=== PATIENT | female | born 1985 | race Caucasian/White ===

== ENCOUNTER 2021-06-22 18:51 | Emergency (ER) | payer OTHER, SELFPAY ==
[2021-06-22 19:03] VITALS: BP 125/79; PULSE 114; RESP 16; TEMP 37; O2SAT 100
[2021-06-22 19:26] VITALS: BP 125/79; PULSE 114; RESP 16; TEMP 37; O2SAT 100
--- NOTE | 2021-06-22 19:36 | ED.DENTAL ---
HPI - Dental/Oral General Chief complaint: Dental/Oral Stated complaint: tooth pain Time Seen by Provider: 06/22/21 19:36 Source: patient, RN notes reviewed and old records reviewed Mode of arrival: ambulatory Limitations: no limitations Related Data Home Medications Medication Instructions Recorded Confirmed conjugated estrogens 0.45 mg tablet 0.45 mg PO DAILY 04/28/21 04/28/21 diphenhydramine HCl 25 mg capsule 25 mg PO BID PRN cap 04/28/21 04/28/21 infliximab 100 mg intravenous IV 04/28/21 04/28/21 solution leflunomide 20 mg tablet 20 mg PO DAILY 04/28/21 04/28/21 meloxicam 15 mg tablet 15 mg PO DAILY 04/28/21 04/28/21 sulfasalazine 500 mg tablet 0.5 g PO BID tablet 04/28/21 04/28/21 Allergies Allergy/AdvReac Type Severity Reaction Status Date / Time lanolin Allergy Unknown Unknown Verified 06/22/21 19:24 latex Allergy Unknown Unknown Verified 06/22/21 19:24 methocarbamol Allergy Unknown Swelling Verified 06/22/21 19:24 tramadol Allergy Unknown Swelling Verified 06/22/21 19:24 amoxicillin Allergy Rash Verified 06/22/21 19:26 sumatriptan [From Imitrex] Allergy Dyspnea / Verified 06/22/21 19:26 SOB PMFSH Social History Social History Smoking status: Never smoker Alcohol intake: never Course Vital Signs Vital signs: Vital Signs Temperature 37.0 C 06/22/21 19:03 Pulse Rate 114 H 06/22/21 19:03 Respiratory Rate 16 06/22/21 19:03 Blood Pressure 125/79 06/22/21 19:03 Pulse Oximetry 100 06/22/21 19:03 Temperature 37.0 C 06/22/21 19:26 Pulse Rate 114 H 06/22/21 19:26 Respiratory Rate 16 06/22/21 19:26 Blood Pressure 125/79 06/22/21 19:26 Pulse Oximetry 100 06/22/21 19:26 Discharge Plan Discharge Prescriptions: No Action meloxicam 15 mg tablet 15 mg PO DAILY RF: 0 leflunomide 20 mg tablet 20 mg PO DAILY RF: 0 diphenhydramine HCl [Benadryl] 25 mg capsule 25 mg PO BID PRNRF: 0 Premarin 0.45 mg tablet 0.45 mg PO DAILY RF: 0 sulfasalazine 500 mg tablet 0.5 g PO BID RF: 0 Remicade 100 mg recon soln IV RF: 0 hydrocodone-acetaminophen 10-325 mg tablet 1 tablet PO Q6H PRN (Reason: pain (scale score 7-10)) Qty: 30 RF: 0 topiramate 25 mg tablet See Rx Instructions .ROUTE .COMPLEX Qty: 60 RF: 3
--- NOTE | 2021-06-22 19:41 | ED.GENADULT ---
HPI - General Adult General Chief complaint: Dental/Oral Stated complaint: tooth pain Time Seen by Provider: 06/22/21 19:36 Source: patient, RN notes reviewed and old records reviewed Mode of arrival: ambulatory Limitations: no limitations History of Present Illness HPI narrative: 35 year old female who presents to [facility] care with complaints of taking Amoxicillin for 5 to 6 days before [place] then about 2 days after Rickie she develop white spots on her tongue. Patient reports that her tongue is very sore especially medial aspect and she is having difficulty with eating and drinking due to discomfort. Patient denies any other ill symptoms denies fevers chills or sweats or any body aches has not had COVID or Flu vaccinations. Denies any dental pain. MD complaint: tongue pain and white patches Related Data Home Medications Medication Instructions Recorded Confirmed conjugated estrogens 0.45 mg tablet 0.45 mg PO DAILY 04/28/21 06/22/21 diphenhydramine HCl 25 mg capsule 25 mg PO BID PRN cap 04/28/21 06/22/21 infliximab 100 mg intravenous See Rx Instructions .ROUTE .COMPLEX 04/28/21 04/28/21 solution leflunomide 20 mg tablet 20 mg PO DAILY 04/28/21 06/22/21 meloxicam 15 mg tablet 15 mg PO DAILY 04/28/21 06/22/21 sulfasalazine 500 mg tablet 0.5 g PO BID tablet 04/28/21 06/22/21 Allergies Allergy/AdvReac Type Severity Reaction Status Date / Time lanolin Allergy Unknown Unknown Verified 06/22/21 19:24 latex Allergy Unknown Unknown Verified 06/22/21 19:24 methocarbamol Allergy Unknown Swelling Verified 06/22/21 19:24 tramadol Allergy Unknown Swelling Verified 06/22/21 19:24 amoxicillin Allergy Rash Verified 06/22/21 19:26 sumatriptan [From Imitrex] Allergy Dyspnea / Verified 06/22/21 19:26 SOB Review of Systems Review of Systems: CONSTITUTIONAL: Denies fever, chills, or sweats. EYES: Denies visual changes, redness, or discharge. ENT: Denies rhinorrhea, congestion, sore throat, or otalgia.positive for red tongue with white patches and pain. CARDIOVASCULAR: Denies chest pain, palpitations, or edema. RESPIRATORY: Denies cough or dyspnea. GASTROINTESTINAL: Denies abdominal pain, nausea, vomiting, or diarrhea. GENITOURINARY: Denies dysuria or hematuria. SKIN: Denies rash or itching. MUSCULOSKELETAL: Denies back pain,chronic joint pain, or myalgia. NEUROLOGIC: Denies headache, numbness, or weakness. PSYCHIATRIC: Denies anxiety or depression. All systems reviewed & are unremarkable except as noted in HPI and below PMFSH Past Medical History Medical History (Updated 06/25/21 @ 08:08 by Elise Vora NP) Rheumatoid arthritis Surgical History Surgical History (Updated 06/25/21 @ 08:09 by Elise Vora NP) History of hysterectomy S/p bilateral carpal tunnel release Social History Social History (Updated 06/25/21 @ 08:10 by Elise Vora NP) Smoking status: Never smoker Alcohol intake: never Substance use type: opiates Last use: pain control Living arrangements: with family Gender identity (if verbalized by the patient): Female Comments At time of signature, agree with nursing past medical, surgical, social and family history. There is no relevant family history pertinent to the presenting complaint Exam Narrative: GENERAL: Well-appearing, well-nourished, and in no acute distress. HEAD: Normocephalic, atraumatic. EYES: PERRLA and EOMI. ENT: Nares clear, no rhinorrhea or epistaxis. Mucous membranes moist.TM's normal with good light reflex, tongue red with white plaques noted no tonsil swelling or tonsils lesions or exudates NECK: Supple.no lymphadenopathy CHEST: Clear to auscultation. No respiratory distress.SAO2 100% on room air HEART: Regular rate and rhythm. No murmur heard. Normal peripheral pulses. ABDOMEN: Soft, nontender, nondistended, normal active bowel sounds. EXTREMITIES: Normal range of motion. No edema. SKIN: Warm, dry, no rash. NEURO: No focal deficits. Alert and vee
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
== END 2021-06-22 19:55 | disposition home or self-care (01) ==
PROVIDERS: Emergency Provider Registered Nurse; PCP Family Medicine
DX: B37.0 Candidal stomatitis (principal); M06.9 Rheumatoid arthritis, unspecified
CPT/HCPCS: 99213; G0463

== ENCOUNTER 2021-12-14 14:05 | Emergency (ER) | payer OTHER, SELFPAY ==
--- NOTE | ~2021-12-14 | XR_ITS ---
EXAM: XR hand RT min 3V DATE: 12/14/2021 14:47 HISTORY: FELL FORWARD X 3 DAYS AGO. HYPEREXTENDED. PAIN MEDIALLY. . COMPARISON: None available. FINDINGS: Normal mineralization. Small ossific fragments adjacent to the radial aspect of the proxim al first phalange. Dislocation of the first MCP with medial displacement of the first phalange. No ly tic or blastic lesion. Joint spaces and physes are maintained. No erosion or periosteal change. Soft tissues within normal limits. IMPRESSION: Medially displaced right first MCP dislocation. Osseous fragments adjacent to the first M CP may reflect small avulsion fractures versus chronic degenerative change. Reviewed, dictated and finalized at location [facility]. IMPRESSION: Medially displaced right first MCP dislocation. Osseous fragments a djacent to the first MCP may reflect small avulsion fractures versus chronic de generative change.
[2021-12-14 14:20] VITALS: BP 113/82; PULSE 92; RESP 14; TEMP 37.1; O2SAT 99
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
== END 2021-12-14 15:20 | disposition home or self-care (01) ==
PROVIDERS: Emergency Provider Nurse Practitioner
DX: S66.911A Strain of unspecified muscle, fascia and tendon at wrist and hand level, right hand, initial encounter (principal); W01.0XXA Fall on same level from slipping, tripping and stumbling without subsequent striking against object, initial encounter; S62.511A Displaced fracture of proximal phalanx of right thumb, initial encounter for closed fracture; M79.7 Fibromyalgia; M06.9 Rheumatoid arthritis, unspecified
CPT/HCPCS: 29130; 73130; 99214; G0463

== ENCOUNTER 2022-02-14 13:26 | Emergency (ER) | payer OTHER, SELFPAY ==
--- NOTE | 2022-02-14 13:40 | ED.DENTAL ---
HPI - Dental/Oral General Chief complaint: Dental/Oral Stated complaint: Toothache Time Seen by Provider: 02/14/22 13:40 Source: patient, RN notes reviewed and old records reviewed Mode of arrival: ambulatory Limitations: no limitations History of Present Illness HPI Narrative: 36-year-old female presents to the [facility] with right upper canine pain. States that it was worked on yesterday. Cannot take ibuprofen due to being on the meloxicam. Is allergic to every antibiotic except for azithromycin. Patient states that she needs to have of her teeth removed Related Data Home Medications Medication Instructions Recorded Confirmed infliximab 100 mg intravenous See Rx Instructions .Route .COMPLEX 04/28/21 02/14/22 solution (Remicade) leflunomide 20 mg tablet 20 mg PO DAILY 04/28/21 02/14/22 meloxicam 15 mg tablet 15 mg PO DAILY 04/28/21 02/14/22 conjugated estrogens 0.45 mg See Rx Instructions .Route .COMPLEX 12/14/21 02/14/22 tablet (Premarin) ibuprofen 800 mg tablet mg 02/14/22 02/14/22 Allergies Allergy/AdvReac Type Severity Reaction Status Date / Time lanolin Allergy Unknown Unknown Verified 02/14/22 13:53 latex Allergy Unknown Unknown Verified 02/14/22 13:53 methocarbamol Allergy Unknown Swelling Verified 02/14/22 13:53 tramadol Allergy Unknown Swelling Verified 02/14/22 13:53 amoxicillin Allergy Rash Verified 02/14/22 13:53 sumatriptan [From Imitrex] Allergy Dyspnea / Verified 02/14/22 13:53 SOB clindamycin AdvReac Diarrhea Verified 02/14/22 13:57 Review of Systems Review of Systems: All systems reviewed & are unremarkable except as noted in HPI and below Constitutional: Constitutional: Reports no additional constitutional complaints, Denies chills and Denies fever(s) Eyes: Eyes: Reports no additional eye complaints ENT: Reports as per HPI Cardiovascular: Cardiovascular: Reports no additional cardiovascular complaints Respiratory: Respiratory: Reports no additional respiratory complaints Gastrointestinal: Gastrointestinal: Reports no additional gastrointestinal complaints Musculoskeletal: Musculoskeletal: Reports no additional musculoskeletal complaints Integumentary/Breasts: Skin/Breast: Reports system reviewed and no additional complaints, except as docu Neurologic: Reports system reviewed and no additional complaints, except as documented Psychiatric: Psychiatric: Reports no additional psychiatric complaints Allergic/Immunologic: Allergic/Immunologic: Reports no additional allergic/immunologic complaints PMFSH Past Medical History Medical History Fibromyalgia Hand strain Rheumatoid arthritis Thumb dislocation Surgical History Surgical History History of hysterectomy S/p bilateral carpal tunnel release Family History Family History Father Family history non-contributory Social History Social History Smoking status: Never smoker Alcohol intake: never Last use: pain control Gender identity (if verbalized by the patient): Female Spiritual care concerns: No Comments At the time of my signature, I reviewed and agree with the nursing past medical, surgical, social, and family history. There is no relevant family history pertinent to the patient complaint. Exam Const: General: healthy appearing, no acute distress and alert Nutritional Appearance: well nourished Orientation/consciousness: patient oriented x3 Limitations: no limitations HENMT: Head: normal to inspection Ears: external ears normal, TM's normal bilaterally and EAC's normal General nose exam: Normal external nose present Face and sinus: normal facial exam Mouth: Yes lip normal and Yes moist mucous membranes Teeth and gingiva: abnormal tooth and associated gingiva (Left upper canine s
[2022-02-14 13:41] VITALS: BP 152/92; PULSE 92; RESP 18; TEMP 36.4; O2SAT 99
== END 2022-02-14 13:59 | disposition home or self-care (01) ==
PROVIDERS: Emergency Provider Nurse Practitioner
DX: K08.89 Other specified disorders of teeth and supporting structures (principal); M79.7 Fibromyalgia; M06.9 Rheumatoid arthritis, unspecified
CPT/HCPCS: 99213; G0463

== ENCOUNTER 2022-04-26 11:44 | Emergency (ER) | payer OTHER, SELFPAY ==
[2022-04-26 12:28] VITALS: BP 148/84; PULSE 91; RESP 14; TEMP 37.1; O2SAT 100
--- NOTE | 2022-04-26 13:31 | ED.GENADULT ---
HPI - General Adult General Stated complaint: Cough/Body Ache/Fever Source: patient Mode of arrival: ambulatory Limitations: no limitations History of Present Illness HPI narrative: Patient presents for evaluation of sick symptoms. Symptom onset 07/19/21. She reports a nonproductive cough, body aches, fever, mild sore throat and diarrhea. She denies nausea, vomiting, shortness of breath or chest pain. She has been exposed to COVID recently. She is taking tylenol and benadryl for her symptoms. Denies smoking. She indicates her both informed her that if she did not come in to work today she would lose her job. However, when she arrived there they advised that she go home. No additional complaints or concerns. Related Data Home Medications Medication Instructions Recorded Confirmed infliximab 100 mg intravenous See Rx Instructions .Route .COMPLEX 04/28/21 02/14/22 solution (Remicade) leflunomide 20 mg tablet 20 mg PO DAILY 04/28/21 02/14/22 meloxicam 15 mg tablet 15 mg PO DAILY 04/28/21 02/14/22 conjugated estrogens 0.45 mg See Rx Instructions .Route .COMPLEX 12/14/21 02/14/22 tablet (Premarin) ibuprofen 800 mg tablet mg 02/14/22 02/14/22 Allergies Allergy/AdvReac Type Severity Reaction Status Date / Time lanolin Allergy Unknown Unknown Verified 02/14/22 13:53 latex Allergy Unknown Unknown Verified 02/14/22 13:53 methocarbamol Allergy Unknown Swelling Verified 02/14/22 13:53 tramadol Allergy Unknown Swelling Verified 02/14/22 13:53 amoxicillin Allergy Rash Verified 02/14/22 13:53 sumatriptan [From Imitrex] Allergy Dyspnea / Verified 02/14/22 13:53 SOB clindamycin AdvReac Diarrhea Verified 02/14/22 13:57 Review of Systems Review of Systems: CONSTITUTIONAL: Reports fever. Denies chills, or sweats. EYES: Denies visual changes, redness, or discharge. ENT: Reports mild sore throat. Denies rhinorrhea, congestion, or otalgia. CARDIOVASCULAR: Denies chest pain, palpitations, or edema. RESPIRATORY: Reports cough. Denies SOB GASTROINTESTINAL: Reports diarrhea. Denies abdominal pain, nausea, or vomiting GENITOURINARY: Denies dysuria or hematuria. SKIN: Denies rash or itching. MUSCULOSKELETAL: Reports generalized body aches. NEUROLOGIC: Denies headache, numbness, dizziness, or weakness. PSYCHIATRIC: Denies anxiety or depression. [facility] Past Medical History Medical History Fibromyalgia Hand strain Rheumatoid arthritis Thumb dislocation Surgical History Surgical History History of hysterectomy S/p bilateral carpal tunnel release Family History Family History Father Family history non-contributory Social History Social History Smoking status: Never smoker Alcohol intake: never Substance use: never Last use: pain control Gender identity (if verbalized by the patient): Female Spiritual care concerns: No Exam Narrative: GENERAL: Well-appearing, well-nourished, and in no acute distress. HEAD: Normocephalic, atraumatic. EYES: PERRLA and EOMI. ENT: Nares clear, no rhinorrhea or epistaxis. Mucous membranes moist. Posterior pharyngeal erythema without exudate. Uvula is midline. Bilateral TMs pearly gifford nonbulging NECK: Supple. No adenopathy or masses. No carotid bruits or JVD CHEST: Cough present on exam. No respiratory distress. No wheezes rales or rhonchi HEART: Regular rate and rhythm. No murmur heard. Normal peripheral pulses. ABDOMEN: Soft, nontender, nondistended, normal active bowel sounds. EXTREMITIES: Normal range of motion. No edema. SKIN: Warm, dry, no rash. NEURO: No focal deficits. Alert and oriented x3. PSYCH: Normal mood and affect. Course Course Emergency Course: This is a 36-year-old female who presented for evaluation of
== END 2022-04-26 13:40 | disposition home or self-care (01) ==
PROVIDERS: Emergency Provider Nurse Practitioner
DX: J10.1 Influenza due to other identified influenza virus with other respiratory manifestations (principal); Z20.822 Contact with and (suspected) exposure to COVID-19
CPT/HCPCS: 87426; 87804; 99213; C9803; G0463

== ENCOUNTER 2022-05-16 17:23 | Emergency (ER) | payer OTHER, SELFPAY ==
[2022-05-16 17:38] VITALS: BP 123/84; PULSE 91; RESP 16; TEMP 37.5; O2SAT 99
--- NOTE | 2022-05-16 20:13 | ED.URI ---
HPI - URI/Sore Throat General Chief Complaint: Upper Respiratory Infection Stated Complaint: fever nausea diarrhea headache Time Seen by Provider: 05/16/22 20:10 Source: patient, RN notes reviewed and old records reviewed Mode of arrival: ambulatory Limitations: no limitations History of Present Illness HPI Narrative: 36 year female who presents to [facility] with nausea and vomiting since yesterday with body aches and fevers up 103F with headache. Patient reports that she was diagnosed with flu on the 04/26/2022 and received Tamiflu. Patient has history of Rheumatoid arthritis and takes monthly infusion. Patient has taken Ibuprofen for her symptoms. Patient reports that she has not had COVID or influenza vaccinations. MD elicited complaint: fever and other (nausea vomiting, body aches) Pertinent past history: immunosuppression Onset (ago): day(s) (since yesterday) Pain scale (0-10): 5 Treatments prior to arrival: ibuprofen Related Data Home Medications Medication Instructions Recorded Confirmed infliximab 100 mg intravenous 100 mg IV MONTHLY 04/28/21 05/16/22 solution (Remicade) meloxicam 15 mg tablet 15 mg PO DAILY 04/28/21 05/16/22 conjugated estrogens 0.45 mg See Rx Instructions .Route .COMPLEX 12/14/21 05/16/22 tablet (Premarin) sulfasalazine 500 mg tablet 0.5 g PO DAILY 05/16/22 05/16/22 topiramate 25 mg tablet 25 mg PO DAILY 05/16/22 05/16/22 Allergies Allergy/AdvReac Type Severity Reaction Status Date / Time amoxicillin Allergy Unknown Rash Verified 05/16/22 18:43 lanolin Allergy Unknown Unknown Verified 05/16/22 18:42 latex Allergy Unknown Unknown Verified 05/16/22 18:42 methocarbamol Allergy Unknown Swelling Verified 05/16/22 18:42 sumatriptan [From Imitrex] Allergy Unknown Dyspnea / Verified 05/16/22 18:43 SOB tramadol Allergy Unknown Swelling Verified 05/16/22 18:42 clindamycin AdvReac Unknown Diarrhea Verified 05/16/22 18:43 Review of Systems Review of Systems: CONSTITUTIONAL: Reports malaise, chills, sweats, or fever. EYES: Denies visual changes, redness, or discharge. ENT: No complaints of rhinorrhea, congestion, sinus pain, otalgia and sore throat. CARDIOVASCULAR: Denies chest pain, palpitations, or edema. RESPIRATORY: No reported cough.? Denies dyspnea. GASTROINTESTINAL: Denies abdominal pain reports nausea, vomiting, no diarrhea SKIN: Denies rash or itching. MUSCULOSKELETAL: Reports myalgia. NEUROLOGIC: Reports headache. All systems reviewed & are unremarkable except as noted in HPI and below PMFSH Past Medical History Medical History (Updated 05/23/22 @ 08:30 by Elise Vora NP) Anxiety Fibromyalgia Hand strain Hx of migraines Rheumatoid arthritis Thumb dislocation Surgical History Surgical History (Updated 05/23/22 @ 08:26 by Elise Vora NP) History of hysterectomy Previous section x2 S/p bilateral carpal tunnel release Family History Family History Father Family history non-contributory Social History Social History Smoking status: Never smoker Alcohol intake: never Substance use: never Last use: pain control Gender identity (if verbalized by the patient): Female Spiritual care concerns: No Comments At time of signature, agree with nursing past medical, surgical, social and family history. There is no relevant family history pertinent to the presenting complaint Exam Narrative: GENERAL: Well-appearing, well-nourished, and in no acute distress. HEAD: Normocephalic EYES: PERRLA, conjunctivae clear ENT: Nares clear, turbinates edematous and erythematous, clear discharge. Mucous membranes moist. TM pearly gifford with dull light reflex bilaterally; no tragal tenderness. Oropharynx erythematous without lesions. Tonsils not enlarged and without exudate, no drooling, no hoarseness, no trismus, uvula midline.
== END 2022-05-16 20:30 | disposition home or self-care (01) ==
PROVIDERS: Emergency Provider Registered Nurse
DX: U07.1 COVID-19 (principal); R11.2 Nausea with vomiting, unspecified
CPT/HCPCS: 87426; 99213; C9803; G0463

== ENCOUNTER 2022-05-28 18:40 | Emergency (ER) | payer OTHER, SELFPAY ==
--- NOTE | 2022-05-28 18:41 | ED.DENTAL ---
HPI - Dental/Oral General Chief complaint: Dental/Oral Stated complaint: Toothache Time Seen by Provider: 05/28/22 18:41 Source: patient and RN notes reviewed History of Present Illness HPI Narrative: patient is a 36-year-old female who presents to the Urgent Care in [facility] with complaints of dental pain. Patient states that she was at the dentist this morning and had a tooth pulled. States that she spoke to the fire management officer regarding the medication that was never called to her pharmacy, and the dentist was gone at that point. Therefore no medication was called for the patient. Patient is tearful but otherwise no acute distress noted. Patient aware of the plan of care. Some parts of this dictation were generated by voice recognition software and may contain typographical and/or grammatical inaccuracies. Related Data Home Medications Medication Instructions Recorded Confirmed sulfasalazine 500 mg tablet 0.5 g PO DAILY 05/16/22 05/28/22 topiramate 25 mg tablet 25 mg PO DAILY 05/16/22 05/28/22 Allergies Allergy/AdvReac Type Severity Reaction Status Date / Time amoxicillin Allergy Unknown Rash Verified 05/28/22 18:49 lanolin Allergy Unknown Unknown Verified 05/28/22 18:49 latex Allergy Unknown Unknown Verified 05/28/22 18:49 methocarbamol Allergy Unknown Swelling Verified 05/28/22 18:49 sumatriptan [From Imitrex] Allergy Unknown Dyspnea / Verified 05/28/22 18:49 SOB tramadol Allergy Unknown Swelling Verified 05/28/22 18:49 clindamycin AdvReac Unknown Diarrhea Verified 05/28/22 18:49 Review of Systems Review of Systems: CONSTITUTIONAL: Denies fever, chills, or sweats. EYES: Denies visual changes, redness, or discharge. ENT: Denies rhinorrhea, congestion, sore throat, or otalgia. Reports right upper dental pain CARDIOVASCULAR: Denies chest pain, palpitations, or edema. RESPIRATORY: Denies cough or dyspnea. GASTROINTESTINAL: Denies abdominal pain, nausea, vomiting, or diarrhea. GENITOURINARY: Denies dysuria or hematuria. SKIN: Denies rash or itching. MUSCULOSKELETAL: Denies back pain, joint pain, or myalgia. NEUROLOGIC: Denies headache, numbness, or weakness. All other systems reviewed are negative, except as documented in HPI. [facility] Past Medical History Medical History (Updated 05/28/22 @ 18:56 by ALEAH Hearn) Anxiety Fibromyalgia Hand strain Hx of migraines Rheumatoid arthritis Thumb dislocation Surgical History Surgical History (Updated 05/23/22 @ 08:26 by Elise Vora NP) History of hysterectomy Previous section x2 S/p bilateral carpal tunnel release Family History Family History Father Family history non-contributory Social History Social History Smoking status: Never smoker Alcohol intake: never Substance use: never Last use: pain control Gender identity (if verbalized by the patient): Female Spiritual care concerns: No Comments At the time of my signature, I reviewed and agree with the nursing past medical, surgical, social, and family history. There is no relevant family history pertinent to the patient complaint. Exam Narrative: GENERAL: This is a well-nourished, well-developed patient,tearful HEAD: normocephalic, atraumatic. EYES: PERRL. Sclera clear/white. Vision is grossly intact. EARS: External ears normal, auditory canals clear and without drainage, TMs normal without perforation. Hearing grossly intact. NOSE: External nose normal with no obvious nasal discharge, nares without redness, no rhinorrhea. THROAT: Mucous membranes moist, posterior pharynx clear. DENTAL: missing tooth 5. , upper right 2nd premolar with scant bleeding, erythema NECK: Neck supple SKIN: warm, intact with no suspicious lesions or rash, good texture and turgor. NEURO: awake, alert, and oriented to person, place and time. There were no obvious focal neur
[2022-05-28 18:46] VITALS: BP 128/80; PULSE 79; RESP 20; TEMP 36.8; O2SAT 100
[2022-05-28 18:52] VITALS: BP 128/80; PULSE 79; RESP 20; TEMP 36.8; O2SAT 100
== END 2022-05-28 19:02 | disposition home or self-care (01) ==
PROVIDERS: Emergency Provider Nurse Practitioner Family
DX: K08.89 Other specified disorders of teeth and supporting structures (principal); M79.7 Fibromyalgia; M06.9 Rheumatoid arthritis, unspecified
CPT/HCPCS: 99213; G0463

== ENCOUNTER 2022-10-04 16:29 | Emergency (ER) | payer OTHER, SELFPAY ==
--- NOTE | 2022-10-04 17:05 | ED.URI ---
HPI - URI/Sore Throat General Chief Complaint: Upper Respiratory Infection Stated Complaint: Sinus/Cough Time Seen by Provider: 10/04/22 17:38 Source: patient and RN notes reviewed Mode of arrival: ambulatory Limitations: no limitations History of Present Illness HPI Narrative: 29-year-old female with history of rheumatoid arthritis presents with concern for 2 week history of rhinorrhea, nasal congestion, cough. She reports chest congestion. Reports she coughed hard enough that she felt a pop in her chest and now it hurts in that area when she cough cough. MD elicited complaint: cough, rhinorrhea and nasal congestion Related Data Home Medications Medication Instructions Recorded Confirmed conjugated estrogens 0.45 mg 0.45 mg PO DAILY 10/04/22 10/04/22 tablet (Premarin) meloxicam 15 mg tablet 15 mg PO DIRECTED 10/04/22 10/04/22 sulfasalazine 500 mg tablet 500 mg PO DIRECTED 10/04/22 10/04/22 Allergies Allergy/AdvReac Type Severity Reaction Status Date / Time amoxicillin Allergy Unknown Rash Verified 10/04/22 16:48 lanolin Allergy Unknown Unknown Verified 10/04/22 16:48 latex Allergy Unknown Unknown Verified 10/04/22 16:48 methocarbamol Allergy Unknown Swelling Verified 10/04/22 16:48 sumatriptan [From Imitrex] Allergy Unknown Dyspnea / Verified 10/04/22 16:48 SOB tramadol Allergy Unknown Swelling Verified 10/04/22 16:48 clindamycin AdvReac Unknown Diarrhea Verified 10/04/22 16:48 Review of Systems Review of Systems: CONSTITUTIONAL: Reports malaise. Denies chills, sweats, or fever. EYES: Denies visual changes, redness, or discharge. ENT: Reports rhinorrhea, congestion, sinus pain. Denies otalgia and sore throat. CARDIOVASCULAR: Denies chest pain, palpitations, or edema. RESPIRATORY: Reports cough, dyspnea. GASTROINTESTINAL: Denies abdominal pain, nausea, vomiting, diarrhea SKIN: Denies rash or itching. MUSCULOSKELETAL: Reports left rib pain NEUROLOGIC: Denies headache. All systems reviewed & are unremarkable except as noted in HPI and below PMFSH Past Medical History Medical History (Updated 10/04/22 @ 17:57 by Azeb Kaplan NP) Anxiety Fibromyalgia Hand strain Hx of migraines Rheumatoid arthritis Thumb dislocation Surgical History Surgical History (Updated 05/23/22 @ 08:26 by Elise Vora NP) History of hysterectomy Previous section x2 S/p bilateral carpal tunnel release Family History Family History Father Family history non-contributory Social History Social History Smoking status: Never smoker Alcohol intake: never Substance use: never Last use: pain control Living arrangements: alone Gender identity (if verbalized by the patient): Female Spiritual care concerns: No Comments At time of signature, agree with nursing past medical, surgical, social and family history. There is no relevant family history pertinent to the presenting complaint Exam Narrative: GENERAL: Nontoxic-appearing and in no acute distress. HEAD: Normocephalic EYES: PERRLA, conjunctivae clear ENT: Nares clear, turbinates edematous and erythematous, yellow discharge. Mucous membranes moist. TM pearly gifford with dull light reflex bilaterally; no tragal tenderness. Oropharynx not erythematous without lesions. Tonsils not enlarged and without exudate, no drooling, no hoarseness, no trismus, uvula midline. NECK: Supple. No lymphadenopathy CHEST: Scattered inspiratory and expiratory wheeze with scattered rhonchi, breath sounds equal. No rales, or stridor. No respiratory distress, speaks in full sentences. HEART: Regular rate and rhythm. No murmur heard. SKIN: Warm, dry, no rash. NEURO: Alert and oriented x3. PSYCH: Normal mood and affect Course Course Emergency Course: Patient is aware of diagnosis, understands and agrees to treatment plan. Anticipatory guidance give
[2022-10-04 17:07] VITALS: BP 112/64; PULSE 72; RESP 18; TEMP 37.2; O2SAT 98
[2022-10-04] MEDS: IPRATROPIUM BR 0.02% INH SOLN 0.5 MG/2.5 ML VIAL INHALATION (17:56)
[2022-10-04] MEDS: ALBUTEROL SULFATE NEB 2.5 MG/3 ML INH INHALATION (17:56)
== END 2022-10-04 18:32 | disposition home or self-care (01) ==
PROVIDERS: Emergency Provider Nurse Practitioner
DX: J06.9 Acute upper respiratory infection, unspecified (principal); R06.2 Wheezing; Z20.822 Contact with and (suspected) exposure to COVID-19; M79.7 Fibromyalgia; M06.9 Rheumatoid arthritis, unspecified
CPT/HCPCS: 87426; 87804; 99213; C9803; G0463

== ENCOUNTER 2023-02-09 12:59 | Emergency (ER) | payer OTHER, SELFPAY ==
--- NOTE | ~2023-02-09 | XR_ITS ---
EXAMINATION: XR wrist RT min 3V INDICATION: Right wrist pain TECHNIQUE: Two views of the right wrist are obtained. COMPARISON: 12/14/2021 FINDINGS: No fracture, dislocation, or subluxation. The bones, soft tissues, and joint spaces are nor mal. IMPRESSION: 1. No acute osseous abnormality. Reviewed, dictated and finalized at location A.
--- NOTE | 2023-02-09 13:14 | ED.UPPEXIN ---
HPI - Extremity Injury (Upper) General Chief Complaint: Extremity Injury, Upper Stated Complaint: right wrist pain Source: patient and RN notes reviewed History of Present Illness HPI narrative: 37 yo F presents to urgent care with complaints of right wrist pain. 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 REports this pain will radiate up her forearm with any movement of her wrist or hand. Pt reports some tingling and burning in her fingers. Pt states she was seen at [facility] ER about a week ago where they gave Rxs for Ketoralac and Solumedrol. Pt states she has been taking both of those medications and wearing a brace with no relief. Pt has also been applying ice and elevating the extremity with no relief. Related Data Home Medications Medication Instructions Recorded Confirmed conjugated estrogens 0.45 mg 0.45 mg PO DAILY 10/04/22 02/09/23 tablet (Premarin) sulfasalazine 500 mg tablet 500 mg PO DIRECTED 10/04/22 02/09/23 meloxicam 15 mg tablet 15 mg PO DIRECTED 02/09/23 02/09/23 Allergies Allergy/AdvReac Type Severity Reaction Status Date / Time amoxicillin Allergy Unknown Rash Verified 02/09/23 13:11 lanolin Allergy Unknown Unknown Verified 02/09/23 13:11 latex Allergy Unknown Unknown Verified 02/09/23 13:11 methocarbamol Allergy Unknown Swelling Verified 02/09/23 13:11 sumatriptan [From Imitrex] Allergy Unknown Dyspnea / Verified 02/09/23 13:11 SOB tramadol Allergy Unknown Swelling Verified 02/09/23 13:11 clindamycin AdvReac Unknown Diarrhea Verified 02/09/23 13:11 Review of Systems Review of Systems: CONSTITUTIONAL: Denies fever, chills, or sweats. EYES: Denies visual changes, redness, or discharge. ENT: Denies otalgia and sore throat CARDIOVASCULAR: Denies chest pain, palpitations, or edema. RESPIRATORY: Denies cough or dyspnea. GASTROINTESTINAL: Denies abdominal pain, nausea, vomiting, or diarrhea. GENITOURINARY: Denies dysuria or hematuria. SKIN: Denies rash or itching. MUSCULOSKELETAL: Right wrist pain NEUROLOGIC: Denies headache, numbness, or weakness. Pertinent positives per HPI. [facility] Past Medical History Medical History (Updated 02/09/23 @ 13:35 by Rebecca Hernandez APRN) Anxiety Fibromyalgia Hand strain Hx of migraines Rheumatoid arthritis Thumb dislocation Surgical History Surgical History (Updated 05/23/22 @ 08:26 by Elise Vora NP) History of hysterectomy Previous section x2 S/p bilateral carpal tunnel release Family History Family History Father Family history non-contributory Social History Social History Smoking status: Never smoker Alcohol intake: never Substance use: never Last use: pain control Living arrangements: alone Gender identity (if verbalized by the patient): Female Spiritual care concerns: No Comments At the time of my signature, I reviewed and agree with the nursing past medical, surgical, social, and family history. There is no relevant family history pertinent to the patient complaint. Exam Narrative: GENERAL: This is a well-nourished, well-developed patient, in no apparent distress. HEAD: normocephalic, atraumatic. EYES: Sclera clear/white. Vision is grossly intact. EARS: External ears normal, auditory canals clear and without drainage. Hearing grossly intact. NOSE: External nose normal with no obvious nasal discharge, nares without redness, no rhinorrhea. THROAT: Mucous membranes moist, posterior pharynx clear. NECK: Neck supple, non-tender without lymphadenopathy, masses or thyromegaly. CARDIOVASCULAR: Regular rate RESPIRATORY: No respiratory distress SKIN: warm, intact with no suspicious lesions or rash, good texture and turgor. NEURO: awake, alert, and oriented to person, place and time.
[2023-02-09 13:17] VITALS: BP 137/74; PULSE 81; RESP 16; TEMP 36.8; O2SAT 99
== END 2023-02-09 13:46 | disposition home or self-care (01) ==
PROVIDERS: Emergency Provider Nurse Practitioner Family
DX: M25.531 Pain in right wrist (principal); M77.8 Other enthesopathies, not elsewhere classified; M79.7 Fibromyalgia; M06.9 Rheumatoid arthritis, unspecified
CPT/HCPCS: 73110; 99213; G0463

== ENCOUNTER 2023-05-02 19:20 | Emergency (ER) | payer OTHER, SELFPAY ==
[2023-05-02 19:27] VITALS: BP 115/75; PULSE 100; RESP 16; TEMP 37.1; O2SAT 100
--- NOTE | 2023-05-02 19:37 | ED.GENADULT ---
HPI - General Adult General Chief complaint: Nausea/Vomiting/Diarrhea Stated complaint: Sinus Source: patient Mode of arrival: ambulatory Limitations: no limitations History of Present Illness HPI narrative: patient presents requesting a note to allow her to return to work on Wednesday of this week. She states she had some respiratory symptoms last week which resolved fairly quickly. She then developed some abdominal cramping, nausea, vomiting and diarrhea. She took some Imodium which seemed to help her symptoms. Her partner and children all recently had similar symptoms. She has an underlying hx of autoimmune disease and is on Remicade infusions. She states her symptoms are markedly improved and she would like to return to work. Related Data Home Medications Medication Instructions Recorded Confirmed conjugated estrogens 0.45 mg 0.45 mg PO DAILY 10/04/22 05/02/23 tablet (Premarin) sulfasalazine 500 mg tablet 500 mg PO DIRECTED 10/04/22 05/02/23 Benadryl 05/02/23 Remicade 05/02/23 meloxicam 15 mg tablet mg 05/02/23 Allergies Allergy/AdvReac Type Severity Reaction Status Date / Time amoxicillin Allergy Unknown Rash Verified 05/02/23 19:24 lanolin Allergy Unknown Unknown Verified 05/02/23 19:24 latex Allergy Unknown Unknown Verified 05/02/23 19:24 methocarbamol Allergy Unknown Swelling Verified 05/02/23 19:24 sumatriptan [From Imitrex] Allergy Unknown Dyspnea / Verified 05/02/23 19:24 SOB clindamycin AdvReac Unknown Diarrhea Verified 05/02/23 19:24 Review of Systems Review of Systems: CONSTITUTIONAL: Reports recent fever, none currently. Denies chills, or sweats. EYES: Denies visual changes, redness, or discharge. ENT: Denies rhinorrhea, congestion, sore throat, or otalgia. CARDIOVASCULAR: Denies chest pain, palpitations, or edema. RESPIRATORY: Reports cough last week, now resolved. Denies SOB GASTROINTESTINAL: Reports recent abdominal cramping, nausea, vomiting and diarrhea. GENITOURINARY: Denies dysuria or hematuria. SKIN: Denies rash or itching. MUSCULOSKELETAL: Denies back pain, joint pain, or myalgia. NEUROLOGIC: Denies headache, numbness, dizziness, or weakness. PSYCHIATRIC: Denies anxiety or depression. [facility] Past Medical History Medical History Anxiety Fibromyalgia Hand strain Hx of migraines Rheumatoid arthritis Thumb dislocation Surgical History Surgical History History of hysterectomy Previous section x2 S/p bilateral carpal tunnel release Family History Family History Father Family history non-contributory Social History Social History Smoking status: Never smoker Alcohol intake: never Substance use: never Last use: pain control Living arrangements: alone Gender identity (if verbalized by the patient): Female Spiritual care concerns: No Exam Narrative: GENERAL: Well-appearing, well-nourished, and in no acute distress. HEAD: Normocephalic, atraumatic. EYES: PERRLA and EOMI. ENT: Nares clear, no rhinorrhea or epistaxis. Mucous membranes moist. Oropharynx without tonsillar hypertrophy exudate or other lesions. Bilateral TMs pearly gifford nonbulging NECK: Supple. No adenopathy or masses. No carotid bruits or JVD CHEST: Clear to auscultation. No respiratory distress. No wheezes rales or rhonchi HEART: Regular rate and rhythm. No murmur heard. Normal peripheral pulses. ABDOMEN: Soft, nontender, nondistended, normal active bowel sounds. EXTREMITIES: Normal range of motion. No edema. SKIN: Warm, dry, no rash. NEURO: No focal deficits. Alert and oriented x3. PSYCH: Normal mood and affect. Course Course Emergency Course: This is a 37-year-old female who presented requesting a note to a
== END 2023-05-02 19:38 | disposition home or self-care (01) ==
PROVIDERS: Emergency Provider Nurse Practitioner
DX: B34.9 Viral infection, unspecified (principal); M79.7 Fibromyalgia; M06.9 Rheumatoid arthritis, unspecified
CPT/HCPCS: 99211; G0463

== ENCOUNTER 2023-06-03 18:37 | Emergency (ER) | payer OTHER, SELFPAY ==
--- NOTE | 2023-06-03 18:44 | ED.URI ---
HPI - URI/Sore Throat General Chief Complaint: Upper Respiratory Infection Stated Complaint: Cough/Sinus Time Seen by Provider: 06/03/23 18:44 Source: patient Mode of arrival: ambulatory Limitations: no limitations History of Present Illness HPI Narrative: Jalyn is a 37-year-old female patient presenting to the clinic today with complaints of sinus congestion, cough, body aches, chills, and fever. She reports that she has had exposure to someone with COVID. Had sore throat initially but that has resolved. Symptoms started on Wednesday. MD elicited complaint: cough, sore throat, rhinorrhea and nasal congestion Related Data Home Medications Medication Instructions Recorded Confirmed conjugated estrogens 0.45 mg 0.45 mg PO DAILY 10/04/22 06/03/23 tablet (Premarin) sulfasalazine 500 mg tablet 500 mg PO DIRECTED 10/04/22 06/03/23 Remicade DIRECTED 05/02/23 meloxicam 15 mg tablet 15 mg PO DIRECTED 05/02/23 06/03/23 Allergies Allergy/AdvReac Type Severity Reaction Status Date / Time amoxicillin Allergy Unknown Rash Verified 06/03/23 18:48 lanolin Allergy Unknown Unknown Verified 06/03/23 18:48 latex Allergy Unknown Unknown Verified 06/03/23 18:48 methocarbamol Allergy Unknown Swelling Verified 06/03/23 18:48 sumatriptan [From Imitrex] Allergy Unknown Dyspnea / Verified 06/03/23 18:48 SOB clindamycin AdvReac Unknown Diarrhea Verified 06/03/23 18:48 Review of Systems Review of Systems: Pertinent positives per HPI. Patient denies any fever, chills, rash, headache, visual changes, dizziness, shortness of breath, chest pain, palpitations, nausea, vomiting, diarrhea, constipation, abdominal pain, or any urinary issues. [facility] Past Medical History Medical History Anxiety Fibromyalgia Hand strain Hx of migraines Rheumatoid arthritis Thumb dislocation Surgical History Surgical History History of hysterectomy Previous section x2 S/p bilateral carpal tunnel release Family History Family History Father Family history non-contributory Social History Social History Smoking status: Never smoker Alcohol intake: never Substance use: never Last use: pain control Living arrangements: alone Gender identity (if verbalized by the patient): Female Spiritual care concerns: No Comments At the time of my signature, I reviewed and agree with the nursing past medical, surgical, social, and family history. There is no relevant family history pertinent to the patient complaint. Exam Narrative: General: Well-developed, well nourished, in no apparent distress Head: Normocephalic, atraumatic Eyes: Pupils equally round and reactive to light bilaterally, EOM intact, sclera and conjunctive clear, no discharge, lids normal Ears: TMs intact and clear, ear canals clear, no drainage, grossly hearing normal. Nose: Nares patent, clear nasal discharge, no inflammation, no sinus tenderness. Mouth: Oral pharynx without lesions or masses, good dentition, MMM. Neck: Supple, trachea midline, no enlargement of anterior or posterior cervical nodes, no thyroid masses or goiter palpable. Cardio: Regular rate and rhythm, s1 and s2 normal, no murmur appreciated. Resp: Clear to auscultation bilaterally, no rhonchi, rales, wheezing or rubs Course Course Emergency Course: Portions of this record may have been created with voice recognition software. Level of Care: Express Care Visit Vital Signs Vital signs: Vital signs reviewed MDM - URI/Sore Throat MDM Narrative Medical decision making narrative: At the time of visit patient is resting comfortably on the exam table. Patient appears to be nontoxic. COVID and influenza testing was negative in the clinic today. I
[2023-06-03 18:48] VITALS: BP 123/73; PULSE 84; RESP 16; TEMP 37.4; O2SAT 100
== END 2023-06-03 19:10 | disposition home or self-care (01) ==
PROVIDERS: Emergency Provider Nurse Practitioner Family
DX: B34.9 Viral infection, unspecified (principal); J06.9 Acute upper respiratory infection, unspecified; Z79.899 Other long term (current) drug therapy; Z20.822 Contact with and (suspected) exposure to COVID-19
CPT/HCPCS: 87426; 87804; 99213; C9803; G0463

== ENCOUNTER 2023-06-06 09:56 | Emergency (ER) | payer OTHER, SELFPAY ==
--- NOTE | 2023-06-06 10:05 | ED.URI ---
HPI - URI/Sore Throat General Chief Complaint: Upper Respiratory Infection Stated Complaint: cough,work note Time Seen by Provider: 06/06/23 10:52 Source: patient and RN notes reviewed Mode of arrival: ambulatory Limitations: no limitations History of Present Illness HPI Narrative: 37-year-old female presents with concern for returning to work after have cough. Reports she is feeling better, she still has a mild lingering cough but no fever, chills, aches sweats shortness breath. Reports her is requiring a work note because she still has a cough. Reports she has been using her inhaler as needed. MD elicited complaint: cough Related Data Home Medications Medication Instructions Recorded Confirmed conjugated estrogens 0.45 mg 0.45 mg PO DAILY 10/04/22 06/06/23 tablet (Premarin) sulfasalazine 500 mg tablet 500 mg PO DIRECTED 10/04/22 06/06/23 meloxicam 15 mg tablet 15 mg PO DIRECTED 05/02/23 06/06/23 albuterol sulfate 90 mcg/actuation See Rx Instructions .Route .COMPLEX 06/06/23 06/06/23 aerosol inhaler Allergies Allergy/AdvReac Type Severity Reaction Status Date / Time amoxicillin Allergy Unknown Rash Verified 06/06/23 10:08 lanolin Allergy Unknown Unknown Verified 06/06/23 10:08 latex Allergy Unknown Unknown Verified 06/06/23 10:08 methocarbamol Allergy Unknown Swelling Verified 06/06/23 10:08 sumatriptan [From Imitrex] Allergy Unknown Dyspnea / Verified 06/06/23 10:08 SOB clindamycin AdvReac Unknown Diarrhea Verified 06/06/23 10:08 Review of Systems Review of Systems: CONSTITUTIONAL: Denies malaise, chills, sweats, or fever. EYES: Denies visual changes, redness, or discharge. ENT: Denies rhinorrhea, congestion, sinus pain, otalgia and sore throat. CARDIOVASCULAR: Denies chest pain, palpitations, or edema. RESPIRATORY: Reports cough. Denies dyspnea. GASTROINTESTINAL: Denies abdominal pain, nausea, vomiting, diarrhea SKIN: Denies rash or itching. MUSCULOSKELETAL: Denies myalgia. NEUROLOGIC: Denies headache. All systems reviewed & are unremarkable except as noted in HPI and below PMFSH Past Medical History Medical History Anxiety Fibromyalgia Hand strain Hx of migraines Rheumatoid arthritis Thumb dislocation Surgical History Surgical History History of hysterectomy Previous section x2 S/p bilateral carpal tunnel release Family History Family History Father Family history non-contributory Social History Social History Smoking status: Never smoker Alcohol intake: never Substance use: never Last use: pain control Living arrangements: alone Gender identity (if verbalized by the patient): Female Spiritual care concerns: No Comments At time of signature, agree with nursing past medical, surgical, social and family history. There is no relevant family history pertinent to the presenting complaint Exam Narrative: GENERAL: Well-appearing, well-nourished, and in no acute distress. HEAD: Normocephalic EYES: PERRLA, conjunctivae clear ENT: Nares clear. Mucous membranes moist. TM pearly gifford with your light reflex bilaterally; no tragal tenderness. Oropharynx not erythematous without lesions. Tonsils not enlarged and without exudate, no drooling, no hoarseness, no trismus, uvula midline. NECK: Supple. No lymphadenopathy CHEST: Clear to auscultation, breath sounds equal. No wheezing, rhonchi, rales, or stridor. No respiratory distress, speaks in full sentences. HEART: Regular rate and rhythm. No murmur heard. SKIN: Warm, dry, no rash. NEURO: Alert and oriented x3. PSYCH: Normal mood and affect Course Course Emergency Course: Patient is aware of diagnosis, understands and agrees to treatment plan. Anticipatory guidance given.
[2023-06-06 10:08] VITALS: BP 117/72; PULSE 101; RESP 16; TEMP 37.2; O2SAT 98
== END 2023-06-06 11:02 | disposition home or self-care (01) ==
PROVIDERS: Emergency Provider Nurse Practitioner
DX: R05.9 Cough, unspecified (principal); M79.7 Fibromyalgia; M06.9 Rheumatoid arthritis, unspecified
CPT/HCPCS: 99213; G0463

== ENCOUNTER 2023-06-17 08:56 | Emergency (ER) | payer OTHER, SELFPAY ==
[2023-06-17 09:05] VITALS: BP 142/84; PULSE 97; RESP 18; TEMP 37.7; O2SAT 100
--- NOTE | 2023-06-17 09:21 | ED.URI ---
HPI - URI/Sore Throat General Chief Complaint: Upper Respiratory Infection Stated Complaint: Cough Time Seen by Provider: 06/17/23 09:22 Source: patient, RN notes reviewed and old records reviewed Mode of arrival: ambulatory Limitations: no limitations History of Present Illness HPI Narrative: 37-year-old female presents to the [facility] with complaints of a cough. Has been going on for several weeks. States that she ran out of albuterol and as the only thing that helps her. Denies any other symptoms currently. Has been seen on 06/03 and for similar symptoms. Related Data Home Medications Medication Instructions Recorded Confirmed conjugated estrogens 0.45 mg 0.45 mg PO DAILY 10/04/22 06/17/23 tablet (Premarin) sulfasalazine 500 mg tablet 500 mg PO DIRECTED 10/04/22 06/17/23 meloxicam 15 mg tablet 15 mg PO DIRECTED 05/02/23 06/17/23 albuterol sulfate 90 mcg/actuation See Rx Instructions .Route .COMPLEX 06/06/23 06/17/23 aerosol inhaler Allergies Allergy/AdvReac Type Severity Reaction Status Date / Time amoxicillin Allergy Unknown Rash Verified 06/06/23 10:08 lanolin Allergy Unknown Unknown Verified 06/06/23 10:08 latex Allergy Unknown Unknown Verified 06/06/23 10:08 methocarbamol Allergy Unknown Swelling Verified 06/06/23 10:08 sumatriptan [From Imitrex] Allergy Unknown Dyspnea / Verified 06/06/23 10:08 SOB clindamycin AdvReac Unknown Diarrhea Verified 06/06/23 10:08 Review of Systems Review of Systems: All systems reviewed & are unremarkable except as noted in HPI and below Constitutional: Constitutional: Reports no additional constitutional complaints Eyes: Eyes: Reports no additional eye complaints ENT: Reports system reviewed and no additional complaints, except as documented Cardiovascular: Cardiovascular: Reports no additional cardiovascular complaints, Denies chest pain and Denies dyspnea Respiratory: Respiratory: Reports as per HPI, Denies chest congestion, Reports cough and Denies dyspnea Gastrointestinal: Gastrointestinal: Reports no additional gastrointestinal complaints, Denies abdominal pain, Denies nausea and Denies vomiting Musculoskeletal: Musculoskeletal: Reports no additional musculoskeletal complaints Integumentary/Breasts: Skin/Breast: Reports system reviewed and no additional complaints, except as docu Neurologic: Reports system reviewed and no additional complaints, except as documented Psychiatric: Psychiatric: Reports no additional psychiatric complaints Allergic/Immunologic: Allergic/Immunologic: Reports no additional allergic/immunologic complaints PMFSH Past Medical History Medical History Anxiety Fibromyalgia Hand strain Hx of migraines Rheumatoid arthritis Thumb dislocation Surgical History Surgical History History of hysterectomy Previous section x2 S/p bilateral carpal tunnel release Family History Family History Father Family history non-contributory Social History Social History Smoking status: Never smoker Alcohol intake: never Substance use: never Last use: pain control Living arrangements: alone Gender identity (if verbalized by the patient): Female Spiritual care concerns: No Comments At the time of my signature, I reviewed and agree with the nursing past medical, surgical, social, and family history. There is no relevant family history pertinent to the patient complaint. Exam Const: General: cooperative, healthy appearing, comfortable, no acute distress, well developed, alert and well nourished Nutritional Appearance: well nourished Orientation/consciousness: patient oriented x3 Limitations: no limitations HENMT: Head: normal to inspection Ears: hearing grossly normal bilaterally
== END 2023-06-17 09:50 | disposition home or self-care (01) ==
PROVIDERS: Emergency Provider Nurse Practitioner
DX: R05.1 Acute cough (principal); R09.82 Postnasal drip; M06.9 Rheumatoid arthritis, unspecified; Z79.899 Other long term (current) drug therapy; Z79.1 Long term (current) use of non-steroidal anti-inflammatories (NSAID)
CPT/HCPCS: 99213; G0463

== ENCOUNTER 2023-07-01 11:04 | Emergency (ER) | payer OTHER, SELFPAY ==
--- NOTE | ~2023-07-01 | XR_ITS ---
XR knee RT 3V DATE: 07/01/2023 11:33 INDICATION: Retropatellar and medial right knee pain TECHNIQUE: AP, lateral and sunrise views COMPARISON: None FINDINGS: Small suprapatellar knee joint effusion is suggested. No fracture or dislocation, periosteal reaction or bone destruction, radiopaque intra-articular loose body or chondrocalcinosis is detected. Joint spaces are well preserved. IMPRESSION: Small suprapatellar knee joint effusion is suggested Reviewed, dictated and finalized at location [facility] [employer]
[2023-07-01 11:15] VITALS: BP 105/71; PULSE 107; RESP 16; TEMP 37.6; O2SAT 98
--- NOTE | 2023-07-01 11:15 | ED.EXTPRO ---
HPI - Extremity Problem General Chief complaint: Extremity Injury, Lower Stated complaint: Right Knee Pain Time Seen by Provider: 07/01/23 11:20 Source: patient Mode of arrival: ambulatory Limitations: no limitations History of Present Illness HPI Narrative: Jalyn is a 37-year-old female patient presenting to the clinic today with complaints of right knee pain for the past few days however this morning she was getting out of bed and was on her knees in the bed trying to get out of bed when she developed a burning sensation to the right medial knee and felt like hot Lava under her patella. History of rheumatoid arthritis Related Data Home Medications Medication Instructions Recorded Confirmed conjugated estrogens 0.45 mg 0.45 mg PO DAILY 10/04/22 07/01/23 tablet (Premarin) sulfasalazine 500 mg tablet 500 mg PO DIRECTED 10/04/22 07/01/23 meloxicam 15 mg tablet 15 mg PO DIRECTED 05/02/23 07/01/23 albuterol sulfate 90 mcg/actuation See Rx Instructions .Route .COMPLEX 06/06/23 07/01/23 aerosol inhaler Allergies Allergy/AdvReac Type Severity Reaction Status Date / Time amoxicillin Allergy Unknown Rash Verified 07/01/23 11:08 lanolin Allergy Unknown Unknown Verified 07/01/23 11:08 latex Allergy Unknown Unknown Verified 07/01/23 11:08 methocarbamol Allergy Unknown Swelling Verified 07/01/23 11:08 sumatriptan [From Imitrex] Allergy Unknown Dyspnea / Verified 07/01/23 11:08 SOB clindamycin AdvReac Unknown Diarrhea Verified 07/01/23 11:08 PMFSH Past Medical History Medical History Anxiety Fibromyalgia Hand strain Hx of migraines Rheumatoid arthritis Thumb dislocation Surgical History Surgical History History of hysterectomy Previous section x2 S/p bilateral carpal tunnel release Family History Family History Father Family history non-contributory Social History Social History Smoking status: Never smoker Alcohol intake: never Substance use: never Last use: pain control Living arrangements: alone Gender identity (if verbalized by the patient): Female Spiritual care concerns: No Comments At the time of my signature, I reviewed and agree with the nursing past medical, surgical, social, and family history. There is no relevant family history pertinent to the patient complaint. Exam Narrative: General: Well-developed, well nourished, in no apparent distress Head: Normocephalic, atraumatic. Cardio: Regular rate and rhythm, s1 and s2 normal, no murmur appreciated. Resp: Clear to auscultation bilaterally, no rhonchi, rales, wheezing or rubs. Musculoskeletal: No deformity,tender to palpation over the right medial knee and just to the inferior knee cap. No pain with flexion and extension of the right knee, pain with valgus and varus testing, grossly normal range of motion, muscle strength strong and equal, peripheral pulse strong, no edema, no cyanosis, normal gait and station Course Course Emergency Course: Portions of this record may have been created with voice recognition software. Level of Care: Express Care Visit Vital Signs Vital signs: Vital signs reviewed MDM - Extremity (Nontraumatic) Imaging Data Radiologist's impression: ITS Impressions Knee X-Ray 07/01/23 11:33 IMPRESSION: Small suprapatellar knee joint effusion is suggested Discharge Plan Discharge Clinical Impression: Effusion of knee joint right, Acute pain of right knee Patient Disposition: Home, Self-Care Condition: Stable Instructions: Antibiotic Form, Swollen Knee Joint (ED), Knee Pain (ED) Additional Instructions: Rest, ice, elevate, and wear costa wrap as directed Tylenol/motrin for pain as discussed. Take Medrol Dosepak as
== END 2023-07-01 11:50 | disposition home or self-care (01) ==
PROVIDERS: Emergency Provider Nurse Practitioner Family
DX: M25.461 Effusion, right knee (principal); M25.561 Pain in right knee; M79.7 Fibromyalgia; M06.9 Rheumatoid arthritis, unspecified
CPT/HCPCS: 73562; 99213; G0463

== ENCOUNTER 2023-10-02 16:25 | Emergency (ER) | payer OTHER, SELFPAY ==
[2023-10-02 16:32] VITALS: BP 123/79; PULSE 78; RESP 16; TEMP 37.2; O2SAT 100
--- NOTE | 2023-10-02 17:56 | ED.GENADULT ---
HPI - General Adult General Chief complaint: Extremity Injury, Upper Stated complaint: Right Wrist Pain Time Seen by Provider: 10/02/23 17:26 Source: patient, RN notes reviewed and old records reviewed Mode of arrival: ambulatory Limitations: no limitations History of Present Illness HPI narrative: 38-year-old female to Express Care with complaint of rheumatoid arthritis flare-up for past 2 weeks affecting bilateral wrists and hands. Patient states she last received an infusion 2 and half weeks ago. Patient reports that she is unable to get in to her specialist prior to her appointment on October 19. Patient states that it pain in left wrist and bilateral hands has subsided and that pain to right wrist decreased. Patient states that she has been out of work for 2 weeks and that she needs a note to be able to return to work. Patient tearful in exam room and states that she would like to return to work today, that she cannot afford to miss any more work And she does not food Are necessary resources for herself or her children. Patient anxious. Patient in no acute distress. Daughter with patient in exam room. Related Data Home Medications Medication Instructions Recorded Confirmed conjugated estrogens 0.45 mg 0.45 mg PO DAILY 10/04/22 07/01/23 tablet (Premarin) sulfasalazine 500 mg tablet 500 mg PO DIRECTED 10/04/22 07/01/23 meloxicam 15 mg tablet 15 mg PO DIRECTED 05/02/23 07/01/23 albuterol sulfate 90 mcg/actuation See Rx Instructions .Route .COMPLEX 06/06/23 07/01/23 aerosol inhaler conjugated estrogens 0.45 mg mg 10/02/23 tablet (Premarin) infliximab 100 mg intravenous mg IV 10/02/23 solution (Remicade) Allergies Allergy/AdvReac Type Severity Reaction Status Date / Time amoxicillin Allergy Unknown Rash Verified 07/01/23 11:08 lanolin Allergy Unknown Unknown Verified 07/01/23 11:08 latex Allergy Unknown Unknown Verified 07/01/23 11:08 methocarbamol Allergy Unknown Swelling Verified 07/01/23 11:08 sumatriptan [From Imitrex] Allergy Unknown Dyspnea / Verified 07/01/23 11:08 SOB clindamycin AdvReac Unknown Diarrhea Verified 07/01/23 11:08 Review of Systems Review of Systems: All systems reviewed & are unremarkable except as noted in HPI and below Constitutional: Constitutional: Reports no additional constitutional complaints Eyes: Eyes: Reports no additional eye complaints ENT: Reports system reviewed and no additional complaints, except as documented Cardiovascular: Cardiovascular: Reports no additional cardiovascular complaints, Denies chest pain and Denies dyspnea Respiratory: Respiratory: Reports no additional respiratory complaints, Denies cough and Denies dyspnea Musculoskeletal: Musculoskeletal: Reports as per HPI, Reports arthralgias, Reports joint swelling and Reports limited range of motion Neurologic: Reports system reviewed and no additional complaints, except as documented Psychiatric: Psychiatric: Reports no additional psychiatric complaints PMFSH Past Medical History Medical History Anxiety Fibromyalgia Hand strain Hx of migraines Rheumatoid arthritis Thumb dislocation Surgical History Surgical History History of hysterectomy Previous section x2 S/p bilateral carpal tunnel release Family History Family History Father Family history non-contributory Social History Social History Smoking status: Never smoker Alcohol intake: never Substance use: never Last use: pain control Living arrangements: alone Gender identity (if verbalized by the patient): Female Spiritual care concerns: No Comments At the time of my signature, I reviewed and agree with the nursing past medical, surgical, social, a
== END 2023-10-02 18:04 | disposition home or self-care (01) ==
PROVIDERS: Emergency Provider Nurse Practitioner Family
DX: M25.531 Pain in right wrist (principal); M06.9 Rheumatoid arthritis, unspecified; M79.7 Fibromyalgia
CPT/HCPCS: 99212; G0463

== ENCOUNTER 2023-11-24 08:19 | Emergency (ER) | payer OTHER, SELFPAY ==
[2023-11-24 08:24] VITALS: BP 144/79; PULSE 104; RESP 16; TEMP 37; O2SAT 100
--- NOTE | 2023-11-24 08:52 | ED.UPPEXIN ---
HPI - Extremity Injury (Upper) General Chief Complaint: Extremity Injury, Upper Stated Complaint: Pain To Hands/Wrist/Right Elbow Time Seen by Provider: 11/24/23 08:52 Source: patient Mode of arrival: ambulatory Limitations: no limitations History of Present Illness HPI narrative: 38-year-old female with history of rheumatoid arthritis presents stating she has had a rheumatoid flare. Patient swelling pain to her bilateral hands and wrist. Has called rheumatoid specialist but not returned her call. Patient requesting prednisone. All Systems reviewed and negative except as noted above. Related Data Home Medications Medication Instructions Recorded Confirmed conjugated estrogens 0.45 mg 0.45 mg PO DAILY 10/04/22 11/24/23 tablet (Premarin) sulfasalazine 500 mg tablet 1,500 mg PO BID 10/04/22 11/24/23 meloxicam 15 mg tablet 15 mg PO DIRECTED 05/02/23 11/24/23 infliximab 100 mg intravenous 100 mg IV [id number] 10/02/23 11/24/23 solution (Remicade) Allergies Allergy/AdvReac Type Severity Reaction Status Date / Time amoxicillin Allergy Unknown Rash Verified 07/01/23 11:08 lanolin Allergy Unknown Unknown Verified 07/01/23 11:08 latex Allergy Unknown Unknown Verified 07/01/23 11:08 methocarbamol Allergy Unknown Swelling Verified 07/01/23 11:08 sumatriptan [From Imitrex] Allergy Unknown Dyspnea / Verified 07/01/23 11:08 SOB clindamycin AdvReac Unknown Diarrhea Verified 07/01/23 11:08 Review of Systems Review of Systems: CONSTITUTIONAL: Denies fever, chills, or sweats. EYES: Denies visual changes, redness, or discharge. ENT: Denies rhinorrhea, congestion, sore throat, or otalgia. CARDIOVASCULAR: Denies chest pain, palpitations, or edema. RESPIRATORY: Denies cough or dyspnea. GASTROINTESTINAL: Denies abdominal pain, nausea, vomiting, or diarrhea. GENITOURINARY: Denies dysuria or hematuria. SKIN: Denies rash or itching. MUSCULOSKELETAL: Denies back pain or myalgia. Reports pain and swelling to bilateral hands and wrist. NEUROLOGIC: Denies headache, numbness, or weakness. PSYCHIATRIC: Denies anxiety or depression. All other systems reviewed are negative, except as documented in HPI. [facility] Past Medical History Medical History Anxiety Fibromyalgia Hand strain Hx of migraines Rheumatoid arthritis Thumb dislocation Surgical History Surgical History History of hysterectomy Previous section x2 S/p bilateral carpal tunnel release Family History Family History Father Family history non-contributory Social History Social History Smoking status: Never smoker Alcohol intake: never Substance use: never Last use: pain control Living arrangements: alone Gender identity (if verbalized by the patient): Female Spiritual care concerns: No Comments At time of signature, agree with nursing past medical, surgical, social and family history. There is no relevant family history pertinent to the presenting complaint. Exam Narrative: GENERAL: This is a well-nourished, well-developed patient, in no apparent distress. HEAD: normocephalic, atraumatic. EYES: PERRL. Sclera clear/white. Vision is grossly intact. EARS: External ears normal NOSE: External nose normal NECK: Neck supple, non-tender without lymphadenopathy, masses or thyromegaly. CARDIOVASCULAR: Regular rate and rhythm without murmurs, gallops, or rubs. RESPIRATORY: Clear to auscultation. Breath sounds equal bilaterally. No wheezes, rales, or rhonchi. SKIN: warm, Dry, intact with no suspicious lesions or rash, good texture and turgor. NEURO: awake, alert, and oriented to person, place and time. There were no obvious focal neurologic abnormalities. EXTREMITIES: Swelling and pain worse to yin
== END 2023-11-24 09:02 | disposition home or self-care (01) ==
PROVIDERS: Emergency Provider Nurse Practitioner Family
DX: M06.9 Rheumatoid arthritis, unspecified (principal); M79.7 Fibromyalgia
CPT/HCPCS: 99213; G0463

== ENCOUNTER 2024-07-11 17:52 | Emergency (ER) | payer OTHER, SELFPAY ==
[2024-07-11 17:55] VITALS: BP 129/82; PULSE 90; RESP 16; TEMP 37.1; O2SAT 100
--- NOTE | 2024-07-11 17:59 | ED.DENTAL ---
HPI - Dental/Oral General Chief complaint: Dental/Oral Stated complaint: tooth pain Time Seen by Provider: 07/11/24 17:59 Source: patient, RN notes reviewed and old records reviewed Mode of arrival: ambulatory Limitations: no limitations History of Present Illness HPI Narrative: 38 YEAR OLD FEMALE WHO PRESENTS TO [facility] WITH PAIN to where left upper eye tooth and molar behind left eye tooth were extracted at [facility] last Wednesday. Patient reports that she was told that she would be put on an oral antibiotic and given pain medication which she has never received. Patient reports that she has called the office twice and was told they would have dentist call in medications and he never has taken care of prescribing her any medications. Patient reports that she has been taking Tylenol but it is not relieving her discomfort described pain as burning and throbbing.Clotildeetn reports that she has been using salt water gargles, Patient has not drainage or acute swelling to gums where # 11,12 teeth extracted. Patient reports that she didn't take any Ibuprofen since she already takes daily Meloxicam MD Complaint: tooth pain (teeth extracted) Location: Tooth # (11,12) Onset (ago): day(s) Duration: worsening Severity: moderate Severity scale (1-10): 5 Treatment prior to arrival: other (tylenol and ice pack to face) Related Data Home Medications ?Medication ?Instructions ?Recorded ?Confirmed ?Last Taken ?Type conjugated estrogens 0.45 mg 0.45 mg PO DAILY 10/04/22 11/24/23 Unknown History tablet (Premarin) sulfasalazine 500 mg tablet 1,500 mg PO BID 10/04/22 11/24/23 Unknown History meloxicam 15 mg tablet 15 mg PO DIRECTED 05/02/23 11/24/23 Unknown History infliximab 100 mg intravenous 100 mg IV [id number] 10/02/23 11/24/23 Unknown History solution (Remicade) prednisone 5 mg tablet mg 07/11/24 Unknown History Allergies Allergy/AdvReac Type Severity Reaction Status Date / Time amoxicillin Allergy Unknown Rash Verified 07/11/24 18:05 citalopram (From Celexa) Allergy Unknown Unknown Verified 07/11/24 18:05 lanolin Allergy Unknown Unknown Verified 07/11/24 18:05 latex Allergy Unknown Unknown Verified 07/11/24 18:05 methocarbamol Allergy Unknown Swelling Verified 07/11/24 18:05 Penicillins Allergy Unknown Unknown Verified 07/11/24 18:05 sumatriptan (From Imitrex) Allergy Unknown Dyspnea / Verified 07/11/24 18:05 SOB clindamycin AdvReac Unknown Diarrhea Verified 07/11/24 18:05 Review of Systems Review of Systems: CONSTITUTIONAL: Denies fever, chills, or sweats. ENT: Denies rhinorrhea, congestion, sore throat, or otalgia. Reports dental pain to where #11,and#12 teeth were extracted last Wednesday. no acute swelling to face or to gums where teeth extracted. CARDIOVASCULAR: Denies chest pain, palpitations, or edema. RESPIRATORY: Denies cough or dyspnea. SKIN: Denies rash or itching. MUSCULOSKELETAL: Denies myalgia. NEUROLOGIC: Denies headache All systems reviewed & are unremarkable except as noted in HPI and below PMFSH Past Medical History Medical History Anxiety Hx of migraines Fibromyalgia Thumb dislocation Hand strain Rheumatoid arthritis Surgical History Surgical History Previous section x2 History of hysterectomy S/p bilateral carpal tunnel release Family History Family History Father Family history non-contributory Social History Social History Smoking status: Never smoker Alcohol intake: never Substance use: never Last use: pain control Living arrangements: alone Gender identity (if verbalized by the patient): Female Spiritual care concerns: No Comments At time of signature, agree with nursing past medical, surgical, social and family history. There is no relevant family history pertinent to the presenting complaint Exam Narrative: GENERAL: Well-appearing, well-nourished, and in no acute distress. HEAD: Normocephalic, atraumatic. EYES: PERRLA and EOMI. ENT: Nares clear, no rhinorrhea or epistaxis. Mucous membranes moist. Missing teeth, broken teeth, caries noted, Patient reports in process of getting many dental extraction with 2 teeth removed last Wednesday at [facility] in [facility] #11. and #12 with no drainage or acute swelling of gums but continued complaints of dental pain.no trismus or Bertram angina noted. NECK: Supple. no lymphadenopathy CHEST: Clear to auscultation. No respiratory distress. SAO2 100% on room air HEART: Regular rate and rhythm. No murmur heard. Normal peripheral pulses. SKIN: Warm, dry, no rash. NEURO: No focal deficits. Alert and oriented x3. Course Course Emergency Course: Patient is aware of diagnosis, understands and agrees to treatment plan. Anticipatory guidance given. Patient agrees to follow-up as directed and is aware of reasons to seek care at the emergency department. Portions of this record may have been created with voice recognition software Level of Care: Express Care Visit Vital Signs Vital signs: Vital Signs Temperature 37.1 C 07/11/24 17:55 Pulse Rate 90 07/11/24 17:55 Respiratory Rate 16 07/11/24 17:55 Blood Pressure 129/82 07/11/24 17:55 Pulse Oximetry 100 07/11/24 17:55 Oxygen Delivery Room Air 07/11/24 17:55 Temperature 37.1 C 07/11/24 17:55 Pulse Rate 90 07/11/24 17:55 Respiratory Rate 16 07/11/24 17:55 Blood Pressure 129/82 07/11/24 17:55 Pulse Oximetry 100 07/11/24 17:55 Oxygen Delivery Room Air 07/11/24 17:55 Reviewed MDM - Dental/Oral MDM Narrative Medical decision making narrative: Patients pain and complaint coupled with physical findings are consistent with dentalgia. There are no focal signs of space occupying lesions that are compromising to the airway; no dysphagia, odynophagia, dysphonia, or dyspnea. No uvular deviation or soft palate edema. Patient is non-toxic appearing. The floor of the mouth is soft with no signs of Bertram's Angina; no induration below mandible, no neck pain.? Patient is without trismus or drooling and able to swallow secretions.? Patient is felt appropriate for discharge home with dental follow up. Differential Diagnosis Differential diagnosis: Likely dental caries, toothache and other (DENTAL PAIN, EXTRACTION PAIN) Medical Records Attestation: I reviewed the patient's medical records. Lab Data Attestation: I reviewed the patient's lab results. Critical Care Time Critical Care Time Critical Care Time: No Discharge Plan Discharge Clinical Impression: Dentalgia Patient Disposition: Home, Self-Care Condition: Stable Instructions: Antibiotic Form, Toothache (ED) Additional Instructions: AVOID TEMPERATURE EXTREMES MAY APPLY HEAT OR ICE TO THE FACE GENTLE BRUSHING AND FLOSSING ANTIBIOTIC DIRECTED TYLENOL FOR LESSER PAIN USE IBUPROFEN REGULARLY USE THE MEDICATION PROVIDED FOR SEVERE PAIN--CAUTION EACH TABLET CONTAINS 325 MG OF TYLENOL--THE MAXIMUM DOSE OF TYLENOL IS 4000 MG IN 24 HOURS. THIS MEDICATION MAY CAUSE CONSTIPATION CONSIDER STARTING A LAXATIVE AT THIS TIME CALL [facility] IF ANY FURTHER PROBLEMS Patient Language: [place]an Prescriptions: New azithromycin 250 mg tablet See Rx Instructions .ROUTE .COMPLEX Qty: 6 0RF Rx Instructions: For 250 mg dose pack: take 500 mg today (day 1), then 250 mg for 4 days (days 2-5) hydrocodone-acetaminophen 5-325 mg tablet 1 tablet PO Q6H PRN (Reason: pain) Qty: 10 0RF No Action infliximab [Remicade] 100 mg Recon Soln 100 mg IV [id number] prednisone 5 mg tablet sulfasalazine 500 mg tablet 1,500 mg PO BID Premarin 0.45 mg tablet 0.45 mg PO DAILY meloxicam 15 mg tablet 15 mg PO DIRECTED (DME) Aerochamber MV Spacer See Rx Instructions .Route Qty: 1 0RF Rx Instructions: As directed Follow-up/Referrals: PHYSICIAN NOT ON STAFF,NONSTAFF [Primary Care Provider] - Stand Alone Forms: Work/School Release IP Time of Disposition: 18:31 Quality Jem Coma Scale Eyes: Open Verbal: Oriented and Alert Motor: Follows Commands [place] Coma Total Score: 15
--- OUTSIDE RECORDS SUMMARY | 2024-07-13 20:15 | XMS_ITS | Encounter Summary ---
Author Organization [facility] Health Address [address] [place] [address] Care Team Providers Care Parks Worker Name Role Phone Giovanni Mendoza MD Primary Care Provider [phone] Radha Muhammad Primary Care Provider [phone] Reason for Visit * Reason Onset Date Comments MEDICATION REFILL 07/30/2021 Encounter Details Date Type Department Care Team (Late st Contact Info) Description 07/30/2021 Refill [facility] [address] [place] [address], [place] [address] Bridger Deleon MD [address] [place] [address] [place] [address] MEDICATION REFILL Social History Tobacco Use Types Packs/Day Years Used Date Smoking Tobacco: Former Cigarettes Q uit: 2010 Smokeless Tobacco: Never Alcohol Use Standard Drinks/Week Comments No 0 (1 standard drink = 0.6 oz pur e alcohol) Sex and Gender Information Value Date Recorded Sex Assigned at Female 11/17/2022 10:38 AM CDT Gender Identity Female 11/17/2022 10:38 AM CDT Sexual Orientation Not on file documented as of this encounter Miscellaneous Notes * Telephone Encounter - Camryn Romero - 08/01/2021 9:42 AM CST Refill Request September Stanislav MANI: Apr due: 08.05.21 LRF: 07.31.21 Qty Disp: 180 # of refills: 1 Last labs 11.5. Allergies: Allergies Allergen Reactions ??? Latex Itching and Rash ??? Citalopram Shortness of Breath and Other ??? Sumatriptan Rash and Shortness of Breath ??? Tramadol Other and Shortness of Breath ??? Amitriptyline Other ??? Hydroxychloroquine Vomiting ??? Lanolin Other and Shortness of Breath ??? Methocarbamol Other and Shortness of Breath ??? Enbrel [Etanercept] Urticaria Hives, locally painful ??? Ethinyl Estradiol Other and Swelling pain, swelling, irritation with use of vaginal contraceptive (Nuvaring) Pended Medication Order: Requested Prescriptions Pending Prescriptions Disp Refills ??? sulfaSALAzine EC (AZULFIDINE ENTAB) 500 MG tablet 180 tablet 1 Sig: Take 3 (three) tablets by mouth 2 times daily BODY REPAIRER documented in this encounter Plan of Treatment Upcoming Encounters Date Type Department Care Team (Late st Contact Info) Description 07/26/2024 9:30 AM AUTO BODY REPAIRER Appointment [facility] [address] [place] [address] Sue Pa MD [address] [phone] documented as of this encounter Visit Diagnoses Not on filedocumented in this encounter Care Teams Parks Worker Relationship Specialty Start Date End Date Giovanni Mendoza MD [address] [place] [address] [address] [place] [phone] PCP - General 08/30/20 01/10/24 Radha Muhammad [address] [place] [address] [address] [place] [phone] PCP - General 01/11/24 documented as of this encounter
--- OUTSIDE RECORDS SUMMARY | 2024-07-13 20:15 | XMS_ITS | Clinical Summary ---
Author Organization [facility] Address [address] [place] [address] Care Team Providers Care Track Production Engineer Name Role Phone SwetaadrienRadha Primary Care Provider [phone] Source Comments [facility],non-owned Affiliates and Associated Physician Practices is amultiple site organization consisting of ambulatory clinics and hospital sitesin [place], [place], [place] and [place]. This disclosure is being madepursuant to the Care Everywhere program and may not contain all information available regarding this patient. Last updated 18.[facility] Allergies Active Allergy Reactions Criticality Noted Date Comments Amitriptyline Other Low 03/27/2017 No indication given. Citalopram Shortness of Breath High Clindamycin Unknown 07/26/2021 Etanercept Urticaria Medium 06/01/2019 Hives, locally painful Ethinyl Estradiol Swelling,Skin Reactions Medium pain, swelling, irritation with use of vaginal contraceptive (Nuvaring) Hydroxychloroquine Vomiting Medium 09/03/2020 Lanolin Other,Shortness of Breath High 12/04/2015 Latex Itching,Rash Medium 12/04/2015 Methocarbamol Other,Shortness of Breath High Sumatriptan Rash,Shortness of Breath High Tramadol Shortness of Breath High Medications * Be aware that medications may not be up to date on this document. Alwaysverify current medications with the patient. Medication Sig Dispensed Refills Start Date End Date Status estrogens, conjugated, (PREMARIN) 0.45 MG tablet TAKE 1 TABLET BY MOUTH EVERY DAY 09/14/2017 Active DiphenhydrAMINE HCl (BENADRYL ALLERGY PO)Indications:n ightly Take 2 tablets by mouth once daily Reasons: nightly Active inFLIXimab (Remicade) injection 3 mg/kg by Intravenous route once Active ondansetron, disintegrating, (Zofran ODT) 4 MG tabletIndication s:Nausea without vomiting Take 1 (one) tablet by mouth every 6 hours as needed 30 tablet 1 11/24/2022 Active albuterol HFA (Proventil; Ventolin; Proair) 108 (90 Base) MCG/ACT inhaler Inhale 2 (two) puffs by mouth every 4 hours as needed 09/04/2023 Active lidocaine (Lidoderm) 5 % patch Apply 1 (one) patch to skin once daily 08/27/2023 Active Spacer/Aero-Hold ing Chambers (OptiChamber Hanna) MISC USE DIRECTED WITH INHALER 06/17/2023 Active meloxicam (Mobic) 15 MG tabletIndication s:Rheumatoid arthritis involving multiple sites, unspecified whether rheumatoid factor present (HCC) Take 1 (one) tablet by mouth once daily 30 tablet 6 01/11/2024 Active predniSONE (Deltasone) 5 MG tablet Take 1 (one) tablet by mouth once daily 30 tablet 6 01/11/2024 Active cyclobenzaprine (Flexeril) 10 MG tablet Take 1 (one) tablet by mouth 3 times daily 30 tablet 5 01/11/2024 Active sulfaSALAzine (Azulfidine) 500 MG tabletIndication s:Rheumatoid arthritis involving multiple sites, unspecified whether rheumatoid factor present (HCC) TAKE 3 TABLETS BY MOUTH TWICE DAILY 180 tablet 07/10/2024 Active sulfaSALAzine (Azulfidine) 500 MG tabletIndication s:Rheumatoid arthritis involving multiple sites, unspecified whether rheumatoid factor present (HCC) Take 3 (three) tablets by mouth 2 times daily 180 tablet 5 01/07/2024 Discontinued Active Problems Problem Noted Date Diagnosed Date Rheumatoid arthritis involving multiple sites Encounter for long-term (cur rent) use of high-risk medication 10/25/2017 Encounter for therapeutic drug monitoring 2017 Encounters Date Type Department Care Team Description 07/09/2024 Refill [facility] - Rheumatology [address] [place] [address], [facility] [place] [phone] Sue Pa MD Refill Request 05/23/2024 9:30 AM PRINT DEVELOPER AUTOMATIC - 05/23/2024 11:59 PM PRINT DEVELOPER AUTOMATIC Hospital Encounter [facility] [address] [place] [address] Sue Pa MD Discharge Disposition: Home or Self Care 05/23/2024 Travel from Last 3 Months Immunizations Name Administration Dates Next Due TD (AGE 6-ADULT) 06/21/2007 Family History Relation Name Status Comments Brother Alive Daughter 1 Alive Daughter 2 Alive Father Alive Maternal Grandfather Maternal Grandmother Mother Alive Paternal Grandfather Paternal Grandmother Sister Alive Son Alive Social History Tobacco Use Types Packs/Day Years Used Date Smoking Tobacco: Former Cigarettes Q uit: 2010 Smokeless Tobacco: Never Tobacco Cessation:Counseling Given: Not Answered Alcohol Use Standard Drinks/Week Comments No 0 (1 standard drink = 0.6 oz pur e alcohol) PHQ-2 Answer Date Recorded PHQ2 TOTAL SCORE 0 11/17/2022 Sex and Gender Information Value Date Recorded Sex Assigned at Female 11/17/2022 10:38 AM CDT Gender Identity Female 11/17/2022 10:38 AM CDT Sexual Orientation Not on file Last Filed Vital Signs Vital Sign Reading Time Taken Comments Blood Pressure 148/90 05/23/2024 9:41 AM PRINT DEVELOPER AUTOMATIC Pulse 79 05/23/2024 9:41 AM PRINT DEVELOPER AUTOMATIC Temperature 36.5 ??C (97.7 ??F) 05/23/2024 9:41 AM CS T Respiratory Rate 20 05/23/2024 9:41 AM PRINT DEVELOPER AUTOMATIC Oxygen Saturation 100% 05/23/2024 9:41 AM PRINT DEVELOPER AUTOMATIC Inhaled Oxygen Concentration - - Weight 59.9 kg (132 lb) 05/23/2024 9:41 AM PRINT DEVELOPER AUTOMATIC Height 170.2 cm (5' 7.01 ) 01/11/2024 3:51 PM CD T Body Mass Index 20.67 01/11/2024 3:51 PM CDT Plan of Treatment Upcoming Encounters Date Type Department Care Team (Late st Contact Info) Description 07/26/2024 9:30 AM PRINT DEVELOPER AUTOMATIC Appointment [facility] [address] [place] [address] Sue Pa MD [address] [facility] [place] [phone] Health Maintenance Due Date Last Done Comments PAP SMEAR 1984 HIV SCREENING 09/23/1999 HEPATITIS B VACCINE (1 of 3 - 19+ 3-dose series) 09/23/2003 DTAP/TDAP/TD VACCINES (2 - T d or Tdap) 06/21/2017 06/21/2007 COVID-19 VACCINE ( - 2023-2 5 season) 2024 INFLUENZA VACCINE (#1) 2024 DEPRESSION SCREENING 06/21/2024 11/17/2022 ZOSTER VACCINE (1 of 2) 2034 HEPATITIS C SCREENING Completed 09/27/2017 HIB VACCINE Aged Out No longer eligi ble based on patient's age to complete this topic HPV VACCINE Aged Out No longer eligi ble based on patient's age to complete this topic MENINGOCOCCAL (Group B) VACCINE Aged Out No longer eligible based on patient's age to complete this topic MENINGOCOCCAL VACCINE Aged Out No ana jennie eligible based on patient's age to complete this topic PNEUMOCOCCAL VACCINE Aged Out No long er eligible based on patient's age to complete this topic Procedures Procedure Name Priority Date/Time Associated Diagnosis Comments HEPATITIS C RNA QUANTITATIVE Routine 09/27/2017 11:45 AM CDT Pain in joint, multiple sites Myalgia Tiredness Migraine syndrome Right hand pain Left hand pain Right foot pain Left foot pain from Last 3 Months or Most Recently Relevant to Health Maintenance Results * HEPATITIS C RNA QUANTITATIVE PCR (09/27/2017 11:45 AM CDT) Hepatitis C RNA PCR, Interp Not Detected Not Detected 10/04/2017 8:[address] [facility] Blood BLOOD SPECIMEN / Unknown Lab Venipuncture / Unknown 09/27/2017 11:45 AM CDT 09/27/2017 12:[address] [facility] - 10/04/2017 8:20 AM CDT The Hepatitis C viral (HCV) RNA analysis utilized a serum sample, real-time reverse instructional services librarian PCR, and is reported as Not Detected, Detected (<12 IU/mL), Quantity (IU/mL) or >100,000,000 IU/mL. The limit of quantitation of the assay is 12 IU/mL (100% of samples with this HCV RNA level were detected). ??The linear range is from 12 IU/mL to 100,000,000 IU/mL. ??Values less than 12 IU/mL are reported as Detected (<12 IU/mL). ??Values greater than 100,000,000 IU/mL are reported as > 100,000,000 IU/mL. The detection/quantitation of HCV RNA in serum is based on the isolation of HCV RNA with reverse instructional services librarian of genomic HCV RNA followed by real-time PCR in the presence of an unrelated RNA internal control. ??The internal control ensures that RNA is isolated, and that no general significant inhibitors of the RT-PCR process are present. The analysis was performed using a U.S. FDA approved test methodology ([employer] Real Time HCV). Sue Pa MD LAB - CHEMISTR Y ORDERABLES [facility] [address] [phone] from Last 3 Months or Most Recently Relevant to Health Maintenance Care Teams Track Production Engineer Relationship Specialty Start Date End Date Radha Muhammad [address] [facility] [place] [address] PCP - General 01/11/24
--- OUTSIDE RECORDS SUMMARY | 2024-07-13 20:15 | XMS_ITS | Encounter Summary ---
Author Organization [facility] Health Address [address] [place] [address] Care Team Providers Care Open Die Inspector Name Role Phone Giovanni Mendoza MD Primary Care Provider [phone] Radha Muhammad Primary Care Provider [phone] Reason for Visit * Reason Onset Date Comments MEDICATION REFILL 10/12/2022 Encounter Details Date Type Department Care Team (Late st Contact Info) Description 10/12/2022 Refill [facility] [address] [place] [address], [place] [address] Sue Pa MD [address] [place] [address] [place] [address] MEDICATION REFILL Social History Tobacco Use Types Packs/Day Years Used Date Smoking Tobacco: Former Cigarettes Q uit: 2010 Smokeless Tobacco: Never Alcohol Use Standard Drinks/Week Comments No 0 (1 standard drink = 0.6 oz pur e alcohol) PHQ-2 Answer Date Recorded PHQ2 TOTAL SCORE 0 10/01/2021 Sex and Gender Information Value Date Recorded Sex Assigned at Female 11/17/2022 10:38 AM CDT Gender Identity Female 11/17/2022 10:38 AM CDT Sexual Orientation Not on file documented as of this encounter Miscellaneous Notes * Telephone Encounter - Stephani Spivey LPN - 10/12/2022 10:04 AM CDT Refill Request Jalyn Sarmad [place] MANI: 10/01 due: NOV scheduled: 11/17/2022 LRF: 08/26 Qty Disp: #30 # of refills: 0 Labs: 08/04 KB Allergies: Allergies Allergen Reactions ??? Latex Itching [...] Requested Prescriptions Pending Prescriptions Disp Refills ??? meloxicam (Mobic) 15 MG tablet 30 tablet 0 Sig: Take 1 (one) tablet by mouth once daily documented in this encounter Plan of Treatment Upcoming Encounters Date Type Department Care Team (Late st Contact Info) Description 07/26/2024 9:30 AM SAWDUST MACHINE OPERATOR Appointment [facility] [address] [place] [address] Sue Pa MD [address] [place] [phone] documented as of this encounter Visit Diagnoses Diagnosis Rheumatoid arthritis involving multiple sites, unspecified whether rheumatoid factor present (HCC) documented in this encounter Care Teams Open Die Inspector Relationship Specialty Start Date End Date Giovanni Mendoza MD [address] [place] [address] [address] [place] [phone] PCP - General 08/30/20 01/10/24 Radha Muhammad [address] [facility] [address] [place] [phone] PCP - General 01/11/24 documented as of this encounter
--- OUTSIDE RECORDS SUMMARY | 2024-07-13 20:15 | XMS_ITS | Patient Health Summary ---
Author Organization [facility] Address [address] [place] [address] Care Team Providers Care Clinical Pharmacologist Name Role Phone TonydianaRadha Primary Care Provider [phone] Note from [facility],non-owned Affiliates and Associated Physician Practices is amultiple site organization consisting of ambulatory clinics and hospital sitesin [place], [place], [place] and [place]. This disclosure is being madepursuant to the Care Everywhere program and may not contain all information available regarding this patient. Last updated 18.[facility] Allergies * Amitriptyline(Other) -Low Criticality * Citalopram(Shortness of Breath) -High Criticality * Clindamycin(Unknown) * Etanercept(Urticaria) -Medium Criticality * Ethinyl Estradiol(Swelling,Skin Reactions) -Medium Criticality * Hydroxychloroquine(Vomiting) -Medium Criticality * Lanolin(Other,Shortness of Breath) -High Criticality * Latex(Itching,Rash) -Medium Criticality * Methocarbamol(Other,Shortness of Breath) -High Criticality * Sumatriptan(Rash,Shortness of Breath) -High Criticality * Tramadol(Shortness of Breath) -High Criticality Medications * Be aware that medications may not be up to date on this document. Alwaysverify current medications with the patient. * estrogens, conjugated, (PREMARIN) 0.45 MG tablet(Started 09/14/2017) TAKE 1 TABLET BY MOUTH EVERY DAY * DiphenhydrAMINE HCl (BENADRYL ALLERGY PO) Take 2 tablets by mouth once daily Reasons: nightly * inFLIXimab (Remicade) injection 3 mg/kg by Intravenous route once * ondansetron, disintegrating, (Zofran ODT) 4 MG tablet(Started 11/24/2022) Take 1 (one) tablet by mouth every 6 hours as needed 1 refill by 11/24/2023 * albuterol HFA (Proventil; Ventolin; Proair) 108 (90 Base) MCG/ACT inhaler (Started 09/04/2023) Inhale 2 (two) puffs by mouth every 4 hours as needed * lidocaine (Lidoderm) 5 % patch(Started 08/27/2023) Apply 1 (one) patch to skin once daily * Spacer/Aero-Holding Chambers (OptiChamber Hanna) MISC(Started 06/17/2023) USE DIRECTED WITH INHALER * meloxicam (Mobic) 15 MG tablet(Started 01/11/2024) Take 1 (one) tablet by mouth once daily 6 refills by 01/10/2025 * predniSONE (Deltasone) 5 MG tablet(Started 01/11/2024) Take 1 (one) tablet by mouth once daily 6 refills by 01/10/2025 * cyclobenzaprine (Flexeril) 10 MG tablet(Started 01/11/2024) Take 1 (one) tablet by mouth 3 times daily 5 refills by 01/10/2025 * sulfaSALAzine (Azulfidine) 500 MG tablet(Started 07/10/2024) TAKE 3 TABLETS BY MOUTH TWICE DAILY Ended Medications* sulfaSALAzine (Azulfidine) 500 MG tablet(Started 01/07/2024) (Discontinued) Take 3 (three) tablets by mouth 2 times daily 5 refills by 01/06/2025 Active Problems Problem Noted Date Diagnosed Date Rheumatoid arthritis involving multiple sites Encounter for long-term (cur rent) use of high-risk medication 10/25/2017 Encounter for therapeutic drug monitoring 2017 Immunizations * TD (AGE 6-ADULT)(Given 06/21/2007) Social History Tobacco Use Types Packs/Day Years [...] Comments Blood Pressure 148/90 05/23/2024 9:41 AM [facility] Pulse 79 05/23/2024 9:41 AM [facility] Temperature 36.5 ??C (97.7 ??F) 05/23/2024 9:41 AM CS T Respiratory Rate 20 05/23/2024 9:41 AM [facility] Oxygen Saturation 100% 05/23/2024 9:41 AM [facility] Inhaled Oxygen Concentration - - Weight 59.9 kg (132 lb) 05/23/2024 9:41 AM [facility] Height 170.2 cm (5' 7.01 ) 01/11/2024 3:51 PM CD T Body Mass Index 20.67 01/11/2024 3:51 PM CDT Procedures * URINALYSIS W/MICROSCOPIC REFLEX TO CULTURE(Performed 04/11/2024) Performed for Rheumatoid arthritis involving multiple sites, unspecified whether rheumatoid factor present (HCC), Encounter for therapeutic drug monitoring, Encounter for long-term (current) use of high-risk medication * ERYTHROCYTE SEDIMENTATION RATE(Performed 04/11/2024) Performed for Rheumatoid arthritis involving multiple sites, unspecified whether rheumatoid factor present (HCC), Encounter for therapeutic drug monitoring, Encounter for long-term (current) use of high-risk medication * C-REACTIVE PROTEIN(Performed 04/11/2024) Performed for Rheumatoid arthritis involving multiple sites, unspecified whether rheumatoid factor present (HCC), Encounter for therapeutic drug monitoring, Encounter for long-term (current) use of high-risk medication * COMPREHENSIVE METABOLIC PANEL(Performed 04/11/2024) Performed for Rheumatoid arthritis involving multiple sites, unspecified whether rheumatoid factor present (HCC), Encounter for therapeutic drug monitoring, Encounter for long-term (current) use of high-risk medication * CBC W AUTO DIFFERENTIAL(Performed 04/11/2024) Performed for Rheumatoid arthritis involving multiple sites, unspecified whether rheumatoid factor present (HCC), Encounter for therapeutic drug monitoring, Encounter for long-term (current) use of high-risk medication * URINALYSIS W/MICROSCOPIC REFLEX TO CULTURE(Performed 01/18/2024) Performed for Rheumatoid arthritis involving multiple sites, unspecified whether rheumatoid factor present (HCC), Encounter for therapeutic drug monitoring, Encounter for long-term (current) use of high-risk medication * ERYTHROCYTE SEDIMENTATION RATE(Performed 01/18/2024) Performed for Rheumatoid arthritis involving multiple sites, unspecified whether rheumatoid factor present (HCC), Encounter for therapeutic drug monitoring, Encounter for long-term (current) use of high-risk medication * C-REACTIVE PROTEIN(Performed 01/18/2024) Performed for Rheumatoid arthritis involving multiple sites, unspecified whether rheumatoid factor present (HCC), Encounter for therapeutic drug monitoring, Encounter for long-term (current) use of high-risk medication * COMPREHENSIVE METABOLIC PANEL(Performed 01/18/2024) Performed for Rheumatoid arthritis involving multiple sites, unspecified whether rheumatoid factor present (HCC), Encounter for therapeutic drug monitoring, Encounter for long-term (current) use of high-risk medication * CBC W AUTO DIFFERENTIAL(Performed 01/18/2024) Performed for Rheumatoid arthritis involving multiple sites, unspecified whether rheumatoid factor present (HCC), Encounter for therapeutic drug monitoring, Encounter for long-term (current) use of high-risk medication * XR CHEST 2VW(Performed 01/11/2024) Performed for Rheumatoid arthritis involving multiple sites, unspecified whether rheumatoid factor present (HCC), Encounter for therapeutic drug monitoring, Encounter for long-term (current) use of high-risk medication * URINALYSIS W/MICROSCOPIC REFLEX TO CULTURE(Performed 09/15/2023) Performed for Rheumatoid arthritis involving multiple sites, unspecified whether rheumatoid factor present (HCC), Encounter for therapeutic drug monitoring, Encounter for long-term (current) use of high-risk medication * QUANTIFERON-TB GOLD PLUS 4-TUBE(Performed 09/15/2023) * ERYTHROCYTE SEDIMENTATION RATE(Performed 09/15/2023) Performed for Rheumatoid arthritis involving multiple sites, unspecified whether rheumatoid factor present (HCC), Encounter for therapeutic drug monitoring, Encounter for long-term (current) use of high-risk medication * C-REACTIVE PROTEIN(Performed 09/15/2023) Performed for Rheumatoid arthritis involving multiple sites, unspecified whether rheumatoid factor present (HCC), Encounter for therapeutic drug monitoring, Encounter for long-term (current) use of high-risk medication * COMPREHENSIVE METABOLIC PANEL(Performed 09/15/2023) Performed for Rheumatoid arthritis involving multiple sites, unspecified whether rheumatoid factor present (HCC), Encounter for therapeutic drug monitoring, Encounter for long-term (current) use of high-risk medication * CBC W AUTO DIFFERENTIAL(Performed 09/15/2023) Performed for Rheumatoid arthritis involving multiple sites, unspecified whether rheumatoid factor present (HCC), Encounter for therapeutic drug monitoring, Encounter for long-term (current) use of high-risk medication * URINALYSIS W/MICROSCOPIC REFLEX TO CULTURE(Performed 08/03/2023) Performed for Rheumatoid arthritis involving multiple sites, unspecified whether rheumatoid factor present (HCC), Encounter for therapeutic drug monitoring, Encounter for long-term (current) use of high-risk medication * QUANTIFERON-TB GOLD PLUS 4-TUBE(Performed 08/03/2023) * ERYTHROCYTE SEDIMENTATION RATE(Performed 08/03/2023) Performed for Rheumatoid arthritis involving multiple sites, unspecified whether rheumatoid factor present (HCC), Encounter for therapeutic drug monitoring, Encounter for long-term (current) use of high-risk medication * C-REACTIVE PROTEIN(Performed 08/03/2023) Performed for Rheumatoid arthritis involving multiple sites, unspecified whether rheumatoid factor present (HCC), Encounter for therapeutic drug monitoring, Encounter for long-term (current) use of high-risk medication * COMPREHENSIVE METABOLIC PANEL(Performed 08/03/2023) Performed for Rheumatoid arthritis involving multiple sites, unspecified whether rheumatoid factor present (HCC), Encounter for therapeutic drug monitoring, Encounter for long-term (current) use of high-risk medication * CBC W AUTO DIFFERENTIAL(Performed 08/03/2023) Performed for Rheumatoid arthritis involving multiple sites, unspecified whether rheumatoid factor present (HCC), Encounter for therapeutic drug monitoring, Encounter for long-term (current) use of high-risk medication * URINALYSIS W/MICROSCOPIC REFLEX TO CULTURE(Performed 05/04/2023) Performed for Rheumatoid arthritis involving multiple sites, unspecified whether rheumatoid factor present (HCC), Encounter for therapeutic drug monitoring, Encounter for long-term (current) use of high-risk medication * ERYTHROCYTE SEDIMENTATION RATE(Performed 05/04/2023) Performed for Rheumatoid arthritis involving multiple sites, unspecified whether rheumatoid factor present (HCC), Encounter for therapeutic drug monitoring, Encounter for long-term (current) use of high-risk medication * C-REACTIVE PROTEIN(Performed 05/04/2023) Performed for Rheumatoid arthritis involving multiple sites, unspecified whether rheumatoid factor present (HCC), Encounter for therapeutic drug monitoring, Encounter for long-term (current) use of high-risk medication * COMPREHENSIVE METABOLIC PANEL(Performed 05/04/2023) Performed for Rheumatoid arthritis involving multiple sites, unspecified whether rheumatoid factor present (HCC), Encounter for therapeutic drug monitoring, Encounter for long-term (current) use of high-risk medication * CBC W AUTO DIFFERENTIAL(Performed 05/04/2023) Performed for Rheumatoid arthritis involving multiple sites, unspecified whether rheumatoid factor present (HCC), Encounter for therapeutic drug monitoring, Encounter for long-term (current) use of high-risk medication * URINALYSIS W/MICROSCOPIC REFLEX TO CULTURE(Performed 03/11/2023) Performed for Rheumatoid arthritis involving multiple sites, unspecified whether rheumatoid factor present (HCC), Encounter for therapeutic drug monitoring, Encounter for long-term (current) use of high-risk medication * ERYTHROCYTE SEDIMENTATION RATE(Performed 03/11/2023) Performed for Rheumatoid arthritis involving multiple sites, unspecified whether rheumatoid factor present (HCC), Encounter for therapeutic drug monitoring, Encounter for long-term (current) use of high-risk medication * C-REACTIVE PROTEIN(Performed 03/11/2023) Performed for Rheumatoid arthritis involving multiple sites, unspecified whether rheumatoid factor present (HCC), Encounter for therapeutic drug monitoring, Encounter for long-term (current) use of high-risk medication * COMPREHENSIVE METABOLIC PANEL(Performed 03/11/2023) Performed for Rheumatoid arthritis involving multiple sites, unspecified whether rheumatoid factor present (HCC), Encounter for therapeutic drug monitoring, Encounter for long-term (current) use of high-risk medication * CBC W AUTO DIFFERENTIAL(Performed 03/11/2023) Performed for Rheumatoid arthritis involving multiple sites, unspecified whether rheumatoid factor present (HCC), Encounter for therapeutic drug monitoring, Encounter for long-term (current) use of high-risk medication * URINALYSIS W/MICROSCOPIC REFLEX TO CULTURE(Performed 01/12/2023) Performed for Rheumatoid arthritis involving multiple sites, unspecified whether rheumatoid factor present (HCC), Encounter for therapeutic drug monitoring, Encounter for long-term (current) use of high-risk medication * ERYTHROCYTE SEDIMENTATION RATE(Performed 01/12/2023) Performed for Rheumatoid arthritis involving multiple sites, unspecified whether rheumatoid factor present (HCC), Encounter for therapeutic drug monitoring, Encounter for long-term (current) use of high-risk medication * C-REACTIVE PROTEIN(Performed 01/12/2023) Performed for Rheumatoid arthritis involving multiple sites, unspecified whether rheumatoid factor present (HCC), Encounter for therapeutic drug monitoring, Encounter for long-term (current) use of high-risk medication * COMPREHENSIVE METABOLIC PANEL(Performed 01/12/2023) Performed for Rheumatoid arthritis involving multiple sites, unspecified whether rheumatoid factor present (HCC), Encounter for therapeutic drug monitoring, Encounter for long-term (current) use of high-risk medication * CBC W AUTO DIFFERENTIAL(Performed 01/12/2023) Performed for Rheumatoid arthritis involving multiple sites, unspecified whether rheumatoid factor present (HCC), Encounter for therapeutic drug monitoring, Encounter for long-term (current) use of high-risk medication * ERYTHROCYTE SEDIMENTATION RATE(Performed 01/05/2023) Performed for Rheumatoid arthritis involving multiple sites, unspecified whether rheumatoid factor present (HCC), Encounter for therapeutic drug monitoring, Encounter for long-term (current) use of high-risk medication * C-REACTIVE PROTEIN(Performed 01/05/2023) Performed for Rheumatoid arthritis involving multiple sites, unspecified whether rheumatoid factor present (HCC), Encounter for therapeutic drug monitoring, Encounter for long-term (current) use of high-risk medication * COMPREHENSIVE METABOLIC PANEL(Performed 01/05/2023) Performed for Rheumatoid arthritis involving multiple sites, unspecified whether rheumatoid factor present (HCC), Encounter for therapeutic drug monitoring, Encounter for long-term (current) use of high-risk medication * CBC W AUTO DIFFERENTIAL(Performed 01/05/2023) Performed for Rheumatoid arthritis involving multiple sites, unspecified whether rheumatoid factor present (HCC), Encounter for therapeutic drug monitoring, Encounter for long-term (current) use of high-risk medication * XR WRIST LEFT 2VW(Performed 11/17/2022) Performed for Rheumatoid arthritis involving multiple sites, unspecified whether rheumatoid factor present (HCC), Encounter for therapeutic drug monitoring, Encounter for long-term (current) use of high-risk medication * XR WRIST RIGHT 2VW(Performed 11/17/2022) Performed for Rheumatoid arthritis involving multiple sites, unspecified whether rheumatoid factor present (HCC), Encounter for therapeutic drug monitoring, Encounter for long-term (current) use of high-risk medication * XR HAND RIGHT 2VW(Performed 11/17/2022) Performed for Rheumatoid arthritis involving multiple sites, unspecified whether rheumatoid factor present (HCC), Encounter for therapeutic drug monitoring, Encounter for long-term (current) use of high-risk medication * XR HAND LEFT 2VW(Performed 11/17/2022) Performed for Rheumatoid arthritis involving multiple sites, unspecified whether rheumatoid factor present (HCC), Encounter for therapeutic drug monitoring, Encounter for long-term (current) use of high-risk medication * XR FOOT LEFT 2VW(Performed 11/17/2022) Performed for Rheumatoid arthritis involving multiple sites, unspecified whether rheumatoid factor present (HCC), Encounter for therapeutic drug monitoring, Encounter for long-term (current) use of high-risk medication * XR FOOT RIGHT 2VW(Performed 11/17/2022) Performed for Rheumatoid arthritis involving multiple sites, unspecified whether rheumatoid factor present (HCC), Encounter for therapeutic drug monitoring, Encounter for long-term (current) use of high-risk medication * XR CHEST 2VW(Performed 11/17/2022) Performed for Rheumatoid arthritis involving multiple sites, unspecified whether rheumatoid factor present (HCC), Encounter for therapeutic drug monitoring, Encounter for long-term (current) use of high-risk medication * URINALYSIS W/MICROSCOPIC REFLEX TO CULTURE(Performed 11/17/2022) Performed for Rheumatoid arthritis involving multiple sites, unspecified whether rheumatoid factor present (HCC), Encounter for therapeutic drug monitoring, Encounter for long-term (current) use of high-risk medication * ERYTHROCYTE SEDIMENTATION RATE(Performed 11/17/2022) Performed for Rheumatoid arthritis involving multiple sites, unspecified whether rheumatoid factor present (HCC), Encounter for therapeutic drug monitoring, Encounter for long-term (current) use of high-risk medication * C-REACTIVE PROTEIN(Performed 11/17/2022) Performed for Rheumatoid arthritis involving multiple sites, unspecified whether rheumatoid factor present (HCC), Encounter for therapeutic drug monitoring, Encounter for long-term (current) use of high-risk medication * COMPREHENSIVE METABOLIC PANEL(Performed 11/17/2022) Performed for Rheumatoid arthritis involving multiple sites, unspecified whether rheumatoid factor present (HCC), Encounter for therapeutic drug monitoring, Encounter for long-term (current) use of high-risk medication * CBC W AUTO DIFFERENTIAL(Performed 11/17/2022) Performed for Rheumatoid arthritis involving multiple sites, unspecified whether rheumatoid factor present (HCC), Encounter for therapeutic drug monitoring, Encounter for long-term (current) use of high-risk medication * QUANTIFERON-TB GOLD PLUS 4-TUBE(Performed 08/04/2022) Performed for Rheumatoid arthritis involving multiple sites, unspecified whether rheumatoid factor present (HCC), Encounter for therapeutic drug monitoring, Encounter for long-term (current) use of high-risk medication * C-REACTIVE PROTEIN(Performed 08/04/2022) Performed for Encounter for therapeutic drug monitoring, Encounter for long-term (current) use of high-risk medication * ERYTHROCYTE SEDIMENTATION RATE(Performed 08/04/2022) Performed for Encounter for therapeutic drug monitoring, Encounter for long-term (current) use of high-risk medication * COMPREHENSIVE METABOLIC PANEL(Performed 08/04/2022) Performed for Encounter for therapeutic drug monitoring, Encounter for long-term (current) use of high-risk medication * CBC W AUTO DIFFERENTIAL(Performed 08/04/2022) Performed for Encounter for therapeutic drug monitoring, Encounter for long-term (current) use of high-risk medication * XR CHEST 2VW(Performed 10/01/2021) Performed for Screening-pulmonary TB, Rheumatoid arthritis involving multiple sites, unspecified whether rheumatoid factor present (HCC), Encounter for long- term (current) use of high-risk medication, Encounter for therapeutic drug monitoring * URINALYSIS W/MICROSCOPIC REFLEX TO CULTURE(Performed 10/01/2021) Performed for Rheumatoid arthritis involving multiple sites, unspecified whether rheumatoid factor present (HCC), Encounter for long-term (current) use of high- risk medication, Encounter for therapeutic drug monitoring * ERYTHROCYTE SEDIMENTATION RATE(Performed 10/01/2021) Performed for Rheumatoid arthritis involving multiple sites, unspecified whether rheumatoid factor present (HCC), Encounter for long-term (current) use of high- risk medication, Encounter for therapeutic drug monitoring * C-REACTIVE PROTEIN(Performed 10/01/2021) Performed for Rheumatoid arthritis involving multiple sites, unspecified whether rheumatoid factor present (HCC), Encounter for long-term (current) use of high- risk medication, Encounter for therapeutic drug monitoring * COMPREHENSIVE METABOLIC PANEL(Performed 10/01/2021) Performed for Rheumatoid arthritis involving multiple sites, unspecified whether rheumatoid factor present (HCC), Encounter for long-term (current) use of high- risk medication, Encounter for therapeutic drug monitoring * CBC W AUTO DIFFERENTIAL(Performed 10/01/2021) Performed for Rheumatoid arthritis involving multiple sites, unspecified whether rheumatoid factor present (HCC), Encounter for long-term (current) use of high- risk medication, Encounter for therapeutic drug monitoring * ERYTHROCYTE SEDIMENTATION RATE(Performed 04/25/2021) Performed for Rheumatoid arthritis involving multiple sites, unspecified whether rheumatoid factor present (HCC), Encounter for long-term (current) use of high- risk medication, Encounter for therapeutic drug monitoring * C-REACTIVE PROTEIN(Performed 04/25/2021) Performed for Rheumatoid arthritis involving multiple sites, unspecified whether rheumatoid factor present (HCC), Encounter for long-term (current) use of high- risk medication, Encounter for therapeutic drug monitoring * COMPREHENSIVE METABOLIC PANEL(Performed 04/25/2021) Performed for Rheumatoid arthritis involving multiple sites, unspecified whether rheumatoid factor present (HCC), Encounter for long-term (current) use of high- risk medication, Encounter for therapeutic drug monitoring * CBC W AUTO DIFFERENTIAL(Performed 04/25/2021) Performed for Rheumatoid arthritis involving multiple sites, unspecified whether rheumatoid factor present (HCC), Encounter for long-term (current) use of high- risk medication, Encounter for therapeutic drug monitoring * QUANTIFERON-TB GOLD PLUS 4-TUBE(Performed 01/10/2021) * XR FOOT LEFT 3VW OR MORE(Performed 10/30/2020) Performed for Rheumatoid arthritis involving multiple sites with positive rheumatoid factor (HCC) * XR PELVIS W BILAT HIP 2VW(Performed 10/30/2020) Performed for Rheumatoid arthritis involving multiple sites with positive rheumatoid factor (HCC) * XR FOOT RIGHT 3VW OR MORE(Performed 10/30/2020) Performed for Rheumatoid arthritis involving multiple sites with positive rheumatoid factor (HCC) * XR ANKLE RIGHT 3VW OR MORE(Performed 10/30/2020) Performed for Rheumatoid arthritis involving multiple sites with positive rheumatoid factor (HCC) * XR ANKLE LEFT 3VW OR MORE(Performed 10/30/2020) Performed for Rheumatoid arthritis involving multiple sites with positive rheumatoid factor (HCC) * XR CERVICAL SPINE 4 OR 5VW(Performed 10/30/2020) Performed for Rheumatoid arthritis involving multiple sites with positive rheumatoid factor (HCC) * XR WRIST RIGHT 3VW OR MORE(Performed 10/30/2020) Performed for Rheumatoid arthritis involving multiple sites with positive rheumatoid factor (HCC) * XR WRIST LEFT 3VW OR MORE(Performed 10/30/2020) Performed for Rheumatoid arthritis involving multiple sites with positive rheumatoid factor (HCC) * XR HAND RIGHT 3VW OR MORE(Performed 10/30/2020) Performed for Rheumatoid arthritis involving multiple sites with positive rheumatoid factor (HCC) * XR HAND LEFT 3VW OR MORE(Performed 10/30/2020) Performed for Rheumatoid arthritis involving multiple sites with positive rheumatoid factor (HCC) * ERYTHROCYTE SEDIMENTATION RATE(Performed 10/04/2020) Performed for Encounter for therapeutic drug monitoring * COMPREHENSIVE METABOLIC PANEL(Performed 10/04/2020) Performed for Encounter for therapeutic drug monitoring * C-REACTIVE PROTEIN(Performed 10/04/2020) Performed for Encounter for therapeutic drug monitoring * CBC W AUTO DIFFERENTIAL(Performed 10/04/2020) Performed for Encounter for therapeutic drug monitoring * OPH OCT TEST SLU(Performed 04/22/2020) Performed for Encounter for long-term (current) use of high-risk medication * URINALYSIS W/MICROSCOPIC NO CULTURE(Performed 03/26/2020) Performed for Rheumatoid arthritis involving multiple sites with positive rheumatoid factor (HCC), Encounter for long-term (current) use of high-risk medication, Encounter for therapeutic drug monitoring * ERYTHROCYTE SEDIMENTATION RATE(Performed 03/26/2020) Performed for Rheumatoid arthritis involving multiple sites, Encounter for long- term (current) use of high-risk medication, Encounter for therapeutic drug monitoring * C-REACTIVE PROTEIN(Performed 03/26/2020) Performed for Rheumatoid arthritis involving multiple sites, Encounter for long- term (current) use of high-risk medication, Encounter for therapeutic drug monitoring * COMPREHENSIVE METABOLIC PANEL(Performed 03/26/2020) Performed for Rheumatoid arthritis involving multiple sites, Encounter for long- term (current) use of high-risk medication, Encounter for therapeutic drug monitoring * CBC W AUTO DIFFERENTIAL(Performed 03/26/2020) Performed for Rheumatoid arthritis involving multiple sites, Encounter for long- term (current) use of high-risk medication, Encounter for therapeutic drug monitoring * ERYTHROCYTE SEDIMENTATION RATE(Performed 05/22/2019) Performed for Rheumatoid arthritis involving multiple sites, unspecified rheumatoid factor presence * C-REACTIVE PROTEIN(Performed 05/22/2019) Performed for Rheumatoid arthritis involving multiple sites, unspecified rheumatoid factor presence * URINALYSIS REFLEX TO MICROSCOPIC NO CULTURE(Performed 05/22/2019) Performed for Rheumatoid arthritis involving multiple sites, unspecified rheumatoid factor presence * COMPREHENSIVE METABOLIC PANEL(Performed 05/22/2019) Performed for Rheumatoid arthritis involving multiple sites, unspecified rheumatoid factor presence * CBC W AUTO DIFFERENTIAL(Performed 05/22/2019) Performed for Rheumatoid arthritis involving multiple sites, unspecified rheumatoid factor presence * URINALYSIS W/MICROSCOPIC NO CULTURE(Performed 01/03/2019) Performed for Rheumatoid arthritis involving multiple sites, unspecified rheumatoid factor presence, Encounter for long-term (current) use of high-risk medication, Encounter for therapeutic drug monitoring * C-REACTIVE PROTEIN(Performed 01/03/2019) Performed for Rheumatoid arthritis involving multiple sites, unspecified rheumatoid factor presence, Encounter for long-term (current) use of high-risk medication, Encounter for therapeutic drug monitoring * ERYTHROCYTE SEDIMENTATION RATE(Performed 01/03/2019) Performed for Rheumatoid arthritis involving multiple sites, unspecified rheumatoid factor presence, Encounter for long-term (current) use of high-risk medication, Encounter for therapeutic drug monitoring * COMPREHENSIVE METABOLIC PANEL(Performed 01/03/2019) Performed for Rheumatoid arthritis involving multiple sites, unspecified rheumatoid factor presence, Encounter for long-term (current) use of high-risk medication, Encounter for therapeutic drug monitoring * CBC W AUTO DIFFERENTIAL(Performed 01/03/2019) Performed for Rheumatoid arthritis involving multiple sites, unspecified rheumatoid factor presence, Encounter for long-term (current) use of high-risk medication, Encounter for therapeutic drug monitoring * URINALYSIS REFLEX TO MICROSCOPIC NO CULTURE(Performed 11/03/2018) Performed for Rheumatoid arthritis involving multiple sites, unspecified rheumatoid factor presence, Encounter for long-term (current) use of high-risk medication, Encounter for therapeutic drug monitoring * CULTURE URINE(Performed 11/03/2018) Performed for Rheumatoid arthritis involving multiple sites, unspecified rheumatoid factor presence, Encounter for long-term (current) use of high-risk medication, Encounter for therapeutic drug monitoring * C-REACTIVE PROTEIN(Performed 11/03/2018) Performed for Rheumatoid arthritis involving multiple sites, unspecified rheumatoid factor presence, Encounter for long-term (current) use of high-risk medication, Encounter for therapeutic drug monitoring * ERYTHROCYTE SEDIMENTATION RATE(Performed 11/03/2018) Performed for Rheumatoid arthritis involving multiple sites, unspecified rheumatoid factor presence, Encounter for long-term (current) use of high-risk medication, Encounter for therapeutic drug monitoring * COMPREHENSIVE METABOLIC PANEL(Performed 11/03/2018) Performed for Rheumatoid arthritis involving multiple sites, unspecified rheumatoid factor presence, Encounter for long-term (current) use of high-risk medication, Encounter for therapeutic drug monitoring * CBC W AUTO DIFFERENTIAL(Performed 11/03/2018) Performed for Rheumatoid arthritis involving multiple sites, unspecified rheumatoid factor presence, Encounter for long-term (current) use of high-risk medication, Encounter for therapeutic drug monitoring * URINALYSIS W/MICROSCOPIC NO CULTURE(Performed 08/19/2018) Performed for Encounter for long-term (current) use of high-risk medication * XR CHEST 2VW(Performed 08/19/2018) Performed for Rheumatoid arthritis involving multiple sites, unspecified rheumatoid factor presence, Encounter for long-term (current) use of high-risk medication, Encounter for therapeutic drug monitoring * QUANTIFERON-TB GOLD PLUS 4-TUBE(Performed 08/19/2018) Performed for Rheumatoid arthritis involving multiple sites, unspecified rheumatoid factor presence, Encounter for long-term (current) use of high-risk medication, Encounter for therapeutic drug monitoring * C-REACTIVE PROTEIN(Performed 08/19/2018) Performed for Rheumatoid arthritis involving multiple sites, unspecified rheumatoid factor presence, Encounter for long-term (current) use of high-risk medication, Encounter for therapeutic drug monitoring * ERYTHROCYTE SEDIMENTATION RATE(Performed 08/19/2018) Performed for Rheumatoid arthritis involving multiple sites, unspecified rheumatoid factor presence, Encounter for long-term (current) use of high-risk medication, Encounter for therapeutic drug monitoring * COMPREHENSIVE METABOLIC PANEL(Performed 08/19/2018) Performed for Rheumatoid arthritis involving multiple sites, unspecified rheumatoid factor presence, Encounter for long-term (current) use of high-risk medication, Encounter for therapeutic drug monitoring * CBC W AUTO DIFFERENTIAL(Performed 08/19/2018) Performed for Rheumatoid arthritis involving multiple sites, unspecified rheumatoid factor presence, Encounter for long-term (current) use of high-risk medication, Encounter for therapeutic drug monitoring * URINALYSIS W/MICROSCOPIC NO CULTURE(Performed 06/30/2018) Performed for Rheumatoid arthritis involving multiple sites, unspecified rheumatoid factor presence, Encounter for long-term (current) use of high-risk medication, Encounter for therapeutic drug monitoring * CHROMATIN ANTIBODY(Performed 06/30/2018) Performed for Pain in joint, multiple sites, Myalgia, Tiredness, Migraine syndrome, Right hand pain, Left hand pain, Right foot pain, Left foot pain * URINALYSIS REFLEX TO MICROSCOPIC NO CULTURE(Performed 05/23/2018) Performed for Rheumatoid arthritis involving multiple sites, unspecified rheumatoid factor presence * C-REACTIVE PROTEIN(Performed 05/23/2018) Performed for Rheumatoid arthritis involving multiple sites, unspecified rheumatoid factor presence, Encounter for therapeutic drug monitoring, Encounter for long-term (current) use of high-risk medication * ERYTHROCYTE SEDIMENTATION RATE(Performed 05/23/2018) Performed for Rheumatoid arthritis involving multiple sites, unspecified rheumatoid factor presence, Encounter for therapeutic drug monitoring, Encounter for long-term (current) use of high-risk medication * COMPREHENSIVE METABOLIC PANEL(Performed 05/23/2018) Performed for Rheumatoid arthritis involving multiple sites, unspecified rheumatoid factor presence, Encounter for therapeutic drug monitoring, Encounter for long-term (current) use of high-risk medication * CBC W AUTO DIFFERENTIAL(Performed 05/23/2018) Performed for Rheumatoid arthritis involving multiple sites, unspecified rheumatoid factor presence, Encounter for therapeutic drug monitoring, Encounter for long-term (current) use of high-risk medication * CULTURE URINE(Performed 05/23/2018) Performed for Rheumatoid arthritis involving multiple sites, unspecified rheumatoid factor presence * XR HAND RIGHT 2VW(Performed 09/27/2017) Performed for Polyarthralgia, Myalgia, Fatigue, unspecified type, Migraine without status migrainosus, not intractable, unspecified migraine type, Bilateral hand pain, Bilateral foot pain * XR HAND LEFT 2VW(Performed 09/27/2017) Performed for Polyarthralgia, Myalgia, Fatigue, unspecified type, Migraine without status migrainosus, not intractable, unspecified migraine type, Bilateral hand pain, Bilateral foot pain * XR SI JOINTS 3VW OR MORE(Performed 09/27/2017) Performed for Polyarthralgia, Myalgia, Fatigue, unspecified type, Migraine without status migrainosus, not intractable, unspecified migraine type, Bilateral hand pain, Bilateral foot pain * XR FOOT RIGHT 2VW(Performed 09/27/2017) Performed for Polyarthralgia, Myalgia, Fatigue, unspecified type, Migraine without status migrainosus, not intractable, unspecified migraine type, Bilateral hand pain, Bilateral foot pain * XR FOOT LEFT 2VW(Performed 09/27/2017) Performed for Polyarthralgia, Myalgia, Fatigue, unspecified type, Migraine without status migrainosus, not intractable, unspecified migraine type, Bilateral hand pain, Bilateral foot pain * HISTONE ANTIBODY(Performed 09/27/2017) Performed for Pain in joint, multiple sites, Myalgia, Tiredness, Migraine syndrome, Right hand pain, Left hand pain, Right foot pain, Left foot pain * COMPREHENSIVE METABOLIC PANEL(Performed 09/27/2017) Performed for Pain in joint, multiple sites, Myalgia, Tiredness, Migraine syndrome, Right hand pain, Left hand pain, Right foot pain, Left foot pain * SCLERODERMA 70 (SCL) ANTIBODY(Performed 09/27/2017) Performed for Pain in joint, multiple sites, Myalgia, Tiredness, Migraine syndrome, Right hand pain, Left hand pain, Right foot pain, Left foot pain * MEDELLIN (SM) ANTIBODY RENEE(Performed 09/27/2017) Performed for Pain in joint, multiple sites, Myalgia, Tiredness, Migraine syndrome, Right hand pain, Left hand pain, Right foot pain, Left foot pain * SS-B (SJOGREN'S) ANTIBODY(Performed 09/27/2017) Performed for Pain in joint, multiple sites, Myalgia, Tiredness, Migraine syndrome, Right hand pain, Left hand pain, Right foot pain, Left foot pain * SS-A (SJOGREN'S) ANTIBODY(Performed 09/27/2017) Performed for Pain in joint, multiple sites, Myalgia, Tiredness, Migraine syndrome, Right hand pain, Left hand pain, Right foot pain, Left foot pain * DEPOSITION OPERATOR ANTIBODY(Performed 09/27/2017) Performed for Pain in joint, multiple sites, Myalgia, Tiredness, Migraine syndrome, Right hand pain, Left hand pain, Right foot pain, Left foot pain * COMPLEMENT TOTAL(Performed 09/27/2017) Performed for Pain in joint, multiple sites, Myalgia, Tiredness, Migraine syndrome, Right hand pain, Left hand pain, Right foot pain, Left foot pain * COMPLEMENT C4(Performed 09/27/2017) Performed for Pain in joint, multiple sites, Myalgia, Tiredness, Migraine syndrome, Right hand pain, Left hand pain, Right foot pain, Left foot pain * COMPLEMENT C3(Performed 09/27/2017) Performed for Pain in joint, multiple sites, Myalgia, Tiredness, Migraine syndrome, Right hand pain, Left hand pain, Right foot pain, Left foot pain * HLA TYPING B27(Performed 09/27/2017) Performed for Pain in joint, multiple sites, Myalgia, Tiredness, Migraine syndrome, Right hand pain, Left hand pain, Right foot pain, Left foot pain * DARREL BLOOD SCREEN W/REFLEX TITER(Performed 09/27/2017) Performed for Pain in joint, multiple sites, Myalgia, Tiredness, Migraine syndrome, Right hand pain, Left hand pain, Right foot pain, Left foot pain * HEPATITIS C RNA QUANTITATIVE(Performed 09/27/2017) Performed for Pain in joint, multiple sites, Myalgia, Tiredness, Migraine syndrome, Right hand pain, Left hand pain, Right foot pain, Left foot pain * CYCLIC CITRULLINATED PEPTIDE(CCP) AB IGG(Performed 09/27/2017) Performed for Pain in joint, multiple sites, Myalgia, Tiredness, Migraine syndrome, Right hand pain, Left hand pain, Right foot pain, Left foot pain * RHEUMATOID FACTOR BLOOD QUANTITATIVE(Performed 09/27/2017) Performed for Pain in joint, multiple sites, Myalgia, Tiredness, Migraine syndrome, Right hand pain, Left hand pain, Right foot pain, Left foot pain * HEPATITIS B SURFACE ANTIGEN W RFLX CONFIRMATION(Performed 09/27/2017) Performed for Pain in joint, multiple sites, Myalgia, Tiredness, Migraine syndrome, Right hand pain, Left hand pain, Right foot pain, Left foot pain * T4 FREE(Performed 09/27/2017) Performed for Pain in joint, multiple sites, Myalgia, Tiredness, Migraine syndrome, Right hand pain, Left hand pain, Right foot pain, Left foot pain * TSH(Performed 09/27/2017) Performed for Pain in joint, multiple sites, Myalgia, Tiredness, Migraine syndrome, Right hand pain, Left hand pain, Right foot pain, Left foot pain * URIC ACID BLOOD(Performed 09/27/2017) Performed for Pain in joint, multiple sites, Myalgia, Tiredness, Migraine syndrome, Right hand pain, Left hand pain, Right foot pain, Left foot pain * CK BLOOD(Performed 09/27/2017) Performed for Pain in joint, multiple sites, Myalgia, Tiredness, Migraine syndrome, Right hand pain, Left hand pain, Right foot pain, Left foot pain * URINALYSIS W/MICROSCOPIC NO CULTURE(Performed 09/27/2017) Performed for Pain in joint, multiple sites, Myalgia, Tiredness, Migraine syndrome, Right hand pain, Left hand pain, Right foot pain, Left foot pain * C-REACTIVE PROTEIN(Performed 09/27/2017) Performed for Pain in joint, multiple sites, Myalgia, Tiredness, Migraine syndrome, Right hand pain, Left hand pain, Right foot pain, Left foot pain * ERYTHROCYTE SEDIMENTATION RATE(Performed 09/27/2017) Performed for Pain in joint, multiple sites, Myalgia, Tiredness, Migraine syndrome, Right hand pain, Left hand pain, Right foot pain, Left foot pain * CBC W/O DIFFERENTIAL(Performed 09/27/2017) Performed for Pain in joint, multiple sites, Myalgia, Tiredness, Migraine syndrome, Right hand pain, Left hand pain, Right foot pain, Left foot pain * GROSS + MICRO EXAM(Performed 09/05/2005) Results * URINALYSIS W/MICROSCOPIC REFLEX TO CULTURE (04/11/2024 10:26 AM [facility]) Only the most recent of9 resultswithin the time period is included. Color UA Yellow Straw, Yellow 04/11/2024 10:36 AM [facility] Clarity UA Clear Clear 04/11/2024 10:36 AM [facility] Specific [place] UA 1.012 1.005 - 1.030 04/11/2024 10:36 AM [facility] pH UA 5.0 5.0 - 8.0 pH 04/11/2024 10:36 AM [facility] Protein UA Negative Negative 04/11/2024 10:36 AM [facility] Glucose UA Negative Negative 04/11/2024 10:36 AM [facility] Ketone UA Negative Negative 04/11/2024 10:36 AM [facility] Bilirubin UA Negative Negative 04/11/2024 10:36 AM [facility] Blood UA Negative Negative 04/11/2024 10:36 AM [facility] Nitrite UA Negative Negative 04/11/2024 10:36 AM [facility] Leukocyte Esterase Negative Negative 04/11/2024 10:36 AM [facility] Urobilinogen UA Negative Negative mg/dL 04/11/2024 10:36 AM [facility] RBC UA 0-2 None Seen, 0-2, 3-5 /HPF 04/11/2024 10:36 AM CDT [facility] WBC UA 0-5 None Seen, 0-5 /HPF 04/11/2024 10:36 AM CDT [facility] Squamous Epithelial Cells UA None Seen None Seen, 0-2, 3-5 /HPF 04/11/2024 10:36 AM CDT [facility] Mucus UA 1+ /LPF 04/11/2024 10:36 AM CDT [facility] Urine MID-STREAM URINE SPECIMEN / Unknown Collection / Unknown 04/11/2024 10:26 AM CDT 04/11/2024 10:30 AM CDT Narrative [facility] - 04/11/2024 10:36 AM CDT Culture Not Indicated Sue Pa MD LAB - URINALYS IS ORDERABLES Performing Organization Address City/[facility]/ZIP Co de Phone Number [facility] [address] [place] [phone], [facility] [phone] * (ABNORMAL) C-REACTIVE PROTEIN (04/11/2024 10:26 AM CDT) Only the most recent of20 resultswithin the time period is included. C-Reactive Protein 2.7(H) <=0.5 mg/dL 04/11/2024 10:59 AM CDT [facility] Blood BLOOD SPECIMEN / Unknown Venipuncture / Unknown 04/11/2024 10:26 AM CDT 04/11/2024 10:31 AM CDT Sue Pa MD LAB - CHEMISTR Y ORDERABLES [facility] [address] [place] [id number], [place] [phone] * (ABNORMAL) ERYTHROCYTE SEDIMENTATION RATE (04/11/2024 10:26 AM CDT) Only the most recent of20 resultswithin the time period is included. Erythrocyte Sedimentation Rate Westergren 55(H) 0 - 20 MM/HR 04/11/2024 10:44 AM CDT [facility] Blood BLOOD SPECIMEN / Unknown Venipuncture / Unknown 04/11/2024 10:26 AM CDT 04/11/2024 10:31 AM CDT Sue Pa MD LAB - HEMATOLO GY ORDERABLES [facility] [address] [place] [address], [facility] [phone] * (ABNORMAL) CBC WITH DIFFERENTIAL (04/11/2024 10:26 AM CDT) Only the most recent of19 resultswithin the time period is included. WBC 8.1 4.0 - 10.7 x10E9/L 04/11/2024 10:39 AM [facility] RBC Count 4.30 3.90 - 5.20 x10E12/L 04/11/2024 10:39 AM [facility] Hemoglobin 12.5 11.9 - 15.8 g/dL 04/11/2024 10:39 AM [facility] Hematocrit 39.6 34.8 - 46.1 % 04/11/2024 10:39 AM [facility] MCV 92.1 80.0 - 98.0 fL 04/11/2024 10:39 AM [facility] MCH 29.1 26.7 - 33.6 pg 04/11/2024 10:39 AM [facility] MCHC 31.6(L) 31.7 - 36.3 g/dL 04/11/2024 10:39 AM [facility] RDW-CV 12.8 11.3 - 14.8 % 04/11/2024 10:39 AM [facility] Platelet Count 348 150 - 420 x10E9/L 04/11/2024 10:39 AM [facility] MPV 9.9 7.8 - 11.4 fL 04/11/2024 10:39 AM [facility] Preliminary Absolute Neutrophil 3.74 1.60 - 7.50 x10E9/L 04/11/2024 10:39 AM [facility] Neutrophil % 46.4 41.0 - 74.0 % 04/11/2024 10:39 AM [facility] Lymphocyte % 44.2 17.0 - 47.0 % 04/11/2024 10:39 AM [facility] Monocyte % 7.1 3.0 - 11.0 % 04/11/2024 10:39 AM [facility] Eosinophil % 1.6 0.0 - 7.0 % 04/11/2024 10:39 AM [facility] Basophil % 0.6 0.0 - 1.6 % 04/11/2024 10:39 AM [facility] Immature Granulocytes % 0.1 0.0 - 1.0 % 04/11/2024 10:39 AM [facility] Neutrophil Absolute 3.74 1.60 - 7.50 x10E9/L 04/11/2024 10:39 AM [facility] Lymphocyte Absolute 3.56 1.00 - 4.40 x10E9/L 04/11/2024 10:39 AM [facility] Monocyte Absolute 0.57 0.15 - 1.00 x10E9/L 04/11/2024 10:39 AM [facility] Eosinophil Absolute 0.13 0.00 - 0.60 x10E9/L 04/11/2024 10:39 AM [facility] Basophil Absolute 0.05 0.00 - 0.13 x10E9/L 04/11/2024 10:39 AM [facility] Blood BLOOD SPECIMEN / Unknown Venipuncture / Unknown 04/11/2024 10:26 AM CDT 04/11/2024 10:31 AM CDT Sue Pa MD LAB - HEMATOLO GY ORDERABLES [facility] [address] [place] [address], [facility] [phone] * (ABNORMAL) COMPREHENSIVE METABOLIC PANEL (04/11/2024 10:26 AM CDT) Only the most recent of20 resultswithin the time period is included. BUN 10 7 - 26 mg/dL 04/11/2024 10:59 AM [facility] Creatinine 0.72 0.56 - 0.96 mg/dL 04/11/2024 10:59 AM [facility] Sodium 140 136 - 145 mmol/L 04/11/2024 10:59 AM [facility] Potassium 3.7 3.5 - 4.5 mmol/L 04/11/2024 10:59 AM [facility] Chloride 103 98 - 107 mmol/L 04/11/2024 10:59 AM [facility] CO2 27 22 - 29 mmol/L 04/11/2024 10:59 AM [facility] Glucose 89 70 - 115 mg/dL 04/11/2024 10:59 AM [facility] Calcium 9.4 8.4 - 10.2 mg/dL 04/11/2024 10:59 AM [facility] Protein Total 7.7 6.0 - 8.3 g/dL 04/11/2024 10:59 AM [facility] Albumin 3.8 3.4 - 5.0 g/dL 04/11/2024 10:59 AM [facility] Bilirubin Total 0.2 0.2 - 1.2 mg/dL 04/11/2024 10:59 AM [facility] Alkaline Phosphatase 82 40 - 150 U/L 04/11/2024 10:59 AM [facility] ALT 11 5 - 55 U/L 04/11/2024 10:59 AM [facility] AST 20 5 - 34 U/L 04/11/2024 10:59 AM [facility] Anion Gap 10 6 - 16 04/11/2024 10:59 AM [facility] BUN/Creatinine Ratio 14 7 - 23 04/11/2024 10:59 AM [facility] Osmolality Calculated 289 275 - 295 mOsm/kg 04/11/2024 10:59 AM [facility] Albumin/Globulin Ratio 1.0(L) 1.1 - 2.3 04/11/2024 10:59 AM [facility] eGFR by CKD-EPI >90 >=90 mL/min/1.7 3 m2 04/11/2024 10:59 AM CDT [facility] Blood BLOOD SPECIMEN / Unknown Venipuncture / Unknown 04/11/2024 10:26 AM CDT 04/11/2024 10:31 AM CDT Sue Pa MD LAB - CHEMISTR Y ORDERABLES Performing Organization Address City/State/[facility] Co de Phone Number [facility] [address] [place] [phone], [facility] [phone] * XR CHEST 2VW (01/11/2024 4:47 PM CDT) Only the most recent of4 resultswithin the time period is included. Anatomical Region Laterality Modality Chest Radiographic Samantha ging 01/12/2024 8:03 AM CDT Narrative 01/12/2024 9:32 AM CDT PROCEDURE: ??XR CHEST 2VW, DATE/TIME OF EXAM: ??01/11/2024 4:47 PM, LOCATION [facility] INDICATION: M06.9: Rheumatoid arthritis involving multiple sites, unspecified whether rheumatoid factor present (HCC) Z51.81: Encounter for therapeutic drug monitoring Z79.899: Encounter for long-term (current) use of high-risk medication ADDITIONAL CLINICAL INFORMATION: Ordering Provider Reason For Exam: Technologist Note: Additional: COMPARISON: Chest x-ray dated 11/17/2022 FINDINGS/IMPRESSION: External jewelry projecting over bilateral lower chest freitas. There is no focal consolidation, pleural effusion, or pneumothorax.Normal pulmonary vasculature.The cardiomediastinal silhouette is normal. The visible bony thorax is intact. > Dictated by Arthur Mancilla MD (associate professor of radiology). IPaulo have personally reviewed and interpreted this examination/study. > Interpreting Provider: Paulo Joyce on 01/12/2024 9:32 AM Procedure Note Paulo Joyce MD - 01/12/2024 PROCEDURE: XR CHEST 2VW, DATE/TIME OF EXAM: 01/11/2024 4:47 PM, LOCATION [facility] INDICATION: M06.9: Rheumatoid arthritis involving multiple sites, unspecifiedwhether rheumatoid factor present (HCC) Z51.81: Encounter for therapeutic drug monitoring Z79.899: Encounter for long-term (current) use of high-risk medication ADDITIONAL CLINICAL INFORMATION: Ordering Provider Reason For Exam: Technologist Note: Additional: COMPARISON: Chest x-ray dated 11/17/2022 FINDINGS/IMPRESSION: External jewelry projecting over bilateral lower chest freitas. There is no focal consolidation, pleural effusion, orpneumothorax.Normal pulmonary vasculature.The cardiomediastinal silhouette is normal. The visible bony thorax is intact. > Dictated by Arthur Mancilla MD (associate professor of radiology). I, Paulo Joyce have personally reviewed and interpreted this examination/study. > Interpreting Provider: Paulo Joyce on 01/12/2024 9:32 AM Sue Pa MD DIAGNOSTIC SAMANTHA GING ORDERABLES * QUANTIFERON-TB GOLD PLUS 4-TUBE (09/15/2023 7:48 AM CDT) Only the most recent of5 resultswithin the time period is included. [facility] QuantiFERON NIL 0.03 IU/mL 10:25 PM CDT [email or web address] ([facility]) Comment: Performed By: [employer] [address] [place] [id number] Gas Leak Tester: Shane Jimenez MD, PhD CLIA Number: [id number] QuantiFERON TB Gold Plus Negative Negative 09/17/2023 10:25 PM CDT [email or web address] ([facility]) Comment: Interpretive Data: Quantiferon TB Gold Plus Interferon gamma release is measured for specimens from each of the four collection tubes. A qualitative result (Negative, Positive, or Indeterminate) is based on interpretation of the four values, NIL, MITOGEN minus NIL (MITOGEN-NIL), TB1 minus NIL (TB1-NIL), and TB2 minus NIL (TB2-NIL). The NIL value represents nonspecific reactivity produced by the patient specimen. The MITOGEN-NIL value serves as the positive control for the patient specimen, demonstrating successful lymphocyte activity. The TB1-NIL tube specifically detects CD4+ lymphocyte reactivity, specifically stimulated by the TB1 antigens. The TB2-NIL tube detects both CD4+ and CD8+ lymphocyte reactivity, stimulated by TB2 antigens. An overall Negative result does not completely rule out TB infection. A false-positive result in the absence of other clinical evidence of TB infection is not uncommon. Refer to: Updated Guidelines for Using Interferon Gamma Release Assays to Detect Mycobacterium tuberculosis Infection --- [place], 2010 (http://www.cdc.gov/mmwr/preview/mmwrhtml/yw6564q1.htm), for more information concerning test performance in low-prevalence populations and use in occupational screening. QuantiFERON Plus TB1 Minus NIL 0.01 0.00 - 0.34 IU/mL 09/17/2023 10:25 PM CDT [employer] ([facility]) QuantiFERON Plus TB2 Minus NIL 0.01 0.00 - 0.34 IU/mL 09/17/2023 10:25 PM CDT [employer] ([facility]) QuantiFERON Mitogen Minus NIL 7.80 IU/mL 09/17/2023 10:25 PM CDT [employer] ([facility]) Blood BLOOD SPECIMEN / Unknown Venipuncture / Unknown 09/15/2023 7:48 AM CDT 09/15/2023 8:16 AM CDT Sue Pa MD LAB - CHEMISTR Y ORDERABLES Performing Organization Address City/State/[facility] Co de Phone Number [employer] [facility]) [address] * XR FOOT RIGHT 2VW (11/17/2022 4:44 PM CDT) Only the most recent of2 resultswithin the time period is included. Anatomical Region Laterality Modality Ankle / Foot Radiographic Samantha ging 11/18/2022 7:42 AM CDT Impressions 11/18/2022 7:52 AM CDT Impression: 1. 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 Interval development of mild erosion at the fifth metacarpophalangeal joint. 2. 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 3. Right and left wrists: Soft tissue swelling. 4. Right foot: Minimal degenerative change at the first metatarsophalangeal joint. 5. Left foot: Erosive arthritis at the first metatarsophalangeal joint, progressed. > Interpreting Provider: Thom Alcazar MD on 11/18/2022 7:52 AM Narrative 11/18/2022 7:52 AM CDT PROCEDURE: ??XR HAND RIGHT 2VW, XR WRIST LEFT 2VW, XR WRIST RIGHT 2VW, XR HAND LEFT 2VW, XR FOOT LEFT 2VW, XR FOOT RIGHT 2VW DATE/TIME OF EXAM: ??11/17/2022 4:44 PM CLINICAL INFORMATION: None relevant/not provided if blank. Indication: M06.9: Rheumatoid arthritis involving multiple sites, unspecified whether rheumatoid factor present ([facility]) Z51.81: Encounter for therapeutic drug monitoring Z79.899: Encounter for long-term (current) use of high-risk medication Additional History: COMPARISON: Right and left hand and foot x-rays dated 10/30/2020. FINDINGS: Right hand: No fracture. Interval progression of arthritis at the first metacarpophalangeal joint with narrowing, severe subluxation, and multiple erosions causing deformity of the metacarpal head. There is surrounding soft tissue swelling. The other joint spaces are normal. A small erosion has developed in the fifth proximal phalanx base medially. Bone density is normal. Left hand: No fracture. Interval progression of arthritis at the first metacarpophalangeal joint with narrowing, severe subluxation, and multiple erosions, greater in the metacarpal head. There is adjacent soft tissue swelling. The other joint spaces are normal. There is mild soft tissue swelling adjacent to the fifth metacarpophalangeal joint. Bone density is normal. Right wrist: No fracture or dislocation is present. The joint spaces are normal. Small subchondral cyst noted in the distal radius. No definite erosions are seen. Bone density is normal. Soft tissue swelling is noted. Left wrist: No fracture or dislocation is present. The joint spaces are normal. No erosions are seen. ??Bone density is normal. Soft tissue swelling is noted. Right foot: No fracture or dislocation is present. Small osteophyte formation at the first metatarsophalangeal joint. The joint spaces are normal. No erosions are seen. ??Bone density is normal. ??The soft tissues are normal. Left foot: No fracture or dislocation is present. Several erosions are present at the medial aspect of the interphalangeal joint of the toe, intervally progressed. There is mild adjacent soft tissue swelling. The other joints are normal. ??Bone density is normal. ?? Procedure Note Thom Alcazar MD - 11/18/2022 PROCEDURE: XR HAND RIGHT 2VW, XR WRIST LEFT 2VW, XR WRIST RIGHT 2VW, XR HAND LEFT 2VW, XR FOOT LEFT 2VW, XR FOOT RIGHT 2VW DATE/TIME OF EXAM: 11/17/2022 4:44 PM CLINICAL INFORMATION: None relevant/not provided if blank. Indication: M06.9: Rheumatoid arthritis involving multiple sites, unspecified whether rheumatoid factor present ([facility]) Z51.81: Encounter for therapeutic drug monitoring Z79.899: Encounter for long-term (current) use of high-risk medication Additional History: COMPARISON: Right and left hand and foot x-rays dated 10/30/2020. FINDINGS: Right hand: No fracture. Interval progression of arthritis at the first metacarpophalangeal joint with narrowing, severe subluxation, andmultiple erosions causing deformity of the metacarpal head. There is surrounding soft tissue swelling. The other joint spaces are normal. A small erosion has developed in the fifth proximal phalanx base medially. Bone densityis normal. Left hand: No fracture. Interval progression of arthritis at the first metacarpophalangeal joint with narrowing, severe subluxation, andmultiple erosions, greater in the metacarpal head. There is adjacent soft tissue swelling. The other joint spaces are normal. There is mild soft tissue swelling adjacent to the fifth metacarpophalangeal joint. Bone densityis normal. Right wrist: No fracture or dislocation is present. The joint spaces are normal.Small subchondral cyst noted in the distal radius. No definite erosions areseen. Bone density is normal. Soft tissue swelling is noted. Left wrist: No fracture or dislocation is present. The joint spaces are normal. No erosions are seen. Bone density is normal. Soft tissue swelling isnoted. Right foot: No fracture or dislocation is present. Small osteophyte formation at the first metatarsophalangeal joint. The joint spaces are normal. Noerosions are seen. Bone density is normal. The soft tissues are normal. Left foot: No fracture or dislocation is present. Several erosions are present atthe medial aspect of the interphalangeal joint of the toe, intervally progressed. There is mild adjacent soft tissue swelling. The otherjoints are normal. Bone density is normal. Impression: 1. 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 Interval development of mild erosion at the fifth metacarpophalangeal joint. 2. 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 3. Right and left wrists: Soft tissue swelling. 4. Right foot: Minimal degenerative change at the firstmetatarsophalangeal joint. 5. Left foot: Erosive arthritis at the first metatarsophalangeal joint, progressed. > Interpreting Provider: Thom Alcazar MD on 11/18/2022 7:52 AM Sue Pa MD DIAGNOSTIC SAMANTHA GING ORDERABLES * XR FOOT LEFT 2VW (11/17/2022 4:44 PM CDT) Only the most recent of2 resultswithin the time period is included. Anatomical Region Laterality Modality Ankle / Foot Radiographic Samantha ging 11/18/2022 7:42 AM CDT Impressions 11/18/2022 7:52 AM CDT Impression: 1. 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 Interval development of mild erosion at the fifth metacarpophalangeal joint. 2. 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 3. Right and left wrists: Soft tissue swelling. 4. Right foot: Minimal degenerative change at the first metatarsophalangeal joint. 5. Left foot: Erosive arthritis at the first metatarsophalangeal joint, progressed. > Interpreting Provider: Thom Alcazar MD on 11/18/2022 7:52 AM Narrative 11/18/2022 7:52 AM CDT PROCEDURE: ??XR HAND RIGHT 2VW, XR WRIST LEFT 2VW, XR WRIST RIGHT 2VW, XR HAND LEFT 2VW, XR FOOT LEFT 2VW, XR FOOT RIGHT 2VW DATE/TIME OF EXAM: ??11/17/2022 4:44 PM CLINICAL INFORMATION: None relevant/not provided if blank. Indication: M06.9: Rheumatoid arthritis involving multiple sites, unspecified whether rheumatoid factor present ([facility]) Z51.81: Encounter for therapeutic drug monitoring Z79.899: Encounter for long-term (current) use of high-risk medication Additional History: COMPARISON: Right and left hand and foot x-rays dated 10/30/2020. FINDINGS: Right hand: No fracture. Interval progression of arthritis at the first metacarpophalangeal joint with narrowing, severe subluxation, and multiple erosions causing deformity of the metacarpal head. There is surrounding soft tissue swelling. The other joint spaces are normal. A small erosion has developed in the fifth proximal phalanx base medially. Bone density is normal. Left hand: No fracture. Interval progression of arthritis at the first metacarpophalangeal joint with narrowing, severe subluxation, and multiple erosions, greater in the metacarpal head. There is adjacent soft tissue swelling. The other joint spaces are normal. There is mild soft tissue swelling adjacent to the fifth metacarpophalangeal joint. Bone density is normal. Right wrist: No fracture or dislocation is present. The joint spaces are normal. Small subchondral cyst noted in the distal radius. No definite erosions are seen. Bone density is normal. Soft tissue swelling is noted. Left wrist: No fracture or dislocation is present. The joint spaces are normal. No erosions are seen. ??Bone density is normal. Soft tissue swelling is noted. Right foot: No fracture or dislocation is present. Small osteophyte formation at the first metatarsophalangeal joint. The joint spaces are normal. No erosions are seen. ??Bone density is normal. ??The soft tissues are normal. Left foot: No fracture or dislocation is present. Several erosions are present at the medial aspect of the interphalangeal joint of the toe, intervally progressed. There is mild adjacent soft tissue swelling. The other joints are normal. ??Bone density is normal. ?? Procedure Note Thom Alcazar MD - 11/18/2022 PROCEDURE: XR HAND RIGHT 2VW, XR WRIST LEFT 2VW, XR WRIST RIGHT 2VW, XR HAND LEFT 2VW, XR FOOT LEFT 2VW, XR FOOT RIGHT 2VW DATE/TIME OF EXAM: 11/17/2022 4:44 PM CLINICAL INFORMATION: None relevant/not provided if blank. Indication: M06.9: Rheumatoid arthritis involving multiple sites, unspecified whether rheumatoid factor present ([facility]) Z51.81: Encounter for therapeutic drug monitoring Z79.899: Encounter for long-term (current) use of high-risk medication Additional History: COMPARISON: Right and left hand and foot x-rays dated 10/30/2020. FINDINGS: Right hand: No fracture. Interval progression of arthritis at the first metacarpophalangeal joint with narrowing, severe subluxation, andmultiple erosions causing deformity of the metacarpal head. There is surrounding soft tissue swelling. The other joint spaces are normal. A small erosion has developed in the fifth proximal phalanx base medially. Bone densityis normal. Left hand: No fracture. Interval progression of arthritis at the first metacarpophalangeal joint with narrowing, severe subluxation, andmultiple erosions, greater in the metacarpal head. There is adjacent soft tissue swelling. The other joint spaces are normal. There is mild soft tissue swelling adjacent to the fifth metacarpophalangeal joint. Bone densityis normal. Right wrist: No fracture or dislocation is present. The joint spaces are normal.Small subchondral cyst noted in the distal radius. No definite erosions areseen. Bone density is normal. Soft tissue swelling is noted. Left wrist: No fracture or dislocation is present. The joint spaces are normal. No erosions are seen. Bone density is normal. Soft tissue swelling isnoted. Right foot: No fracture or dislocation is present. Small osteophyte formation at the first metatarsophalangeal joint. The joint spaces are normal. Noerosions are seen. Bone density is normal. The soft tissues are normal. Left foot: No fracture or dislocation is present. Several erosions are present atthe medial aspect of the interphalangeal joint of the toe, intervally progressed. There is mild adjacent soft tissue swelling. The otherjoints are normal. Bone density is normal. Impression: 1. 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 Interval development of mild erosion at the fifth metacarpophalangeal joint. 2. 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 3. Right and left wrists: Soft tissue swelling. 4. Right foot: Minimal degenerative change at the firstmetatarsophalangeal joint. 5. Left foot: Erosive arthritis at the first metatarsophalangeal joint, progressed. > Interpreting Provider: Thom Alcazar MD on 11/18/2022 7:52 AM Sue Pa MD DIAGNOSTIC SAMANTHA GING ORDERABLES * XR HAND RIGHT 2VW (11/17/2022 4:44 PM CDT) Only the most recent of2 resultswithin the time period is included. Anatomical Region Laterality Modality Wrist / Hand Radiographic Samantha ging 11/18/2022 7:42 AM CDT Impressions 11/18/2022 7:52 AM CDT Impression: 1. 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 Interval development of mild erosion at the fifth metacarpophalangeal joint. 2. 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 3. Right and left wrists: Soft tissue swelling. 4. Right foot: Minimal degenerative change at the first metatarsophalangeal joint. 5. Left foot: Erosive arthritis at the first metatarsophalangeal joint, progressed. > Interpreting Provider: Thom Alcazar MD on 11/18/2022 7:52 AM Narrative 11/18/2022 7:52 AM CDT PROCEDURE: ??XR HAND RIGHT 2VW, XR WRIST LEFT 2VW, XR WRIST RIGHT 2VW, XR HAND LEFT 2VW, XR FOOT LEFT 2VW, XR FOOT RIGHT 2VW DATE/TIME OF EXAM: ??11/17/2022 4:44 PM CLINICAL INFORMATION: None relevant/not provided if blank. Indication: M06.9: Rheumatoid arthritis involving multiple sites, unspecified whether rheumatoid factor present ([facility]) Z51.81: Encounter for therapeutic drug monitoring Z79.899: Encounter for long-term (current) use of high-risk medication Additional History: COMPARISON: Right and left hand and foot x-rays dated 10/30/2020. FINDINGS: Right hand: No fracture. Interval progression of arthritis at the first metacarpophalangeal joint with narrowing, severe subluxation, and multiple erosions causing deformity of the metacarpal head. There is surrounding soft tissue swelling. The other joint spaces are normal. A small erosion has developed in the fifth proximal phalanx base medially. Bone density is normal. Left hand: No fracture. Interval progression of arthritis at the first metacarpophalangeal joint with narrowing, severe subluxation, and multiple erosions, greater in the metacarpal head. There is adjacent soft tissue swelling. The other joint spaces are normal. There is mild soft tissue swelling adjacent to the fifth metacarpophalangeal joint. Bone density is normal. Right wrist: No fracture or dislocation is present. The joint spaces are normal. Small subchondral cyst noted in the distal radius. No definite erosions are seen. Bone density is normal. Soft tissue swelling is noted. Left wrist: No fracture or dislocation is present. The joint spaces are normal. No erosions are seen. ??Bone density is normal. Soft tissue swelling is noted. Right foot: No fracture or dislocation is present. Small osteophyte formation at the first metatarsophalangeal joint. The joint spaces are normal. No erosions are seen. ??Bone density is normal. ??The soft tissues are normal. Left foot: No fracture or dislocation is present. Several erosions are present at the medial aspect of the interphalangeal joint of the toe, intervally progressed. There is mild adjacent soft tissue swelling. The other joints are normal. ??Bone density is normal. ?? Procedure Note Thom Alcazar MD - 11/18/2022 PROCEDURE: XR HAND RIGHT 2VW, XR WRIST LEFT 2VW, XR WRIST RIGHT 2VW, XR HAND LEFT 2VW, XR FOOT LEFT 2VW, XR FOOT RIGHT 2VW DATE/TIME OF EXAM: 11/17/2022 4:44 PM CLINICAL INFORMATION: None relevant/not provided if blank. Indication: M06.9: Rheumatoid arthritis involving multiple sites, unspecified whether rheumatoid factor present ([facility]) Z51.81: Encounter for therapeutic drug monitoring Z79.899: Encounter for long-term (current) use of high-risk medication Additional History: COMPARISON: Right and left hand and foot x-rays dated 10/30/2020. FINDINGS: Right hand: No fracture. Interval progression of arthritis at the first metacarpophalangeal joint with narrowing, severe subluxation, andmultiple erosions causing deformity of the metacarpal head. There is surrounding soft tissue swelling. The other joint spaces are normal. A small erosion has developed in the fifth proximal phalanx base medially. Bone densityis normal. Left hand: No fracture. Interval progression of arthritis at the first metacarpophalangeal joint with narrowing, severe subluxation, andmultiple erosions, greater in the metacarpal head. There is adjacent soft tissue swelling. The other joint spaces are normal. There is mild soft tissue swelling adjacent to the fifth metacarpophalangeal joint. Bone densityis normal. Right wrist: No fracture or dislocation is present. The joint spaces are normal.Small subchondral cyst noted in the distal radius. No definite erosions areseen. Bone density is normal. Soft tissue swelling is noted. Left wrist: No fracture or dislocation is present. The joint spaces are normal. No erosions are seen. Bone density is normal. Soft tissue swelling isnoted. Right foot: No fracture or dislocation is present. Small osteophyte formation at the first metatarsophalangeal joint. The joint spaces are normal. Noerosions are seen. Bone density is normal. The soft tissues are normal. Left foot: No fracture or dislocation is present. Several erosions are present atthe medial aspect of the interphalangeal joint of the toe, intervally progressed. There is mild adjacent soft tissue swelling. The otherjoints are normal. Bone density is normal. Impression: 1. 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 Interval development of mild erosion at the fifth metacarpophalangeal joint. 2. 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 3. Right and left wrists: Soft tissue swelling. 4. Right foot: Minimal degenerative change at the firstmetatarsophalangeal joint. 5. Left foot: Erosive arthritis at the first metatarsophalangeal joint, progressed. > Interpreting Provider: Thom Alcazar MD on 11/18/2022 7:52 AM Sue Pa MD DIAGNOSTIC SAMANTHA GING ORDERABLES * XR HAND LEFT 2VW (11/17/2022 4:44 PM CDT) Only the most recent of2 resultswithin the time period is included. Anatomical Region Laterality Modality Wrist / Hand Radiographic Samantha ging 11/18/2022 7:42 AM CDT Impressions 11/18/2022 7:52 AM CDT Impression: 1. 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 Interval development of mild erosion at the fifth metacarpophalangeal joint. 2. 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 3. Right and left wrists: Soft tissue swelling. 4. Right foot: Minimal degenerative change at the first metatarsophalangeal joint. 5. Left foot: Erosive arthritis at the first metatarsophalangeal joint, progressed. > Interpreting Provider: Thom Alcazar MD on 11/18/2022 7:52 AM Narrative 11/18/2022 7:52 AM CDT PROCEDURE: ??XR HAND RIGHT 2VW, XR WRIST LEFT 2VW, XR WRIST RIGHT 2VW, XR HAND LEFT 2VW, XR FOOT LEFT 2VW, XR FOOT RIGHT 2VW DATE/TIME OF EXAM: ??11/17/2022 4:44 PM CLINICAL INFORMATION: None relevant/not provided if blank. Indication: M06.9: Rheumatoid arthritis involving multiple sites, unspecified whether rheumatoid factor present ([facility]) Z51.81: Encounter for therapeutic drug monitoring Z79.899: Encounter for long-term (current) use of high-risk medication Additional History: COMPARISON: Right and left hand and foot x-rays dated 10/30/2020. FINDINGS: Right hand: No fracture. Interval progression of arthritis at the first metacarpophalangeal joint with narrowing, severe subluxation, and multiple erosions causing deformity of the metacarpal head. There is surrounding soft tissue swelling. The other joint spaces are normal. A small erosion has developed in the fifth proximal phalanx base medially. Bone density is normal. Left hand: No fracture. Interval progression of arthritis at the first metacarpophalangeal joint with narrowing, severe subluxation, and multiple erosions, greater in the metacarpal head. There is adjacent soft tissue swelling. The other joint spaces are normal. There is mild soft tissue swelling adjacent to the fifth metacarpophalangeal joint. Bone density is normal. Right wrist: No fracture or dislocation is present. The joint spaces are normal. Small subchondral cyst noted in the distal radius. No definite erosions are seen. Bone density is normal. Soft tissue swelling is noted. Left wrist: No fracture or dislocation is present. The joint spaces are normal. No erosions are seen. ??Bone density is normal. Soft tissue swelling is noted. Right foot: No fracture or dislocation is present. Small osteophyte formation at the first metatarsophalangeal joint. The joint spaces are normal. No erosions are seen. ??Bone density is normal. ??The soft tissues are normal. Left foot: No fracture or dislocation is present. Several erosions are present at the medial aspect of the interphalangeal joint of the toe, intervally progressed. There is mild adjacent soft tissue swelling. The other joints are normal. ??Bone density is normal. ?? Procedure Note Thom Alcazar MD - 11/18/2022 PROCEDURE: XR HAND RIGHT 2VW, XR WRIST LEFT 2VW, XR WRIST RIGHT 2VW, XR HAND LEFT 2VW, XR FOOT LEFT 2VW, XR FOOT RIGHT 2VW DATE/TIME OF EXAM: 11/17/2022 4:44 PM CLINICAL INFORMATION: None relevant/not provided if blank. Indication: M06.9: Rheumatoid arthritis involving multiple sites, unspecified whether rheumatoid factor present ([facility]) Z51.81: Encounter for therapeutic drug monitoring Z79.899: Encounter for long-term (current) use of high-risk medication Additional History: COMPARISON: Right and left hand and foot x-rays dated 10/30/2020. FINDINGS: Right hand: No fracture. Interval progression of arthritis at the first metacarpophalangeal joint with narrowing, severe subluxation, andmultiple erosions causing deformity of the metacarpal head. There is surrounding soft tissue swelling. The other joint spaces are normal. A small erosion has developed in the fifth proximal phalanx base medially. Bone densityis normal. Left hand: No fracture. Interval progression of arthritis at the first metacarpophalangeal joint with narrowing, severe subluxation, andmultiple erosions, greater in the metacarpal head. There is adjacent soft tissue swelling. The other joint spaces are normal. There is mild soft tissue swelling adjacent to the fifth metacarpophalangeal joint. Bone densityis normal. Right wrist: No fracture or dislocation is present. The joint spaces are normal.Small subchondral cyst noted in the distal radius. No definite erosions areseen. Bone density is normal. Soft tissue swelling is noted. Left wrist: No fracture or dislocation is present. The joint spaces are normal. No erosions are seen. Bone density is normal. Soft tissue swelling isnoted. Right foot: No fracture or dislocation is present. Small osteophyte formation at the first metatarsophalangeal joint. The joint spaces are normal. Noerosions are seen. Bone density is normal. The soft tissues are normal. Left foot: No fracture or dislocation is present. Several erosions are present atthe medial aspect of the interphalangeal joint of the toe, intervally progressed. There is mild adjacent soft tissue swelling. The otherjoints are normal. Bone density is normal. Impression: 1. 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 Interval development of mild erosion at the fifth metacarpophalangeal joint. 2. 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 3. Right and left wrists: Soft tissue swelling. 4. Right foot: Minimal degenerative change at the firstmetatarsophalangeal joint. 5. Left foot: Erosive arthritis at the first metatarsophalangeal joint, progressed. > Interpreting Provider: Thom Alcazar MD on 11/18/2022 7:52 AM Sue Pa MD DIAGNOSTIC SAMANTHA GING ORDERABLES * XR WRIST RIGHT 2VW (11/17/2022 4:44 PM CDT) Anatomical Region Laterality Modality Wrist / Hand Radiographic Samantha ging 11/18/2022 7:42 AM CDT Impressions 11/18/2022 7:52 AM CDT Impression: 1. 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 Interval development of mild erosion at the fifth metacarpophalangeal joint. 2. 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 3. Right and left wrists: Soft tissue swelling. 4. Right foot: Minimal degenerative change at the first metatarsophalangeal joint. 5. Left foot: Erosive arthritis at the first metatarsophalangeal joint, progressed. > Interpreting Provider: Thom Alcazar MD on 11/18/2022 7:52 AM Narrative 11/18/2022 7:52 AM CDT PROCEDURE: ??XR HAND RIGHT 2VW, XR WRIST LEFT 2VW, XR WRIST RIGHT 2VW, XR HAND LEFT 2VW, XR FOOT LEFT 2VW, XR FOOT RIGHT 2VW DATE/TIME OF EXAM: ??11/17/2022 4:44 PM CLINICAL INFORMATION: None relevant/not provided if blank. Indication: M06.9: Rheumatoid arthritis involving multiple sites, unspecified whether rheumatoid factor present ([facility]) Z51.81: Encounter for therapeutic drug monitoring Z79.899: Encounter for long-term (current) use of high-risk medication Additional History: COMPARISON: Right and left hand and foot x-rays dated 10/30/2020. FINDINGS: Right hand: No fracture. Interval progression of arthritis at the first metacarpophalangeal joint with narrowing, severe subluxation, and multiple erosions causing deformity of the metacarpal head. There is surrounding soft tissue swelling. The other joint spaces are normal. A small erosion has developed in the fifth proximal phalanx base medially. Bone density is normal. Left hand: No fracture. Interval progression of arthritis at the first metacarpophalangeal joint with narrowing, severe subluxation, and multiple erosions, greater in the metacarpal head. There is adjacent soft tissue swelling. The other joint spaces are normal. There is mild soft tissue swelling adjacent to the fifth metacarpophalangeal joint. Bone density is normal. Right wrist: No fracture or dislocation is present. The joint spaces are normal. Small subchondral cyst noted in the distal radius. No definite erosions are seen. Bone density is normal. Soft tissue swelling is noted. Left wrist: No fracture or dislocation is present. The joint spaces are normal. No erosions are seen. ??Bone density is normal. Soft tissue swelling is noted. Right foot: No fracture or dislocation is present. Small osteophyte formation at the first metatarsophalangeal joint. The joint spaces are normal. No erosions are seen. ??Bone density is normal. ??The soft tissues are normal. Left foot: No fracture or dislocation is present. Several erosions are present at the medial aspect of the interphalangeal joint of the toe, intervally progressed. There is mild adjacent soft tissue swelling. The other joints are normal. ??Bone density is normal. ?? Procedure Note Thom Alcazar MD - 11/18/2022 PROCEDURE: XR HAND RIGHT 2VW, XR WRIST LEFT 2VW, XR WRIST RIGHT 2VW, XR HAND LEFT 2VW, XR FOOT LEFT 2VW, XR FOOT RIGHT 2VW DATE/TIME OF EXAM: 11/17/2022 4:44 PM CLINICAL INFORMATION: None relevant/not provided if blank. Indication: M06.9: Rheumatoid arthritis involving multiple sites, unspecified whether rheumatoid factor present ([facility]) Z51.81: Encounter for therapeutic drug monitoring Z79.899: Encounter for long-term (current) use of high-risk medication Additional History: COMPARISON: Right and left hand and foot x-rays dated 10/30/2020. FINDINGS: Right hand: No fracture. Interval progression of arthritis at the first metacarpophalangeal joint with narrowing, severe subluxation, andmultiple erosions causing deformity of the metacarpal head. There is surrounding soft tissue swelling. The other joint spaces are normal. A small erosion has developed in the fifth proximal phalanx base medially. Bone densityis normal. Left hand: No fracture. Interval progression of arthritis at the first metacarpophalangeal joint with narrowing, severe subluxation, andmultiple erosions, greater in the metacarpal head. There is adjacent soft tissue swelling. The other joint spaces are normal. There is mild soft tissue swelling adjacent to the fifth metacarpophalangeal joint. Bone densityis normal. Right wrist: No fracture or dislocation is present. The joint spaces are normal.Small subchondral cyst noted in the distal radius. No definite erosions areseen. Bone density is normal. Soft tissue swelling is noted. Left wrist: No fracture or dislocation is present. The joint spaces are normal. No erosions are seen. Bone density is normal. Soft tissue swelling isnoted. Right foot: No fracture or dislocation is present. Small osteophyte formation at the first metatarsophalangeal joint. The joint spaces are normal. Noerosions are seen. Bone density is normal. The soft tissues are normal. Left foot: No fracture or dislocation is present. Several erosions are present atthe medial aspect of the interphalangeal joint of the toe, intervally progressed. There is mild adjacent soft tissue swelling. The otherjoints are normal. Bone density is normal. Impression: 1. 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 Interval development of mild erosion at the fifth metacarpophalangeal joint. 2. 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 3. Right and left wrists: Soft tissue swelling. 4. Right foot: Minimal degenerative change at the firstmetatarsophalangeal joint. 5. Left foot: Erosive arthritis at the first metatarsophalangeal joint, progressed. > Interpreting Provider: Thom Alcazar MD on 11/18/2022 7:52 AM Sue Pa MD DIAGNOSTIC SAMANTHA GING ORDERABLES * XR WRIST LEFT 2VW (11/17/2022 4:44 PM CDT) Anatomical Region Laterality Modality Wrist / Hand Radiographic Samantha ging 11/18/2022 7:42 AM CDT Impressions 11/18/2022 7:52 AM CDT Impression: 1. 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 Interval development of mild erosion at the fifth metacarpophalangeal joint. 2. 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 3. Right and left wrists: Soft tissue swelling. 4. Right foot: Minimal degenerative change at the first metatarsophalangeal joint. 5. Left foot: Erosive arthritis at the first metatarsophalangeal joint, progressed. > Interpreting Provider: Thom Alcazar MD on 11/18/2022 7:52 AM Narrative 11/18/2022 7:52 AM CDT PROCEDURE: ??XR HAND RIGHT 2VW, XR WRIST LEFT 2VW, XR WRIST RIGHT 2VW, XR HAND LEFT 2VW, XR FOOT LEFT 2VW, XR FOOT RIGHT 2VW DATE/TIME OF EXAM: ??11/17/2022 4:44 PM CLINICAL INFORMATION: None relevant/not provided if blank. Indication: M06.9: Rheumatoid arthritis involving multiple sites, unspecified whether rheumatoid factor present ([facility]) Z51.81: Encounter for therapeutic drug monitoring Z79.899: Encounter for long-term (current) use of high-risk medication Additional History: COMPARISON: Right and left hand and foot x-rays dated 10/30/2020. FINDINGS: Right hand: No fracture. Interval progression of arthritis at the first metacarpophalangeal joint with narrowing, severe subluxation, and multiple erosions causing deformity of the metacarpal head. There is surrounding soft tissue swelling. The other joint spaces are normal. A small erosion has developed in the fifth proximal phalanx base medially. Bone density is normal. Left hand: No fracture. Interval progression of arthritis at the first metacarpophalangeal joint with narrowing, severe subluxation, and multiple erosions, greater in the metacarpal head. There is adjacent soft tissue swelling. The other joint spaces are normal. There is mild soft tissue swelling adjacent to the fifth metacarpophalangeal joint. Bone density is normal. Right wrist: No fracture or dislocation is present. The joint spaces are normal. Small subchondral cyst noted in the distal radius. No definite erosions are seen. Bone density is normal. Soft tissue swelling is noted. Left wrist: No fracture or dislocation is present. The joint spaces are normal. No erosions are seen. ??Bone density is normal. Soft tissue swelling is noted. Right foot: No fracture or dislocation is present. Small osteophyte formation at the first metatarsophalangeal joint. The joint spaces are normal. No erosions are seen. ??Bone density is normal. ??The soft tissues are normal. Left foot: No fracture or dislocation is present. Several erosions are present at the medial aspect of the interphalangeal joint of the toe, intervally progressed. There is mild adjacent soft tissue swelling. The other joints are normal. ??Bone density is normal. ?? Procedure Note Thom Alcazar MD - 11/18/2022 PROCEDURE: XR HAND RIGHT 2VW, XR WRIST LEFT 2VW, XR WRIST RIGHT 2VW, XR HAND LEFT 2VW, XR FOOT LEFT 2VW, XR FOOT RIGHT 2VW DATE/TIME OF EXAM: 11/17/2022 4:44 PM CLINICAL INFORMATION: None relevant/not provided if blank. Indication: M06.9: Rheumatoid arthritis involving multiple sites, unspecified whether rheumatoid factor present ([facility]) Z51.81: Encounter for therapeutic drug monitoring Z79.899: Encounter for long-term (current) use of high-risk medication Additional History: COMPARISON: Right and left hand and foot x-rays dated 10/30/2020. FINDINGS: Right hand: No fracture. Interval progression of arthritis at the first metacarpophalangeal joint with narrowing, severe subluxation, andmultiple erosions causing deformity of the metacarpal head. There is surrounding soft tissue swelling. The other joint spaces are normal. A small erosion has developed in the fifth proximal phalanx base medially. Bone densityis normal. Left hand: No fracture. Interval progression of arthritis at the first metacarpophalangeal joint with narrowing, severe subluxation, andmultiple erosions, greater in the metacarpal head. There is adjacent soft tissue swelling. The other joint spaces are normal. There is mild soft tissue swelling adjacent to the fifth metacarpophalangeal joint. Bone densityis normal. Right wrist: No fracture or dislocation is present. The joint spaces are normal.Small subchondral cyst noted in the distal radius. No definite erosions areseen. Bone density is normal. Soft tissue swelling is noted. Left wrist: No fracture or dislocation is present. The joint spaces are normal. No erosions are seen. Bone density is normal. Soft tissue swelling isnoted. Right foot: No fracture or dislocation is present. Small osteophyte formation at the first metatarsophalangeal joint. The joint spaces are normal. Noerosions are seen. Bone density is normal. The soft tissues are normal. Left foot: No fracture or dislocation is present. Several erosions are present atthe medial aspect of the interphalangeal joint of the toe, intervally progressed. There is mild adjacent soft tissue swelling. The otherjoints are normal. Bone density is normal. Impression: 1. 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 Interval development of mild erosion at the fifth metacarpophalangeal joint. 2. 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 3. Right and left wrists: Soft tissue swelling. 4. Right foot: Minimal degenerative change at the firstmetatarsophalangeal joint. 5. Left foot: Erosive arthritis at the first metatarsophalangeal joint, progressed. > Interpreting Provider: Thom Alcazar MD on 11/18/2022 7:52 AM Sue Pa MD DIAGNOSTIC SAMANTHA GING ORDERABLES * XR FOOT RIGHT 3VW OR MORE (10/30/2020 11:32 AM CDT) Anatomical Region Laterality Modality Ankle / Foot Radiographic Samantha ging 10/30/2020 12:3 3 PM CDT Impressions 10/30/2020 12:48 PM CDT IMPRESSION: 1. Right hand: Interval development of erosive arthritis at the first metacarpophalangeal joint with moderate joint space narrowing and subluxation and large erosions in the metacarpal head. A small erosion at the second digit proximal interphalangeal joint. This is consistent with the known diagnosis of rheumatoid arthritis. 2. Left hand: Interval development erosive arthritis at the first metacarpophalangeal joint with moderate joint space narrowing, subluxation, and large erosions in the metacarpal head. 3. Right wrist: Normal. 4. Left wrist: Normal. 5. Right ankle: Normal. 6. Left ankle: Normal. 7. Right foot: Interval development of mild erosive arthritis at the first toe interphalangeal joint. Mild osteoarthritis at the first metatarsophalangeal joint. 8. Left foot: Very mild osteoarthritis at the first metatarsophalangeal joint. 9. Bilateral hips: Normal. This report was electronically signed by THOM ALCAZAR MD ??on 10/30/2020 12:48 PM . Narrative 10/30/2020 12:48 PM CDT Exam: 1.XR HAND RIGHT 3VW 2.XR PELVIS W BILAT HIP 2VW 3.XR FOOT LEFT 3VW 4.XR FOOT RIGHT 3VW 5.XR ANKLE RIGHT 3VW 6.XR ANKLE LEFT 3VW 7.XR WRIST RIGHT 3VW 8.XR WRIST LEFT 3VW 9.XR HAND LEFT 3VW History: ??M05.79: Rheumatoid arthritis involving multiple sites with positive rheumatoid factor Comparison: Right and left hand and foot radiographs dated 09/27/2017. Findings: Right hand: No acute fracture or dislocation is seen. Arthritis has developed at the first metacarpophalangeal joint characterized by moderate joint space narrowing, moderate subluxation, and multiple cysts/erosions mostly in the metacarpal head. There is mild surrounding soft tissue swelling. The other joint spaces are normal. A small erosion has developed at the second digit proximal interphalangeal joint in the lateral aspect of the middle phalanx base. Left hand: No acute fracture or dislocation is present. Arthritis is developed at the first metacarpophalangeal joint characterized by moderate joint space narrowing, moderate subluxation, and erosions in the metacarpal head and proximal phalanx base, larger in the metacarpal head. There is adjacent soft tissue swelling the other joints are normal. Right wrist: No fracture or dislocation is present. The joint spaces are normal. No erosions are seen. ??Bone density is normal. ??The soft tissues are normal. Left wrist: No fracture or dislocation is present. The joint spaces are normal. No erosions are seen. ??Bone density is normal. ??The soft tissues are normal. Right ankle: No fracture or dislocation is present. The joint spaces are normal. No erosions are seen. ??Bone density is normal. ??The soft tissues are normal. Left ankle: No fracture or dislocation is present. The joint spaces are normal. No erosions are seen. ??Bone density is normal. A few soft tissue calcifications are seen in the anterior aspect of the leg. Right foot: The study interpreted has study description of right foot radiographs with first image timed stamped 10/30/2020 at 11:27:49 AM, although it is noted that the images are labeled L. ??No fracture or dislocation is present. There is been interval development of arthritis at the interphalangeal joint of the first toe with several cysts and erosions in the medial aspect of the proximal phalanx head and distal phalanx base. The joint space is preserved. There is mild osteoarthritis at the first metatarsophalangeal joint. The other joint spaces are normal. Bone density is normal. The soft tissues are normal. Left foot: The study interpreted has study description of left foot radiographs with first image timed stamped 10/30/2020 at 11:25:48 AM although it is noted that the images are labeled R. ??No fracture or dislocation is present. There is minimal osteoarthritis at the first metatarsophalangeal joint. The other joint spaces are normal. No erosions are seen. Bone density is normal. The soft tissues are normal. Pelvis and bilateral hips: There is no fracture or dislocation of either hip. The joint spaces are normal. No erosions are seen. The pelvic radiograph demonstrates no acute osseous abnormality and normal appearance of the sacroiliac joints and pubic symphysis. Procedure Note Thom Alcazar MD - 10/30/2020 Exam: 1.XR HAND RIGHT 3VW 2.XR PELVIS W BILAT HIP 2VW 3.XR FOOT LEFT 3VW 4.XR FOOT RIGHT 3VW 5.XR ANKLE RIGHT 3VW 6.XR ANKLE LEFT 3VW 7.XR WRIST RIGHT 3VW 8.XR WRIST LEFT 3VW 9.XR HAND LEFT 3VW History: M05.79: Rheumatoid arthritis involving multiple sites with positive rheumatoid factor Comparison: Right and left hand and foot radiographs dated 09/27/2017. Findings: Right hand: No acute fracture or dislocation is seen. Arthritis has developed at the first metacarpophalangeal joint characterized by moderate joint space narrowing, moderate subluxation, and multiple cysts/erosions mostly inthe metacarpal head. There is mild surrounding soft tissue swelling. Theother joint spaces are normal. A small erosion has developed at the seconddigit proximal interphalangeal joint in the lateral aspect of the middlephalanx base. Left hand: No acute fracture or dislocation is present. Arthritis is developed atthe first metacarpophalangeal joint characterized by moderate joint space narrowing, moderate subluxation, and erosions in the metacarpal head and proximal phalanx base, larger in the metacarpal head. There is adjacent soft tissue swelling the other joints are normal. Right wrist: No fracture or dislocation is present. The joint spaces are normal. No erosions are seen. Bone density is normal. The soft tissues arenormal. Left wrist: No fracture or dislocation is present. The joint spaces are normal. No erosions are seen. Bone density is normal. The soft tissues arenormal. Right ankle: No fracture or dislocation is present. The joint spaces are normal. No erosions are seen. Bone density is normal. The soft tissues arenormal. Left ankle: No fracture or dislocation is present. The joint spaces are normal. No erosions are seen. Bone density is normal. A few soft tissue calcifications are seen in the anterior aspect of the leg. Right foot: The study interpreted has study description of right foot radiographs with first image timed stamped 10/30/2020 at 11:27:49 AM, although it is noted that the images are labeled L. No fracture or dislocation is present. There is been interval development of arthritis at the interphalangeal joint of the first toe with several cysts and erosionsin the medial aspect of the proximal phalanx head and distal phalanx base. The joint space is preserved. There is mild osteoarthritis at the first metatarsophalangeal joint. The other joint spaces are normal. Bonedensity is normal. The soft tissues are normal. Left foot: The study interpreted has study description of left foot radiographs with first image timed stamped 10/30/2020 at 11:25:48 AM although it is noted that the images are labeled R. No fracture or dislocation is present. There is minimal osteoarthritis at the firstmetatarsophalangeal joint. The other joint spaces are normal. No erosions are seen. Bone density is normal. The soft tissues are normal. Pelvis and bilateral hips: There is no fracture or dislocation of either hip. The joint spaces are normal. No erosions are seen. The pelvic radiograph demonstrates noacute osseous abnormality and normal appearance of the sacroiliac joints and pubic symphysis. IMPRESSION: 1. Right hand: Interval development of erosive arthritis at the first metacarpophalangeal joint with moderate joint space narrowing and subluxation and large erosions in the metacarpal head. A small erosionat the second digit proximal interphalangeal joint. This is consistent with the known diagnosis of rheumatoid arthritis. 2. Left hand: Interval development erosive arthritis at the first metacarpophalangeal joint with moderate joint space narrowing, subluxation, and large erosions in the metacarpal head. 3. Right wrist: Normal. 4. Left wrist: Normal. 5. Right ankle: Normal. 6. Left ankle: Normal. 7. Right foot: Interval development of mild erosive arthritis at thefirst toe interphalangeal joint. Mild osteoarthritis at the first metatarsophalangeal joint. 8. Left foot: Very mild osteoarthritis at the first metatarsophalangeal joint. 9. Bilateral hips: Normal. This report was electronically signed by THOM ALCAZAR MD on10/30/2020 12:48 PM . Sue Pa MD DIAGNOSTIC SAMANTHA GING ORDERABLES * XR FOOT LEFT 3VW OR MORE (10/30/2020 11:32 AM CDT) Anatomical Region Laterality Modality Ankle / Foot Radiographic Samantha ging 10/30/2020 12:3 3 PM CDT Impressions 10/30/2020 12:48 PM CDT IMPRESSION: 1. Right hand: Interval development of erosive arthritis at the first metacarpophalangeal joint with moderate joint space narrowing and subluxation and large erosions in the metacarpal head. A small erosion at the second digit proximal interphalangeal joint. This is consistent with the known diagnosis of rheumatoid arthritis. 2. Left hand: Interval development erosive arthritis at the first metacarpophalangeal joint with moderate joint space narrowing, subluxation, and large erosions in the metacarpal head. 3. Right wrist: Normal. 4. Left wrist: Normal. 5. Right ankle: Normal. 6. Left ankle: Normal. 7. Right foot: Interval development of mild erosive arthritis at the first toe interphalangeal joint. Mild osteoarthritis at the first metatarsophalangeal joint. 8. Left foot: Very mild osteoarthritis at the first metatarsophalangeal joint. 9. Bilateral hips: Normal. This report was electronically signed by THOM ALCAZAR MD ??on 10/30/2020 12:48 PM . Narrative 10/30/2020 12:48 PM CDT Exam: 1.XR HAND RIGHT 3VW 2.XR PELVIS W BILAT HIP 2VW 3.XR FOOT LEFT 3VW 4.XR FOOT RIGHT 3VW 5.XR ANKLE RIGHT 3VW 6.XR ANKLE LEFT 3VW 7.XR WRIST RIGHT 3VW 8.XR WRIST LEFT 3VW 9.XR HAND LEFT 3VW History: ??M05.79: Rheumatoid arthritis involving multiple sites with positive rheumatoid factor Comparison: Right and left hand and foot radiographs dated 09/27/2017. Findings: Right hand: No acute fracture or dislocation is seen. Arthritis has developed at the first metacarpophalangeal joint characterized by moderate joint space narrowing, moderate subluxation, and multiple cysts/erosions mostly in the metacarpal head. There is mild surrounding soft tissue swelling. The other joint spaces are normal. A small erosion has developed at the second digit proximal interphalangeal joint in the lateral aspect of the middle phalanx base. Left hand: No acute fracture or dislocation is present. Arthritis is developed at the first metacarpophalangeal joint characterized by moderate joint space narrowing, moderate subluxation, and erosions in the metacarpal head and proximal phalanx base, larger in the metacarpal head. There is adjacent soft tissue swelling the other joints are normal. Right wrist: No fracture or dislocation is present. The joint spaces are normal. No erosions are seen. ??Bone density is normal. ??The soft tissues are normal. Left wrist: No fracture or dislocation is present. The joint spaces are normal. No erosions are seen. ??Bone density is normal. ??The soft tissues are normal. Right ankle: No fracture or dislocation is present. The joint spaces are normal. No erosions are seen. ??Bone density is normal. ??The soft tissues are normal. Left ankle: No fracture or dislocation is present. The joint spaces are normal. No erosions are seen. ??Bone density is normal. A few soft tissue calcifications are seen in the anterior aspect of the leg. Right foot: The study interpreted has study description of right foot radiographs with first image timed stamped 10/30/2020 at 11:27:49 AM, although it is noted that the images are labeled L. ??No fracture or dislocation is present. There is been interval development of arthritis at the interphalangeal joint of the first toe with several cysts and erosions in the medial aspect of the proximal phalanx head and distal phalanx base. The joint space is preserved. There is mild osteoarthritis at the first metatarsophalangeal joint. The other joint spaces are normal. Bone density is normal. The soft tissues are normal. Left foot: The study interpreted has study description of left foot radiographs with first image timed stamped 10/30/2020 at 11:25:48 AM although it is noted that the images are labeled R. ??No fracture or dislocation is present. There is minimal osteoarthritis at the first metatarsophalangeal joint. The other joint spaces are normal. No erosions are seen. Bone density is normal. The soft tissues are normal. Pelvis and bilateral hips: There is no fracture or dislocation of either hip. The joint spaces are normal. No erosions are seen. The pelvic radiograph demonstrates no acute osseous abnormality and normal appearance of the sacroiliac joints and pubic symphysis. Procedure Note Thom Alcazar MD - 10/30/2020 Exam: 1.XR HAND RIGHT 3VW 2.XR PELVIS W BILAT HIP 2VW 3.XR FOOT LEFT 3VW 4.XR FOOT RIGHT 3VW 5.XR ANKLE RIGHT 3VW 6.XR ANKLE LEFT 3VW 7.XR WRIST RIGHT 3VW 8.XR WRIST LEFT 3VW 9.XR HAND LEFT 3VW History: M05.79: Rheumatoid arthritis involving multiple sites with positive rheumatoid factor Comparison: Right and left hand and foot radiographs dated 09/27/2017. Findings: Right hand: No acute fracture or dislocation is seen. Arthritis has developed at the first metacarpophalangeal joint characterized by moderate joint space narrowing, moderate subluxation, and multiple cysts/erosions mostly inthe metacarpal head. There is mild surrounding soft tissue swelling. Theother joint spaces are normal. A small erosion has developed at the seconddigit proximal interphalangeal joint in the lateral aspect of the middlephalanx base. Left hand: No acute fracture or dislocation is present. Arthritis is developed atthe first metacarpophalangeal joint characterized by moderate joint space narrowing, moderate subluxation, and erosions in the metacarpal head and proximal phalanx base, larger in the metacarpal head. There is adjacent soft tissue swelling the other joints are normal. Right wrist: No fracture or dislocation is present. The joint spaces are normal. No erosions are seen. Bone density is normal. The soft tissues arenormal. Left wrist: No fracture or dislocation is present. The joint spaces are normal. No erosions are seen. Bone density is normal. The soft tissues arenormal. Right ankle: No fracture or dislocation is present. The joint spaces are normal. No erosions are seen. Bone density is normal. The soft tissues arenormal. Left ankle: No fracture or dislocation is present. The joint spaces are normal. No erosions are seen. Bone density is normal. A few soft tissue calcifications are seen in the anterior aspect of the leg. Right foot: The study interpreted has study description of right foot radiographs with first image timed stamped 10/30/2020 at 11:27:49 AM, although it is noted that the images are labeled L. No fracture or dislocation is present. There is been interval development of arthritis at the interphalangeal joint of the first toe with several cysts and erosionsin the medial aspect of the proximal phalanx head and distal phalanx base. The joint space is preserved. There is mild osteoarthritis at the first metatarsophalangeal joint. The other joint spaces are normal. Bonedensity is normal. The soft tissues are normal. Left foot: The study interpreted has study description of left foot radiographs with first image timed stamped 10/30/2020 at 11:25:48 AM although it is noted that the images are labeled R. No fracture or dislocation is present. There is minimal osteoarthritis at the firstmetatarsophalangeal joint. The other joint spaces are normal. No erosions are seen. Bone density is normal. The soft tissues are normal. Pelvis and bilateral hips: There is no fracture or dislocation of either hip. The joint spaces are normal. No erosions are seen. The pelvic radiograph demonstrates noacute osseous abnormality and normal appearance of the sacroiliac joints and pubic symphysis. IMPRESSION: 1. Right hand: Interval development of erosive arthritis at the first metacarpophalangeal joint with moderate joint space narrowing and subluxation and large erosions in the metacarpal head. A small erosionat the second digit proximal interphalangeal joint. This is consistent with the known diagnosis of rheumatoid arthritis. 2. Left hand: Interval development erosive arthritis at the first metacarpophalangeal joint with moderate joint space narrowing, subluxation, and large erosions in the metacarpal head. 3. Right wrist: Normal. 4. Left wrist: Normal. 5. Right ankle: Normal. 6. Left ankle: Normal. 7. Right foot: Interval development of mild erosive arthritis at thefirst toe interphalangeal joint. Mild osteoarthritis at the first metatarsophalangeal joint. 8. Left foot: Very mild osteoarthritis at the first metatarsophalangeal joint. 9. Bilateral hips: Normal. This report was electronically signed by THOM ALCAZAR MD on10/30/2020 12:48 PM . Sue Pa MD DIAGNOSTIC [facility]ING ORDERABLES * XR ANKLE RIGHT 3VW OR MORE (10/30/2020 11:32 AM CDT) Anatomical Region Laterality Modality Lower Extremity Radiographic Samantha ging 10/30/2020 12:3 3 PM CDT Impressions 10/30/2020 12:48 PM CDT IMPRESSION: 1. Right hand: Interval development of erosive arthritis at the first metacarpophalangeal joint with moderate joint space narrowing and subluxation and large erosions in the metacarpal head. A small erosion at the second digit proximal interphalangeal joint. This is consistent with the known diagnosis of rheumatoid arthritis. 2. Left hand: Interval development erosive arthritis at the first metacarpophalangeal joint with moderate joint space narrowing, subluxation, and large erosions in the metacarpal head. 3. Right wrist: Normal. 4. Left wrist: Normal. 5. Right ankle: Normal. 6. Left ankle: Normal. 7. Right foot: Interval development of mild erosive arthritis at the first toe interphalangeal joint. Mild osteoarthritis at the first metatarsophalangeal joint. 8. Left foot: Very mild osteoarthritis at the first metatarsophalangeal joint. 9. Bilateral hips: Normal. This report was electronically signed by THOM ALCAZAR MD ??on 10/30/2020 12:48 PM . Narrative 10/30/2020 12:48 PM CDT Exam: 1.XR HAND RIGHT 3VW 2.XR PELVIS W BILAT HIP 2VW 3.XR FOOT LEFT 3VW 4.XR FOOT RIGHT 3VW 5.XR ANKLE RIGHT 3VW 6.XR ANKLE LEFT 3VW 7.XR WRIST RIGHT 3VW 8.XR WRIST LEFT 3VW 9.XR HAND LEFT 3VW History: ??M05.79: Rheumatoid arthritis involving multiple sites with positive rheumatoid factor Comparison: Right and left hand and foot radiographs dated 09/27/2017. Findings: Right hand: No acute fracture or dislocation is seen. Arthritis has developed at the first metacarpophalangeal joint characterized by moderate joint space narrowing, moderate subluxation, and multiple cysts/erosions mostly in the metacarpal head. There is mild surrounding soft tissue swelling. The other joint spaces are normal. A small erosion has developed at the second digit proximal interphalangeal joint in the lateral aspect of the middle phalanx base. Left hand: No acute fracture or dislocation is present. Arthritis is developed at the first metacarpophalangeal joint characterized by moderate joint space narrowing, moderate subluxation, and erosions in the metacarpal head and proximal phalanx base, larger in the metacarpal head. There is adjacent soft tissue swelling the other joints are normal. Right wrist: No fracture or dislocation is present. The joint spaces are normal. No erosions are seen. ??Bone density is normal. ??The soft tissues are normal. Left wrist: No fracture or dislocation is present. The joint spaces are normal. No erosions are seen. ??Bone density is normal. ??The soft tissues are normal. Right ankle: No fracture or dislocation is present. The joint spaces are normal. No erosions are seen. ??Bone density is normal. ??The soft tissues are normal. Left ankle: No fracture or dislocation is present. The joint spaces are normal. No erosions are seen. ??Bone density is normal. A few soft tissue calcifications are seen in the anterior aspect of the leg. Right foot: The study interpreted has study description of right foot radiographs with first image timed stamped 10/30/2020 at 11:27:49 AM, although it is noted that the images are labeled L. ??No fracture or dislocation is present. There is been interval development of arthritis at the interphalangeal joint of the first toe with several cysts and erosions in the medial aspect of the proximal phalanx head and distal phalanx base. The joint space is preserved. There is mild osteoarthritis at the first metatarsophalangeal joint. The other joint spaces are normal. Bone density is normal. The soft tissues are normal. Left foot: The study interpreted has study description of left foot radiographs with first image timed stamped 10/30/2020 at 11:25:48 AM although it is noted that the images are labeled R. ??No fracture or dislocation is present. There is minimal osteoarthritis at the first metatarsophalangeal joint. The other joint spaces are normal. No erosions are seen. Bone density is normal. The soft tissues are normal. Pelvis and bilateral hips: There is no fracture or dislocation of either hip. The joint spaces are normal. No erosions are seen. The pelvic radiograph demonstrates no acute osseous abnormality and normal appearance of the sacroiliac joints and pubic symphysis. Procedure Note Thom Alcazar MD - 10/30/2020 Exam: 1.XR HAND RIGHT 3VW 2.XR PELVIS W BILAT HIP 2VW 3.XR FOOT LEFT 3VW 4.XR FOOT RIGHT 3VW 5.XR ANKLE RIGHT 3VW 6.XR ANKLE LEFT 3VW 7.XR WRIST RIGHT 3VW 8.XR WRIST LEFT 3VW 9.XR HAND LEFT 3VW History: M05.79: Rheumatoid arthritis involving multiple sites with positive rheumatoid factor Comparison: Right and left hand and foot radiographs dated 09/27/2017. Findings: Right hand: No acute fracture or dislocation is seen. Arthritis has developed at the first metacarpophalangeal joint characterized by moderate joint space narrowing, moderate subluxation, and multiple cysts/erosions mostly inthe metacarpal head. There is mild surrounding soft tissue swelling. Theother joint spaces are normal. A small erosion has developed at the seconddigit proximal interphalangeal joint in the lateral aspect of the middlephalanx base. Left hand: No acute fracture or dislocation is present. Arthritis is developed atthe first metacarpophalangeal joint characterized by moderate joint space narrowing, moderate subluxation, and erosions in the metacarpal head and proximal phalanx base, larger in the metacarpal head. There is adjacent soft tissue swelling the other joints are normal. Right wrist: No fracture or dislocation is present. The joint spaces are normal. No erosions are seen. Bone density is normal. The soft tissues arenormal. Left wrist: No fracture or dislocation is present. The joint spaces are normal. No erosions are seen. Bone density is normal. The soft tissues arenormal. Right ankle: No fracture or dislocation is present. The joint spaces are normal. No erosions are seen. Bone density is normal. The soft tissues arenormal. Left ankle: No fracture or dislocation is present. The joint spaces are normal. No erosions are seen. Bone density is normal. A few soft tissue calcifications are seen in the anterior aspect of the leg. Right foot: The study interpreted has study description of right foot radiographs with first image timed stamped 10/30/2020 at 11:27:49 AM, although it is noted that the images are labeled L. No fracture or dislocation is present. There is been interval development of arthritis at the interphalangeal joint of the first toe with several cysts and erosionsin the medial aspect of the proximal phalanx head and distal phalanx base. The joint space is preserved. There is mild osteoarthritis at the first metatarsophalangeal joint. The other joint spaces are normal. Bonedensity is normal. The soft tissues are normal. Left foot: The study interpreted has study description of left foot radiographs with first image timed stamped 10/30/2020 at 11:25:48 AM although it is noted that the images are labeled R. No fracture or dislocation is present. There is minimal osteoarthritis at the firstmetatarsophalangeal joint. The other joint spaces are normal. No erosions are seen. Bone density is normal. The soft tissues are normal. Pelvis and bilateral hips: There is no fracture or dislocation of either hip. The joint spaces are normal. No erosions are seen. The pelvic radiograph demonstrates noacute osseous abnormality and normal appearance of the sacroiliac joints and pubic symphysis. IMPRESSION: 1. Right hand: Interval development of erosive arthritis at the first metacarpophalangeal joint with moderate joint space narrowing and subluxation and large erosions in the metacarpal head. A small erosionat the second digit proximal interphalangeal joint. This is consistent with the known diagnosis of rheumatoid arthritis. 2. Left hand: Interval development erosive arthritis at the first metacarpophalangeal joint with moderate joint space narrowing, subluxation, and large erosions in the metacarpal head. 3. Right wrist: Normal. 4. Left wrist: Normal. 5. Right ankle: Normal. 6. Left ankle: Normal. 7. Right foot: Interval development of mild erosive arthritis at thefirst toe interphalangeal joint. Mild osteoarthritis at the first metatarsophalangeal joint. 8. Left foot: Very mild osteoarthritis at the first metatarsophalangeal joint. 9. Bilateral hips: Normal. This report was electronically signed by THOM ALCAZAR MD on10/30/2020 12:48 PM . Sue Pa MD DIAGNOSTIC [facility]ING ORDERABLES * XR ANKLE LEFT 3VW OR MORE (10/30/2020 11:32 AM CDT) Anatomical Region Laterality Modality Lower Extremity Radiographic Samantha ging 10/30/2020 12:3 3 PM CDT Impressions 10/30/2020 12:48 PM CDT IMPRESSION: 1. Right hand: Interval development of erosive arthritis at the first metacarpophalangeal joint with moderate joint space narrowing and subluxation and large erosions in the metacarpal head. A small erosion at the second digit proximal interphalangeal joint. This is consistent with the known diagnosis of rheumatoid arthritis. 2. Left hand: Interval development erosive arthritis at the first metacarpophalangeal joint with moderate joint space narrowing, subluxation, and large erosions in the metacarpal head. 3. Right wrist: Normal. 4. Left wrist: Normal. 5. Right ankle: Normal. 6. Left ankle: Normal. 7. Right foot: Interval development of mild erosive arthritis at the first toe interphalangeal joint. Mild osteoarthritis at the first metatarsophalangeal joint. 8. Left foot: Very mild osteoarthritis at the first metatarsophalangeal joint. 9. Bilateral hips: Normal. This report was electronically signed by THOM ALCAZAR MD ??on 10/30/2020 12:48 PM . Narrative 10/30/2020 12:48 PM CDT Exam: 1.XR HAND RIGHT 3VW 2.XR PELVIS W BILAT HIP 2VW 3.XR FOOT LEFT 3VW 4.XR FOOT RIGHT 3VW 5.XR ANKLE RIGHT 3VW 6.XR ANKLE LEFT 3VW 7.XR WRIST RIGHT 3VW 8.XR WRIST LEFT 3VW 9.XR HAND LEFT 3VW History: ??M05.79: Rheumatoid arthritis involving multiple sites with positive rheumatoid factor Comparison: Right and left hand and foot radiographs dated 09/27/2017. Findings: Right hand: No acute fracture or dislocation is seen. Arthritis has developed at the first metacarpophalangeal joint characterized by moderate joint space narrowing, moderate subluxation, and multiple cysts/erosions mostly in the metacarpal head. There is mild surrounding soft tissue swelling. The other joint spaces are normal. A small erosion has developed at the second digit proximal interphalangeal joint in the lateral aspect of the middle phalanx base. Left hand: No acute fracture or dislocation is present. Arthritis is developed at the first metacarpophalangeal joint characterized by moderate joint space narrowing, moderate subluxation, and erosions in the metacarpal head and proximal phalanx base, larger in the metacarpal head. There is adjacent soft tissue swelling the other joints are normal. Right wrist: No fracture or dislocation is present. The joint spaces are normal. No erosions are seen. ??Bone density is normal. ??The soft tissues are normal. Left wrist: No fracture or dislocation is present. The joint spaces are normal. No erosions are seen. ??Bone density is normal. ??The soft tissues are normal. Right ankle: No fracture or dislocation is present. The joint spaces are normal. No erosions are seen. ??Bone density is normal. ??The soft tissues are normal. Left ankle: No fracture or dislocation is present. The joint spaces are normal. No erosions are seen. ??Bone density is normal. A few soft tissue calcifications are seen in the anterior aspect of the leg. Right foot: The study interpreted has study description of right foot radiographs with first image timed stamped 10/30/2020 at 11:27:49 AM, although it is noted that the images are labeled L. ??No fracture or dislocation is present. There is been interval development of arthritis at the interphalangeal joint of the first toe with several cysts and erosions in the medial aspect of the proximal phalanx head and distal phalanx base. The joint space is preserved. There is mild osteoarthritis at the first metatarsophalangeal joint. The other joint spaces are normal. Bone density is normal. The soft tissues are normal. Left foot: The study interpreted has study description of left foot radiographs with first image timed stamped 10/30/2020 at 11:25:48 AM although it is noted that the images are labeled R. ??No fracture or dislocation is present. There is minimal osteoarthritis at the first metatarsophalangeal joint. The other joint spaces are normal. No erosions are seen. Bone density is normal. The soft tissues are normal. Pelvis and bilateral hips: There is no fracture or dislocation of either hip. The joint spaces are normal. No erosions are seen. The pelvic radiograph demonstrates no acute osseous abnormality and normal appearance of the sacroiliac joints and pubic symphysis. Procedure Note Thom Alcazar MD - 10/30/2020 Exam: 1.XR HAND RIGHT 3VW 2.XR PELVIS W BILAT HIP 2VW 3.XR FOOT LEFT 3VW 4.XR FOOT RIGHT 3VW 5.XR ANKLE RIGHT 3VW 6.XR ANKLE LEFT 3VW 7.XR WRIST RIGHT 3VW 8.XR WRIST LEFT 3VW 9.XR HAND LEFT 3VW History: M05.79: Rheumatoid arthritis involving multiple sites with positive rheumatoid factor Comparison: Right and left hand and foot radiographs dated 09/27/2017. Findings: Right hand: No acute fracture or dislocation is seen. Arthritis has developed at the first metacarpophalangeal joint characterized by moderate joint space narrowing, moderate subluxation, and multiple cysts/erosions mostly inthe metacarpal head. There is mild surrounding soft tissue swelling. Theother joint spaces are normal. A small erosion has developed at the seconddigit proximal interphalangeal joint in the lateral aspect of the middlephalanx base. Left hand: No acute fracture or dislocation is present. Arthritis is developed atthe first metacarpophalangeal joint characterized by moderate joint space narrowing, moderate subluxation, and erosions in the metacarpal head and proximal phalanx base, larger in the metacarpal head. There is adjacent soft tissue swelling the other joints are normal. Right wrist: No fracture or dislocation is present. The joint spaces are normal. No erosions are seen. Bone density is normal. The soft tissues arenormal. Left wrist: No fracture or dislocation is present. The joint spaces are normal. No erosions are seen. Bone density is normal. The soft tissues arenormal. Right ankle: No fracture or dislocation is present. The joint spaces are normal. No erosions are seen. Bone density is normal. The soft tissues arenormal. Left ankle: No fracture or dislocation is present. The joint spaces are normal. No erosions are seen. Bone density is normal. A few soft tissue calcifications are seen in the anterior aspect of the leg. Right foot: The study interpreted has study description of right foot radiographs with first image timed stamped 10/30/2020 at 11:27:49 AM, although it is noted that the images are labeled L. No fracture or dislocation is present. There is been interval development of arthritis at the interphalangeal joint of the first toe with several cysts and erosionsin the medial aspect of the proximal phalanx head and distal phalanx base. The joint space is preserved. There is mild osteoarthritis at the first metatarsophalangeal joint. The other joint spaces are normal. Bonedensity is normal. The soft tissues are normal. Left foot: The study interpreted has study description of left foot radiographs with first image timed stamped 10/30/2020 at 11:25:48 AM although it is noted that the images are labeled R. No fracture or dislocation is present. There is minimal osteoarthritis at the firstmetatarsophalangeal joint. The other joint spaces are normal. No erosions are seen. Bone density is normal. The soft tissues are normal. Pelvis and bilateral hips: There is no fracture or dislocation of either hip. The joint spaces are normal. No erosions are seen. The pelvic radiograph demonstrates noacute osseous abnormality and normal appearance of the sacroiliac joints and pubic symphysis. IMPRESSION: 1. Right hand: Interval development of erosive arthritis at the first metacarpophalangeal joint with moderate joint space narrowing and subluxation and large erosions in the metacarpal head. A small erosionat the second digit proximal interphalangeal joint. This is consistent with the known diagnosis of rheumatoid arthritis. 2. Left hand: Interval development erosive arthritis at the first metacarpophalangeal joint with moderate joint space narrowing, subluxation, and large erosions in the metacarpal head. 3. Right wrist: Normal. 4. Left wrist: Normal. 5. Right ankle: Normal. 6. Left ankle: Normal. 7. Right foot: Interval development of mild erosive arthritis at thefirst toe interphalangeal joint. Mild osteoarthritis at the first metatarsophalangeal joint. 8. Left foot: Very mild osteoarthritis at the first metatarsophalangeal joint. 9. Bilateral hips: Normal. This report was electronically signed by THOM ALCAZAR MD on10/30/2020 12:48 PM . Sue Pa MD DIAGNOSTIC [facility]ING ORDERABLES * XR PELVIS W BILAT HIP 2VW (10/30/2020 11:32 AM CDT) Anatomical Region Laterality Modality Pelvis, Lower Extremity Radiogra phic Imaging 10/30/2020 12:3 3 PM CDT Impressions 10/30/2020 12:48 PM CDT IMPRESSION: 1. Right hand: Interval development of erosive arthritis at the first metacarpophalangeal joint with moderate joint space narrowing and subluxation and large erosions in the metacarpal head. A small erosion at the second digit proximal interphalangeal joint. This is consistent with the known diagnosis of rheumatoid arthritis. 2. Left hand: Interval development erosive arthritis at the first metacarpophalangeal joint with moderate joint space narrowing, subluxation, and large erosions in the metacarpal head. 3. Right wrist: Normal. 4. Left wrist: Normal. 5. Right ankle: Normal. 6. Left ankle: Normal. 7. Right foot: Interval development of mild erosive arthritis at the first toe interphalangeal joint. Mild osteoarthritis at the first metatarsophalangeal joint. 8. Left foot: Very mild osteoarthritis at the first metatarsophalangeal joint. 9. Bilateral hips: Normal. This report was electronically signed by THOM ALCAZAR MD ??on 10/30/2020 12:48 PM . Narrative 10/30/2020 12:48 PM CDT Exam: 1.XR HAND RIGHT 3VW 2.XR PELVIS W BILAT HIP 2VW 3.XR FOOT LEFT 3VW 4.XR FOOT RIGHT 3VW 5.XR ANKLE RIGHT 3VW 6.XR ANKLE LEFT 3VW 7.XR WRIST RIGHT 3VW 8.XR WRIST LEFT 3VW 9.XR HAND LEFT 3VW History: ??M05.79: Rheumatoid arthritis involving multiple sites with positive rheumatoid factor Comparison: Right and left hand and foot radiographs dated 09/27/2017. Findings: Right hand: No acute fracture or dislocation is seen. Arthritis has developed at the first metacarpophalangeal joint characterized by moderate joint space narrowing, moderate subluxation, and multiple cysts/erosions mostly in the metacarpal head. There is mild surrounding soft tissue swelling. The other joint spaces are normal. A small erosion has developed at the second digit proximal interphalangeal joint in the lateral aspect of the middle phalanx base. Left hand: No acute fracture or dislocation is present. Arthritis is developed at the first metacarpophalangeal joint characterized by moderate joint space narrowing, moderate subluxation, and erosions in the metacarpal head and proximal phalanx base, larger in the metacarpal head. There is adjacent soft tissue swelling the other joints are normal. Right wrist: No fracture or dislocation is present. The joint spaces are normal. No erosions are seen. ??Bone density is normal. ??The soft tissues are normal. Left wrist: No fracture or dislocation is present. The joint spaces are normal. No erosions are seen. ??Bone density is normal. ??The soft tissues are normal. Right ankle: No fracture or dislocation is present. The joint spaces are normal. No erosions are seen. ??Bone density is normal. ??The soft tissues are normal. Left ankle: No fracture or dislocation is present. The joint spaces are normal. No erosions are seen. ??Bone density is normal. A few soft tissue calcifications are seen in the anterior aspect of the leg. Right foot: The study interpreted has study description of right foot radiographs with first image timed stamped 10/30/2020 at 11:27:49 AM, although it is noted that the images are labeled L. ??No fracture or dislocation is present. There is been interval development of arthritis at the interphalangeal joint of the first toe with several cysts and erosions in the medial aspect of the proximal phalanx head and distal phalanx base. The joint space is preserved. There is mild osteoarthritis at the first metatarsophalangeal joint. The other joint spaces are normal. Bone density is normal. The soft tissues are normal. Left foot: The study interpreted has study description of left foot radiographs with first image timed stamped 10/30/2020 at 11:25:48 AM although it is noted that the images are labeled R. ??No fracture or dislocation is present. There is minimal osteoarthritis at the first metatarsophalangeal joint. The other joint spaces are normal. No erosions are seen. Bone density is normal. The soft tissues are normal. Pelvis and bilateral hips: There is no fracture or dislocation of either hip. The joint spaces are normal. No erosions are seen. The pelvic radiograph demonstrates no acute osseous abnormality and normal appearance of the sacroiliac joints and pubic symphysis. Procedure Note Thom Alcazar MD - 10/30/2020 Exam: 1.XR HAND RIGHT 3VW 2.XR PELVIS W BILAT HIP 2VW 3.XR FOOT LEFT 3VW 4.XR FOOT RIGHT 3VW 5.XR ANKLE RIGHT 3VW 6.XR ANKLE LEFT 3VW 7.XR WRIST RIGHT 3VW 8.XR WRIST LEFT 3VW 9.XR HAND LEFT 3VW History: M05.79: Rheumatoid arthritis involving multiple sites with positive rheumatoid factor Comparison: Right and left hand and foot radiographs dated 09/27/2017. Findings: Right hand: No acute fracture or dislocation is seen. Arthritis has developed at the first metacarpophalangeal joint characterized by moderate joint space narrowing, moderate subluxation, and multiple cysts/erosions mostly inthe metacarpal head. There is mild surrounding soft tissue swelling. Theother joint spaces are normal. A small erosion has developed at the seconddigit proximal interphalangeal joint in the lateral aspect of the middlephalanx base. Left hand: No acute fracture or dislocation is present. Arthritis is developed atthe first metacarpophalangeal joint characterized by moderate joint space narrowing, moderate subluxation, and erosions in the metacarpal head and proximal phalanx base, larger in the metacarpal head. There is adjacent soft tissue swelling the other joints are normal. Right wrist: No fracture or dislocation is present. The joint spaces are normal. No erosions are seen. Bone density is normal. The soft tissues arenormal. Left wrist: No fracture or dislocation is present. The joint spaces are normal. No erosions are seen. Bone density is normal. The soft tissues arenormal. Right ankle: No fracture or dislocation is present. The joint spaces are normal. No erosions are seen. Bone density is normal. The soft tissues arenormal. Left ankle: No fracture or dislocation is present. The joint spaces are normal. No erosions are seen. Bone density is normal. A few soft tissue calcifications are seen in the anterior aspect of the leg. Right foot: The study interpreted has study description of right foot radiographs with first image timed stamped 10/30/2020 at 11:27:49 AM, although it is noted that the images are labeled L. No fracture or dislocation is present. There is been interval development of arthritis at the interphalangeal joint of the first toe with several cysts and erosionsin the medial aspect of the proximal phalanx head and distal phalanx base. The joint space is preserved. There is mild osteoarthritis at the first metatarsophalangeal joint. The other joint spaces are normal. Bonedensity is normal. The soft tissues are normal. Left foot: The study interpreted has study description of left foot radiographs with first image timed stamped 10/30/2020 at 11:25:48 AM although it is noted that the images are labeled R. No fracture or dislocation is present. There is minimal osteoarthritis at the firstmetatarsophalangeal joint. The other joint spaces are normal. No erosions are seen. Bone density is normal. The soft tissues are normal. Pelvis and bilateral hips: There is no fracture or dislocation of either hip. The joint spaces are normal. No erosions are seen. The pelvic radiograph demonstrates noacute osseous abnormality and normal appearance of the sacroiliac joints and pubic symphysis. IMPRESSION: 1. Right hand: Interval development of erosive arthritis at the first metacarpophalangeal joint with moderate joint space narrowing and subluxation and large erosions in the metacarpal head. A small erosionat the second digit proximal interphalangeal joint. This is consistent with the known diagnosis of rheumatoid arthritis. 2. Left hand: Interval development erosive arthritis at the first metacarpophalangeal joint with moderate joint space narrowing, subluxation, and large erosions in the metacarpal head. 3. Right wrist: Normal. 4. Left wrist: Normal. 5. Right ankle: Normal. 6. Left ankle: Normal. 7. Right foot: Interval development of mild erosive arthritis at thefirst toe interphalangeal joint. Mild osteoarthritis at the first metatarsophalangeal joint. 8. Left foot: Very mild osteoarthritis at the first metatarsophalangeal joint. 9. Bilateral hips: Normal. This report was electronically signed by THOM ALCAZAR MD on10/30/2020 12:48 PM . Sue Pa MD DIAGNOSTIC [facility] ORDERABLES * XR HAND RIGHT 3VW OR MORE (10/30/2020 11:32 AM CDT) Anatomical Region Laterality Modality Wrist / Hand Radiographic Samantha ging 10/30/2020 12:3 3 PM CDT Impressions 10/30/2020 12:48 PM CDT IMPRESSION: 1. Right hand: Interval development of erosive arthritis at the first metacarpophalangeal joint with moderate joint space narrowing and subluxation and large erosions in the metacarpal head. A small erosion at the second digit proximal interphalangeal joint. This is consistent with the known diagnosis of rheumatoid arthritis. 2. Left hand: Interval development erosive arthritis at the first metacarpophalangeal joint with moderate joint space narrowing, subluxation, and large erosions in the metacarpal head. 3. Right wrist: Normal. 4. Left wrist: Normal. 5. Right ankle: Normal. 6. Left ankle: Normal. 7. Right foot: Interval development of mild erosive arthritis at the first toe interphalangeal joint. Mild osteoarthritis at the first metatarsophalangeal joint. 8. Left foot: Very mild osteoarthritis at the first metatarsophalangeal joint. 9. Bilateral hips: Normal. This report was electronically signed by THOM ALCAZAR MD ??on 10/30/2020 12:48 PM . Narrative 10/30/2020 12:48 PM CDT Exam: 1.XR HAND RIGHT 3VW 2.XR PELVIS W BILAT HIP 2VW 3.XR FOOT LEFT 3VW 4.XR FOOT RIGHT 3VW 5.XR ANKLE RIGHT 3VW 6.XR ANKLE LEFT 3VW 7.XR WRIST RIGHT 3VW 8.XR WRIST LEFT 3VW 9.XR HAND LEFT 3VW History: ??M05.79: Rheumatoid arthritis involving multiple sites with positive rheumatoid factor Comparison: Right and left hand and foot radiographs dated 09/27/2017. Findings: Right hand: No acute fracture or dislocation is seen. Arthritis has developed at the first metacarpophalangeal joint characterized by moderate joint space narrowing, moderate subluxation, and multiple cysts/erosions mostly in the metacarpal head. There is mild surrounding soft tissue swelling. The other joint spaces are normal. A small erosion has developed at the second digit proximal interphalangeal joint in the lateral aspect of the middle phalanx base. Left hand: No acute fracture or dislocation is present. Arthritis is developed at the first metacarpophalangeal joint characterized by moderate joint space narrowing, moderate subluxation, and erosions in the metacarpal head and proximal phalanx base, larger in the metacarpal head. There is adjacent soft tissue swelling the other joints are normal. Right wrist: No fracture or dislocation is present. The joint spaces are normal. No erosions are seen. ??Bone density is normal. ??The soft tissues are normal. Left wrist: No fracture or dislocation is present. The joint spaces are normal. No erosions are seen. ??Bone density is normal. ??The soft tissues are normal. Right ankle: No fracture or dislocation is present. The joint spaces are normal. No erosions are seen. ??Bone density is normal. ??The soft tissues are normal. Left ankle: No fracture or dislocation is present. The joint spaces are normal. No erosions are seen. ??Bone density is normal. A few soft tissue calcifications are seen in the anterior aspect of the leg. Right foot: The study interpreted has study description of right foot radiographs with first image timed stamped 10/30/2020 at 11:27:49 AM, although it is noted that the images are labeled L. ??No fracture or dislocation is present. There is been interval development of arthritis at the interphalangeal joint of the first toe with several cysts and erosions in the medial aspect of the proximal phalanx head and distal phalanx base. The joint space is preserved. There is mild osteoarthritis at the first metatarsophalangeal joint. The other joint spaces are normal. Bone density is normal. The soft tissues are normal. Left foot: The study interpreted has study description of left foot radiographs with first image timed stamped 10/30/2020 at 11:25:48 AM although it is noted that the images are labeled R. ??No fracture or dislocation is present. There is minimal osteoarthritis at the first metatarsophalangeal joint. The other joint spaces are normal. No erosions are seen. Bone density is normal. The soft tissues are normal. Pelvis and bilateral hips: There is no fracture or dislocation of either hip. The joint spaces are normal. No erosions are seen. The pelvic radiograph demonstrates no acute osseous abnormality and normal appearance of the sacroiliac joints and pubic symphysis. Procedure Note Thom Alcazar MD - 10/30/2020 Exam: 1.XR HAND RIGHT 3VW 2.XR PELVIS W BILAT HIP 2VW 3.XR FOOT LEFT 3VW 4.XR FOOT RIGHT 3VW 5.XR ANKLE RIGHT 3VW 6.XR ANKLE LEFT 3VW 7.XR WRIST RIGHT 3VW 8.XR WRIST LEFT 3VW 9.XR HAND LEFT 3VW History: M05.79: Rheumatoid arthritis involving multiple sites with positive rheumatoid factor Comparison: Right and left hand and foot radiographs dated 09/27/2017. Findings: Right hand: No acute fracture or dislocation is seen. Arthritis has developed at the first metacarpophalangeal joint characterized by moderate joint space narrowing, moderate subluxation, and multiple cysts/erosions mostly inthe metacarpal head. There is mild surrounding soft tissue swelling. Theother joint spaces are normal. A small erosion has developed at the seconddigit proximal interphalangeal joint in the lateral aspect of the middlephalanx base. Left hand: No acute fracture or dislocation is present. Arthritis is developed atthe first metacarpophalangeal joint characterized by moderate joint space narrowing, moderate subluxation, and erosions in the metacarpal head and proximal phalanx base, larger in the metacarpal head. There is adjacent soft tissue swelling the other joints are normal. Right wrist: No fracture or dislocation is present. The joint spaces are normal. No erosions are seen. Bone density is normal. The soft tissues arenormal. Left wrist: No fracture or dislocation is present. The joint spaces are normal. No erosions are seen. Bone density is normal. The soft tissues arenormal. Right ankle: No fracture or dislocation is present. The joint spaces are normal. No erosions are seen. Bone density is normal. The soft tissues arenormal. Left ankle: No fracture or dislocation is present. The joint spaces are normal. No erosions are seen. Bone density is normal. A few soft tissue calcifications are seen in the anterior aspect of the leg. Right foot: The study interpreted has study description of right foot radiographs with first image timed stamped 10/30/2020 at 11:27:49 AM, although it is noted that the images are labeled L. No fracture or dislocation is present. There is been interval development of arthritis at the interphalangeal joint of the first toe with several cysts and erosionsin the medial aspect of the proximal phalanx head and distal phalanx base. The joint space is preserved. There is mild osteoarthritis at the first metatarsophalangeal joint. The other joint spaces are normal. Bonedensity is normal. The soft tissues are normal. Left foot: The study interpreted has study description of left foot radiographs with first image timed stamped 10/30/2020 at 11:25:48 AM although it is noted that the images are labeled R. No fracture or dislocation is present. There is minimal osteoarthritis at the firstmetatarsophalangeal joint. The other joint spaces are normal. No erosions are seen. Bone density is normal. The soft tissues are normal. Pelvis and bilateral hips: There is no fracture or dislocation of either hip. The joint spaces are normal. No erosions are seen. The pelvic radiograph demonstrates noacute osseous abnormality and normal appearance of the sacroiliac joints and pubic symphysis. IMPRESSION: 1. Right hand: Interval development of erosive arthritis at the first metacarpophalangeal joint with moderate joint space narrowing and subluxation and large erosions in the metacarpal head. A small erosionat the second digit proximal interphalangeal joint. This is consistent with the known diagnosis of rheumatoid arthritis. 2. Left hand: Interval development erosive arthritis at the first metacarpophalangeal joint with moderate joint space narrowing, subluxation, and large erosions in the metacarpal head. 3. Right wrist: Normal. 4. Left wrist: Normal. 5. Right ankle: Normal. 6. Left ankle: Normal. 7. Right foot: Interval development of mild erosive arthritis at thefirst toe interphalangeal joint. Mild osteoarthritis at the first metatarsophalangeal joint. 8. Left foot: Very mild osteoarthritis at the first metatarsophalangeal joint. 9. Bilateral hips: Normal. This report was electronically signed by THOM ALCAZAR MD on10/30/2020 12:48 PM . Sue Pa MD DIAGNOSTIC [facility] ORDERABLES * XR HAND LEFT 3VW OR MORE (10/30/2020 11:32 AM CDT) Anatomical Region Laterality Modality Wrist / Hand Radiographic Samantha ging 10/30/2020 12:3 3 PM CDT Impressions 10/30/2020 12:48 PM CDT IMPRESSION: 1. Right hand: Interval development of erosive arthritis at the first metacarpophalangeal joint with moderate joint space narrowing and subluxation and large erosions in the metacarpal head. A small erosion at the second digit proximal interphalangeal joint. This is consistent with the known diagnosis of rheumatoid arthritis. 2. Left hand: Interval development erosive arthritis at the first metacarpophalangeal joint with moderate joint space narrowing, subluxation, and large erosions in the metacarpal head. 3. Right wrist: Normal. 4. Left wrist: Normal. 5. Right ankle: Normal. 6. Left ankle: Normal. 7. Right foot: Interval development of mild erosive arthritis at the first toe interphalangeal joint. Mild osteoarthritis at the first metatarsophalangeal joint. 8. Left foot: Very mild osteoarthritis at the first metatarsophalangeal joint. 9. Bilateral hips: Normal. This report was electronically signed by THOM ALCAZAR MD ??on 10/30/2020 12:48 PM . Narrative 10/30/2020 12:48 PM CDT Exam: 1.XR HAND RIGHT 3VW 2.XR PELVIS W BILAT HIP 2VW 3.XR FOOT LEFT 3VW 4.XR FOOT RIGHT 3VW 5.XR ANKLE RIGHT 3VW 6.XR ANKLE LEFT 3VW 7.XR WRIST RIGHT 3VW 8.XR WRIST LEFT 3VW 9.XR HAND LEFT 3VW History: ??M05.79: Rheumatoid arthritis involving multiple sites with positive rheumatoid factor Comparison: Right and left hand and foot radiographs dated 09/27/2017. Findings: Right hand: No acute fracture or dislocation is seen. Arthritis has developed at the first metacarpophalangeal joint characterized by moderate joint space narrowing, moderate subluxation, and multiple cysts/erosions mostly in the metacarpal head. There is mild surrounding soft tissue swelling. The other joint spaces are normal. A small erosion has developed at the second digit proximal interphalangeal joint in the lateral aspect of the middle phalanx base. Left hand: No acute fracture or dislocation is present. Arthritis is developed at the first metacarpophalangeal joint characterized by moderate joint space narrowing, moderate subluxation, and erosions in the metacarpal head and proximal phalanx base, larger in the metacarpal head. There is adjacent soft tissue swelling the other joints are normal. Right wrist: No fracture or dislocation is present. The joint spaces are normal. No erosions are seen. ??Bone density is normal. ??The soft tissues are normal. Left wrist: No fracture or dislocation is present. The joint spaces are normal. No erosions are seen. ??Bone density is normal. ??The soft tissues are normal. Right ankle: No fracture or dislocation is present. The joint spaces are normal. No erosions are seen. ??Bone density is normal. ??The soft tissues are normal. Left ankle: No fracture or dislocation is present. The joint spaces are normal. No erosions are seen. ??Bone density is normal. A few soft tissue calcifications are seen in the anterior aspect of the leg. Right foot: The study interpreted has study description of right foot radiographs with first image timed stamped 10/30/2020 at 11:27:49 AM, although it is noted that the images are labeled L. ??No fracture or dislocation is present. There is been interval development of arthritis at the interphalangeal joint of the first toe with several cysts and erosions in the medial aspect of the proximal phalanx head and distal phalanx base. The joint space is preserved. There is mild osteoarthritis at the first metatarsophalangeal joint. The other joint spaces are normal. Bone density is normal. The soft tissues are normal. Left foot: The study interpreted has study description of left foot radiographs with first image timed stamped 10/30/2020 at 11:25:48 AM although it is noted that the images are labeled R. ??No fracture or dislocation is present. There is minimal osteoarthritis at the first metatarsophalangeal joint. The other joint spaces are normal. No erosions are seen. Bone density is normal. The soft tissues are normal. Pelvis and bilateral hips: There is no fracture or dislocation of either hip. The joint spaces are normal. No erosions are seen. The pelvic radiograph demonstrates no acute osseous abnormality and normal appearance of the sacroiliac joints and pubic symphysis. Procedure Note Thom Alcazar MD - 10/30/2020 Exam: 1.XR HAND RIGHT 3VW 2.XR PELVIS W BILAT HIP 2VW 3.XR FOOT LEFT 3VW 4.XR FOOT RIGHT 3VW 5.XR ANKLE RIGHT 3VW 6.XR ANKLE LEFT 3VW 7.XR WRIST RIGHT 3VW 8.XR WRIST LEFT 3VW 9.XR HAND LEFT 3VW History: M05.79: Rheumatoid arthritis involving multiple sites with positive rheumatoid factor Comparison: Right and left hand and foot radiographs dated 09/27/2017. Findings: Right hand: No acute fracture or dislocation is seen. Arthritis has developed at the first metacarpophalangeal joint characterized by moderate joint space narrowing, moderate subluxation, and multiple cysts/erosions mostly inthe metacarpal head. There is mild surrounding soft tissue swelling. Theother joint spaces are normal. A small erosion has developed at the seconddigit proximal interphalangeal joint in the lateral aspect of the middlephalanx base. Left hand: No acute fracture or dislocation is present. Arthritis is developed atthe first metacarpophalangeal joint characterized by moderate joint space narrowing, moderate subluxation, and erosions in the metacarpal head and proximal phalanx base, larger in the metacarpal head. There is adjacent soft tissue swelling the other joints are normal. Right wrist: No fracture or dislocation is present. The joint spaces are normal. No erosions are seen. Bone density is normal. The soft tissues arenormal. Left wrist: No fracture or dislocation is present. The joint spaces are normal. No erosions are seen. Bone density is normal. The soft tissues arenormal. Right ankle: No fracture or dislocation is present. The joint spaces are normal. No erosions are seen. Bone density is normal. The soft tissues arenormal. Left ankle: No fracture or dislocation is present. The joint spaces are normal. No erosions are seen. Bone density is normal. A few soft tissue calcifications are seen in the anterior aspect of the leg. Right foot: The study interpreted has study description of right foot radiographs with first image timed stamped 10/30/2020 at 11:27:49 AM, although it is noted that the images are labeled L. No fracture or dislocation is present. There is been interval development of arthritis at the interphalangeal joint of the first toe with several cysts and erosionsin the medial aspect of the proximal phalanx head and distal phalanx base. The joint space is preserved. There is mild osteoarthritis at the first metatarsophalangeal joint. The other joint spaces are normal. Bonedensity is normal. The soft tissues are normal. Left foot: The study interpreted has study description of left foot radiographs with first image timed stamped 10/30/2020 at 11:25:48 AM although it is noted that the images are labeled R. No fracture or dislocation is present. There is minimal osteoarthritis at the firstmetatarsophalangeal joint. The other joint spaces are normal. No erosions are seen. Bone density is normal. The soft tissues are normal. Pelvis and bilateral hips: There is no fracture or dislocation of either hip. The joint spaces are normal. No erosions are seen. The pelvic radiograph demonstrates noacute osseous abnormality and normal appearance of the sacroiliac joints and pubic symphysis. IMPRESSION: 1. Right hand: Interval development of erosive arthritis at the first metacarpophalangeal joint with moderate joint space narrowing and subluxation and large erosions in the metacarpal head. A small erosionat the second digit proximal interphalangeal joint. This is consistent with the known diagnosis of rheumatoid arthritis. 2. Left hand: Interval development erosive arthritis at the first metacarpophalangeal joint with moderate joint space narrowing, subluxation, and large erosions in the metacarpal head. 3. Right wrist: Normal. 4. Left wrist: Normal. 5. Right ankle: Normal. 6. Left ankle: Normal. 7. Right foot: Interval development of mild erosive arthritis at thefirst toe interphalangeal joint. Mild osteoarthritis at the first metatarsophalangeal joint. 8. Left foot: Very mild osteoarthritis at the first metatarsophalangeal joint. 9. Bilateral hips: Normal. This report was electronically signed by THOM ALCAZAR MD on10/30/2020 12:48 PM . Sue Pa MD DIAGNOSTIC [facility] GING ORDERABLES * XR WRIST RIGHT 3VW OR MORE (10/30/2020 11:32 AM CDT) Anatomical Region Laterality Modality Wrist / Hand Radiographic Samantha ging 10/30/2020 12:3 3 PM CDT Impressions 10/30/2020 12:48 PM CDT IMPRESSION: 1. Right hand: Interval development of erosive arthritis at the first metacarpophalangeal joint with moderate joint space narrowing and subluxation and large erosions in the metacarpal head. A small erosion at the second digit proximal interphalangeal joint. This is consistent with the known diagnosis of rheumatoid arthritis. 2. Left hand: Interval development erosive arthritis at the first metacarpophalangeal joint with moderate joint space narrowing, subluxation, and large erosions in the metacarpal head. 3. Right wrist: Normal. 4. Left wrist: Normal. 5. Right ankle: Normal. 6. Left ankle: Normal. 7. Right foot: Interval development of mild erosive arthritis at the first toe interphalangeal joint. Mild osteoarthritis at the first metatarsophalangeal joint. 8. Left foot: Very mild osteoarthritis at the first metatarsophalangeal joint. 9. Bilateral hips: Normal. This report was electronically signed by THOM ALCAZAR MD ??on 10/30/2020 12:48 PM . Narrative 10/30/2020 12:48 PM CDT Exam: 1.XR HAND RIGHT 3VW 2.XR PELVIS W BILAT HIP 2VW 3.XR FOOT LEFT 3VW 4.XR FOOT RIGHT 3VW 5.XR ANKLE RIGHT 3VW 6.XR ANKLE LEFT 3VW 7.XR WRIST RIGHT 3VW 8.XR WRIST LEFT 3VW 9.XR HAND LEFT 3VW History: ??M05.79: Rheumatoid arthritis involving multiple sites with positive rheumatoid factor Comparison: Right and left hand and foot radiographs dated 09/27/2017. Findings: Right hand: No acute fracture or dislocation is seen. Arthritis has developed at the first metacarpophalangeal joint characterized by moderate joint space narrowing, moderate subluxation, and multiple cysts/erosions mostly in the metacarpal head. There is mild surrounding soft tissue swelling. The other joint spaces are normal. A small erosion has developed at the second digit proximal interphalangeal joint in the lateral aspect of the middle phalanx base. Left hand: No acute fracture or dislocation is present. Arthritis is developed at the first metacarpophalangeal joint characterized by moderate joint space narrowing, moderate subluxation, and erosions in the metacarpal head and proximal phalanx base, larger in the metacarpal head. There is adjacent soft tissue swelling the other joints are normal. Right wrist: No fracture or dislocation is present. The joint spaces are normal. No erosions are seen. ??Bone density is normal. ??The soft tissues are normal. Left wrist: No fracture or dislocation is present. The joint spaces are normal. No erosions are seen. ??Bone density is normal. ??The soft tissues are normal. Right ankle: No fracture or dislocation is present. The joint spaces are normal. No erosions are seen. ??Bone density is normal. ??The soft tissues are normal. Left ankle: No fracture or dislocation is present. The joint spaces are normal. No erosions are seen. ??Bone density is normal. A few soft tissue calcifications are seen in the anterior aspect of the leg. Right foot: The study interpreted has study description of right foot radiographs with first image timed stamped 10/30/2020 at 11:27:49 AM, although it is noted that the images are labeled L. ??No fracture or dislocation is present. There is been interval development of arthritis at the interphalangeal joint of the first toe with several cysts and erosions in the medial aspect of the proximal phalanx head and distal phalanx base. The joint space is preserved. There is mild osteoarthritis at the first metatarsophalangeal joint. The other joint spaces are normal. Bone density is normal. The soft tissues are normal. Left foot: The study interpreted has study description of left foot radiographs with first image timed stamped 10/30/2020 at 11:25:48 AM although it is noted that the images are labeled R. ??No fracture or dislocation is present. There is minimal osteoarthritis at the first metatarsophalangeal joint. The other joint spaces are normal. No erosions are seen. Bone density is normal. The soft tissues are normal. Pelvis and bilateral hips: There is no fracture or dislocation of either hip. The joint spaces are normal. No erosions are seen. The pelvic radiograph demonstrates no acute osseous abnormality and normal appearance of the sacroiliac joints and pubic symphysis. Procedure Note Thom Alcazar MD - 10/30/2020 Exam: 1.XR HAND RIGHT 3VW 2.XR PELVIS W BILAT HIP 2VW 3.XR FOOT LEFT 3VW 4.XR FOOT RIGHT 3VW 5.XR ANKLE RIGHT 3VW 6.XR ANKLE LEFT 3VW 7.XR WRIST RIGHT 3VW 8.XR WRIST LEFT 3VW 9.XR HAND LEFT 3VW History: M05.79: Rheumatoid arthritis involving multiple sites with positive rheumatoid factor Comparison: Right and left hand and foot radiographs dated 09/27/2017. Findings: Right hand: No acute fracture or dislocation is seen. Arthritis has developed at the first metacarpophalangeal joint characterized by moderate joint space narrowing, moderate subluxation, and multiple cysts/erosions mostly inthe metacarpal head. There is mild surrounding soft tissue swelling. Theother joint spaces are normal. A small erosion has developed at the seconddigit proximal interphalangeal joint in the lateral aspect of the middlephalanx base. Left hand: No acute fracture or dislocation is present. Arthritis is developed atthe first metacarpophalangeal joint characterized by moderate joint space narrowing, moderate subluxation, and erosions in the metacarpal head and proximal phalanx base, larger in the metacarpal head. There is adjacent soft tissue swelling the other joints are normal. Right wrist: No fracture or dislocation is present. The joint spaces are normal. No erosions are seen. Bone density is normal. The soft tissues arenormal. Left wrist: No fracture or dislocation is present. The joint spaces are normal. No erosions are seen. Bone density is normal. The soft tissues arenormal. Right ankle: No fracture or dislocation is present. The joint spaces are normal. No erosions are seen. Bone density is normal. The soft tissues arenormal. Left ankle: No fracture or dislocation is present. The joint spaces are normal. No erosions are seen. Bone density is normal. A few soft tissue calcifications are seen in the anterior aspect of the leg. Right foot: The study interpreted has study description of right foot radiographs with first image timed stamped 10/30/2020 at 11:27:49 AM, although it is noted that the images are labeled L. No fracture or dislocation is present. There is been interval development of arthritis at the interphalangeal joint of the first toe with several cysts and erosionsin the medial aspect of the proximal phalanx head and distal phalanx base. The joint space is preserved. There is mild osteoarthritis at the first metatarsophalangeal joint. The other joint spaces are normal. Bonedensity is normal. The soft tissues are normal. Left foot: The study interpreted has study description of left foot radiographs with first image timed stamped 10/30/2020 at 11:25:48 AM although it is noted that the images are labeled R. No fracture or dislocation is present. There is minimal osteoarthritis at the firstmetatarsophalangeal joint. The other joint spaces are normal. No erosions are seen. Bone density is normal. The soft tissues are normal. Pelvis and bilateral hips: There is no fracture or dislocation of either hip. The joint spaces are normal. No erosions are seen. The pelvic radiograph demonstrates noacute osseous abnormality and normal appearance of the sacroiliac joints and pubic symphysis. IMPRESSION: 1. Right hand: Interval development of erosive arthritis at the first metacarpophalangeal joint with moderate joint space narrowing and subluxation and large erosions in the metacarpal head. A small erosionat the second digit proximal interphalangeal joint. This is consistent with the known diagnosis of rheumatoid arthritis. 2. Left hand: Interval development erosive arthritis at the first metacarpophalangeal joint with moderate joint space narrowing, subluxation, and large erosions in the metacarpal head. 3. Right wrist: Normal. 4. Left wrist: Normal. 5. Right ankle: Normal. 6. Left ankle: Normal. 7. Right foot: Interval development of mild erosive arthritis at thefirst toe interphalangeal joint. Mild osteoarthritis at the first metatarsophalangeal joint. 8. Left foot: Very mild osteoarthritis at the first metatarsophalangeal joint. 9. Bilateral hips: Normal. This report was electronically signed by THOM ALCAZAR MD on10/30/2020 12:48 PM . Sue Pa MD DIAGNOSTIC SAMANTHA GING ORDERABLES * XR WRIST LEFT 3VW OR MORE (10/30/2020 11:32 AM CDT) Anatomical Region Laterality Modality Wrist / Hand Radiographic Samantha ging 10/30/2020 12:3 3 PM CDT Impressions 10/30/2020 12:48 PM CDT IMPRESSION: 1. Right hand: Interval development of erosive arthritis at the first metacarpophalangeal joint with moderate joint space narrowing and subluxation and large erosions in the metacarpal head. A small erosion at the second digit proximal interphalangeal joint. This is consistent with the known diagnosis of rheumatoid arthritis. 2. Left hand: Interval development erosive arthritis at the first metacarpophalangeal joint with moderate joint space narrowing, subluxation, and large erosions in the metacarpal head. 3. Right wrist: Normal. 4. Left wrist: Normal. 5. Right ankle: Normal. 6. Left ankle: Normal. 7. Right foot: Interval development of mild erosive arthritis at the first toe interphalangeal joint. Mild osteoarthritis at the first metatarsophalangeal joint. 8. Left foot: Very mild osteoarthritis at the first metatarsophalangeal joint. 9. Bilateral hips: Normal. This report was electronically signed by THOM ALCAZAR MD ??on 10/30/2020 12:48 PM . Narrative 10/30/2020 12:48 PM CDT Exam: 1.XR HAND RIGHT 3VW 2.XR PELVIS W BILAT HIP 2VW 3.XR FOOT LEFT 3VW 4.XR FOOT RIGHT 3VW 5.XR ANKLE RIGHT 3VW 6.XR ANKLE LEFT 3VW 7.XR WRIST RIGHT 3VW 8.XR WRIST LEFT 3VW 9.XR HAND LEFT 3VW History: ??M05.79: Rheumatoid arthritis involving multiple sites with positive rheumatoid factor Comparison: Right and left hand and foot radiographs dated 09/27/2017. Findings: Right hand: No acute fracture or dislocation is seen. Arthritis has developed at the first metacarpophalangeal joint characterized by moderate joint space narrowing, moderate subluxation, and multiple cysts/erosions mostly in the metacarpal head. There is mild surrounding soft tissue swelling. The other joint spaces are normal. A small erosion has developed at the second digit proximal interphalangeal joint in the lateral aspect of the middle phalanx base. Left hand: No acute fracture or dislocation is present. Arthritis is developed at the first metacarpophalangeal joint characterized by moderate joint space narrowing, moderate subluxation, and erosions in the metacarpal head and proximal phalanx base, larger in the metacarpal head. There is adjacent soft tissue swelling the other joints are normal. Right wrist: No fracture or dislocation is present. The joint spaces are normal. No erosions are seen. ??Bone density is normal. ??The soft tissues are normal. Left wrist: No fracture or dislocation is present. The joint spaces are normal. No erosions are seen. ??Bone density is normal. ??The soft tissues are normal. Right ankle: No fracture or dislocation is present. The joint spaces are normal. No erosions are seen. ??Bone density is normal. ??The soft tissues are normal. Left ankle: No fracture or dislocation is present. The joint spaces are normal. No erosions are seen. ??Bone density is normal. A few soft tissue calcifications are seen in the anterior aspect of the leg. Right foot: The study interpreted has study description of right foot radiographs with first image timed stamped 10/30/2020 at 11:27:49 AM, although it is noted that the images are labeled L. ??No fracture or dislocation is present. There is been interval development of arthritis at the interphalangeal joint of the first toe with several cysts and erosions in the medial aspect of the proximal phalanx head and distal phalanx base. The joint space is preserved. There is mild osteoarthritis at the first metatarsophalangeal joint. The other joint spaces are normal. Bone density is normal. The soft tissues are normal. Left foot: The study interpreted has study description of left foot radiographs with first image timed stamped 10/30/2020 at 11:25:48 AM although it is noted that the images are labeled R. ??No fracture or dislocation is present. There is minimal osteoarthritis at the first metatarsophalangeal joint. The other joint spaces are normal. No erosions are seen. Bone density is normal. The soft tissues are normal. Pelvis and bilateral hips: There is no fracture or dislocation of either hip. The joint spaces are normal. No erosions are seen. The pelvic radiograph demonstrates no acute osseous abnormality and normal appearance of the sacroiliac joints and pubic symphysis. Procedure Note Thom Alcazar MD - 10/30/2020 Exam: 1.XR HAND RIGHT 3VW 2.XR PELVIS W BILAT HIP 2VW 3.XR FOOT LEFT 3VW 4.XR FOOT RIGHT 3VW 5.XR ANKLE RIGHT 3VW 6.XR ANKLE LEFT 3VW 7.XR WRIST RIGHT 3VW 8.XR WRIST LEFT 3VW 9.XR HAND LEFT 3VW History: M05.79: Rheumatoid arthritis involving multiple sites with positive rheumatoid factor Comparison: Right and left hand and foot radiographs dated 09/27/2017. Findings: Right hand: No acute fracture or dislocation is seen. Arthritis has developed at the first metacarpophalangeal joint characterized by moderate joint space narrowing, moderate subluxation, and multiple cysts/erosions mostly inthe metacarpal head. There is mild surrounding soft tissue swelling. Theother joint spaces are normal. A small erosion has developed at the seconddigit proximal interphalangeal joint in the lateral aspect of the middlephalanx base. Left hand: No acute fracture or dislocation is present. Arthritis is developed atthe first metacarpophalangeal joint characterized by moderate joint space narrowing, moderate subluxation, and erosions in the metacarpal head and proximal phalanx base, larger in the metacarpal head. There is adjacent soft tissue swelling the other joints are normal. Right wrist: No fracture or dislocation is present. The joint spaces are normal. No erosions are seen. Bone density is normal. The soft tissues arenormal. Left wrist: No fracture or dislocation is present. The joint spaces are normal. No erosions are seen. Bone density is normal. The soft tissues arenormal. Right ankle: No fracture or dislocation is present. The joint spaces are normal. No erosions are seen. Bone density is normal. The soft tissues arenormal. Left ankle: No fracture or dislocation is present. The joint spaces are normal. No erosions are seen. Bone density is normal. A few soft tissue calcifications are seen in the anterior aspect of the leg. Right foot: The study interpreted has study description of right foot radiographs with first image timed stamped 10/30/2020 at 11:27:49 AM, although it is noted that the images are labeled L. No fracture or dislocation is present. There is been interval development of arthritis at the interphalangeal joint of the first toe with several cysts and erosionsin the medial aspect of the proximal phalanx head and distal phalanx base. The joint space is preserved. There is mild osteoarthritis at the first metatarsophalangeal joint. The other joint spaces are normal. Bonedensity is normal. The soft tissues are normal. Left foot: The study interpreted has study description of left foot radiographs with first image timed stamped 10/30/2020 at 11:25:48 AM although it is noted that the images are labeled R. No fracture or dislocation is present. There is minimal osteoarthritis at the firstmetatarsophalangeal joint. The other joint spaces are normal. No erosions are seen. Bone density is normal. The soft tissues are normal. Pelvis and bilateral hips: There is no fracture or dislocation of either hip. The joint spaces are normal. No erosions are seen. The pelvic radiograph demonstrates noacute osseous abnormality and normal appearance of the sacroiliac joints and pubic symphysis. IMPRESSION: 1. Right hand: Interval development of erosive arthritis at the first metacarpophalangeal joint with moderate joint space narrowing and subluxation and large erosions in the metacarpal head. A small erosionat the second digit proximal interphalangeal joint. This is consistent with the known diagnosis of rheumatoid arthritis. 2. Left hand: Interval development erosive arthritis at the first metacarpophalangeal joint with moderate joint space narrowing, subluxation, and large erosions in the metacarpal head. 3. Right wrist: Normal. 4. Left wrist: Normal. 5. Right ankle: Normal. 6. Left ankle: Normal. 7. Right foot: Interval development of mild erosive arthritis at thefirst toe interphalangeal joint. Mild osteoarthritis at the first metatarsophalangeal joint. 8. Left foot: Very mild osteoarthritis at the first metatarsophalangeal joint. 9. Bilateral hips: Normal. This report was electronically signed by THOM ALCAZAR MD on10/30/2020 12:48 PM . Sue Pa MD DIAGNOSTIC SAMANTHA GING ORDERABLES * XR CERVICAL SPINE 4 OR 5VW (10/30/2020 11:32 AM CDT) Anatomical Region Laterality Modality Spine Radiographic Samantha ging 10/30/2020 11:3 4 AM CDT Impressions 10/31/2020 7:51 AM CDT IMPRESSION: No acute fracture or subluxation or instability of cervical spine is identified. Dictated by Yojana Mcbride MD (associate professor of radiology). Dr. ROGER Santillan have personally reviewed and interpreted this examination/study. This report was electronically signed by ROGER PETERS ??on 10/31/2020 7:51 AM . Narrative 10/31/2020 7:51 AM CDT EXAMINATION: XR CERVICAL SPINE 4 OR 5VW HISTORY: M05.79: Rheumatoid arthritis involving multiple sites with positive rheumatoid factor COMPARISON: No prior study is available for comparison. FINDINGS: No acute fracture or compression deformity is identified. No cervical spine instability is detected with flexion and extension views. The predental interval and prevertebral soft tissues are normal. Bone density is normal. Procedure Note Roger Peters DO - 10/31/2020 EXAMINATION: XR CERVICAL SPINE 4 OR 5VW HISTORY: M05.79: Rheumatoid arthritis involving multiple sites with positive rheumatoid factor COMPARISON: No prior study is available for comparison. FINDINGS: No acute fracture or compression deformity is identified. No cervical spine instability is detected with flexion and extension views. The predental interval and prevertebral soft tissues are normal. Bonedensity is normal. IMPRESSION: No acute fracture or subluxation or instability of cervical spine is identified. Dictated by Yojana Mcbride MD (associate professor of radiology). Dr. ROGER Santillan have personally reviewed and interpreted this examination/study. This report was electronically signed by ROGER PETERS on 10/31/2020 7:51 AM . Sue Pa MD DIAGNOSTIC SAMANTHA GING ORDERABLES * OCT (04/22/2020 1:36 PM [facility]) Anatomical Region Laterality Modality Other 04/22/2020 1:36 PM [facility] Rebecca Higginbotham OD OPHTHALMOLOGY SERVIC ES ORDERABLES * (ABNORMAL) URINALYSIS W/MICROSCOPIC NO CULTURE (03/26/2020 5:03 PM CDT) Only the most recent of5 resultswithin the time period is included. Color UA Radha(A) Straw, Yellow, Colorless 03/26/2020 6:10 PM [facility] Clarity UA Clear Clear, Slt Cloudy 03/26/2020 6:10 PM T [facility] Specific [place] UA 1.010 1.005 - 1.030 03/26/2020 6:10 PM [facility] pH UA 5.0 5.0 - 8.0 pH 03/26/2020 6:10 PM [facility] Protein UA Negative Negative mg/dL 03/26/2020 6:10 PM [facility] Glucose UA Negative Negative mg/dL 03/26/2020 6:10 PM [facility] Ketone UA Negative Negative mg/dL 03/26/2020 6:10 PM [facility] Bilirubin UA Negative Negative mg/dL 03/26/2020 6:10 PM [facility] Blood UA Negative Negative 03/26/2020 6:10 PM [facility] Nitrite UA Negative Negative 03/26/2020 6:10 PM [facility] Leukocyte Esterase Negative Negative 03/26/2020 6:10 PM [facility] Urobilinogen UA Negative Negative mg/dL 03/26/2020 6:10 PM [facility] RBC UA 0-2 None Seen, 0-2, 3-5 /HPF 03/26/2020 6:10 PM [facility] WBC UA 0-5 None Seen, 0-5 /HPF 03/26/2020 6:10 PM CDT [facility] Squamous Epithelial Cells UA 0-2 None Seen, 0-2 /HPF 03/26/2020 6:10 PM CDT [facility] Mucus UA 1+ None, 1+ /LPF 03/26/2020 6:10 PM CDT [facility] Hyaline Casts UA 3-5(A) None Seen, 0-2 /LPF 03/26/2020 6:10 PM CDT [facility] Urine URINE SPECIMEN OBTAINED BY CLEAN CATCH PROCEDURE / Unknown Collection / Unknown 03/26/2020 5:03 PM CDT 03/26/2020 5:56 PM CDT [facility] - 03/26/2020 6:10 PM CDT Sue Pa MD LAB - URINALYS IS ORDERABLES [facility] [address] [place] [address], [facility] [phone] * URINALYSIS REFLEX TO MICROSCOPIC NO CULTURE (05/22/2019 9:53 AM [facility]) Only the most recent of3 resultswithin the time period is included. Color UA Yellow Straw, Yellow, Colorless 05/22/2019 10:45 AM [facility] Clarity UA Clear Clear, Slt Cloudy 05/22/2019 10:45 AM [facility] Specific [place] UA 1.006 1.005 - 1.030 05/22/2019 10:45 AM [facility] pH UA 5.0 5.0 - 8.0 pH 05/22/2019 10:45 AM [facility] Protein UA Negative Negative mg/dL 05/22/2019 10:45 AM [facility] Glucose UA Negative Negative mg/dL 05/22/2019 10:45 AM [facility] Ketone UA Negative Negative mg/dL 05/22/2019 10:45 AM [facility] Bilirubin UA Negative Negative mg/dL 05/22/2019 10:45 AM [facility] Blood UA Negative Negative 05/22/2019 10:45 AM [facility] Nitrite UA Negative Negative 05/22/2019 10:45 AM [facility] Leukocyte Esterase Negative Negative 05/22/2019 10:45 AM [facility] Urobilinogen UA Negative Negative mg/dL 05/22/2019 10:45 AM [facility] RBC UA 0-2 None Seen, 0-2, 3-5 /HPF 05/22/2019 10:45 AM [facility] WBC UA 0-5 None Seen, 0-5 /HPF 05/22/2019 10:45 AM [facility] Squamous Epithelial Cells UA 0-2 None Seen, 0-2 /HPF 05/22/2019 10:45 AM [facility] Urine URINE SPECIMEN OBTAINED BY CLEAN CATCH PROCEDURE / Unknown Collection / Unknown 05/22/2019 9:53 AM [facility] 05/22/2019 10:24 AM [facility] Narrative [facility] - 05/22/2019 10:45 AM [facility] Sue Pa MD LAB - URINALYS IS ORDERABLES [facility] [address] [place] [address], [facility] [phone] * CULTURE URINE (11/03/2018 3:25 PM CDT) Only the most recent of2 resultswithin the time period is included. Culture Urine <10,000 CFU/mL urogenital pastor ISIS 11/05/2018 3:57 AM CDT [facility] MICROBIOLOGY Urine URINE SPECIMEN OBTAINED BY CLEAN CATCH PROCEDURE / Unknown Collection / Unknown 11/03/2018 3:25 PM CDT 11/03/2018 4:04 PM CDT Sue Pa MD LAB - MICROBIO LOGY ORDERABLES [facility] MICROBIOLOGY [address] [place] [address], [facility] [phone] * CHROMATIN ANTIBODY (06/30/2018 9:31 AM [facility]) Antichromatin Antibodies <0.2 0.0 - 0.9 AI 07/01/2018 3:20 PM [facility] ([facility]) Blood BLOOD SPECIMEN / Unknown Lab Venipuncture / Unknown 06/30/2018 9:31 AM [facility] 06/30/2018 9:56 AM [facility] Narrative [facility] ([facility]) - 07/01/2018 3:20 PM WARD MAID Performed at: ??01 - [facility] [address] [place], [place] ??[id number] Car Sales Associate: Timmy Kyle PhD, Phone: ??[phone] Sue Pa MD LAB - SEROLOGY ORDERABLES [facility] ([facility]) [address] [place] [address], [facility] * XR SI JOINTS 3VW OR MORE (09/27/2017 12:10 PM CDT) Anatomical Region Laterality Modality Pelvis, Lower Extremity Radiogra phic Imaging 09/27/2017 12:2 9 PM CDT Impressions 09/27/2017 12:33 PM CDT IMPRESSION: 1. Right and left hands: Normal. 2. Right and left feet: Mild degenerative change at the first metatarsophalangeal joints, left greater than right. 3. Sacroiliac joints: Normal. This report was electronically signed by THOM ALCAZAR MD ??on 09/27/2017 12:33 PM . Narrative 09/27/2017 12:33 PM CDT Exam: 1.XR HAND RIGHT 2VW, 2.XR HAND LEFT 2VW, 3.XR SI JOINTS 3VW OR MORE, 4.XR FOOT RIGHT 2VW, 5.XR FOOT LEFT 2VW History: ??M25.50: Polyarthralgia M79.1: Myalgia R53.83: Fatigue, unspecified type G43.909: Migraine without status migrainosus, not intractable, unspecified migraine type M79.641: Bilateral hand pain M79.642: Bilateral hand pain M79.671: Bilateral foot pain M79.672: Bilateral foot pain Comparison: None. Findings: Right hand: No fracture or dislocation is present. The joint spaces are normal. No erosions are seen. ??Bone density appears normal. ??The soft tissues are normal. Left hand: No fracture or dislocation is present. The joint spaces are normal. No erosions are seen. ??Bone density appears normal. ??The soft tissues are normal. Right foot: No fracture or dislocation is present. The joint spaces are normal. Very small osteophytes are seen at the lateral aspect of the first metatarsophalangeal joint. No erosions are seen. ??Bone density appears normal. ??The soft tissues are normal. Left foot: No fracture or dislocation is present. The joint spaces are normal. Small osteophytes are noted at the first metatarsophalangeal joint. No definite erosions are seen. A focal cavity in the lateral aspect of the second metatarsal head is approximately symmetric to the right side is felt to represent an anatomic variant appearance. Bone density appears normal. The soft tissues are normal. Sacroiliac joints: There is no erosion, widening, sclerosis, narrowing, or ankylosis on either side. No fracture is seen. The hip joint spaces appear normal. Procedure Note Thom Alcazar MD - 09/27/2017 Exam: 1.XR HAND RIGHT 2VW, 2.XR HAND LEFT 2VW, 3.XR SI JOINTS 3VW OR MORE, 4.XR FOOT RIGHT 2VW, 5.XR FOOT LEFT 2VW History: M25.50: Polyarthralgia M79.1: Myalgia R53.83: Fatigue, unspecified type G43.909: Migraine without status migrainosus, not intractable,unspecified migraine type M79.641: Bilateral hand pain M79.642: Bilateral hand pain M79.671: Bilateral foot pain M79.672: Bilateral foot pain Comparison: None. Findings: Right hand: No fracture or dislocation is present. The joint spaces are normal. No erosions are seen. Bone density appears normal. The soft tissues are normal. Left hand: No fracture or dislocation is present. The joint spaces are normal. No erosions are seen. Bone density appears normal. The soft tissues are normal. Right foot: No fracture or dislocation is present. The joint spaces are normal. Very small osteophytes are seen at the lateral aspect of the first metatarsophalangeal joint. No erosions are seen. Bone density appears normal. The soft tissues are normal. Left foot: No fracture or dislocation is present. The joint spaces are normal.Small osteophytes are noted at the first metatarsophalangeal joint. Nodefinite erosions are seen. A focal cavity in the lateral aspect of the second metatarsal head is approximately symmetric to the right side is felt to represent an anatomic variant appearance. Bone density appears normal. The soft tissues are normal. Sacroiliac joints: There is no erosion, widening, sclerosis, narrowing, or ankylosis on either side. No fracture is seen. The hip joint spaces appear normal. IMPRESSION: 1. Right and left hands: Normal. 2. Right and left feet: Mild degenerative change at the first metatarsophalangeal joints, left greater than right. 3. Sacroiliac joints: Normal. This report was electronically signed by THOM ALCAZAR MD on09/27/2017 12:33 PM . Sue Pa MD DIAGNOSTIC SAMANTHA GING ORDERABLES * URIC ACID BLOOD (09/27/2017 11:45 AM CDT) Uric Acid 5.2 2.6 - 7.2 mg/dL 09/27/2017 2:18 PM CDT [facility] Blood BLOOD SPECIMEN / Unknown Lab Venipuncture / Unknown 09/27/2017 11:45 AM CDT 09/27/2017 12:33 PM CDT Sue Pa MD LAB - CHEMISTR Y ORDERABLES [address] [phone] * HEPATITIS C RNA QUANTITATIVE PCR (09/27/2017 11:45 AM CDT) Hepatitis C RNA PCR, Interp Not Detected Not Detected 10/04/2017 8:20 AM CDT [facility] Blood BLOOD SPECIMEN / Unknown Lab Venipuncture / Unknown 09/27/2017 11:45 AM CDT 09/27/2017 12:37 PM CDT Narrative [facility] - 10/04/2017 8:20 AM CDT The Hepatitis C viral (HCV) RNA analysis utilized a serum sample, real-time reverse personnel psychologist PCR, and is reported as Not Detected, [...] the isolation of HCV RNA with reverse personnel psychologist of genomic HCV RNA followed by real-time PCR in the presence of an unrelated RNA internal control. ??The internal control ensures that RNA is isolated, and that no general significant inhibitors of the RT-PCR process are present. The analysis was performed using a U.S. FDA approved test methodology (Social IQ (Social Influence Quotient) Real Time HCV). Sue Pa MD LAB - CHEMISTR Y ORDERABLES Performing Organization Address [facility] de Phone Number [facility] [address] [place] [address] * MEDELLIN (SM) ANTIBODY RENEE (09/27/2017 11:45 AM CDT) [place]ellin Antibody 6.6 0.0 - 19.9 Units 09/29/2017 11:07 AM CDT [facility] Comment: RENEE Antibody Numeric Result Interpretation: ?<20.0 Units: ??Negative ?20.0 - 39.0 Units: ??Weakly Positive ?>39.0 Units: ??Positive ? Blood BLOOD SPECIMEN / Unknown Lab Venipuncture / Unknown 09/27/2017 11:45 AM CDT 09/27/2017 12:37 PM CDT Sue Pa MD LAB - CHEMISTR Y ORDERABLES Performing Organization Address [facility] Co de Phone Number [address] [phone] * DEPOSITION OPERATOR ANTIBODY (09/27/2017 11:45 AM CDT) Pathologist [facility] SM/DEPOSITION OPERATOR Antibody 4.0 0.0 - 19.9 Units 09/29/2017 11:07 AM CDT [facility] Comment: RENEE Antibody Numeric Result Interpretation: ?<20.0 Units: ??Negative ?20.0 - 39.0 Units: ??Weakly Positive ?>39.0 Units: ??Positive ? Blood BLOOD SPECIMEN / Unknown Lab Venipuncture / Unknown 09/27/2017 11:45 AM CDT 09/27/2017 12:37 PM CDT Sue Pa MD LAB - CHEMISTR Y ORDERABLES [address] [phone] * (ABNORMAL) RHEUMATOID FACTOR BLOOD QUANTITATIVE (09/27/2017 11:45 AM CDT) Pathologist [facility] Rheumatoid Factor 40(H) <30 IU/mL 09/27/2017 1:43 PM CDT [facility] Blood BLOOD SPECIMEN / Unknown Lab Venipuncture / Unknown 09/27/2017 11:45 AM CDT 09/27/2017 12:37 PM CDT Sue Pa MD LAB - CHEMISTR Y ORDERABLES [address] [phone] * DARREL BLOOD SCREEN W/REFLEX TITER (09/27/2017 11:45 AM CDT) Pathologist [facility] DARREL Negative 09/29/2017 4:25 PM CDT [facility] ([facility]) Comment: ? Negative ?? <1:80 ? Borderline ??1:80 ? Positive ?? >1:80 Blood BLOOD SPECIMEN / Unknown Lab Venipuncture / Unknown 09/27/2017 11:45 AM CDT 09/27/2017 12:36 PM CDT Narrative [facility] ([facility]) - 09/29/2017 4:25 PM CDT Performed at: ??01 - [facility] [address], [place] ??[id number] Car Sales Associate: Timmy Klye PhD, Phone: ??[phone] Sue Pa MD LAB - CHEMISTR Y ORDERABLES [facility]) [address] [place] [address], [facility] * HLA TYPING B27 (09/27/2017 11:45 AM CDT) HLA-B27 Negative Negative 09/28/2017 4:24 PM CDT [email or web address] ([facility]) Comment: INTERPRETIVE INFORMATION: HLA-B27 HLA-B27 is a serologically defined allele of the human HLA-B locus. The presence of the HLA-B27 antigen is strongly associated with ankylosing spondylitis and related disorders. Test developed and characteristics determined by [employer]. See Compliance Statement B: [employer] Performed by [employer] [facility], [address] [place] [id number] [email or web address], Edouard Huffman MD, Lab. Director Blood BLOOD SPECIMEN / Unknown Lab Venipuncture / Unknown 09/27/2017 11:45 AM CDT 09/27/2017 12:38 PM CDT Sue Pa MD LAB - CHEMISTR Y ORDERABLES [facility] ([facility]) [address] * HISTONE ANTIBODY (09/27/2017 11:45 AM CDT) [facility] Anti-Histone Antibody 0.9 0.0 - 0.9 Units 09/30/2017 12:15 PM CDT [facility] ([facility]) Comment: ? Negative ?<1.0 ? Weak Positive ?1.0 - 1.5 ? Moderate Positive ??1.6 - 2.5 ? Strong Positive ? >2.5 Blood BLOOD SPECIMEN / Unknown Lab Venipuncture / Unknown 09/27/2017 11:45 AM CDT 09/27/2017 12:36 PM CDT Narrative [facility] ([facility]) - 09/30/2017 12:15 PM CDT Performed at: ??01 - [address] ??[id number] Car Sales Associate: Charles Lucero MD, Phone: ??[phone] Sue Pa MD LAB - CHEMISTR Y ORDERABLES Performing Organization Address City/[facility]/ZIP Co de Phone Number [facility] ([facility]) [address] [place] [address] * (ABNORMAL) COMPLEMENT TOTAL (09/27/2017 11:45 AM CDT) Pathologist [facility] Complement Total CH50 >60(H) 42 - 60 U/mL 09/28/2017 3:19 PM CDT [facility]) Blood BLOOD SPECIMEN / Unknown Lab Venipuncture / Unknown 09/27/2017 11:45 AM CDT 09/27/2017 12:39 PM CDT Narrative [facility] ([facility]) - 09/28/2017 3:19 PM CDT Performed at: ??01 - [facility] [address] [facility] [place], [place] ??[id number] Car Sales Associate: Timmy Kyle PhD, Phone: ??[phone] Sue Pa MD LAB - CHEMISTR Y ORDERABLES Performing Organization Address [facility]/ZIP Co de Phone Number [facility] ([facility]) [address] [place] [address] * SS-B (SJOGRENS'S) ANTIBODY (09/27/2017 11:45 AM CDT) SS-B LA Antibody 3.3 0.0 - 19.9 Units 09/29/2017 11:07 AM CDT [facility] Comment: RENEE Antibody Numeric Result Interpretation: ?<20.0 Units: ??Negative ?20.0 - 39.0 Units: ??Weakly Positive ?>39.0 Units: ??Positive ? Blood BLOOD SPECIMEN / Unknown Lab Venipuncture / Unknown 09/27/2017 11:45 AM CDT 09/27/2017 12:35 PM CDT Sue Pa MD LAB - CHEMISTR Y ORDERABLES [address] [phone] * SS-A (SJOGREN'S) ANTIBODY (09/27/2017 11:45 AM CDT) SS-A (Ro) Antibody 3.5 0.0 - 19.9 Units 09/29/2017 11:07 AM CDT [facility] Comment: RENEE Antibody Numeric Result Interpretation: ?<20.0 Units: ??Negative ?20.0 - 39.0 Units: ??Weakly Positive ?>39.0 Units: ??Positive ? Blood BLOOD SPECIMEN / Unknown Lab Venipuncture / Unknown 09/27/2017 11:45 AM CDT 09/27/2017 12:35 PM CDT Sue Pa MD LAB - CHEMISTR Y ORDERABLES Performing Organization Address [facility] de Phone Number [address] [phone] * SCLERODERMA 70 (SCL) ANTIBODY (09/27/2017 11:45 AM CDT) SCL-70 Antibody 3.9 0.0 - 19.9 Units 09/29/2017 11:07 AM CDT [facility] Comment: RENEE Antibody Numeric Result Interpretation: ?<20.0 Units: ??Negative ?20.0 - 39.0 Units: ??Weakly Positive ?>39.0 Units: ??Positive ? Blood BLOOD SPECIMEN / Unknown Lab Venipuncture / Unknown 09/27/2017 11:45 AM CDT 09/27/2017 12:35 PM CDT Sue Pa MD LAB - CHEMISTR Y ORDERABLES Performing Organization Address [facility] Co de Phone Number [address] [phone] * (ABNORMAL) CYCLIC CITRUL PEPTIDE AB IGG (CCP) (09/27/2017 11:45 AM CDT) CCP Antibody IgG 36.2(H) <5.0 U/mL 09/27/2017 2:14 PM CDT [facility] Blood BLOOD SPECIMEN / Unknown Lab Venipuncture / Unknown 09/27/2017 11:45 AM CDT 09/27/2017 12:35 PM CDT Sue Pa MD LAB - CHEMISTR Y ORDERABLES [facility] [address] [place] [address] * CBC W/O DIFFERENTIAL (09/27/2017 11:45 AM CDT) WBC 7.2 3.5 - 10.5 10? 3 /uL 09/27/2017 1:25 PM T [facility] RBC 4.44 3.90 - 5.00 10? 6 /uL 09/27/2017 1:25 PM [facility] Hemoglobin 13.7 12.0 - 15.5 g/dL 09/27/2017 1:25 PM [facility] Hematocrit 40.3 35.0 - 45.0 % 09/27/2017 1:25 PM [facility] MCV 90.8 81.0 - 97.0 fL 09/27/2017 1:25 PM [facility] MCH 30.9 28.0 - 34.0 pg 09/27/2017 1:25 PM [facility] MCHC 34.0 32.0 - 36.0 g/dL 09/27/2017 1:25 PM [facility] Platelet Count 297 150 - 400 10? 3 /uL 09/27/2017 1:25 PM [facility] RDW-SD 39.7 36.0 - 50.0 fL 09/27/2017 1:25 PM [facility] RDW-CV 12.0 11.2 - 14.8 % 09/27/2017 1:25 PM [facility] MPV 11.8 9.3 - 12.8 fL 09/27/2017 1:25 PM [facility] Blood BLOOD SPECIMEN / Unknown Lab Venipuncture / Unknown 09/27/2017 11:45 AM CDT 09/27/2017 12:35 PM CDT Sue Pa MD LAB - HEMATOLO GY ORDERABLES Performing Organization Address [facility] Co de Phone Number [address] [phone] * COMPLEMENT C4 (09/27/2017 11:45 AM CDT) Complement C4 28 15 - 57 mg/dL 09/27/2017 1:51 PM CDT [facility] Blood BLOOD SPECIMEN / Unknown Lab Venipuncture / Unknown 09/27/2017 11:45 AM CDT 09/27/2017 12:33 PM CDT Sue Pa MD LAB - SEROLOGY ORDERABLES Performing Organization Address [facility] Co de Phone Number [address] [phone] * HEPATITIS B SURFACE ANTIGEN W RFLX CONFIRMATION (09/27/2017 11:45 AM CDT) Pathologist [facility] Hepatitis B Virus Surface Antigen Non-reacti ve Non-reacti ve 09/27/2017 2:00 PM CDT [facility] Blood BLOOD SPECIMEN / Unknown Lab Venipuncture / Unknown 09/27/2017 11:45 AM CDT 09/27/2017 12:35 PM CDT Sue Pa MD LAB - CHEMISTR Y ORDERABLES Performing Organization Address [facility] Co de Phone Number [address] [phone] * CK BLOOD (09/27/2017 11:45 AM CDT) CK Total 60 30 - 200 Units/L 09/27/2017 2:18 PM CDT [facility] Blood BLOOD SPECIMEN / Unknown Lab Venipuncture / Unknown 09/27/2017 11:45 AM CDT 09/27/2017 12:33 PM CDT Sue Pa MD LAB - CHEMISTR Y ORDERABLES Performing Organization Address City/[facility]/ZIP Co de Phone Number [address] [phone] * TSH (09/27/2017 11:45 AM CDT) TSH 2.152 0.350 - 4.940 uIU/mL 09/27/2017 2:37 PM CDT [facility] Blood BLOOD SPECIMEN / Unknown Lab Venipuncture / Unknown 09/27/2017 11:45 AM CDT 09/27/2017 12:33 PM CDT Sue Pa MD LAB - CHEMISTR Y ORDERABLES Performing Organization Address City/[facility]/ZIP Co de Phone Number [address] [phone] * T4 FREE (09/27/2017 11:45 AM CDT) T4 Free 0.9 0.7 - 1.5 ng/dL 09/27/2017 2:14 PM CDT [facility] Blood BLOOD SPECIMEN / Unknown Lab Venipuncture / Unknown 09/27/2017 11:45 AM CDT 09/27/2017 12:35 PM CDT Sue Pa MD LAB - CHEMISTR Y ORDERABLES Performing Organization Address City/[facility]/ZIP Co de Phone Number [address] [phone] * COMPLEMENT C3 (09/27/2017 11:45 AM CDT) Complement C3 176 82 - 193 mg/dL 09/27/2017 1:50 PM CDT [facility] Blood BLOOD SPECIMEN / Unknown Lab Venipuncture / Unknown 09/27/2017 11:45 AM CDT 09/27/2017 12:33 PM CDT Sue Pa MD LAB - CHEMISTR Y ORDERABLES [address] [place] [phone] * GROSS + MICRO EXAM (09/05/2005 1:21 AM WARD MAID) Result CASE NUMBER [id number] Comment: ORDERING PHYSICIAN ??RODRÍGUEZ TELLEZ SPECIMEN TYPE ?Placenta Date ? 09/07/2005 Physician ?Sarita Tellez Gross Description ? The specimen is labeled with the patient's name, Jalyn [place], and placenta. ??It consists of a 14 x 14 x 3 cm green discoid placenta with attached membranes and umbilical cord. ??The placenta has a trimmed weight of 320 grams. ??The umbilical cord inserts 4 cm from the nearest placental edge. ??It is edematous and measures 8.5 cm in length and up to 1.5 cm in diameter. ??The membranes are opacified shiny wrinkled and rupture marginally. ??The surface displays a dusky bluish gifford appearance. ??The maternal surface displays intact cotyledons. ??The cut surfaces reveal no intra-parenchymal gross abnormalities. Shipwright Apprentice sections of the specimen are submitted as follows Cassette A ?? Umbilical cord and membranes. Cassette B ?? surface. Cassette C ?? Maternal surface. LW [facility] Microscopic Exam ? Sections of the cord show three vessels. Severe, acute funisitis is noted. Sections of the membranes reveal acute necrotizing chorioamnionitis. Sections of the placental disc show mature chorionic villi. Intervillous fibrin deposition is seen. Inflammation in the villi is not seen. Infarcts are not seen. SR/na Diagnosis ? I. ?Umbilical cord -- ?Three vessels -- ?Acute funisitis, severe II. ?? membranes -- ?Acute necrotizing chorioamnionitis III. ??Placental disc -- ?Third trimester placenta (weight 320 grams) SR/na Center Maker Hand ? na Pathologist ?Salvador Johnson M.D. [place]. ?09/08/2005 1239 <2> CPT code ? 97805 MISCELLANEOUS SAMPLES / Unknown 09/05/2005 1:21 AM WARD MAID 09/07/2005 3:18 AM WARD MAID Historical Provider LAB - PATHOLOGY/C YTOLOGY ORDERABLES Care Teams Clinical Pharmacologist Relationship Specialty Start Date End Date Radha Muhammad [address] [facility] [address] Bo[address] [place] [phone] PCP - General 01/11/24
--- OUTSIDE RECORDS SUMMARY | 2024-07-13 20:15 | XMS_ITS | Clinical Summary ---
Author Organization [facility] Address [address] [place] [address] Phone Care Team Providers Care Soil Field Technician Name Role Phone Radha Muhammad MD Primary Care Provider [phone] Allergies Active Allergy Reactions Criticality Noted Date Comments Citalopram Hydrobromide Anaphylaxis 07/13/2016 Clindamycin Unknown 07/26/2021 Sumatriptan Shortness of Breath 12/04/2015 Lanolin Hives,Shortness of Breath 12/04/2015 Latex Rash,Swelling 12/04/2015 Methocarbamol Shortness of Breath 12/04/2015 Medications PREMARIN 0.3 MG Tablet Take 0.3 mg by mouth nightly. 6 Active esomeprazole (NEXIUM) 20 MG CAPSULE DELAYED RELEASE Take 20 mg by mouth daily. Active ondansetron (Zofran ODT) 4 MG TABLET DISPERSIBLE Take 1 Tablet by mouth every 8 hours as needed for Nausea - 1st line. 10 Tablet 1 Active ondansetron (ZOFRAN-ODT) 4 MG TABLET DISPERSIBLE Take 1 Tablet by mouth every 8 hours as needed for Nausea - 1st line. 20 Tablet 3 Active ketorolac (TORADOL) 10 MG Tablet Take 1 Tablet by mouth every 6 hours as needed for Mild or more severe pain. 15 Tablet 3 Active Lidocaine (HM Lidocaine Patch) 4 % Patch 1 Patch by Transdermal route every 24 hours. 14 Patch 3 Active methylPREDNISolo ne (MEDROL DOSPACK) 4 MG Tablet Therapy Pack See product package insert for dosing schedule 21 Tablet 3 Active naproxen (NAPROSYN) 500 MG Tablet Take 1 Tablet by mouth 2 times daily as needed for Mild or more severe pain. 20 Tablet 3 Active Social History Tobacco Use Types Packs/Day Years Used Date Smoking Tobacco: Former Cigarettes Smokeless Tobacco: Never Tobacco Cessation:Counseling Given: Not Answered Alcohol Use Standard Drinks/Week Comments No 0 (1 standard drink = 0.6 oz pur e alcohol) Comments No Sex and Gender Information Value Date Recorded Sex Assigned at Female 05/21/2023 12:12 AM TEXTILE CHEMIST Legal Sex Female 10:43 PM CDT Gender Identity Female 05/21/2023 12:12 AM TEXTILE CHEMIST Sexual Orientation Not on file Last Filed Vital Signs Vital Sign Reading Time Taken Comments Blood Pressure 128/84 11/06/2023 1:40 AM CDT Pulse 98 11/06/2023 1:40 AM CDT Temperature 36.5 ??C (97.7 ??F) 11/05/2023 11:46 PM C DT Respiratory Rate 18 11/06/2023 1:40 AM CDT Oxygen Saturation 100% 11/06/2023 1:40 AM CDT Inhaled Oxygen Concentration - - Weight 54.4 kg (120 lb) 11/05/2023 11:46 PM CDT Height 175.3 cm (5' 9 ) 11/05/2023 11:46 PM CDT Body Mass Index 17.72 11/05/2023 11:46 PM CDT Plan of Treatment Health Maintenance Due Date Last Done Comments Hepatitis C Virus (HCV) Screening 1984 TdaP Immunization 1984 Influenza Immunization (#1) 2024 SARS-COV-2 Immunization ( season) 2024 Respiratory Syncytial Virus (RSV) Immunization (Adult) (1 - 1-dose 75+ series) 09/23/2059 Hepatitis B Immunization Completed 998, 09/29/1997, 09/01/1997 DTaP/Tdap/Td Immunization Discontinued 2007, 03/17/2000, 11/05/1989, Additional history exists Meningococcal Immunization (ACWY) Aged Out No longer eligible based on patient's age to complete this topic Pneumococcal Immunization Combined Aged Out No longer eligible based on patient's age to complete this topic Rotavirus Immunization Aged Out No lo nger eligible based on patient's age to complete this topic Insurance MEDICAID [employer] [facility] [address] [facility] Care Teams Soil Field Technician Relationship Specialty Start Date End Date Nwe, Radha, MD [address] [place] [address] DR TREVI[address]O [address] [place] [address] PCP - General Family Medicine 05/08/23
--- OUTSIDE RECORDS SUMMARY | 2024-07-13 20:15 | XMS_ITS | Encounter Summary ---
Author Organization [facility] Address [address] [facility] [place] [address] Care Team Providers Care Loading Machine Adjuster Name Role Phone Giovanni Mendoza MD Primary Care Provider [phone] Radha Muhammad Primary Care Provider [phone] Reason for Visit * Reason Onset Date Comments MEDICATION REFILL 10/16/2022 Encounter Details Date Type Department Care Team (Late st Contact Info) Description 10/16/2022 Refill [facility] [address] [place] [address], [place] [address] Sue Pa MD [address] [place] [address] [place] [address] MEDICATION REFILL Social History Tobacco [...] Telephone Encounter - Stephani Spivey LPN - 10/16/2022 10:46 AM CDT Previously approved rx has no refills (10/12/22), adding for refills for Patient. This will be a total of 6 months. Repending. documented in this encounter Plan of Treatment Upcoming Encounters Date Type Department Care Team (Late st Contact Info) Description 07/26/2024 9:30 AM CASE MANAGEMENT MANAGER Appointment [facility] [address] [place] [address] Sue Pa MD [address] [place] [address] documented as of this encounter Visit Diagnoses Diagnosis Rheumatoid arthritis involving multiple sites, unspecified whether rheumatoid factor present (HCC) documented in this encounter Care Teams Loading Machine Adjuster Relationship Specialty Start Date End Date Giovanni Mendoza MD [address] [place] [address] [address] [place] [address] PCP - General 08/30/20 01/10/24 Radha Muhammad 4 [facility] [place] [address] [place] [address] PCP - General 01/11/24 documented as of this encounter
--- OUTSIDE RECORDS SUMMARY | 2024-07-13 20:15 | XMS_ITS | Encounter Summary ---
Author Organization [facility] Address [address] [facility] [place] [address] Care Team Providers Care Historical Guide Name Role Phone Giovanni Mendoza MD Primary Care Provider [phone] Radha Muhammad Primary Care Provider [phone] Reason for Visit * Reason Onset Date Comments MEDICATION REFILL 07/30/2022 Encounter Details Date Type Department Care Team (Late Contact Info) Description 07/30/2022 Refill [facility] [address] [place] [address], [place] [address] Sue Pa MD [address] [place] [address] [place] [address] MEDICATION REFILL Social History Tobacco [...] on file documented as of this encounter Plan of Treatment Upcoming Encounters Date Type Department Care Team (Late Contact Info) Description 07/26/2024 9:30 AM SALVAGE MEND WORKER Appointment [facility] [address] [place] [address] Sue Pa MD [address] [place] [phone] documented as of this encounter Visit Diagnoses Diagnosis Rheumatoid arthritis involving multiple sites, unspecified whether rheumatoid factor present (HCC) documented in this encounter Care Teams Historical Guide Relationship Specialty Start Date End Date Giovanni Mendoza MD [address] [place] [phone] PCP - General 08/30/20 01/10/24 Radha Muhammad [address] [place] [address] [address] [place] [phone] PCP - General 01/11/24 documented as of this encounter
--- OUTSIDE RECORDS SUMMARY | 2024-07-13 20:15 | XMS_ITS | Encounter Summary ---
Author Organization [facility] Address [address] [facility] [place] [address] Care Team Providers Care Bander And Cellophaner Helper Machine Name Role Phone Giovanni Mendoza MD Primary Care Provider [phone] Radha Muhammad Primary Care Provider [phone] Reason for Visit * Reason Onset Date Comments MEDICATION REFILL 07/31/2022 Encounter Details Date Type Department Care Team (Late Contact Info) Description 07/31/2022 Refill [facility] [address] [place] [address], [place] [address] Sue Pa MD [address] [place] [address] [place] [address] MEDICATION REFILL Social History Tobacco [...] (Late Contact Info) Description 07/26/2024 9:30 AM INTAKE NURSE Appointment [facility] [address] [place] [address] Sue Pa MD [address] [place] [phone] documented as of this encounter Visit Diagnoses Diagnosis Rheumatoid arthritis involving multiple sites, unspecified whether rheumatoid factor present (HCC) documented in this encounter Care Teams Bander And Cellophaner Helper Machine Relationship Specialty Start Date End Date Giovanni Mendoza MD [address] [place] [phone] PCP - General 08/30/20 01/10/24 Radha Muhammad [address] [place] [address] [address] [place] [phone] PCP - General 01/11/24 documented as of this encounter
--- OUTSIDE RECORDS SUMMARY | 2024-07-13 20:15 | XMS_ITS | Encounter Summary ---
Author Organization [facility] Address [address] [facility] [place] [address] Care Team Providers Care Life Insurance Specialist Name Role Phone Giovanni Mendoza MD Primary Care Provider [phone] Radha Muhammad Primary Care Provider [phone] Reason for Visit * Reason Onset Date Comments MEDICATION REFILL 10/14/2022 Encounter Details Date Type Department Care Team (Late Contact Info) Description 10/14/2022 Refill [facility] [address] [place] [address], [place] [address] Sue Pa MD [address] [place] [address] [place] [address] MEDICATION REFILL Social History Tobacco [...] (Late Contact Info) Description 07/26/2024 9:30 AM LAWYER CRIMINAL Appointment [facility] [address] [place] [address] Sue Pa MD [address] [place] [phone] documented as of this encounter Visit Diagnoses Diagnosis Rheumatoid arthritis involving multiple sites, unspecified whether rheumatoid factor present (HCC) documented in this encounter Care Teams Life Insurance Specialist Relationship Specialty Start Date End Date Giovanni Mendoza MD [address] [place] [phone] PCP - General 08/30/20 01/10/24 Radha Muhammad [address] [place] [address] [address] [place] [phone] PCP - General 01/11/24 documented as of this encounter
--- OUTSIDE RECORDS SUMMARY | 2024-07-13 20:15 | XMS_ITS | Encounter Summary ---
Author Organization [facility] Address [address] [facility] [place] [address] Care Team Providers Care Health Underwriter Name Role Phone Giovanni Mendoza MD Primary Care Provider [phone] Radha Muhammad Primary Care Provider [phone] Reason for Visit * Reason Onset Date Comments Change In Condition/behavior 02/13/2021 Encounter Details Date Type Department Care Team (Late st Contact Info) Description 02/13/2021 Telephone [facility] [address] [place] [address] Najma Torres MD [address] [place] [address] Change In Condition/behavior Social History Tobacco Use Types Packs/Day Years [...] on file documented as of this encounter Patient Instructions * Patient Instructions* Catia Horn - 02/13/2021 2:52 PM CDT Patient called. Insurance will not pay for Zofran until Feb.19. However pharmacy suggested /prescribe the non-dissolvable pills instead. The pharmacy said insurance will possible cover those. Please send to Elise on her file Thank you Any questions please patient Secondly, patient has anxiety about seeing on 05/06. She wants to stay with and Ember. However the first available is . Any suggestions? Please advise Thank you Rebecca documented in this encounter Miscellaneous Notes * Telephone Encounter - Stephani Spivey LPN - 03/06/2021 2:43 PM CDT Attempted to contact Patient regarding upcoming appointment with Dr Deleon (scheduling error, visit should have been made with Dr Torres/Ember). She can come to the scheduled visit with Dr Deleon and then resume appointment schedule with Dr Torres or CAN appointment with Dr Deleon and [facility] with Dr Torres/Ember, however this appointment would not be until July. Message left to contact the office by phone or by [employer]. * Telephone Encounter - Stephani Spivey LPN - 02/13/2021 4:01 PM CDT Patient anxious about switching doctors (to [facility]), NOV 05/06/21 documented in this encounter Plan of Treatment Upcoming Encounters Date Type Department Care Team (Late st Contact Info) Description 07/26/2024 9:30 AM CLAIMS AUDITOR Appointment [facility] [address] [place] [address] Sue Pa MD [address] [place] [address] documented as of this encounter Visit Diagnoses Not on filedocumented in this encounter Care Teams Health Underwriter Relationship Specialty Start Date End Date Giovanni Mendoza MD [address] [facility] [place] [address] PCP - General 08/30/20 01/10/24 Radha Muhammad [address] [facility] [place] [phone] PCP - General 01/11/24 documented as of this encounter
--- OUTSIDE RECORDS SUMMARY | 2024-07-13 20:15 | XMS_ITS | Encounter Summary ---
Author Organization [facility] Address [address] [place] [address] Care Team Providers Care Range Aide Name Role Phone Tonyidana Radha Primary Care Provider [phone] Reason for Visit * Reason Comments Refill Request Encounter Details Date Type Department Care Team (Late st Contact Info) Description 07/09/2024 Refill [facility] [address] [place] [address], [facility] [place] [place] [address] Sue Pa MD [address] [place] [address] [place] [address] Refill Request Social History Tobacco Use Types Packs/Day Years [...] encounter Miscellaneous Notes * Telephone Encounter - Sue Pa MD - 07/10/2024 11:32 AM MATE FISHING VESSEL Please call pt, needs follow up appointment thx FISHING VESSEL * Telephone Encounter - Josephine Ghotra - 07/10/2024 9:18 AM CST Refill Request Jalyn Torrez MANI: 01/11/2024 NOV scheduled:05/19/2024 CANCELED LRF: 01/07/2024 Qty Disp: 180 # of refills: 5 Allergies: Allergies Allergen Reactions Latex Itching and Rash Citalopram Shortness of Breath Sumatriptan Rash and Shortness of Breath Tramadol Shortness of Breath Clindamycin Unknown Amitriptyline Other No indication given. Lanolin Other and Shortness of Breath Methocarbamol Other and Shortness of Breath Enbrel [Etanercept] Urticaria Hives, locally painful Ethinyl Estradiol Swelling and Skin Reactions pain, swelling, irritation with use of vaginal contraceptive (Nuvaring) Hydroxychloroquine Vomiting Pended Medication Order: Requested Prescriptions Pending Prescriptions Disp Refills sulfaSALAzine (Azulfidine) 500 MG tablet [Pharmacy Med Name: SULFASALAZINE 500MG TABLETS] 180 tablet 5 Sig: TAKE 3 TABLETS BY MOUTH TWICE DAILY FISHING VESSEL documented in this encounter Plan of Treatment Upcoming Encounters Date Type Department Care Team (Late st Contact Info) Description 07/26/2024 9:30 AM MATE FISHING VESSEL Appointment [facility] [address] [place] [address] Sue Pa MD [address] [place] [phone] documented as of this encounter Visit Diagnoses Diagnosis Rheumatoid arthritis involving multiple sites, unspecified whether rheumatoid factor present (HCC) documented in this encounter Care Teams Range Aide Relationship Specialty Start Date End Date Radha Muhammad [address] [place] [address] [place] [phone] PCP - General 01/11/24 documented as of this encounter
--- OUTSIDE RECORDS SUMMARY | 2024-07-13 20:15 | XMS_ITS | Encounter Summary ---
Author Organization [facility] Address [address] [facility] [place] [address] Care Team Providers Care Olericulture Teacher Name Role Phone Giovanni Mendoza MD Primary Care Provider [phone] Radha Muhammad Primary Care Provider [phone] Reason for Visit * Reason Onset Date Comments MEDICATION REFILL 05/27/2021 Encounter Details Date Type Department Care Team (Late st Contact Info) Description 05/27/2021 Refill [facility] - Rheumatology [address] [facility] [place] [address] Bridger Deleon MD [address] [place] [address] [place] [phone] MEDICATION REFILL Social History Tobacco Use Types [...] encounter Miscellaneous Notes * Telephone Encounter - Bridger Deleon MD - 05/27/2021 4:12 PM DENTAL THERAPIST Please see note from 05/23/21. AL THERAPIST * Telephone Encounter - Camryn Romero - 05/27/2021 3:53 PM CST Refill Request [place] MANI: 10.30.20 NOV due: none found NOV scheduled: Visit date not found LRF: 02.06.21 Qty Disp: 30 # of refills: Allergies: Allergies Allergen Reactions ??? Latex Itching [...] Requested Prescriptions Pending Prescriptions Disp Refills ??? ondansetron, disintegrating, (ZOFRAN ODT) 8 MG tablet 30 tablet 0 Sig: Take 1 (one) tablet by mouth every 6 hours as needed for Nausea/Vomiting Allow tablet to dissolve on the tongue ??? predniSONE (DELTASONE) 5 MG tablet 30 tablet 2 Sig: Take 1 (one) tablet by mouth once daily AL THERAPIST documented in this encounter Plan of Treatment Upcoming Encounters Date Type Department Care Team (Late st Contact Info) Description 07/26/2024 9:30 AM DENTAL THERAPIST Appointment [facility] [place] [address] Sue Pa MD [address] [place] [address] documented as of this encounter Visit Diagnoses Diagnosis Nausea without vomiting Rheumatoid arthritis involving multiple sites, unspecified whether rheumatoid factor present (HCC) documented in this encounter Care Teams Olericulture Teacher Relationship Specialty Start Date End Date Giovanni Mendoza MD [address] [place] [phone] PCP - General 08/30/20 01/10/24 Radha Muhammad [address] [facility] [place] [phone] PCP - General 01/11/24 documented as of this encounter
--- OUTSIDE RECORDS SUMMARY | 2024-07-13 20:15 | XMS_ITS | Referral Summary ---
Author Organization [facility] Address [address] [facility] [place] [address] Care Team Providers Care Director Of National Sales Name Role Phone TonydianaRadha Primary Care Provider [phone] Source Comments [facility],non-owned Affiliates and Associated Physician Practices is amultiple site organization consisting of ambulatory clinics and hospital sitesin [place], [place], [place] and [place]. This disclosure is being madepursuant to the Care Everywhere program and may not contain all information available regarding this patient. Last updated 18.[facility] Encounters Date Type Department Care Team Description 07/09/2024 Refill [facility] - Rhe[facility] [address] [place] [phone] Sue Pa MD Refill Request 05/23/2024 Travel 05/23/2024 9:30 AM COLLISION WORKER - 05/23/2024 11:59 PM COLLISION WORKER Hospital Encounter [facility] [address] [place] [address] Sue Pa MD Discharge Disposition: Home or Self Care from Last 3 Months Allergies Active Allergy Reactions Criticality Noted Date [...] 2 times daily 180 tablet 5 01/07/2024 5 Discontinued Active Problems Problem Noted Date Diagnosed Date Rheumatoid arthritis involving multiple sites Encounter for long-term (cur rent) use of high-risk medication 10/25/2017 Encounter for therapeutic drug monitoring 2017 Immunizations Name Administration Dates Next Due TD (AGE 6-ADULT) 06/21/2007 Social History Tobacco Use Types Packs/Day Years [...] Comments Blood Pressure 148/90 05/23/2024 9:41 AM COLLISION WORKER Pulse 79 05/23/2024 9:41 AM COLLISION WORKER Temperature 36.5 ??C (97.7 ??F) 05/23/2024 9:41 AM CS T Respiratory Rate 20 05/23/2024 9:41 AM COLLISION WORKER Oxygen Saturation 100% 05/23/2024 9:41 AM COLLISION WORKER Inhaled Oxygen Concentration - - Weight 59.9 kg (132 lb) 05/23/2024 9:41 AM COLLISION WORKER Height 170.2 cm (5' 7.01 ) 01/11/2024 3:51 PM CD T Body Mass Index 20.67 01/11/2024 3:51 PM CDT Plan of Treatment Upcoming Encounters Date Type Department Care Team (Late st Contact Info) Description 07/26/2024 9:30 AM COLLISION WORKER Appointment [facility] [address] [place] [address] Sue Pa MD [address] [place] [phone] Procedures Procedure Name Priority Date/Time Associated Diagnosis [...] Detected Not Detected 10/04/2017 8:20 AM CDT [facility] Blood BLOOD SPECIMEN / Unknown Lab Venipuncture / Unknown 09/27/2017 11:45 AM CDT 09/27/2017 12:37 PM CDT Narrative [facility] - 10/04/2017 8:20 AM CDT The Hepatitis C viral (HCV) RNA analysis utilized a serum sample, real-time reverse unit coordinator PCR, and is reported as Not Detected, [...] the isolation of HCV RNA with reverse unit coordinator of genomic HCV RNA followed by real-time PCR in the presence of an unrelated RNA internal control. ??The internal control ensures that RNA is isolated, and that no general significant inhibitors of the RT-PCR process are present. The analysis was performed using a [place].S. FDA approved test methodology (Tariq Real Time HCV). Sue Pa MD LAB - CHEMISTR Y ORDERABLES [facility] [address] [facility] [place] [address], [facility] [place] [phone] from Last 3 Months or Most Recently Relevant to Health Maintenance Care Teams Director Of National Sales Relationship Specialty Start Date End Date Radha Muhammad [address] [facility] [place] [address] PCP - General 01/11/24
--- OUTSIDE RECORDS SUMMARY | 2024-07-13 20:16 | XMS_ITS | Continuity of Care Document ---
Author Organization [facility] Address [address] [place] [address] Phone Care Team Providers Care Farm Equipment Mechanic Name Role Phone CONV, [facility] Unavailable Unavailable Advance Directives Directive Yes / No Effective Date File Name No Information Encounters Encounter Description Practice Location Reason(s) For Visit Diagnoses Date Provider Providers Copied on Encounter [facility], [address] [place] [address], [facility], tel:[phone] Z [facility] CONV No Information CONV [facility]. [address] [place] [address], [id number], [place]. Family History Family Member Type Diagnosis Age At Onset No Information Immunizations Vaccine Date Status Comments TD, TETANUS-DIPHTHERIA administered Note: LA ; Source: New Immunization Record HEP B VACCINE PED/ADOL administered Note: LA ; Source: New Immunization Record HEP B VACCINE PED/ADOL administered Note: LA ; Source: New Immunization Record HEP B VACCINE PED/ADOL administered Note: LA ; Source: New Immunization Record [id number], PED/ADL administered Source: New Immuniza tion Record DTP administered Source: New Imm unization Record ORAL POLIO administered Source: New Imm unization Record DTP administered Source: New Imm unization Record [id number], PED/ADL administered Source: New Immuniza tion Record ORAL POLIO administered Source: New Imm unization Record DTP administered Source: New Imm unization Record DTP administered Source: New Imm unization Record ORAL POLIO administered Source: New Imm unization Record DTP administered Source: New Imm unization Record ORAL POLIO administered Source: New Imm unization Record Payers Payer name Insurance type Covered alliance party ID Authoriza tion(s) No Information Social History Type Description Quantity Date Captured Comments Sex Female Smoking Status No Information Chief Complaint And Reason For Visit No Information History Of Present Illness Encounter Date Complaint History Of Prese nt Illness No Information Instructions Date Instruction Additional Infor mation No Information Assessments Type Assessment Date No Information Patient Care Teams Name Effective Dates (start - stop) Status Members No Information
--- OUTSIDE RECORDS SUMMARY | 2024-07-13 20:16 | XMS_ITS | Encounter Summary ---
Author Organization [facility] Address [address] [place] [address] Care Team Providers Care Cork Insulation Installer Name Role Phone Radha Maldonado MD Primary Care Provider [phone] Reason for Visit * Reason Onset Date Comments Medication Request 06/15/2024 Encounter Details Date Type Department Care Team (Late st Contact Info) Description 06/15/2024 Telephone [facility] Medical [facility] [address] [place] [address] Joan Liz, DO [address] [place] [address] Medication Request Social History Tobacco Use Types Packs/Day Years Used Date Smoking Tobacco: Former Cigarettes 0.5 13 2012 Smokeless Tobacco: Never Comments:Smoking History Pac ks/day: 0.5 Packs Alcohol Use Standard Drinks/Week Comments Yes 0 (1 standard drink = 0.6 oz pur e alcohol) Personal Safety Answer Date Recorded Have you ever been in or are you currently in a harmful physical or emotional relationship or is someone making you feel afraid or unsafe? Denies 08/27/2023 Comments No Sex and Gender Information Value Date Recorded Sex Assigned at Not on file Legal Sex Female 11:29 PM IMMIGRATION GUARD Gender Identity Not on file Sexual Orientation Not on file Occupation Industry Job Start Date Job End Date [employer] Not on file Not on file Not on file documented as of this encounter Miscellaneous Notes * Telephone Encounter - Triny Small MA - 06/15/2024 1:30 PM CST Pts phone # no longer a working #. Not approving refill until patient is seen by doctor. Not seen since 2012 and no showed 2023 appt. GRATION GUARD * Telephone Encounter - Saundra Loja MA - 06/15/2024 1:21 PM IMMIGRATION GUARD Pt called in to request refill on [facility]. Pharmacy: [facility] CBN: [phone] GRATION GUARD documented in this encounter Plan of Treatment Not on file documented as of this encounter Visit Diagnoses Not on filedocumented in this encounter Care Teams Cork Insulation Installer Relationship Specialty Start Date End Date Radha Maldonado MD [address] [facility] [address] [place] [address] [place] [phone] PCP - General Family Medicine 08/27/23 documented as of this encounter
--- OUTSIDE RECORDS SUMMARY | 2024-07-13 20:16 | XMS_ITS | Clinical Summary ---
Author Organization [facility] Address [address] [place] [address] Care Team Providers Care Chip Silo Tender Name Role Phone Rahda Maldonado MD Primary Care Provider [phone] Allergies Active Allergy Reactions Criticality Noted Date Comments Amitriptyline Edema Medium 03/27/2017 Amoxicillin Rash Medium 07/21/2021 Citalopram Shortness of breath,Syncope High Clindamycin Unknown 07/26/2021 Etanercept Urticaria Medium 06/01/2019 Hives, locally painful Ethinyl Estradiol Swelling,Other (See comments) Medium pain, swelling, irritation with use of vaginal contraceptive (Nuvaring) Lanolin Shortness of breath High 12/04/2015 Latex Itching,Rash Medium 12/04/2015 Methocarbamol Shortness of breath,Flushing (skin) High Hydroxychloroquine Vomiting High 09/03/2020 Sumatriptan Shortness of breath,Rash High Tramadol Shortness of breath,Flushing (skin) High Medications HYDROcodone-acetam inophen (NORCO) 5-325 mg per tabletIndications: Pain TK 1 T PO Q 6 H PRN P [address] (NexIUM) 20 mg capsule Take 20 mg by mouth. Active folic acid (FOLVITE) 1 mg tablet TK 1 T PO QD 5 8 Active leflunomide (ARAVA) 20 mg tabletIndications: Rheumatoid Arthritis TK 1 T PO QD 4 8 Active meloxicam (MOBIC) 15 mg tablet TK 1 T PO QD 5 8 Active topiramate (TOPAMAX) 25 mg tablet TK 1 T PO D 3 8 Active predniSONE (DELTASONE) 5 mg tablet TK 1 T PO QD 1 9 Active sulfaSALAzine (AZULFIDINE) 500 mg tablet 9 Active HYDROcodone-acetam inophen (NORCO) 10-325 mg per tablet TAKE 1 TABLET BY ORAL ROUTE EVERY 4-6 HOURS NEEDED FOR PAIN. MUST LAST 10 DAYS 0 9 Active diphenhydrAMINE (BENADRYL) 25 mg capsule Take 2 tablets by mouth daily Active ondansetron ODT (ZOFRAN-ODT) 8 mg disintegrating tablet DISSOLVE 1 TABLET ON THE TONGUE EVERY 6 HOURS NEEDED FOR NAUSEA AND VOMITING 1 Active inFLIXimab (REMICADE) 100 mg injection Active hydrOXYzine (ATARAX) 25 mg tablet Take 25 mg by mouth 3 (three) times a day as needed for itching Active lidocaine (LIDODERM) 5 % Place 1 patch on the skin daily Remove & discard patch within 12 hours or as directed by MD. 30 patch 4 Active cyclobenzaprine (FLEXERIL) 10 mg tablet 1 tablet (10 mg total) 4 Active estrogens, conjugated, (PREMARIN) 0.45 mg tablet Take 1 tablet (0.45 mg total) by mouth daily 30 tablet 11 5 026 Active estrogens, conjugated, (PREMARIN) 0.45 mg tablet Take 1 tablet (0.45 mg total) by mouth daily 30 tablet 11 3 024 Discontin ued(Reord er) estrogens, conjugated, (PREMARIN) 0.45 mg tablet Take 1 tablet (0.45 mg total) by mouth daily 30 tablet 4 025 Discontin ued(Reord er) Active Problems Problem Noted Date Diagnosed Date Encounter for long-term (cur rent) use of high-risk medication 10/25/2017 Encounter for therapeutic drug monitoring 2017 Rheumatoid arthritis involving multiple sites (C MS/HCC) 10/25/2017 Current smoker 11/04/2013 Overview (09/23/2016): Smoker 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 Migraine headache 03/31/2012 Overview (09/23/2016): Headache Encounters Date Type Department Care Team Description 07/13/2024 11:02 AM CLAY MIXER Hospital Encounter [facility] [address] [place] [address] Screen for sexually transmitted diseases 07/13/2024 10:00 AM CLAY MIXER Office Visit [facility] [address] [place] [address] Joan Liz, Encounter for annual routine gynecological examination (Primary Dx); Screen for sexually transmitted diseases; Menopausal symptoms 06/22/2024 Telephone [facility] [address] [place] [address] Joan Liz DO 06/16/2024 Telephone [facility] [address] [place] [address] Joan Liz DO Med Refill 06/15/2024 Telephone [facility] [address] [place] [address] Joan Liz DO Medication Request from Last 3 Months Immunizations Name Administration Dates Next Due DT 10/06/1988, 7,04/17/1985,01/31/1985,0 1984 Hep B, Adolescent or Pediatric 04/20/1997,1996,07/07/1996 HiB 04/16/1987 MMR 11/01/1994,07/17/1986 OPV 10/06/1988,07/17/1986,01/31/1985 ,1984 Td, adsorbed 06/21/2007,02/07/1999 Surgical History Surgery Date Site/Laterality Comments SECTION 06/21/2003 - 06/20/2004 breech REPEAT SECTION 06/21/2005 - 06/20/2006 DIAGNOSTIC LAPAROSCOPY 06/21/2000 - 06/20/2001 ovarian cysts: laparoscopies X 2, both in 2000 CARPAL TUNNEL RELEASE 06/21/2010 - 06/20/2011 Bilateral TOTAL ABDOMINAL HYSTERECTOMY 06/21/2007 - 06/20/2008 pelvic pain, dysmenorrhea, dyspareunia LAPAROSCOPIC SALPINGOOPHERECTOMY 06/21/2013 - 06/20/2014 Right RSO, LS, and ROME DIAGNOSTIC LAPAROSCOPY 06/21/2006 - 06/20/2007 pelvic pain LAPAROSCOPIC OOPHORECTOMY 06/21/2013 - 06/20/2014 Left with ROME, for pelvic pain, dyspareunia, adhesions Medical History Medical History Date Comments Migraine headache GERD (gastroesophageal reflux disease) Rheumatoid arthritis (HCC) Family History Medical History Relation Name Comments Diabetes Father Hyperlipidemia Father Hypertension Father Peripheral vascular disease Father Hypertension Father's Sister Colon cancer Maternal Grandfather Heart attack Maternal Grandmother Ovarian cancer Maternal Grandmother Diabetes Mother Heart attack Mother Hyperlipidemia Mother Hypertension Mother Other Mother severe hypocho ndriac Breast cancer Paternal Grandmother Diabetes Paternal Grandmother Heart attack Paternal Grandmother Hypertension Paternal Grandmother Relation Name Status Comments Father Father's Sister Maternal Grandfather Maternal Grandmother Mother Paternal Grandmother Social History Tobacco Use Types Packs/Day Years Used Date Smoking Tobacco: Former Cigarettes 0.5 13 2 000 - 2013 Smokeless Tobacco: Never Tobacco Cessation:Counseling Given: Yes Comments:Smoking History Packs/day: 0.5 Packs Alcohol Use Standard Drinks/Week Comments [...] on file Legal Sex Female 11:29 PM CLAY MIXER Gender Identity Not on file Sexual Orientation Not on file Obstetrics History Para Term AB IAB SAB Ectopic Multiple Livin g Live Births 3 3 2 1 0 0 0 0 0 3 3 Date Outcome GA Total Labor Labor/2nd/3rd Weight Sex Type Anes PTL Kim A1 A5 Name Clin Term Term Comments One baby released for adopti on. Last Filed Vital Signs Vital Sign Reading Time Taken Comments Blood Pressure 122/72 07/13/2024 10:02 AM CLAY MIXER Pulse 102 08/27/2023 1:16 PM CLAY MIXER Temperature 37.5 ??C (99.5 ??F) 08/27/2023 11:[address] Respiratory Rate 18 08/27/2023 1:16 PM CLAY MIXER Oxygen Saturation 98% 08/27/2023 1:16 PM CLAY MIXER Inhaled Oxygen Concentration - - Weight 61.7 kg (136 lb) 07/13/2024 10:02 AM CLAY MIXER Height 171.5 cm (5' 7.5 ) 07/13/2024 10:02 AM CS T Body Mass Index 20.99 07/13/2024 10:02 AM CLAY MIXER Plan of Treatment Health Maintenance Due Date Last Done Comments Depression Screening 1984 Hepatitis C Screening 1984 Pneumococcal vaccine <65 (1 of 2 - PCV) 1990 Varicella Vaccines (1 of 2 - 13+ 2-dose series) 1997 Zoster Vaccine (1 of 2) 09/23/2003 DTaP/Tdap/Td Vaccine (6 - Tdap) 06/22/2007 06/21/2007, 02/07/1999, 10/06/1988, Additional history exists Influenza Vaccine (#1) 2024 Regular Well Visit/Exam 18-64 07/13/2025 07/13/2024, 02/02/2023, 01/30/2022, Additional history exists HPV Vaccines Aged Out No longer eligi ble based on patient's age to complete this topic Insurance Member Subscriber Plan / Payer (Ef fective 2014-Present) Name:Jalyn Torrez Relation to Subscriber:Self Name:Jalyn Torrez Payer ID:[id number] (NAIC) Group ID:Not on file Type:MEDICAID RISK OTHER Address: [address] [place], [place] [id number] [place] [address] [facility] Care Teams Chip Silo Tender Relationship Specialty Start Date End Date Radha Maldonado MD [address] [place] [address] [place] [address] PCP - General Family Medicine 3/8/24
--- OUTSIDE RECORDS SUMMARY | 2024-07-13 20:16 | XMS_ITS | Continuity of Care Document ---
Author Organization [facility] Address [address] [place] [address] Phone Care Team Providers Care Police Crime Scene Technician Name Role Phone CONV, [facility] Unavailable Unavailable Advance Directives Directive Yes / No Effective Date File Name No Information Encounters Encounter Description Practice Location Reason(s) For Visit Diagnoses Date Provider Providers Copied on Encounter [facility] /[facility], [address] [place] [address], [facility], tel:[phone] Z [facility] CONV No Information CONV [facility]. [address] [place] [address], [id number], [place]. Family History Family Member Type Diagnosis Age At Onset No Information Immunizations Vaccine Date Status Comments TD, TETANUS-DIPHTHERIA administered Note: LA ; Source: New Immunization Record HEP B VACCINE PED/ADOL administered Note: LA ; Source: New Immunization Record HEP B VACCINE PED/ADOL administered Note: LA ; Source: New Immunization Record HEP B VACCINE PED/ADOL administered Note: LA ; Source: New Immunization Record [id number], PED/ADL administered Source: New Immuniza tion Record DTP administered Source: New Imm unization Record ORAL POLIO administered Source: New Imm unization Record DTP administered Source: New Imm unization Record [id number], PED/ADL administered Source: New Immuniza tion Record ORAL POLIO administered Source: New Imm unization Record DTP administered Source: New Imm unization Record DTP administered Source: New Imm unization Record ORAL POLIO administered Source: New Imm unization Record DTP administered Source: New Imm unization Record ORAL POLIO administered Source: New Imm unization Record Payers Payer name Insurance type Covered democrat ID Authoriza tion(s) No Information Social History [...]
--- OUTSIDE RECORDS SUMMARY | 2024-07-13 20:16 | XMS_ITS | Referral Summary ---
Author Organization [facility] Address [address] [place] [address] Care Team Providers Care Replanting Machine Crew Name Role Phone Radha Maldonado MD Primary Care Provider [phone] Encounters Date Type Department Care Team Description 07/13/2024 11:02 AM ORDER ENTRY SPECIALIST Hospital Encounter [facility] [address] [place] [address] Screen for sexually transmitted diseases 07/13/2024 10:00 AM ORDER ENTRY SPECIALIST Office Visit [facility] [address] [place] [address] Joan Liz DO Encounter for annual routine gynecological examination (Primary Dx); Screen for sexually transmitted diseases; Menopausal symptoms 06/22/2024 Telephone [facility] [address] [place] [address] Joan Liz DO 06/16/2024 Telephone [facility] [address] [place] [address] Joan Liz DO Med Refill 06/15/2024 Telephone [facility] [address] [place] [address] Joan Liz DO Medication Request from Last 3 Months Allergies Active Allergy [...] system Migraine headache 03/31/2012 Overview (09/23/2016): Headache Immunizations Name Administration Dates Next Due DT 10/06/1988, 7,04/17/1985,01/31/1985,0 1984 Hep B, Adolescent or Pediatric 04/20/1997,1996,07/07/1996 HiB 04/16/1987 MMR 11/01/1994,07/17/1986 OPV 10/06/1988,07/17/1986,01/31/1985 ,1984 Td, adsorbed 06/21/2007,02/07/1999 Social History Tobacco Use Types Packs/Day Years Used Date Smoking Tobacco: Former Cigarettes 0.5 13 2 000 - 2012 Smokeless Tobacco: Never Tobacco Cessation:Counseling Given: Yes [...] on file Legal Sex Female 11:29 PM ORDER ENTRY SPECIALIST Gender Identity Not on file Sexual Orientation Not on file Last Filed Vital Signs Vital Sign Reading Time Taken Comments Blood Pressure 122/72 07/13/2024 10:02 AM ORDER ENTRY SPECIALIST Pulse 102 08/27/2023 1:16 PM ORDER ENTRY SPECIALIST Temperature 37.5 ??C (99.5 ??F) 08/27/2023 11:[address] Respiratory Rate 18 08/27/2023 1:16 PM ORDER ENTRY SPECIALIST Oxygen Saturation 98% 08/27/2023 1:16 PM ORDER ENTRY SPECIALIST Inhaled Oxygen Concentration - - Weight 61.7 kg (136 lb) 07/13/2024 10:02 AM ORDER ENTRY SPECIALIST Height 171.5 cm (5' 7.5 ) 07/13/2024 10:02 AM CS T Body Mass Index 20.99 07/13/2024 10:02 AM ORDER ENTRY SPECIALIST Plan of Treatment Not on file Insurance [facility] Care Teams Replanting Machine Crew Relationship Specialty Start Date End Date Radha Maldonado MD [address] [place] [address] [place] [address] PCP - General Family Medicine 08/27/23
--- OUTSIDE RECORDS SUMMARY | 2024-07-13 20:16 | XMS_ITS | Data Portability ---
Author Organization [facility] Zaheer [facility] Address [address] [place] [address] Care Team Providers Care Punchboard Inserter Name Role Phone SHASTASaritaANISHA Primary Care Provider [phone] Assessment No assessment recorded. Plan of Treatment Reminders Order Date Submit Date Provider Last Modified By Organization Details Last Modified Time Details Appointments None recorded. Lab CBC w/ auto diff 2023 024 [facility], [address], [place], [address], 4 06:17:21 inflammat ion panel, serum or plasma 2023 024 [facility], [address], [place], [address], 4 08:19:13 Referral None recorded. Procedures None recorded. Surgeries None recorded. Imaging None recorded. Medication Orders ketorolac 30 mg/mL injection solution 2023 024 [email or web address] Not available 4 09:18:21 prednison e 20 mg tablet 2023 024 [facility][id number], [address], [place], [id number], 4 17:08:37 albuterol sulfate HFA 90 mcg/actua tion aerosol inhaler 2023 024 [facility] #[id number], [address] [facility], [place], [place], [id number], 09:36:38 prednison e 20 mg tablet 2023 024 [facility], [address], [place], [place], [id number], 4 17:08:45 albuterol sulfate HFA 90 mcg/actua tion aerosol inhaler 2023 024 [facility] #94117, [address], [place], [place], [id number], 4 17:07:47 Patient TargetsNo targets recorded. Patient Instructions Encounter Date Encounter Id Patient Instructions Last Modified By Organization Details Last Modified Time 01/20/2022 [id number] Attending Physician Addendum I personally saw and examined the patient with the resident. I have reviewed the documentation and agree with the history, physical findings, work-up, and medical decision making as recorded. MD elliott Yañez Not available 01/21/2022 15:19:47 07/06/2023 [id number] Attending Physician Attestation I personally saw and examined the patient with the resident. I have reviewed the documentation and agree with the history, physical findings, work-up, and medical decision making as recorded. MD elliott Yañez Not available 07/06/2023 16:06:33 09/03/2023 [id number] On the date of this encounter, I was immediately available to assist the resident/fellow in the care of the patient, and have reviewed and agree with the resident? s findings and plan of care. ~MD Mata [email or web address] Not available 09/03/2023 09:40:20 11/30/2023 [id number] learning about mood disorders [email or web address] Not available 11/30/2023 15:39:15 Attending Physician Attestation I did not personally see or examine the patient with the resident. I was physically present to provide indirect supervision through entire encounter. I have reviewed the documentation and agree with the history, physical findings, work-up, and medical decision making as recorded. MD elliott Yañez Not available 11/30/2023 12:24:24 Reason for Referral None Reported. Results Created Date Observation Date Name Description Value Unit Range Abnormal Flag Note LastModifiedBy Organization Detail LastModifiedTime 07/06/19 24 07/06/2023 CBC WITH DIFFE RENTI AL/PL ATELE T WBC 7.2 x10e3 /uL 3.4-10 .8 Not Available [facility] [address] [place], [address], 07/07/2023 06:17:21 07/06/19 24 07/06/2023 CBC WITH DIFFE RENTI AL/PL ATELE T RBC 4.31 x10e6 /uL 3.77-5 .28 Not Available [facility] [address] [place], [address], 07/07/2023 06:17:21 07/06/19 24 07/06/2023 CBC WITH DIFFE RENTI AL/PL ATELE T hemoglobin 12.8 g/dL 11.1-1 5.9 Not Available [facility] [address] [place], [address], 07/07/2023 06:17:21 07/06/19 24 07/06/2023 CBC WITH DIFFE RENTI AL/PL ATELE T hematocrit 40.3 % 34.0-4 6.6 Not Available [facility] [address] [place], [address], 07/07/2023 06:17:21 07/06/19 24 07/06/2023 CBC WITH DIFFE RENTI AL/PL ATELE T MCV 94 fL 79-97 Not Available [facility] [address] [place], [address], 07/07/2023 06:17:21 07/06/19 24 07/06/2023 CBC WITH DIFFE RENTI AL/PL ATELE T MCH 29.7 pg 26.6-3 3.0 Not Available [facility] [address] [place], [address], 07/07/2023 06:17:21 07/06/19 24 07/06/2023 CBC WITH DIFFE RENTI AL/PL ATELE T MCHC 31.8 g/dL 31.5-3 5.7 Not Available [facility] [address] [place], [address], 07/07/2023 06:17:21 07/06/19 24 07/06/2023 CBC WITH DIFFE RENTI AL/PL ATELE T RDW 12.2 % 11.5-1 4.5 Not Available [facility] [address] [place], [address], 07/07/2023 06:17:21 07/06/19 24 07/06/2023 CBC WITH DIFFE RENTI AL/PL ATELE T platelets 310 x10e3 /uL 150-45 0 Not Available [facility] [address] [place], [address], 07/07/2023 06:17:21 07/06/19 24 07/06/2023 CBC WITH DIFFE RENTI AL/PL ATELE T neutrophils 54 % notest b. Not Available [facility] [address] [place], [address], 07/07/2023 06:17:21 07/06/19 24 07/06/2023 CBC WITH DIFFE RENTI AL/PL ATELE T lymphs 35 % notest b. Not Available [facility] [address] [place], [address], 07/07/2023 06:17:21 07/06/19 24 07/06/2023 CBC WITH DIFFE RENTI AL/PL ATELE T monocytes 6 % notest b. Not Available [facility] [address] [place], [address], 07/07/2023 06:17:21 07/06/19 24 07/06/2023 CBC WITH DIFFE RENTI AL/PL ATELE T eos 4 % notest b. Not Available [facility] [address] [place], [address], 07/07/2023 06:17:21 07/06/19 24 07/06/2023 CBC WITH DIFFE RENTI AL/PL ATELE T basos 1 % notest b. Not Available [facility] [address] [place], [address], 07/07/2023 06:17:21 07/06/19 24 07/06/2023 CBC WITH DIFFE RENTI AL/PL ATELE T neutrophils (absolute) 3.9 x10e3 /uL 1.4-7. 0 Not Available [facility] [address] [place], [address], 07/07/2023 06:17:21 07/06/19 24 07/06/2023 CBC WITH DIFFE RENTI AL/PL ATELE T lymphs (absolute) 2.5 x10e3 /uL 0.7-3. 1 Not Available [facility] [address] [place], [address], 07/07/2023 06:17:21 07/06/19 24 07/06/2023 CBC WITH DIFFE RENTI AL/PL ATELE T monocytes(ab solute) 0.4 x10e3 /uL 0.1-0. 9 Not Available [facility] [address] [place], [address], 07/07/2023 06:17:21 07/06/19 24 07/06/2023 CBC WITH DIFFE RENTI AL/PL ATELE T eos (absolute) 0.3 x10e3 /uL 0.0-0. 4 Not Available [facility] [address] [place], [address], 07/07/2023 06:17:21 07/06/19 24 07/06/2023 CBC WITH DIFFE RENTI AL/PL ATELE T baso (absolute) 0.1 x10e3 /uL 0.0-0. 2 Not Available [facility] [address] [place], [address], 07/07/2023 06:17:21 07/06/19 24 07/06/2023 CBC WITH DIFFE RENTI AL/PL ATELE T immature granulocytes 0.1 % notest b. Not Available [facility] [address] [place], [address], 07/07/2023 06:17:21 07/06/19 24 07/06/2023 CBC WITH DIFFE RENTI AL/PL ATELE T immature grans (abs) 0.0 x10e3 /uL 0.0-0. 1 Not Available [facility] [address] [place], [address], 07/07/2023 06:17:21 07/06/19 24 07/06/2023 CBC WITH DIFFE RENTI AL/PL ATELE T NRBC 0 % 0-0 Not Available [facility] [address] [place], [address], 07/07/2023 06:17:21 07/06/19 24 07/07/2023 ESR-W ES+CR P sedimentatio n rate-westerg morelia 21 mm/HR 0-32 Not Available [facility]) [address] [place], [address], 07/07/2023 08:19:12 07/06/1907/07/2023 ESR-W ES+CR P C-reactive protein, quant 4 mg/L 0-10 Not Available [facility] ([facility]) [address] [place], [address], 07/07/2023 08:19:12 Result Notes None recorded. 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 Procedures Surgical History Date Name Laterality Status Provider Name and Address Organization Details Recorded Time Eye Surgery completed Joan Matt MA [facility] 07/20/2014 11:42:41 Hysterectomy completed Joan Matt MA [facility] 07/20/2014 11:42:41 Removal of ovary(s) completed Joan Matt MA [facility] 07/20/2014 11:42:41 Caesarean Section completed Joan conley MA [facility] 07/20/2014 11:42:41 Carpal tunnel surgery completed Joan Matt MA [facility] 07/20/2014 11:42:41 Imaging Results None recorded. Procedure Notes None recorded. Medical Equipment None Reported. Allergies Allergen ID Allergen Name Allergen Category Reaction Reaction Severity Criticality Documentation Date Start Date Code Code System Note Provider Name and Address Organization Details Recorded Time [id number] cebec Enbrel medicatio n hives itching other vomiting Not available Not available Not available Not available Not available 09/11/2019 78802 1 RxNorm swell ing Not Available Not Available Not Available [id number] amoxicill in medicatio n diarrhea rash vomiting severe severe severe Not available 07/29/2021 723 RxNorm Thrus h Not Available Not Available Not Available [id number] latex environme nt,medica tion rash Not available Not available 07/20/2014 59968 91 RxNorm Not Available Not Available Not Available [id number] lanolin environme nt,medica tion rash Not available Not available 07/20/2014 6227 RxNorm Not Available Not Available Not Available [id number] Imitrex medicatio n respirato ry distress severe Not available 07/20/2014 93030 3 RxNorm Not Available Not Available Not Available [id number] [id number] Robaxin medicatio n respirato ry distress moderate Not available 07/20/2014 14190 5 RxNorm Not Available Not Available Not Available [id number] Celexa medicatio n Not available Not available Not available 11/25/2016 40958 8 RxNorm Not Available Not Available Not Available Medications Name Sig Start Date Stop Date Status Note LastModified by Organization Details LastModified Time cyclobenz aprine 10 mg tablet TAKE 1 TABLET BY MOUTH THREE TIMES DAILY active Not Available Not Available No t Available amoxicill in 500 mg capsule 07/29 completed Not Available Not Available Not Available nystatin 100,000 unit/mL oral suspensio n SWISH AND SWALLOW 5 ML BY MOUTH FOUR TIMES DAILY FOR 10 DAYS 07/29 completed Not Available Not Available Not Available sulfasala zine 500 mg tablet TAKE 3 TABLETS BY MOUTH TWICE DAILY active Not Available Not Available No t Available azithromy john 250 mg tablet 09/02 completed Not Available Not Available Not Available ibuprofen 800 mg tablet Take 1 tablet 3 times a day by oral route as needed. 09/10 completed Not Available Not Available Not Available hydrocodo ne 5 mg-acetam inophen 325 mg tablet TAKE 1 TO 2 TABLETS BY MOUTH EVERY 4 HOURS NEEDED FOR PAIN 09/02 completed Not Available Not Available Not Available meloxicam 15 mg tablet TAKE 1 TABLET BY MOUTH DAILY active Not Available Not Available No t Available Paxil 20 mg tablet Take 1 tablet every day by oral route. 07/31 completed Not Available Not Available Not Available ondansetr on HCl 4 mg tablet TAKE 1 TABLET BY MOUTH EVERY 6 HOURS NEEDED FOR NAUSEA OR VOMITING 09/02 completed Not Available Not Available Not Available prednison e 20 mg tablet Take 2 tablets every day by oral route for 5 days. 05/11 completed finished Not Available Not Available Not Available prednison e 5 mg tablet TAKE 1 TABLET BY MOUTH DAILY active Not Available Not Available No t Available sulfasala zine 500 mg tablet,de layed release TAKE 3 TABLETS BY MOUTH TWICE DAILY 09/02 completed Not Available Not Available Not Available clindamyc in HCl 150 mg capsule 09/10 completed Not Available Not Available Not Available hydroxyzi ne pamoate 50 mg capsule active Not Available Not Available Not Available diphenoxy late-atro pine 2.5 mg-0.025 mg tablet TAKE 1 TABLET BY MOUTH FOUR TIMES DAILY NEEDED FOR DIARRHEA FOR UP TO 14 DAYS 07/29 completed Not Available Not Available Not Available penicilli n V potassium 500 mg tablet 09/10 completed Not Available Not Available Not Available topiramat e 25 mg tablet TAKE 1 TABLET BY MOUTH TWICE DAILY 09/02 completed Not Available Not Available Not Available Remicade 100 mg intraveno us solution INFUSE 5 MG/KG OVER NO LESS THAN 2 HOUR(S) BY INTRAVEN OUS ROUTE EVERY8 WEEKS 07/06 completed Not Available Not Available Not Available hydroxyzi ne HCl 50 mg tablet Take 1 tablet 4 times a day by oral route as needed. 09/10 completed Not Available Not Available Not Available acetamino phen 300 mg-codein e 30 mg tablet TAKE 1 TABLET BY MOUTH EVERY 8 HOURS NEEDED FOR PAIN. 09/02 completed Not Available Not Available Not Available CharcoCap s 260 mg capsule TK 2 CS PO AFTER EVERY LOOSE STOOL UP TO 8 CAPSULES PER DAY 11/29 completed Not Available Not Available Not Available doxepin 10 mg capsule Take 1 capsule as needed by oral route at bedtime for 30 days. 11/21 completed Not Available Not Available Not Available hydrocodo ne 10 mg-acetam inophen 325 mg tablet TAKE 1 TABLET BY MOUTH EVERY 6 HOURS NEEDED FOR PAIN FOR 10 DAYS 07/29 completed Not Available Not Available Not Available leflunomi de 20 mg tablet TAKE 1 TABLET BY MOUTH EVERY DAY 07/06 completed Not Available Not Available Not Available tramadol 50 mg tablet Take 1 tablet every 6 hours by oral route as needed. 09/02 completed Not Available Not Available Not Available butalbita l-acetami nophen-ca ffeine 50 mg-325 mg-40 mg tablet 09/10 completed Not Available Not Available Not Available ondansetr on 8 mg disintegr ating tablet DISSOLVE 1 TABLET ON THE TONGUE EVERY 6 HOURS NEEDED FOR NAUSEA OR VOMITING 09/02 completed Not Available Not Available Not Available ketorolac 10 mg tablet TAKE 1 TABLET BY MOUTH EVERY 6 HOURS NEEDED FOR PAIN 09/02 completed Not Available Not Available Not Available estradiol 1 mg tablet 09/10 completed Not Available Not Available Not Available methotrex ate sodium 2.5 mg tablet 09/10 completed Not Available Not Available Not Available cephalexi n 500 mg capsule 01/20 completed Not Available Not Available Not Available dexametha sone 4 mg tablet 09/02 completed Not Available Not Available Not Available prednison e 50 mg tablet active Not Available Not Available Not Available lidocaine 5 % topical patch UNWRAP AND APPLY 1 PATCH TO SKIN DAILY REMOVE AND DISCARD PATCH WITHIN 12 HOURS OR DIRECTED BY DOCTOR 05/11 completed stopped Not Available Not Available Not Available butalbita l-aspirin -caffeine 50 mg-325 mg-40 mg capsule 09/10 completed Not Available Not Available Not Available diclofena c potassium 50 mg tablet Take 1 tablet twice a day by oral route as needed. 09/10 completed Not Available Not Available Not Available folic acid 1 mg tablet 09/10 completed Not Available Not Available Not Available furosemid e 20 mg tablet TAKE 1 TO 2 TABLETS BY MOUTH EVERY DAY 09/10 completed Not Available Not Available Not Available estradiol 0.5 mg tablet active Not Available Not Available Not Available Enbrel 25 mg (1 mL) subcutane ous powder for solution 09/10 completed Not Available Not Available Not Available hydroxych loroquine 200 mg tablet TAKE 1 TABLET BY MOUTH TWICE DAILY 11/21 completed Not Available Not Available Not Available methylpre dnisolone 4 mg tablets in a dose pack FOLLOW PACKAGE DIRECTIO NS 09/02 completed Not Available Not Available Not Available albuterol sulfate HFA 90 mcg/actua tion aerosol inhaler Inhale 2 puffs every 4 hours by inhalati on route as needed. active Not Available Not Available No t Available ondansetr on 4 mg disintegr ating tablet TAKE ONE TABLET BY MOUTH EVERY 8 HOURS NEEDED FOR NAUSEA active Not Available Not Available No t Available amitripty line 100 mg tablet 09/10 completed Not Available Not Available Not Available naproxen 500 mg tablet TAKE 1 TABLET BY MOUTH TWICE DAILY FOR UP TO 5 DAYS NEEDED FOR MODERATE TO SEVERE PAIN 11/29 completed Not Available Not Available Not Available metoclopr amide 10 mg tablet 09/10 completed Not Available Not Available Not Available hydroxyzi ne pamoate 25 mg capsule TAKE 1 CAPSULE BY MOUTH THREE TIMES DAILY NEEDED Patien t needs to schedule appointm ent 09/02 completed Not Available Not Available Not Available Benadryl 25 mg capsule Take 2 capsules as needed by oral route at bedtime. active Not Available Not Available No t Available neomycin 3.5 mg/g-poly myxin B 10,000 unit/g-de xameth 0.1 % eye oint 09/10 completed Not Available Not Available Not Available escitalop jasmeet 20 mg tablet Take 1 tablet every day by oral route. 09/10 completed Not Available Not Available Not Available Premarin 0.45 mg tablet TAKE 1 TABLET BY MOUTH EVERY DAY active Not Available Not Available No t Available duloxetin e 30 mg capsule,d elayed release TAKE 1 CAPSULE BY MOUTH EVERY DAY 07/29 completed Not Available Not Available Not Available Imodium A-D 2 tabs as needed active Not Available Not Available No t Available Enbrel SureClick 50 mg/mL (1 mL) subcutane ous pen injector 09/10 completed Not Available Not Available Not Available ketorolac 30 mg/mL injection solution Inject 1 mL by intraven ous route. 09/02 completed Not Available Not Available Not Available butalbita l-acetami nophen-ca ffeine 50 mg-300 mg-40 mg capsule Take 1 capsule every 4 hours by oral route as needed. 09/10 completed Not Available Not Available Not Available doxepin 3 mg tablet TAKE 1 TABLET BY MOUTH AT BEDTIME NEEDED 11/21 completed Not Available Not Available Not Available OptiChamb er [facility] spacer USE DIRECTED WITH INHALER active Not Available Not Available No t Available Vitals Date Recorded Body height Provider Name an d Address Organization Details Last Updated DateTime 01/20/2022 175.26 cm ROSHAN Castillo LAZ 01/20/2022 16:18:00 Date Recorded Body mass index (BMI) Body weight Provider Name and Address Organization Details Last Updated DateTime 01/20/2022 20.6 kg/m2 57526.78 g ROSHAN Castillo LAZ 16:18:18 Date Recorded Body temperature Provider Name a nd Address Organization Details Last Updated DateTime 01/20/2022 97.7 [degF] ROSHAN Castillo LAZ 16:29:30 Date Recorded Oxygen saturation Oxygen saturation in Arterial blood by Pulse oximetry Provider Name and Address Organization Details Last Updated DateTime 01/20/2022 99 % 99 % ROSHAN Castillo SIKatty 01/20/2022 16:30:19 Date Recorded Respiratory rate Provider Name a nd Address Organization Details Last Updated DateTime 01/20/2022 18.02 /min ROSHAN Castillo [facility] 01/20/2022 16:30:23 Date Recorded Heart rate Provider Name an d Address Organization Details Last Updated DateTime 01/20/2022 97 /min ROSHAN Castillo [facility] 01/20/2022 16:30:45 Date Recorded Body height Provider Name an d Address Organization Details Last Updated DateTime 07/06/2023 175.26 cm ROSHAN Garrett [facility] 07/06/19 14:23:05 Date Recorded Body mass index (BMI) Body weight Provider Name and Address Organization Details Last Updated DateTime 07/06/2023 19.1 kg/m2 02685.87 g ROSHAN Garrett [facility] 07/06/2023 14:23:21 Date Recorded Heart rate Provider Name an d Address Organization Details Last Updated DateTime 07/06/2023 94 /min ROSHAN Garrett [facility] 07/06/19 24 14:25:20 Date Recorded Body temperature Provider Name a nd Address Organization Details Last Updated DateTime 07/06/2023 98.6 [degF] ROSHAN Garrett [facility] 024 14:25:24 Date Recorded Respiratory rate Provider Name a nd Address Organization Details Last Updated DateTime 07/06/2023 16 /min ROSHAN Garrett [facility] 07/06/19 24 14:25:27 Date Recorded Oxygen saturation Oxygen saturation in Arterial blood by Pulse oximetry Provider Name and Address Organization Details Last Updated DateTime 07/06/2023 99 % 99 % Cuca Fuentes [place] [facility] 07/06/2023 14:25:40 Date Recorded Body height Provider Name an d Address Organization Details Last Updated DateTime 09/03/2023 175.26 cm ROSHAN Garcia [facility] 09/02 09:15:20 Date Recorded Body mass index (BMI) Body weight Provider Name and Address Organization Details Last Updated DateTime 09/03/2023 18.7 kg/m2 91367.39 g ROSHAN Garcia [facility] 09/03/2023 09:15:29 Date Recorded Heart rate Provider Name an d Address Organization Details Last Updated DateTime 09/03/2023 93 /min ROSHAN Garcia [facility] 09/02 09:16:31 Date Recorded Oxygen saturation Oxygen saturation in Arterial blood by Pulse oximetry Provider Name and Address Organization Details Last Updated DateTime 09/03/2023 98 % 98 % ROSHAN Garcia [facility] 09/03/2023 09:16:35 Date Recorded Respiratory rate Provider Name a nd Address Organization Details Last Updated DateTime 09/03/2023 17 /min ROSHAN Garcia [facility] 09/03/2023 09:16:37 Date Recorded Body temperature Provider Name a nd Address Organization Details Last Updated DateTime 09/03/2023 97.6 [degF] Pilar SigalaROSHAN [facility] 09/03/2023 09:16:48 Date Recorded Body height Provider Name an d Address Organization Details Last Updated DateTime 11/30/2023 175.26 cm Rosie Rodriguez [facility] 2023 11:25:41 Date Recorded Body mass index (BMI) Body weight Provider Name and Address Organization Details Last Updated DateTime 11/30/2023 18.6 kg/m2 89882.04 g Rosie Rodriguez [facility] 11/30/2023 11:25:50 Date Recorded Respiratory rate Provider Name a nd Address Organization Details Last Updated DateTime 11/30/2023 16 /min Rosie Rodriguez [facility] 11/30/2023 11:26:01 Date Recorded Body temperature Provider Name a nd Address Organization Details Last Updated DateTime 11/30/2023 98.6 [degF] Rosie Callawaya Michael [facility] 11/30/2023 11:26:40 Date Recorded Heart rate Provider Name an d Address Organization Details Last Updated DateTime 11/30/2023 90 /min Rosie Balmichele Rodriguez [facility] 2023 11:28:04 Date Recorded Oxygen saturation Oxygen saturation in Arterial blood by Pulse oximetry Provider Name and Address Organization Details Last Updated DateTime 11/30/2023 96 % 96 % Rosie Rodriguez [facility] 11/30/2023 11:26:44 Date Recorded Body height Provider Name an d Address Organization Details Last Updated DateTime 05/11/2024 175.26 cm Jenny Smith MA [facility] 024 16:28:36 Date Recorded Body mass index (BMI) Body weight Provider Name and Address Organization Details Last Updated DateTime 05/11/2024 19.7 kg/m2 43176.19 g Jenny Smith MA [facility] 05/11/2024 16:28:45 Date Recorded Body temperature Provider Name a nd Address Organization Details Last Updated DateTime 05/11/2024 98.3 [degF] Jenny Smith MA [facility] 2023 16:28:50 Date Recorded Heart rate Provider Name an d Address Organization Details Last Updated DateTime 05/11/2024 86 /min Jenny Smith MA [facility] 024 16:29:33 Date Recorded Respiratory rate Provider Name a nd Address Organization Details Last Updated DateTime 05/11/2024 18 /min Jenny Smith MA [facility] 024 16:29:49 Date Recorded Systolic blood pressure Diastolic blood pressure Provider Name and Address Organization Details Last Updated DateTime 01/20/2022 136 mm[Hg] 82 mm[Hg] Niyah Anton MA [facility] 01/20/2022 16:29:26 Date Recorded Systolic blood pressure Diastolic blood pressure Provider Name and Address Organization Details Last Updated DateTime 07/06/2023 154 mm[Hg] 87 mm[Hg] Cuca Fuentes MA [facility] 07/06/2023 14:25:18 Date Recorded Systolic blood pressure Diastolic blood pressure Provider Name and Address Organization Details Last Updated DateTime 09/03/2023 119 mm[Hg] 81 mm[Hg] Pilar Sigala MA [facility] 09/03/2023 09:16:22 Date Recorded Systolic blood pressure Diastolic blood pressure Provider Name and Address Organization Details Last Updated DateTime 11/30/2023 123 mm[Hg] 87 mm[Hg] Rosie Rodriguez [facility] 11/30/2023 11:27:44 Date Recorded Systolic blood pressure Diastolic blood pressure Provider Name and Address Organization Details Last Updated DateTime 05/11/2024 123 mm[Hg] 84 mm[Hg] Jenny Smith MA [facility] 05/11/2024 16:30:01 Social History Question Answer Notes LastModified by Organizat ion Details LastModified Time Tobacco Smoking Status Former Smoker Quit in 2013 Julia Patiño MA null, [facility] 09/11/2019 11:13:17 Do You Have An Advance Directive? No Information not available 07/20/2014 What Is Your Level Of Alcohol Consumption? Occasional Information not available 07/20/2014 Are You Blind Or Do You Have Difficulty Seeing? No Information not available 11/21/2020 What Is Your Level Of Caffeine Consumption? Heavy Information not available 07/20/2014 In The 14 Days Before Symptom Onset, Have You Had Close Contact With A Laboratory-confir med COVID-19 While That Case Was Ill? No Information not available 01/20/2022 In The 14 Days Before Symptom Onset, Have You Had Close Contact With A Person Who Is Under Investigation For COVID-19 While That Person Was Ill? No Information not available 01/20/2022 Have You Been To An Area Known To Be High Risk For COVID-19? No Information not available 11/21/2020 Are You Currently Employed? Yes Information not available 01/20/2022 Are You Deaf Or Do You Have Serious Difficulty Hearing? No Information not available 11/21/2020 What Type Of Diet Are You Following? REGULAR Information not available 11/21/2020 Do You Or Have You Ever Used E-cigarettes Or Vape? 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 No Information not available 11/21/2020 Hard Of Hearing Or Deaf In One Or Both Ears? No Information not available 07/20/2014 Legally Blind In One Or Both Eyes? No Information no t available 07/20/2014 Marital Status Informatio n not available 07/20/2014 What Was The Date Of Your Most Recent Tobacco Screening? 05/11/2024 Information not available 05/11/2024 Performs Monthly Self-breast Exam? Yes Information no t available 07/20/2014 What Is Your Relationship Status? Information not available 01/20/2022 Seat Belts Used Routinely Yes Information not available 07/20/2014 Are You Sexually Active? No Information not available 01/20/2022 Smoke Alarm In Home Yes Information not available 07/20/2014 Do You Have Smoke And Carbon Monoxide Detectors In Your Home? Yes Information not available 11/21/2020 Are You Passively Exposed To Smoke? No Information no t available 11/21/2020 Do You Or Have You Ever Used Smokeless Tobacco? Never Used Smokeless Tobacco Information not available 09/11/2019 How Much Tobacco Do You Smoke? No Information not available 09/11/2019 Do You Use Any Illicit Or Recreational Drugs? Yes Mj Information not available 07/06/2023 Do You Use Sunscreen Routinely? Yes Information not available 07/20/2014 Has Tobacco Cessation Counseling Been Provided? Yes Information not available 11/21/2020 On What Date Was Tobacco Cessation Counseling Provided? 05/11/2024 Information not available 05/11/2024 How Many Years Have You Smoked Tobacco? 8 Information not available 09/11/2019 Do You Or Have You Ever Used Any Other Forms Of Tobacco Or Nicotine? No Information not available 07/06/2023 Sex: Female Functional Status Question Answer Note LastModified by Organization D etails LastModified Time Are you able to care for yourself? Yes Information n ot available 11/21/2020 Mental Status None recorded. Family History Relationship Description Onset Age of this Age Resolved Age Notes LastModified by Organization Details LastModified Time Mother Asthma Not available 11:16:04 Mother Migraine Not available 07/27/2014 11:16:04 Father Migraine Not available 07/27/2014 11:16:04 Father erobbinsma Not available 07/29/2021 11:56:37 Son Anxiety erobbinsma Not availabl e 07/29/2021 11:56:30 Son Asthma [email or web address] Not available 0 01/20/2022 16:24:44 Daughter Anxiety erobbinsma Not availa ble 07/29/2021 11:56:30 Notes:09/03/23, 11/30/23 Medical History Condition Response Anxiety Disorder Y Muscle, Joint, or Bone Problems Y Acid Reflux (GERD) Y Headaches Y Allergies Y Gynecological History Statement/Question Response Date of Last Pap Smear Age at Menarche 11 Current Control Method Hysterectom y Age at First Child 16 LMP Unknown Obstetrics History GPAL:G 3 P 2 1 0 3 Type Value Full Term 2 Premature 1 Living 3 Total 3 Immunizations Vaccine Type Date Status Note Provider Nam e and Address Organization Details Recorded Time MMR 3 completed INOCENCIA CAST MD Attn: Accounting,[address] [facility], [place], [place], [address] [place] [address], [facility] 07/06/2023 15:25:56 MMR 6 completed INOCENCIA CAST MD Attn: Accounting,[address] [facility], [place], [place], [address] [place] [address], [facility] 07/06/2023 15:25:56 DTP 0 completed INOCENCIA CAST MD Attn: Accounting,[address] [facility], [place], [place], [address] [place] [address], [facility] 07/06/2023 15:25:56 DTP 5 completed INOCENCIA CAST MD Attn: Accounting,[address] [facility], [place], [address] [place] [address], [facility] 07/06/2023 15:25:56 DTP 5 completed INOCENCIA CAST MD Attn: Accounting,[address] [facility], [place], [address] [place] [address], [facility] 07/06/2023 15:25:56 DTP 6 completed INOCENCIA CAST MD Attn: Accounting,[address] [facility], [place], [address] [place] [address], [facility] 07/06/2023 15:25:56 DTP 5 completed INOCENCIA CAST MD Attn: Accounting,[address] [facility], [place], [address] [place] [address], [facility] 07/06/2023 15:25:56 OPV 0 completed INOCENCIA CAST MD Attn: Accounting,[address] [facility], [place], [address] [place] [address], [facility] 07/06/2023 15:25:56 OPV 6 completed INOCENCIA CAST MD Attn: Accounting,[address] [facility], [place], [address], [facility] 07/06/2023 15:25:56 OPV 5 completed INOCENCIA CAST MD Attn: Accounting,[address] [facility], [place], [address] [place] [address], [facility] - [facility] 07/06/2023 15:25:56 OPV 5 completed INOCENCIA CAST MD Attn: Accounting,[address] [facility], [place], [address] [place] [address], [facility] 07/06/2023 15:25:56 Td (adult), 5 Lf tetanus toxoid, preservative free, adsorbed 0 completed INOCENCIA CAST MD Attn: Accounting,[address] [facility], [place], [address] [place] [address], [facility] 07/06/2023 15:25:56 Hep B, adolescent or pediatric 8 completed INOCENCIA CAST MD Attn: Accounting,[address] [facility], [place], [address] [place] [address], [facility] 07/06/2023 15:25:56 Hep B, adolescent or pediatric 8 completed INOCENCIA CAST MD Attn: Accounting,[address] [facility], [place], [address] [place] [address], [facility] 07/06/2023 15:25:56 Hep B, adolescent or pediatric 8 completed INOCENCIA CAST MD Attn: Accounting,[address] [place], [place], [address] [place] [address], [facility] 07/06/2023 15:25:57 Past Encounters Encounter ID Performer Location Encounter Start Date Encounter Closed Date Diagnosis/Indication Diagnosis SNOMED-CT Code Diagnosis ICD10 Code Diagnosis Note [id number] ROSHAN Moyer ([facility] [address]) [address] [place] [address] 07/20/2014 11:15:14 07/20/2014 16:17:10 Knee pain [id number] MICHEL Vo ([facility] [address]) [address] [place] [address] 07/27/2014 10:54:07 07/27/2014 17:01:15 Generalized headache [id number] MICHLE Vo ([facility] 205) 2 [facility] [place] [id number] 11/24/2016 14:25:16 11/25/2016 14:26:25 Pain in right knee [id number] 80640 M25.561 Counseled on knee pain, testing and medication -Knee immobilize r-crutches , ice, Ibuprofen and elevate, no PE x 2 weeks and referral to sports medicine [id number] MICHEL Vo ([facility] 205) [address] [place] [address] 09/16/2017 09:23:22 09/17/2017 18:25:40 Edema 677586169 R60.9 Counseled on edema and differenti als-will continue Ibuprofen as needed-lab work today and referral to rheumatolo gy-also to f/u with neuro as scheduled [id number] MD Arthur Beal 14 IM 4 [facility] [place] [address] 09/11/2019 10:41:24 09/12/2019 14:20:12 Pain in right hand 9211734474 49755 M79.641 Insomnia 785982369 G47.0 0 Pt was encouraged to use chamomile tea at night as well. 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 [id number] Z76.89 Rheumatoid arthritis 698 53758 M06.9 Under care of neurologist [id number] Z76.89 care for her migraines Administra tion of SARS-CoV-2 antigen vaccine 439062638 Z23 pt was encouraged to consider this [id number] MD Arthur Beal 14 IM 4 [facility] [place] [address] 07/29/2021 11:15:05 07/31/2021 15:38:37 Temporomandibular joint disorder 50047972 M26.609 Anxiety disorder 7477137 06 F41.9 [id number] MD Arthur YAÑEZ 14 IM [address] [facility] [place] [address] 01/20/2022 15:39:58 01/21/2022 13:18:28 Generalized anxiety disorder 84601005 F41.1 Patient is currently being managed on hydroxyzin e pamoate 25 mg with no complaint. Patient is going through a divorce and reports a decrease in anxiety since leaving her . Patient will like to have an emotional support letter to have her dog live with her in the new apartment as support. Letter provided to allow patient to have her emotional support. [id number] MD Arthur Monteiro [address] [facility] [place] [address] 07/06/2023 14:06:13 07/12/2023 10:24:15 Seropositive rheumatoid arthritis of multiple joints [id number] 6580965 M05.89 Suspect acute flare of RA in the right knee.Wilder ws with Dr. Alan donis infliximab infusion q6-8 weeks, SSA, meloxicam. -Recommend follow up with Rheumatolo gist-Benito nue current medication s.-Acute flare treatment as above. Flare of r heumatoid arthritis 736827070 M06.9 See assessment and plan under pain of right knee joint. Pain of ri ght knee joint 1751110015 34650 M25.561 37 y/o F with a PMH of seropositi ve rheumatoid arthritis here for right knee pain. No signs of infection noted. Suspect acute flare of RA in the right knee.-Will get CBC, CRP, ESR to check for inflammati on and leukocytos is.-Start course of steroids, prednisone 40 mg t0kman-Zcr ient received Ketorolac 30 mg. Was advised to hold taking her meloxicam for 48 hours-Note for work provided.- RTC/ED if symptoms persist/wo rsen. [id number] MD Arthur Ruby 14 IM [address] [facility] [place] [address] 09/03/2023 09:06:03 09/06/2023 07:52:39 Normal body mass index 51775520 Z68.1 Mild inter mittent asthma 716141681 J45.20 albuterol refilled. Dropped the inhaler at work and it broke. Seropositi ve rheumatoid arthritis of multiple joints 1578311463 9618064 M05.[address] Pa. Taking infliximab infusion q6-8 weeks, SSA, meloxicam. Requires FMLA paperwork to be completed. FMLA paperwork completed with patient. Requested patient get extra time to complete tasks, and be able to have 2-4 days off for acute flares/inf usion effects. -Recommend follow up with Rheumatrancho markham-Benito charline current medication s. [id number] MD Arthur YAÑEZ 14 IM [address] [facility] [place] [address] 11/30/2023 11:11:02 12/02/2023 12:57:55 Seropositive rheumatoid arthritis of multiple joints [id number] 7198624 M05.89 - Patient is managed by Rheumatrancho markham at [facility] with a follow up appointmen t coming up January 10. She is currently on meloxicam 15 mg daily and Infliximab infusion. She just completed a 5 day course of prednisone 20 mg bid. Due to persistent pain, will continue another 5 day course of Prednisone 40 mg Positive s creening for depression on PHQ-9 (Patient Health Questionnaire 9) [id number] 08052 Z13.31 PHQ-9 score 5 - mild. Patient denies SI/HI and reports doing well overall just a little down about her RA flare up. [id number] MD Arthur Banda [address] IM [address] [facility] [place] [address] 05/11/2024 16:18:57 05/16/2024 16:32:06 Normal body mass index 27554777 Z68.1 Patient educated on healthy eating habits and exercise at least 30 mins per day. A diet comprised of four to five servings of fruit, four to five servings of vegetables , and two to three servings of low-fat dairy per day, with <25 percent of daily caloric intake from fat. Mild inter mittent asthma 628503346 J45.20 Chronic, stable. Needs refill. Seropositi ve rheumatoid arthritis of multiple joints 8278369777 9094488 M05.89 Chronic, stable.- Patient presents today for FMLA paperwork days adjustment . Recently lost job due to missed days at work for infusions and feeling pain from RA.- Patient is managed by Rheumatrancho markham at [facility] with a follow up appointmen t coming up Jul 2024. Health Concerns Section Related Observation LastModified by Organization Detai ls LastModified Time None Recorded Concern Status LastModified by Organization Details LastModified Time None Recorded Advance Directives Directive N: Payers Encounter Date Sequence Insurance Name Policy Number Policy Calderon Covered Member ID Calderon Member ID Guarantor Name 01/20/2022 1 [facility] ON OR AFTER 12/19/20 (MEDICAID REPLACEMENT - HMO) Jalyn Torrez [id number] Jalyn Sarmad Torrez 07/06/[address] [facility] ON OR AFTER 12/19/20 (MEDICAID REPLACEMENT - HMO) Jalyn Torrez [id number] September Sarmad Torrez 09/03/[address] [facility] ON OR AFTER 12/19/20 (MEDICAID REPLACEMENT - HMO) Jalyn Torrez [id number] September Sarmad Torrez 11/30/[address] [facility] ON OR AFTER 12/19/20 (MEDICAID REPLACEMENT - HMO) Jalyn Torrez [id number] September Sarmad Torrez 05/11/2024 1 [facility] ON OR AFTER 12/19/20 (MEDICAID REPLACEMENT - HMO) Jalyn Torrez [id number] Jalyn Torrez Notes Date Note Type Note Provider Name and Address Organization Details Recorded Time 01/20/2022 text/html This is a 36 yea r old female presents to the clinic for emotional support letter to have her pet dog live with her in the new apartment. Patient is currently going through a divorce and temporary residing with a friend while waiting for the new apartment to be available. The apartment does not allow pets unless for medical reasons. Patient is receiving treatment for anxiety, and needs her dog for emotional support during this hard times of going through the divorce. Patient is doing well on her anxiety medication with no complaint. Patient reports working with [email or web address] and receiving the help she needs from them. Patient reports feeling happier and safe not living with her ex . Patient denies headache, shortness of breath, chest pain, abdominal pain. No further complaint. INOCENCIA CAST MD Attn: Accounting,[address] [place], [address], [place] [facility] 01/23/2022 11:14:27 07/06/2023 text/html Jalyn is a 37 y/ o F with a past medical history of seropositive RA, migraine headaches, GERD, and fibromyalgia presenting to the clinic for acute right knee pain and swelling since 06/30/2023.She states that she has a hot sharp stabbing pain medial to and under the patella that radiates down her leg. She denies any fever, erythema, or heat from the joint. She does report worsening pain with movement or putting weight on the leg, and especially when walking up the stairs. The pain is 7/10 when walking, 5/10 currently while sitting. Icing and rest improves the pain, however heat makes the pain worse.She reports that she has flares with her RA, but this pain is different and worse than her flare pains. She recently had a flare in her right wrist, for which she completed a tapered course of steroids.Patient denies fever, erythema, or trauma. She was seen in the urgent care, where Xrays were done, and was told she has fluid in her knee, and would need a brace. She was costa bandaged and sent home. Sees Building Pressure Washer, Dr. Pa at [facility] - was supposed to see last month, but missed appointment due to URI illness. She tried calling the office, but was only able to get an appointment for September.Taking infliximab infusion q6-8 weeks, SSA, meloxicam, cymbalta. Patient would like a note for work - for light duty. Cuate Ayala MD Attn: [facility], [place], [address], [facility] 07/24/2023 21:57:20 09/03/2023 text/html Jalyn is a 37 y/ o F with PMH of seropositive RA, migraine headaches, GERD, and fibromyalgia, who is presenting to the clinic to have FMLA papers filled. She requires the papers so she can have more time to complete her tasks, and have 2-4 days off for acute flares or from side effects from her infusions.She feels otherwise well. Still having wrist pain from 07/25/2023, when she hurt her wrist at work. Seen at ED on 07/29/2023, with work up showing no acute fracture.She would also like to have a refill for her albuterol, as she dropped hers at work, and it broke. She has no other concerns or complaints at this time. She denies any headaches, dizziness, visual changes, chest pain, shortness of breath, nausea, vomiting, or abdominal pain. Barb Ruffin MD Attn: Accounting,[address] [facility], [place], [address], [facility] 09/03/2023 12:19:14 11/30/2023 text/html Jalyn is a 38 yo F who presents today for left wrist sprain that took place at work during the last week of October. Patient tried to manage the discomfort on her own but the trauma trigger her RA to flare up. Patient was seen in the Urgent care last Wednesday due to persistent pain from RA flare up. Patient was prescribed Prednisone 20 mg BID for 5 days. She completed the treatment course but report pain returned 2 days ago after her last dose. Patient would like to extend her treatment course with the prednisone. Endorses significant pain with range of motion and swelling since completing her completing her course of Prednisone. Patient is currently on light duty at work due to the disabling pain and would like for an extension of the light duty. Patient has an appointment coming up with her Building Pressure Washer on 10 of January. INOCENCIA CAST MD Attn: Accounting,[address] [facility], [place], [address], [facility] 12/02/2023 09:46:41 05/11/2024 text/html Jalyn is a 38 yo F with PMH of generalized headache, RA who presents today for FMLA paperwork adjustment due to recent job lost. Mild intermittent asthma - needs refill. Boni Sy MD Attn: Accounting,[address] [facility], [place], [address], [facility] 05/11/2024 17:32:31 OBGyn Episode No OBEpisode recorded.
== END 2024-07-11 18:35 | disposition home or self-care (01) ==
PROVIDERS: Emergency Provider Registered Nurse
DX: G89.18 Other acute postprocedural pain (principal); M79.7 Fibromyalgia; M06.9 Rheumatoid arthritis, unspecified
CPT/HCPCS: 99213; G0463

== ENCOUNTER 2024-10-15 13:49 | Emergency (ER) | payer OTHER, SELFPAY ==
--- OUTSIDE RECORDS SUMMARY | 2024-10-15 13:51 | XMS_ITS | Continuity of Care Document ---
Author Organization [facility] Address [address] [place] [address] Phone Care Team Providers Care Remote Ruby On Rails Developer Name Role Phone CONV, [facility] Unavailable Unavailable Advance Directives Directive Yes / No Effective Date File Name No Information Encounters Encounter Description Practice Location Reason(s) For Visit Diagnoses Date Provider Providers Copied on Encounter [facility], [address] [place] [address], [facility], tel:[phone] [facility] CONV No Information CONV [facility]. [address] [place] [address], [id number], [place]. Family History Family Member Type Diagnosis Age At Onset No Information Immunizations Vaccine Date Status Comments TD, TETANUS-DIPHTHERIA administered Note: LA ; Source: New Immunization Record HEP B VACCINE PED/ADOL administered Note: LA ; Source: New Immunization Record HEP B VACCINE PED/ADOL administered Note: LA ; Source: New Immunization Record HEP B VACCINE PED/ADOL administered Note: LA ; Source: New Immunization Record [id number], PED/ADL administered Source: New Immuniza tion Record DTP administered Source: New Imm unization Record ORAL POLIO administered Source: New Imm unization Record DTP administered Source: New Imm unization Record [id number], PED/ADL administered Source: New Immuniza tion Record ORAL POLIO administered Source: New Imm unization Record DTP administered Source: New Imm unization Record DTP administered Source: New Imm unization Record ORAL POLIO administered Source: New Imm unization Record DTP administered Source: New Imm unization Record ORAL POLIO administered Source: New Imm unization Record Payers Payer name Insurance type Covered republican ID Authoriza tion(s) No Information Social History [...]
--- OUTSIDE RECORDS SUMMARY | 2024-10-15 13:51 | XMS_ITS | Encounter Summary ---
Author Organization [facility] Address [address] [facility] [place] [address] Care Team Providers Care Non Destructive Tester Name Role Phone Tonydiana Radha Primary Care Provider [phone] Reason for Visit * Reason Onset Date Comments MEDICATION REFILL 09/06/2024 Encounter Details Date Type Department Care Team (Late Contact Info) Description 09/06/2024 Refill [facility] - Rhe[facility]ology [address] [place] [address], [place] [address] Sue Pa MD [address] [place] [address] [place] [address] MEDICATION REFILL Social History Tobacco Use Types Packs/Day Years Used Date Smoking Tobacco: Former Cigarettes Q uit: 2010 Smokeless Tobacco: Never Alcohol Use Standard Drinks/Week Comments No 0 (1 standard drink = 0.6 oz pur e alcohol) PHQ-2 Answer Date Recorded PHQ2 TOTAL SCORE 0 11/17/2022 Comments No Sex and Gender Information Value Date Recorded Sex Assigned at Female 11/17/2022 10:38 AM CDT Legal Sex Female 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 Gender Identity Female 11/17/2022 10:38 AM CDT Sexual Orientation Not on file documented as of this encounter Plan of Treatment Upcoming Encounters Date Type Department Care Team (Late Contact Info) Description 10/31/2024 9:00 AM CDT Appointment [facility] [address] [place] [address] Sue Pa MD [address] [place] [address] 2L [place] [address] 11/14/2024 1:00 PM CDT Office Visit [facility] - [facility]ology [address] [place] [address], [place] [address] Sue Pa MD [address] [place] [address] 2L [place] [address] documented as of this encounter Visit Diagnoses Diagnosis Rheumatoid arthritis involving multiple sites, unspecified whether rheumatoid factor present (HCC) documented in this encounter Care Teams Non Destructive Tester Relationship Specialty Start Date End Date Radha Muhammad [address] [place] [address] PCP - General 01/11/24 documented as of this encounter
--- OUTSIDE RECORDS SUMMARY | 2024-10-15 13:51 | XMS_ITS | Clinical Summary ---
Author Organization [facility] Address [address] [place] [address] Phone Care Team Providers Care Freight Trucker Name Role Phone Radha Muhammad MD Primary Care Provider [phone] Allergies Active Allergy Reactions Criticality Noted Date [...] Sex Assigned at Female 05/21/2023 12:12 AM SANITARY CHEMIST Legal Sex Female 10:43 PM CDT Gender Identity Female 05/21/2023 12:12 AM SANITARY CHEMIST Sexual Orientation Not on file Last Filed Vital Signs Vital Sign Reading Time Taken Comments Blood Pressure 128/84 11/06/2023 1:40 AM CDT Pulse 98 11/06/2023 1:40 AM CDT Temperature 36.5 C (97.7 F) 11/05/2023 11:46 PM CDT Respiratory Rate 18 11/06/2023 1:40 AM CDT [...] this topic Insurance MEDICAID [facility] [place] [place] [address] GENERIC [facility] Care Teams Freight Trucker Relationship Specialty Start Date End Date Nwokorie, Radha, MD [address] [place] [address] DR TREVI[address]O [address] [place] [address] PCP - General Family Medicine 05/08/23
--- OUTSIDE RECORDS SUMMARY | 2024-10-15 13:51 | XMS_ITS | Encounter Summary ---
Author Organization [facility] Address [address] [facility] [place] [address] Care Team Providers Care Theatrical Scenic Designer Name Role Phone Tonydiana Radha Primary Care Provider [phone] Reason for Visit * Reason Onset Date Comments MEDICATION REFILL 08/10/2024 Encounter Details Date Type Department Care Team (Late Contact Info) Description 08/10/2024 Refill [facility]ology [address] [place] [address], [place] [address] Sue Pa MD [address] [place] [address] [place] [address] MEDICATION REFILL Social History Tobacco [...] AM CDT Legal Sex Female 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 Gender Identity Female 11/17/2022 10:38 AM CDT Sexual Orientation Not on file documented as of this encounter Plan of Treatment Upcoming Encounters Date Type Department Care Team (Late Contact Info) Description 10/31/2024 9:00 AM CDT Appointment [facility] [address] [place] [address] Sue Pa MD [address] [place] [address] 2L [place] [address] 11/14/2024 1:00 PM CDT Office Visit [facility] [address] [place] [address], [place] [address] Sue Pa MD [address] [place] [address] 2L [place] [address] documented as of this encounter Visit Diagnoses Diagnosis Rheumatoid arthritis involving multiple sites, unspecified whether rheumatoid factor present (HCC) documented in this encounter Care Teams Theatrical Scenic Designer Relationship Specialty Start Date End Date Radha Muhammad [address] [facility] [place] [address] PCP - General 01/11/24 documented as of this encounter
--- OUTSIDE RECORDS SUMMARY | 2024-10-15 13:51 | XMS_ITS | Encounter Summary ---
Author Organization [facility] Address [address] [place] [address] Care Team Providers Care Automotive Service Manager Name Role Phone Tonydiana Radha Primary Care Provider [phone] Reason for Visit * Reason Onset Date Comments MEDICATION REFILL 08/14/2024 Encounter Details Date Type Department Care Team (Late Contact Info) Description 08/14/2024 Refill [facility] [address] [place] [address], [place] [address] Sue Pa MD [address] [place] [address] [place] [address] MEDICATION REFILL Social History Tobacco [...] AM CDT Legal Sex Female 6:30 AM THERAPY TECH Gender Identity Female 11/17/2022 10:38 AM CDT Sexual Orientation Not on file documented as of this encounter Plan of Treatment Upcoming Encounters Date Type Department Care Team (Late Contact Info) Description 10/31/2024 9:00 AM CDT Appointment [facility] [address] [place] [address] Sue Pa MD [address] [place] [address] 2L [place] [address] 11/14/2024 1:00 PM CDT Office Visit [facility] [address] [place] [address], [place] [address] Sue Pa MD [address] [place] [address] 2L [place] [address] documented as of this encounter Visit Diagnoses Not on filedocumented in this encounter Care Teams Automotive Service Manager Relationship Specialty Start Date End Date Radha Muhammad [address] [place] [address] [place] [address] PCP - General 01/11/24 documented as of this encounter
--- OUTSIDE RECORDS SUMMARY | 2024-10-15 13:52 | XMS_ITS | Encounter Summary ---
Author Organization [facility] Address [address] [facility] [place] [address] Care Team Providers Care Snow Maker Name Role Phone Giovanni Mendoza MD Primary Care Provider [phone] Radha Muhammad Primary Care Provider [phone] Reason for Visit * Reason Onset Date Comments MEDICATION REFILL 10/12/2022 Encounter Details Date Type Department Care Team (Late st Contact Info) Description 10/12/2022 Refill [facility] [address] [place] [address], [place] [address] Sue Pa MD [address] [place] [address] [place] [address] MEDICATION REFILL Social History Tobacco Use Types Packs/Day Years Used Date Smoking Tobacco: Former Cigarettes Q uit: 2010 Smokeless Tobacco: Never Alcohol Use Standard Drinks/Week Comments No 0 (1 standard drink = 0.6 oz pur e alcohol) PHQ-2 Answer Date Recorded PHQ2 TOTAL SCORE 0 10/01/2021 Comments No Sex and Gender Information Value Date Recorded Sex Assigned at Female 11/17/2022 10:38 AM CDT Legal Sex Female 6:30 AM KNOCKER OFF Gender Identity Female 11/17/2022 10:38 AM CDT Sexual Orientation Not on file documented as of this encounter Miscellaneous Notes * Telephone Encounter - Stephani Spivey LPN - 10/12/2022 10:04 AM CDT Refill Request September [facility] [place] [facility]: 10/01 due: NOV scheduled: [...] Care Team (Late st Contact Info) Description 10/31/2024 9:00 AM CDT Appointment [facility] [address] [place] [address] Sue Pa MD [address] [place] [address] [place] [address] 11/14/2024 1:00 PM CDT Office Visit [facility] - Rheumatology [address] [place] [address], [place] [address] Sue Pa MD [address] [place] [address] [place] [address] documented as of this encounter Visit Diagnoses Diagnosis Rheumatoid arthritis involving multiple sites, unspecified whether rheumatoid factor present (HCC) documented in this encounter Care Teams Snow Maker Relationship Specialty Start Date End Date Giovanni Mendoza MD [address] [place] [address] [address] [place] [address] PCP - General 08/30/20 01/10/24 Radha Muhammad 4 [facility] [address] [place] [address] PCP - General 01/11/24 documented as of this encounter
--- OUTSIDE RECORDS SUMMARY | 2024-10-15 13:52 | XMS_ITS | Encounter Summary ---
Author Organization [facility] Address [address] [facility] [place] [address] Care Team Providers Care Daycare Manager Name Role Phone Giovanni Mendoza MD Primary Care Provider [phone] Radha Muhammad Primary Care Provider [phone] Reason for Visit * Reason Onset Date Comments MEDICATION REFILL 07/31/2022 Encounter Details Date Type Department Care Team (Late st Contact Info) Description 07/31/2022 Refill [facility] [address] [place] [address], [facility] [place] [address] Sue Pa MD [address] [place] [address] [place] [address] MEDICATION REFILL Social History Tobacco [...] AM CDT 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 Gender Identity Female 11/17/2022 10:38 AM CDT Sexual Orientation Not on file documented as of this encounter Plan of Treatment Upcoming Encounters Date Type Department Care Team (Late st Contact Info) Description 10/31/2024 9:00 AM CDT Appointment [facility] [address] [place] [address] Sue Pa MD [address] [facility] 2L [place] [address] 11/14/2024 1:00 PM CDT Office Visit [facility] - [facility]5 [facility], [place] [address] Sue Pa MD [address] [facility] 2L [place] [address] documented as of this encounter Visit Diagnoses Diagnosis Rheumatoid arthritis involving multiple sites, unspecified whether rheumatoid factor present (HCC) documented in this encounter Care Teams Daycare Manager Relationship Specialty Start Date End Date Giovanni Mendoza MD [address] [place] [phone] PCP - General 08/30/20 01/10/24 Radha Muhammad 4 [facility] 210 [place] [address] PCP - General 01/11/24 documented as of this encounter
--- OUTSIDE RECORDS SUMMARY | 2024-10-15 13:52 | XMS_ITS | Encounter Summary ---
Author Organization [facility] Address [address] [facility] [place] [address] Care Team Providers Care Ornamental Rail Installer Name Role Phone Giovanni Mendoza MD Primary Care Provider [phone] Radha Muhammad Primary Care Provider [phone] Reason for Visit * Reason Onset Date Comments MEDICATION REFILL 07/30/2022 Encounter Details Date Type Department Care Team (Late st Contact Info) Description 07/30/2022 Refill [facility] [address] [place] [address], [facility] [place] [address] Sue Pa MD [address] [place] [address] [place] [address] MEDICATION REFILL Social History Tobacco [...] AM CDT Legal Sex Female 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 Gender Identity Female 11/17/2022 10:38 AM CDT Sexual Orientation Not on file documented as of this encounter Plan of Treatment Upcoming Encounters Date Type Department Care Team (Late st Contact Info) Description 10/31/2024 9:00 AM CDT Appointment [facility] [address] [place] [address] Sue Pa MD [address] [facility] 2L [place] [address] 11/14/2024 1:00 PM CDT Office Visit [facility] - Rheumatology [facility]5 [facility], [place] [address] Sue Pa MD [address] [facility] 2L [place] [phone] documented as of this encounter Visit Diagnoses Diagnosis Rheumatoid arthritis involving multiple sites, unspecified whether rheumatoid factor present (HCC) documented in this encounter Care Teams Ornamental Rail Installer Relationship Specialty Start Date End Date Giovanni Mendoza MD [address] [place] [phone] PCP - General 08/30/20 01/10/24 Radha Muhammad 4 [facility] 210 [place] [phone] PCP - General 01/11/24 documented as of this encounter
--- OUTSIDE RECORDS SUMMARY | 2024-10-15 13:52 | XMS_ITS | Encounter Summary ---
Author Organization [facility] Address [address] [facility] [place] [address] Care Team Providers Care Bacteriology Teacher Name Role Phone Giovanni Mendoza MD Primary Care Provider [phone] Radha Muhammad Primary Care Provider [phone] Reason for Visit * Reason Onset Date Comments MEDICATION REFILL 10/14/2022 Encounter Details Date Type Department Care Team (Late st Contact Info) Description 10/14/2022 Refill [facility] [address] [place] [address], [facility] [place] [address] Sue Pa MD [address] [place] [address] [place] [address] MEDICATION REFILL Social History Tobacco [...] AM CDT Legal Sex Female 6: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 Gender Identity Female 11/17/2022 10:38 AM CDT Sexual Orientation Not on file documented as of this encounter Plan of Treatment Upcoming Encounters Date Type Department Care Team (Late st Contact Info) Description 10/31/2024 9:00 AM CDT Appointment [facility] [address] [place] [address] Sue Pa MD [address] [facility] 2L [place] [address] 11/14/2024 1:00 PM CDT Office Visit [facility] - Rheumatology [facility]5 [facility], [place] [address] Sue Pa MD [address] [facility] 2L [place] [address] documented as of this encounter Visit Diagnoses Diagnosis Rheumatoid arthritis involving multiple sites, unspecified whether rheumatoid factor present (HCC) documented in this encounter Care Teams Bacteriology Teacher Relationship Specialty Start Date End Date Giovanni Mendoza MD [address] [place] [phone] PCP - General 08/30/20 01/10/24 Radha Muhammad 4 [facility] 210 [place] [phone] PCP - General 01/11/24 documented as of this encounter
--- OUTSIDE RECORDS SUMMARY | 2024-10-15 13:52 | XMS_ITS | Encounter Summary ---
Author Organization [facility] Address [address] [facility] [address] Care Team Providers Care Stepdown Nurse Name Role Phone Giovanni Mendoza MD Primary Care Provider [phone] Radha Muhammad Primary Care Provider [phone] Reason for Visit * Reason Onset Date Comments MEDICATION REFILL 10/16/2022 Encounter Details Date Type Department Care Team (Late st Contact Info) Description 10/16/2022 Refill [facility] [address] [place] [address], [place] [address] Sue Pa MD [address] [place] [address] [place] [address] MEDICATION REFILL Social History Tobacco [...] AM CDT Legal 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 [address] [place] [address] Sue Pa MD [address] [place] [address] 2L [place] [address] 11/14/2024 1:00 PM CDT Office Visit [facility] - Rheumatology [address] [place] [address], [place] [address] Sue Pa MD [address] [place] [address] 2L [place] [address] documented as of this encounter Visit Diagnoses Diagnosis Rheumatoid arthritis involving multiple sites, unspecified whether rheumatoid factor present (HCC) documented in this encounter Care Teams Stepdown Nurse Relationship Specialty Start Date End Date Giovanni Mendoza MD [address] [facility] 202 [place] [phone] PCP - General 08/30/20 01/10/24 Radha Muhammad 4 [facility] 210 [place] [phone] PCP - General 01/11/24 documented as of this encounter
--- OUTSIDE RECORDS SUMMARY | 2024-10-15 13:52 | XMS_ITS | Referral Summary ---
Author Organization [facility] Address [address] [place] [address] Care Team Providers Care Video Poker Floorman Name Role Phone Radha Maldonado MD Primary Care Provider [phone] Encounters Date Type Department Care Team Description 07/19/2024 Telephone [facility] [address] [place] [address] Niyah Tolentino LPN from Last 3 Months Allergies Active Allergy [...] Tramadol Shortness of breath,Flushing (skin) High Medications HYDROcodone-acetami nophen (NORCO) 5-325 mg per tabletIndications:P ain TK 1 T PO Q 6 H PRN P [address] (NexIUM) 20 mg capsule Take 20 mg by mouth. Active folic acid (FOLVITE) 1 mg tablet TK 1 T PO QD 5 8 Active leflunomide (ARAVA) 20 mg tabletIndications:R heumatoid Arthritis TK 1 T PO QD 4 04/24/20 1 8 Active meloxicam (MOBIC) 15 mg tablet TK 1 T PO QD 5 8 Active topiramate (TOPAMAX) 25 mg tablet TK 1 T PO D 3 8 Active predniSONE (DELTASONE) 5 mg tablet TK 1 T PO QD 1 9 Active sulfaSALAzine (AZULFIDINE) 500 mg tablet 9 Active HYDROcodone-acetami nophen (NORCO) 10-325 mg per tablet TAKE 1 [...] by mouth daily 30 tablet 11 5 07/13/19 26 Active Active Problems Problem Noted Date Diagnosed Date Encounter for long-term (cur rent) use of high-risk medication 10/25/2017 Encounter for therapeutic drug monitoring 2017 Rheumatoid arthritis involving multiple sites Current smoker 11/04/2013 Overview (09/23/2016): Smoker 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 Migraine headache 03/31/2012 Overview (09/23/2016): Headache Immunizations Immunization Administration Dates Next Due DT 10/06/1988, 7,04/17/1985,01/31/1985,0 [...] on file Legal Sex Female 11:29 PM RN LABOR DELIVERY Gender Identity Not on file Sexual Orientation Not on file Last Filed Vital Signs Vital Sign Reading Time Taken Comments Blood Pressure 122/72 07/13/2024 10:02 AM RN LABOR DELIVERY Pulse 102 08/27/2023 1:16 PM RN LABOR DELIVERY Temperature 37.5 C (99.5 F) 08/27/2023 11:17 AM RN LABOR DELIVERY Respiratory Rate 18 08/27/2023 1:16 PM RN LABOR DELIVERY Oxygen Saturation 98% 08/27/2023 1:16 PM RN LABOR DELIVERY Inhaled Oxygen Concentration - - Weight 61.7 kg (136 lb) 07/13/2024 10:02 AM RN LABOR DELIVERY Height 171.5 cm (5' 7.5 ) 07/13/2024 10:02 AM CS T Body Mass Index 20.99 07/13/2024 10:02 AM RN LABOR DELIVERY Plan of Treatment Not on file Insurance [facility] Care Teams Video Poker Floorman Relationship Specialty Start Date End Date Radha Maldonado MD PCP - General Family Medicine 08/27/23
--- OUTSIDE RECORDS SUMMARY | 2024-10-15 13:52 | XMS_ITS | Encounter Summary ---
Author Organization [facility] Address [address] [facility] [place] [address] Care Team Providers Care Wire Stitcher Operator Name Role Phone Giovanni Mendoza MD Primary Care Provider [phone] Radha Muhammad Primary Care Provider [phone] Reason for Visit * Reason Onset Date Comments Change In Condition/behavior 02/13/2021 Encounter Details Date Type Department Care Team (Late st Contact Info) Description 02/13/2021 Telephone [facility] [address] [place] [address] Najma Torres MD [address] [place], [place] [id number] Change In Condition/behavior Social History Tobacco Use Types Packs/Day Years Used Date Smoking Tobacco: Former Cigarettes Q uit: 2010 Smokeless Tobacco: Never Alcohol Use Standard Drinks/Week Comments No 0 (1 standard drink = 0.6 oz pur e alcohol) Comments No Sex and Gender Information Value Date Recorded Sex Assigned at Female 11/17/2022 10:38 AM CDT 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 Insurance will not pay for Zofran until Feb.19. However pharmacy suggested /prescribe the non-dissolvable pills instead. The pharmacy said insurance will possible cover those. Please send to [facility] on her file Thank you Any questions please patient Secondly, patient has anxiety about seeing on 05/06. She wants to stay with . However the first available is . Any [...] or CAN appointment with Dr Deleon and [facility] with Dr Tabor, however this appointment would not be until July. Message left to contact the office by phone or by [employer]. * Telephone Encounter - Stephani Spivey LPN - 02/13/2021 4:01 PM CDT Patient anxious about switching doctors (to [facility]), NOV 05/06/21 documented in this encounter Plan of Treatment Upcoming Encounters Date Type Department Care Team (Late st Contact Info) Description 10/31/2024 9:00 AM CDT Appointment [facility] [address] [place] [address] Sue Pa MD [address] [place] [address] [place] [address] 11/14/2024 1:00 PM CDT Office Visit [facility] - Rheumatology [address] [place] [address], [place] [address] Sue Pa MD [facility]5 [facility] 2L [place] [address] documented as of this encounter Visit Diagnoses Not on filedocumented in this encounter Care Teams Wire Stitcher Operator Relationship Specialty Start Date End Date Giovanni Mendoza MD [address] [address] PCP - General 08/30/20 01/10/24 Radha Muhammad [address] [place] [address] 210 [place] [phone] PCP - General 01/11/24 documented as of this encounter
--- OUTSIDE RECORDS SUMMARY | 2024-10-15 13:52 | XMS_ITS | Encounter Summary ---
Author Organization [facility] Address [address] [facility] [facility] [place] [address] Care Team Providers Care Franchise Manager Name Role Phone Giovanni Mendoza MD Primary Care Provider [phone] Radha Muhammad Primary Care Provider [phone] Reason for Visit * Reason Onset Date Comments MEDICATION REFILL 05/27/2021 Encounter Details Date Type Department Care Team (Late st Contact Info) Description 05/27/2021 Refill [facility] - Rheumatology [address] 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 ASSISTANT * Telephone Encounter - Camryn Romero - 05/27/2021 3:53 PM CST Refill Request Jalyn [place] MANI: 10.30.20 NOV due: none found APR scheduled: Visit date not found LRF: 02.06.21 [...] 1 (one) tablet by mouth once daily ASSISTANT documented in this encounter Plan of Treatment Upcoming Encounters Date Type Department Care Team (Late st Contact Info) Description 10/31/2024 9:00 AM CDT Appointment [facility] [address] [place] [id number] Sue Pa MD [address] [place] [address] [address] [place] [address] 11/14/2024 1:00 PM CDT Office Visit [facility] - Rheumatology [address] [place] [address], [place] [address] Sue Pa MD [address] [place] [address] [address] [place] [address] documented as of this encounter Visit Diagnoses Diagnosis Nausea without vomiting Rheumatoid arthritis involving multiple sites, unspecified whether rheumatoid factor present (HCC) documented in this encounter Care Teams Franchise Manager Relationship Specialty Start Date End Date Giovanni Mendoza MD [address] [place] [address] [address] [place] [id number] PCP - General 08/30/20 01/10/24 Radha Muhammad [address] [facility] [address] [place] [address] PCP - General 01/11/24 documented as of this encounter
--- OUTSIDE RECORDS SUMMARY | 2024-10-15 13:52 | XMS_ITS | Data Portability ---
Author Organization [facility] Zaheer [facility] Address [address] [place] [address] Care Team Providers Care Medical Office Representative Name Role Phone MAXIMINONAZARIO ANISHA Primary Care Provider Assessment No assessment recorded. Plan of Treatment Reminders Order Date Submit Date Provider Last Modified By Organization Details Last Modified Time Details Appointments None recorded. Lab CBC w/ auto diff 2023 024 [place] [facility], [address], [address], [place], [address], 4 06:17:21 inflammat ion panel, serum or plasma 2023 024 [place] [facility], [address], [address], [place], [address], 4 08:19:13 Referral None recorded. Procedures None recorded. Surgeries None recorded. Imaging None recorded. Medication Orders albuterol sulfate HFA 90 mcg/actua tion aerosol inhaler 2023 024 [facility] #[id number], [address], [place], [place], [id number], 4 17:07:47 prednison e 20 mg tablet 2023 024 [id number], [address], [place], [place], [id number], 4 17:08:45 albuterol sulfate HFA 90 mcg/actua tion aerosol inhaler 2023 024 [id number], [address] [facility], [place], [place], [id number], 09:36:38 ketorolac 30 mg/mL injection solution 2023 024 [email or web address] Not available 09:18:21 prednison e 20 mg tablet 2023 024 [email or web address] #[id number], [address] [facility], [place], [place], [id number], 17:08:37 Patient TargetsNo targets recorded. Patient Instructions Encounter Date Encounter Id Patient Instructions Last Modified By Organization Details Last Modified Time 01/20/2022 [id number] Attending Physician Addendum I personally saw and examined the patient with the resident. I have reviewed the documentation and agree with the history, physical findings, work-up, and medical decision making as recorded. MD elliott Yañez Not available 01/21/2022 15:19:47 07/06/2023 [id number] Attending Physician Attestation I personally saw and examined the patient with the resident. I have reviewed the documentation and agree with the history, physical findings, work-up, and medical decision making as recorded. Tanya Cast MD [email or web address] Not available 07/06/2023 16:06:33 09/03/2023 [id number] On the date of this encounter, I was immediately available to assist the resident/fellow in the care of the patient, and have reviewed and agree with the resident s findings and plan of care. ~MD Mata [email or web address] Not available 09/03/2023 09:40:20 11/30/2023 [id number] learning about mood disorders [email or web address] Not available 11/30/2023 15:39:15 Attending Physician Attestation [...] Abnormal Flag Note LastModifiedBy Organization Detail LastModifiedTime 07/06/1907/06/2023 CBC WITH DIFFE RENTI AL/PL ATELE T WBC 7.2 x10e3 /uL 3.4-10 .8 Not Available [facility] [address] [place], [address], 07/07/2023 06:17:21 07/06/19 24 07/06/2023 CBC WITH DIFFE RENTI AL/PL ATELE T RBC 4.31 x10e6 /uL 3.77-5 .28 Not Available [facility] [address] [place], [address], 07/07/2023 06:17:21 07/06/19 24 07/06/2023 CBC WITH DIFFE RENTI AL/PL ATELE T hemoglobin 12.8 g/dL 11.1-1 5.9 Not Available [facility] [address] [place], [address], 07/07/2023 06:17:21 07/06/1907/06/2023 CBC WITH DIFFE RENTI AL/PL ATELE T hematocrit 40.3 % 34.0-4 6.6 Not Available [facility] [address] [place], [address], 07/07/2023 06:17:21 07/06/1907/06/2023 CBC WITH DIFFE RENTI AL/PL ATELE T MCV 94 fL 79-97 Not Available [facility] [address] [place], [address], 07/07/2023 06:17:21 07/06/1907/06/2023 CBC WITH DIFFE RENTI AL/PL ATELE T MCH 29.7 pg 26.6-3 3.0 Not Available [facility] [address] [place], [address], 07/07/2023 06:17:21 07/06/19 24 07/06/2023 CBC WITH DIFFE RENTI AL/PL ATELE T MCHC 31.8 g/dL 31.5-3 5.7 Not Available [facility] [address] [place], [address], 07/07/2023 06:17:21 07/06/19 24 07/06/2023 CBC WITH DIFFE RENTI AL/PL ATELE T RDW 12.2 % 11.5-1 4.5 Not Available [facility] [address] [place], [address], 07/07/2023 06:17:21 07/06/19 24 07/06/2023 CBC WITH DIFFE RENTI AL/PL ATELE T platelets 310 x10e3 /uL 150-45 0 Not Available [facility] [address] [place], [address], 07/07/2023 06:17:21 07/06/19 24 07/06/2023 CBC WITH DIFFE RENTI AL/PL ATELE T neutrophils 54 % notest b. Not Available [facility] [address] [place] [address], [address], 07/07/2023 06:17:21 07/06/19 24 07/06/2023 CBC WITH DIFFE RENTI AL/PL ATELE T lymphs 35 % notest b. Not Available [facility] [address] [place], [address], 07/07/2023 06:17:21 07/06/19 24 07/06/2023 CBC WITH DIFFE RENTI AL/PL ATELE T monocytes 6 % notest b. Not Available [facility] [address] [place], [address], 07/07/2023 06:17:21 07/06/19 24 07/06/2023 CBC WITH DIFFE RENTI AL/PL ATELE T eos 4 % notest b. Not Available [facility] [address] [place], [address], 07/07/2023 06:17:21 07/06/19 24 07/06/2023 CBC WITH DIFFE RENTI AL/PL ATELE T basos 1 % notest b. Not Available [facility] [address] [place], [address], 07/07/2023 06:17:21 07/06/19 24 07/06/2023 CBC WITH DIFFE RENTI AL/PL ATELE T neutrophils (absolute) 3.9 x10e3 /uL 1.4-7. 0 Not Available [facility] [address] [place], [address], 07/07/2023 06:17:21 07/06/19 24 07/06/2023 CBC WITH DIFFE RENTI AL/PL ATELE T lymphs (absolute) 2.5 x10e3 /uL 0.7-3. 1 Not Available [facility] [address] [place], [address], 07/07/2023 06:17:21 07/06/19 24 07/06/2023 CBC WITH DIFFE RENTI AL/PL ATELE T monocytes(ab solute) 0.4 x10e3 /uL 0.1-0. 9 Not Available [facility] [address] [place], [address], 07/07/2023 06:17:21 07/06/19 24 07/06/2023 CBC WITH DIFFE RENTI AL/PL ATELE T eos (absolute) 0.3 x10e3 /uL 0.0-0. 4 Not Available [facility] [address] [place], [address], 07/07/2023 06:17:21 07/06/19 24 07/06/2023 CBC WITH DIFFE RENTI AL/PL ATELE T baso (absolute) 0.1 x10e3 /uL 0.0-0. 2 Not Available [facility] [address] [place], [address], 07/07/2023 06:17:21 07/06/19 24 07/06/2023 CBC WITH DIFFE RENTI AL/PL ATELE T immature granulocytes 0.1 % notest b. Not Available [facility] [address] [place], [address], 07/07/2023 06:17:21 07/06/19 24 07/06/2023 CBC WITH DIFFE RENTI AL/PL ATELE T immature grans (abs) 0.0 x10e3 /uL 0.0-0. 1 Not Available [facility] [address] [place], [address], 07/07/2023 06:17:21 07/06/19 24 07/06/2023 CBC WITH DIFFE RENTI AL/PL ATELE T NRBC 0 % 0-0 Not Available [facility] [address] [place], [address], 07/07/2023 06:17:21 07/06/19 24 07/07/2023 ESR-W ES+CR P sedimentatio n rate-westerg morelia 21 mm/HR 0-32 Not Available [facility] ([facility]) [address] [place], [address], 07/07/2023 08:19:12 07/06/19 24 07/07/2023 ESR-W ES+CR P C-reactive protein, quant 4 mg/L 0-10 Not Available [facility] ([facility]) [address] [place], [address], 07/07/2023 08:19:12 09/15/19 24 09/15/2023 Urina lysis panel - Urine by Auto color UA Straw text: straw, yellow Color UA Straw Straw , Yello w 09/14 10:15 AM CDT [facility] Not Available Not Available 09/07/2024 16:28:55 09/15/19 24 09/15/2023 Urina lysis panel - Urine by Auto clarity UA Clear text: clear Rachel ty UA Clear Clear 09/14 10:15 AM CDT [facility] Not Available Not Available 09/07/2024 16:28:55 09/15/19 24 09/15/2023 [place]ina lysis panel - Urine by Auto specific gravity UA 1.003 low: 1.005h igh: 1.03 low Speci fic Gravi ty UA 1.003 (L) 1.005 - 1.030 09/14 10:15 AM CDT [facility] Not Available Not Available 09/07/2024 16:28:55 09/15/19 24 09/15/2023 Urina lysis panel - Urine by Auto pH UA 7 pH low: 5pHhig h: 8pH pH UA 7.0 5.0 - 8.0 pH 09/14 10:15 AM CDT [facility] Not Available Not Available 09/07/2024 16:28:55 09/15/19 24 09/15/2023 Urina lysis panel - Urine by Auto protein UA Negati ve text: negati ve Prote in UA Negat jelani Negat jelani 09/14 10:15 AM CDT [facility] Not Available Not Available 09/07/2024 16:28:55 09/15/19 24 09/15/2023 [place]ina lysis panel - Urine by Auto glucose UA Negati ve text: negati ve Gluco se UA Negat jelani Negat jelani 09/14 10:15 AM CDT [facility] Not Available Not Available 09/07/2024 16:28:55 09/15/19 24 09/15/2023 Urina lysis panel - Urine by Auto ketone UA Negati ve text: negati ve Keton e UA Negat jelani Negat jelani 09/14 10:15 AM CDT [facility] Not Available Not Available 09/07/2024 16:28:55 09/15/19 24 09/15/2023 Urina lysis panel - Urine by Auto bilirubin UA Negati ve text: negati ve Bilir ubin UA Negat jelani Negat jelani 09/14 10:15 AM CDT [facility] Not Available Not Available 09/07/2024 16:28:55 09/15/19 24 09/15/2023 Urina lysis panel - Urine by Auto blood UA Negati ve text: negati ve Blood UA Negat jelani Negat jelani 09/14 10:15 AM CDT [facility] Not Available Not Available 09/07/2024 16:28:55 09/15/19 24 09/15/2023 Urina lysis panel - Urine by Auto nitrite UA Negati ve text: negati ve Nitri te UA Negat jelani Negat jelani 09/14 10:15 AM CDT [facility] Not Available Not Available 09/07/2024 16:28:55 09/15/19 24 09/15/2023 Urina lysis panel - Urine by Auto leukocyte esterase Negati ve text: negati ve Leuko cyte Silvina ase Negat jelani Negat jelani 09/14 10:15 AM CDT [facility] Not Available Not Available 09/07/2024 16:28:55 09/15/19 24 09/15/2023 Urina lysis panel - Urine by Auto urobilinogen UA Negati ve text: negati ve mg/dL Urobi linog en UA Negat jelani Negat jelani mg/dL 09/14 10:15 AM CDT [facility] Not Available Not Available 09/07/2024 16:28:55 09/15/19 24 09/15/2023 Urina lysis panel - Urine by Auto RBC UA 0-2 text: none seen, 0-2, 3-5 /hpf RBC UA 0-2 None Seen, 0-2, 3-5 /HPF 09/14 10:15 AM CDT [facility] Not Available Not Available 09/07/2024 16:28:55 09/15/19 24 09/15/2023 Urina lysis panel - Urine by Auto WBC UA 0-5 text: none seen, 0-5 /hpf WBC UA 0-5 None Seen, 0-5 /HPF 09/14 10:15 AM CDT [facility] Not Available Not Available 09/07/2024 16:28:55 09/15/19 24 09/15/2023 Urina lysis panel - Urine by Auto squamous epithelial cells UA 0-2 text: none seen, 0-2, 3-5 /hpf Squam ous Epith elial Cells UA 0-2 None Seen, 0-2, 3-5 /HPF 09/14 10:15 AM CDT [facility] Not Available Not Available 09/07/2024 16:28:55 09/15/19 24 09/15/2023 Urina lysis panel - Urine by Auto Unknown Analyte Cultur e Not Indica tae Cultu re Not Indic ated Not Available Not Available 09/07/2024 16:28:55 09/15/19 24 09/15/2023 Urina lysis panel - Urine by Auto interpretati on and review of laboratory results Abnorm al Not Available Not Available 16:28:55 09/15/19 24 09/15/2023 Eryth rocyt e sedim entat ion rate by Weste rgren metho d erythrocyte sedimentatio n rate by westergren method 75 text: 0 - 20 mm/HR high Eryth rocyt e Sedim entat ion Rate Westpedro branchren 75 (H) 0 - 20 MM/HR 09/14 9:04 AM [facility] Not Available Not Available 09/07/2024 16:28:55 09/15/19 24 09/15/2023 Eryth rocyt e sedim entat ion rate by Weste rgren metho d interpretati on and review of laboratory results Abnorm al Not Available Not Available 16:28:55 09/15/19 24 09/15/2023 C react jelani prote in [Mass /volu me] in Serum or Plasm a C reactive protein [mass/volume ] in serum or plasma 2.7 mg/dL high: 0.5mg/ dL high C-[place] ctive Prote in 2.7 (H) <=0.5 mg/dL 09/14 8:52 AM CDT [facility] [place] Not Available Not Available 09/07/2024 16:28:55 09/15/19 24 09/15/2023 C react jelani prote in [Mass /volu me] in Serum or Plasm a interpretati on and review of laboratory results Abnorm al Not Available Not Available 16:28:55 09/15/19 24 09/15/2023 Compr ehens jelani metab olic 1999 panel - Serum or Plasm a urea nitrogen [mass/volume ] in serum or plasma 9 mg/dL low: 7mg/dL high: 26mg/d L BUN 9 7 - 26 mg/dL 09/14 8:52 AM CDT [facility] Not Available Not Available 09/07/2024 16:28:55 09/15/19 24 09/15/2023 Compr ehens jelani metab olic 1999 panel - Serum or Plasm a creatinine [mass/volume ] in serum or plasma 0.76 mg/dL low: 0.56mg /dLhig h: 0.96mg /dL Creat inine 0.76 0.56 - 0.96 mg/dL 09/14 8:52 AM CDT [facility] [place] Not Available Not Available 09/07/2024 16:28:55 09/15/19 24 09/15/2023 Compr ehens jelani metab olic 1999 panel - Serum or Plasm a sodium [moles/volum e] in serum or plasma 140 mmol/ L low: 136mmo l/Lhig h: 145mmo l/L Sodiu m 140 136 - 145 mmol/ L 09/14 8:52 AM CDT [facility] Not Available Not Available 09/07/2024 16:28:55 09/15/19 24 09/15/2023 Compr ehens jelani metab olic 1999 panel - Serum or Plasm a potassium [moles/volum e] in serum or plasma 3.9 mmol/ L low: 3.5mmo l/Lhig h: 4.5mmo l/L Potas sium 3.9 3.5 - 4.5 mmol/ L 09/14 8:52 AM CDT [facility] Not Available Not Available 09/07/2024 16:28:55 09/15/19 24 09/15/2023 Compr ehens jelani metab olic 1999 panel - Serum or Plasm a chloride [moles/volum e] in serum or plasma 103 mmol/ L low: 98mmol /Lhigh : 107mmo l/L Chlor perez 103 98 - 107 mmol/ L 09/14 8:52 AM [facility] Not Available Not Available 09/07/2024 16:28:55 09/15/19 24 09/15/2023 Compr ehens jelani metab olic 1999 panel - Serum or Plasm a carbon dioxide, total [moles/volum e] in serum or plasma 25 mmol/ L low: 22mmol /Lhigh : 29mmol /L CO2 25 22 - 29 mmol/ L 09/14 8:52 AM [facility] Not Available Not Available 09/07/2024 16:28:55 09/15/19 24 09/15/2023 Compr ehens jelani metab olic 1999 panel - Serum or Plasm a glucose [mass/volume ] in serum or plasma 120 mg/dL low: 70mg/d Lhigh: 115mg/ dL high Gluco se 120 (H) 70 - 115 mg/dL 09/14 8:52 AM [facility] Not Available Not Available 09/07/2024 16:28:55 09/15/19 24 09/15/2023 Compr ehens jelani metab olic 1999 panel - Serum or Plasm a calcium [moles/volum e] in serum or plasma 10.2 mg/dL low: 8.4mg/ dLhigh : 10.2mg /dL Calci um 10.2 8.4 - 10.2 mg/dL 09/14 8:52 AM [facility] Not Available Not Available 09/07/2024 16:28:55 09/15/19 24 09/15/2023 Compr ehens jelani metab olic 2000 panel - Serum or Plasm a protein [mass/volume ] in serum or plasma 7.8 g/dL low: 6g/dLh igh: 8.3g/d L Prote in Total 7.8 6.0 - 8.3 g/dL 09/14 8:52 AM CDT [facility] [place] Not Available Not Available 09/07/2024 16:28:55 09/15/19 24 09/15/2023 Compr ens jelani metab olic 1999 panel - Serum or Plasm a albumin [mass/volume ] in serum or plasma by bromocresol green (bcg) dye binding method 3.8 g/dL low: 3.4g/d Lhigh: 5g/dL Album in 3.8 3.4 - 5.0 g/dL 09/14 8:52 AM CDT [facility] Not Available Not Available 09/07/2024 16:28:55 09/15/19 24 09/15/2023 Compr [employer] jelani metab olic 2000 panel - Serum or Plasm a bilirubin.to kaelyn [mass/volume ] in serum or plasma 0.3 mg/dL low: 0.2mg/ dLhigh : 1.2mg/ dL Bilir ubin Total 0.3 0.2 - 1.2 mg/dL 09/14 8:52 AM CDT [facility] [place] Not Available Not Available 09/07/2024 16:28:55 09/15/19 24 09/15/2023 Compr ens jelani metab olic 2000 panel - Serum or Plasm a alkaline phosphatase [enzymatic activity/vol ume] in serum or plasma 108 U/L low: 40U/Lh igh: 150U/L Alkal ine Phosp hatas e 108 40 - 150 U/L 09/14 8:52 AM CDT [facility] Not Available Not Available 09/07/2024 16:28:55 09/15/19 24 09/15/2023 Compr ehens jelani metab olic 2000 panel - Serum or Plasm a alanine aminotransfe rase [enzymatic activity/vol ume] in serum or plasma by no addition of P-5'-P 28 U/L low: 5U/Lhi gh: 55U/L ALT 28 5 - 55 U/L 09/14 8:52 AM CDT [facility] Not Available Not Available 09/07/2024 16:28:55 09/15/19 24 09/15/2023 Compr ehens jelani metab olic 1999 panel - Serum or Plasm a aspartate aminotransfe rase [enzymatic activity/vol ume] in serum or plasma 41 U/L low: 5U/Lhi gh: 34U/L high AST 41 (H) 5 - 34 U/L 09/14 8:52 AM CDT [facility] Not Available Not Available 09/07/2024 16:28:55 09/15/19 24 09/15/2023 Compr ehens jelani metab olic 1999 panel - Serum or Plasm a anion gap 12 low: 6high: 16 Anion Gap 12 6 - 16 09/14 8:52 AM CDT [facility] Not Available Not Available 09/07/2024 16:28:55 09/15/19 24 09/15/2023 Compr ehens jelani metab olic 1999 panel - Serum or Plasm a urea nitrogen/cre atinine [mass ratio] in serum or plasma 12 low: 7high: 23 BUN/C reati nine Ratio 12 7 - 23 09/14 8:52 AM CDT [facility] Not Available Not Available 09/07/2024 16:28:55 09/15/19 24 09/15/2023 Compr ehens jelani metab olic 1999 panel - Serum or Plasm a osmolality calculated 290 text: 275 - 295 mOsm/k g Osmol ality Calcu lated 290 275 - 295 mOsm/ kg 09/14 8:52 AM CDT [facility] Not Available Not Available 09/07/2024 16:28:55 09/15/19 24 09/15/2023 Compr ehens jelani metab olic 1999 panel - Serum or Plasm a albumin/glob ulin ratio 1 low: 1.1hig h: 2.3 low Album in/Gl obuli n Ratio 1.0 (L) 1.1 - 2.3 09/14 8:52 AM CDT [facility] Not Available Not Available 09/07/2024 16:28:55 09/15/19 24 09/15/2023 Compr ehens jelani metab olic 1999 panel - Serum or Plasm a glomerular filtration rate/1.73 sq M.predicted [volume rate/area] in serum, plasma or blood by creatinine-b ased formula (CKD-epi) text: >=90 mL/min /1.73 m2 eGFR by CKD-E PI >90 >=90 mL/mi n/1.7 3 m2 09/14 8:52 AM CDT [facility] Not Available Not Available 09/07/2024 16:28:55 09/15/19 24 09/15/2023 Dutch khanna jelani metab olic 1999 panel - Serum or Plasm a interpretati on and review of laboratory results Abnorm al Not Available Not Available 16:28:55 09/15/19 24 09/15/2023 CBC W Auto Diffe renti al panel - Blood leukocytes [#/volume] in blood by automated count 8.1 text: 4.0 - 10.7 x10e9/ L WBC 8.1 4.0 - 10.7 x10E9 /L 09/14 8:50 AM CDT [facility] Not Available Not Available 09/07/2024 16:28:55 09/15/19 24 09/15/2023 CBC W Auto Diffe renti al panel - Blood erythrocytes [#/volume] in blood by automated count 3.97 text: 3.90 - 5.20 x10e12 /L RBC Count 3.97 3.90 - 5.20 x10E1 2/L 09/14 8:50 AM CDT [facility] Not Available Not Available 09/07/2024 16:28:55 09/15/19 24 09/15/2023 CBC W Auto Diffe renti al panel - Blood hemoglobin [mass/volume ] in blood 12 g/dL low: 11.9g/ dLhigh : 15.8g/ dL Hemog lobin 12.0 11.9 - 15.8 g/dL 09/14 8:50 AM CDT [facility] Not Available Not Available 09/07/2024 16:28:55 09/15/19 24 09/15/2023 CBC W Auto Diffe renti al panel - Blood hematocrit [volume fraction] of blood by automated count 36.6 % low: 34.8%h igh: 46.1% Hemat ocrit 36.6 34.8 - 46.1 % 09/14 8:50 AM [facility] Not Available Not Available 09/07/2024 16:28:55 09/15/19 24 09/15/2023 CBC W Auto Diffe renti al panel - Blood MCV [entitic volume] by automated count 92.2 fL low: 80fLhi gh: 98fL MCV 92.2 80.0 - 98.0 fL 09/14 8:50 AM [facility] Not Available Not Available 09/07/2024 16:28:55 09/15/19 24 09/15/2023 CBC W Auto Diffe renti al panel - Blood MCH [entitic mass] by automated count 30.2 pg low: 26.7pg high: 33.6pg MCH 30.2 26.7 - 33.6 pg 09/14 8:50 AM [facility] Not Available Not Available 09/07/2024 16:28:55 09/15/19 24 09/15/2023 CBC W Auto Diffe renti al panel - Blood MCHC [mass/volume ] by automated count 32.8 g/dL low: 31.7g/ dLhigh : 36.3g/ dL MCHC 32.8 31.7 - 36.3 g/dL 09/14 8:50 AM [facility] Not Available Not Available 09/07/2024 16:28:55 09/15/19 24 09/15/2023 CBC W Auto Diffe renti al panel - Blood erythrocyte distribution width [ratio] by automated count 11.7 % low: 11.3%h igh: 14.8% RDW-C V 11.7 11.3 - 14.8 % 09/14 8:50 AM [facility] Not Available Not Available 09/07/2024 16:28:55 09/15/19 24 09/15/2023 CBC W Auto Diffe renti al panel - Blood platelets [#/volume] in blood by automated count 318 text: 150 - 420 x10e9/ L Plate let Count 318 150 - 420 x10E9 /L 09/14 8:50 AM CDT [facility] Not Available Not Available 09/07/2024 16:28:55 09/15/19 24 09/15/2023 CBC W Auto Diffe renti al panel - Blood platelet mean volume [entitic volume] in blood by automated count 11 fL low: 7.8fLh igh: 11.4fL MPV 11.0 7.8 - 11.4 fL 09/14 8:50 AM CDT [facility] Not Available Not Available 09/07/2024 16:28:55 09/15/19 24 09/15/2023 CBC W Auto Diffe renti al panel - Blood neutrophils [#/volume] in blood by automated count 5.53 text: 1.60 - 7.50 x10e9/ L Preli minar y Absol [place] Neutr ophil 5.53 1.60 - 7.50 x10E9 /L 09/14 8:50 AM CDT [facility] Not Available Not Available 09/07/2024 16:28:55 09/15/19 24 09/15/2023 CBC W Auto Diffe renti al panel - Blood neutrophils/ 100 leukocytes in blood by automated count 68.6 % low: 41%hig h: 74% Neutr ophil % 68.6 41.0 - 74.0 % 09/14 8:50 AM CDT [facility] Not Available Not Available 09/07/2024 16:28:55 09/15/19 24 09/15/2023 CBC W Auto Diffe renti al panel - Blood lymphocytes/ 100 leukocytes in blood by automated count 20.3 % low: 17%hig h: 47% Lymph ocyte % 20.3 17.0 - 47.0 % 09/14 8:50 AM CDT [facility] Not Available Not Available 09/07/2024 16:28:55 09/15/19 24 09/15/2023 CBC W Auto Diffe renti al panel - Blood monocytes/10 0 leukocytes in blood by automated count 8.7 % low: 3%high : 11% Monoc yte % 8.7 3.0 - 11.0 % 09/14 8:50 AM CDT [facility] Not Available Not Available 09/07/2024 16:28:55 09/15/19 24 09/15/2023 CBC W Auto Diffe renti al panel - Blood eosinophils/ 100 leukocytes in blood by automated count 1.5 % low: 0%high : 7% Eosin ophil % 1.5 0.0 - 7.0 % 09/14 8:50 AM CDT [facility] Not Available Not Available 09/07/2024 16:28:55 09/15/19 24 09/15/2023 CBC W Auto Diffe renti al panel - Blood basophils/10 0 leukocytes in blood by automated count 0.5 % low: 0%high : 1.6% Basop hil % 0.5 0.0 - 1.6 % 09/14 8:50 AM CDT [facility] Not Available Not Available 09/07/2024 16:28:55 09/15/19 24 09/15/2023 CBC W Auto Diffe renti al panel - Blood immature granulocytes /100 leukocytes in blood by automated count 0.4 % low: 0%high : 1% Immat ure Granu locyt es % 0.4 0.0 - 1.0 % 09/14 8:50 AM CDT [facility] Not Available Not Available 09/07/2024 16:28:55 09/15/19 24 09/15/2023 CBC W Auto Diffe renti al panel - Blood neutrophils [#/volume] in blood by automated count 5.53 text: 1.60 - 7.50 x10e9/ L Neutr ophil Absol [place] 5.53 1.60 - 7.50 x10E9 /L 09/14 8:50 AM CDT [facility] Not Available Not Available 09/07/2024 16:28:55 09/15/19 24 09/15/2023 CBC W Auto Diffe renti al panel - Blood lymphocytes [#/volume] in blood by automated count 1.64 text: 1.00 - 4.40 x10e9/ L Lymph ocyte Absol [place] 1.64 1.00 - 4.40 x10E9 /L 09/14 8:50 AM CDT [facility] [place] Not Available Not Available 09/07/2024 16:28:55 09/15/19 24 09/15/2023 CBC W Auto Diffe renti al panel - Blood monocytes [#/volume] in blood by automated count 0.7 text: 0.15 - 1.00 x10e9/ L Monoc yte Absol [place] 0.70 0.15 - 1.00 x10E9 /L 09/14 8:50 AM CDT [facility] [place] Not Available Not Available 09/07/2024 16:28:55 09/15/19 24 09/15/2023 CBC W Auto Diffe renti al panel - Blood eosinophils [#/volume] in blood 0.12 text: 0.00 - 0.60 x10e9/ L Eosin ophil Absol [place] 0.12 0.00 - 0.60 x10E9 /L 09/14 8:50 AM CDT [facility] [place] Not Available Not Available 09/07/2024 16:28:55 09/15/19 24 09/15/2023 CBC W Auto Diffe renti al panel - Blood basophils [#/volume] in blood by automated count 0.04 text: 0.00 - 0.13 x10e9/ L Basop hil Absol [place] 0.04 0.00 - 0.13 x10E9 /L 09/14 8:50 AM CDT [facility] [place] Not Available Not Available 09/07/2024 16:28:55 09/15/19 24 09/15/2023 CBC W Auto Diffe renti al panel - Blood interpretati on and review of laboratory results Normal Not Available Not Available 08/20 16:28:55 01/18/20 24 01/18/2024 Urina lysis panel - Urine by Auto color UA Straw text: straw, yellow Color UA Straw Straw , Yello w 01/17 10:45 AM CDT [facility] [place] Not Available Not Available 09/07/2024 16:28:49 01/18/20 24 01/18/2024 Urina lysis panel - Urine by Auto clarity UA Clear text: clear Rachel ty UA Clear Clear 01/17 10:45 AM CDT [facility] [place] Not Available Not Available 09/07/2024 16:28:49 01/18/20 24 01/18/2024 Urina lysis panel - Urine by Auto specific gravity UA 1.005 low: 1.005h igh: 1.03 Speci fic Gravi ty UA 1.005 1.005 - 1.030 01/17 10:45 AM CDT [facility] [place] Not Available Not Available 09/07/2024 16:28:49 01/18/20 24 01/18/2024 Urina lysis panel - Urine by Auto pH UA 5 pH low: 5pHhig h: 8pH pH UA 5.0 5.0 - 8.0 pH 01/17 10:45 AM CDT [facility] [place] Not Available Not Available 09/07/2024 16:28:49 01/18/20 24 01/18/2024 Urina lysis panel - Urine by Auto protein UA Negati ve text: negati ve Prote in UA Negat jelani Negat jelani 01/17 10:45 AM CDT [facility] [place] Not Available Not Available 09/07/2024 16:28:49 01/18/20 24 01/18/2024 Urina lysis panel - Urine by Auto glucose UA Negati ve text: negati ve Gluco se UA Negat jelani Negat jelani 01/17 10:45 AM CDT [facility] [place] Not Available Not Available 09/07/2024 16:28:49 01/18/20 24 01/18/2024 Urina lysis panel - Urine by Auto ketone UA Negati ve text: negati ve Keton e UA Negat jelani Negat jelani 01/17 10:45 AM CDT [facility] [place] Not Available Not Available 09/07/2024 16:28:49 01/18/20 24 01/18/2024 Urina lysis panel - Urine by Auto bilirubin UA Negati ve text: negati ve Bilir ubin UA Negat jelani Negat jelani 01/17 10:45 AM CDT [facility] [place] Not Available Not Available 09/07/2024 16:28:49 01/18/20 24 01/18/2024 Urina lysis panel - Urine by Auto blood UA Negati ve text: negati ve Blood UA Negat jelani Negat jelani 01/17 10:45 AM CDT [facility] [place] Not Available Not Available 09/07/2024 16:28:49 01/18/20 24 01/18/2024 Urina lysis panel - Urine by Auto nitrite UA Negati ve text: negati ve Nitri te UA Negat jelani Negat jelani 01/17 10:45 AM CDT [facility] [place] Not Available Not Available 09/07/2024 16:28:49 01/18/20 24 01/18/2024 Urina lysis panel - Urine by Auto leukocyte esterase Negati ve text: negati ve Leuko cyte Silvina ase Negat jelani Negat jelani 01/17 10:45 AM CDT [facility] [place] Not Available Not Available 09/07/2024 16:28:49 01/18/20 24 01/18/2024 Urina lysis panel - Urine by Auto urobilinogen UA Negati ve text: negati ve mg/dL Urobi linog en UA Negat jelani Negat jelani mg/dL 01/17 10:45 AM T [facility] [place] Not Available Not Available 09/07/2024 16:28:49 01/18/20 24 01/18/2024 Urina lysis panel - Urine by Auto RBC UA 0-2 text: none seen, 0-2, 3-5 /hpf RBC UA 0-2 None Seen, 0-2, 3-5 /HPF 01/17 10:45 AM CDT [facility] [place] Not Available Not Available 09/07/2024 16:28:49 01/18/20 24 01/18/2024 Urina lysis panel - Urine by Auto WBC UA 0-5 text: none seen, 0-5 /hpf WBC UA 0-5 None Seen, 0-5 /HPF 01/17 10:45 AM CDT [facility] [place] Not Available Not Available 09/07/2024 16:28:49 01/18/20 24 01/18/2024 Urina lysis panel - Urine by Auto bacteria UA Trace text: none /hpf abnormal Bacte donn UA Trace (A) None /HPF 01/17 10:45 AM CDT [facility] [place] Not Available Not Available 09/07/2024 16:28:49 01/18/20 24 01/18/2024 Urina lysis panel - Urine by Auto squamous epithelial cells UA 0-2 text: none seen, 0-2, 3-5 /hpf Squam ous Epith elial Cells UA 0-2 None Seen, 0-2, 3-5 /HPF 01/17 10:45 AM CDT [facility] [place] Not Available Not Available 09/07/2024 16:28:49 01/18/20 24 01/18/2024 Urina lysis panel - Urine by Auto Unknown Analyte Cultur e Not Indica tae Cultu re Not Indic ated Not Available Not Available 09/07/2024 16:28:49 01/18/20 24 01/18/2024 Urina lysis panel - Urine by Auto interpretati on and review of laboratory results Abnorm al Not Available Not Available 16:28:49 01/18/20 24 01/18/2024 Eryth rocyt e sedim entat ion rate by Maria Elena pearson metho d erythrocyte sedimentatio n rate by westergren method 77 text: 0 - 20 mm/HR high Eryth rocyt e Sedim entat ion Rate Maria Elena pearson 77 (H) 0 - 20 MM/HR 01/17 11:01 AM CDT [facility] [place] Not Available Not Available 09/07/2024 16:28:49 01/18/20 24 01/18/2024 Eryth rocyt e sedim entat ion rate by Maria Elena pearson metho d interpretati on and review of laboratory results Abnorm al Not Available Not Available 16:28:49 01/18/20 24 01/18/2024 C react jelani prote in [Mass /volu me] in Serum or Plasm a C reactive protein [mass/volume ] in serum or plasma 3.6 mg/dL high: 0.5mg/ dL high C-Anushka ctive Prote in 3.6 (H) <=0.5 mg/dL 01/17 11:15 AM CDT [facility] [place] Not Available Not Available 09/07/2024 16:28:49 01/18/20 24 01/18/2024 C react jelani prote in [Mass /volu me] in Serum or Plasm a interpretati on and review of laboratory results Abnorm al Not Available Not Available 16:28:49 01/18/20 24 01/18/2024 Compr ehens jelani metab olic 1999 panel - Serum or Plasm a urea nitrogen [mass/volume ] in serum or plasma 11 mg/dL low: 7mg/dL high: 26mg/d L BUN 11 7 - 26 mg/dL 01/17 11:15 AM [facility] [place] Not Available Not Available 09/07/2024 16:28:49 01/18/20 24 01/18/2024 Compr ehens jelani metab olic 1999 panel - Serum or Plasm a creatinine [mass/volume ] in serum or plasma 0.69 mg/dL low: 0.56mg /dLhig h: 0.96mg /dL Creat inine 0.69 0.56 - 0.96 mg/dL 01/17 11:15 AM [facility] [place] Not Available Not Available 09/07/2024 16:28:49 01/18/20 24 01/18/2024 Compr ehens jelani metab olic 1999 panel - Serum or Plasm a sodium [moles/volum e] in serum or plasma 136 mmol/ L low: 136mmo l/Lhig h: 145mmo l/L Sodiu m 136 136 - 145 mmol/ L 01/17 11:15 AM T [facility] [place] Not Available Not Available 09/07/2024 16:28:49 01/18/20 24 01/18/2024 Compr ehens jelani metab olic 1999 panel - Serum or Plasm a potassium [moles/volum e] in serum or plasma 3.7 mmol/ L low: 3.5mmo l/Lhig h: 4.5mmo l/L Potas sium 3.7 3.5 - 4.5 mmol/ L 01/17 11:15 AM CDT [facility] [place] Not Available Not Available 09/07/2024 16:28:49 01/18/20 24 01/18/2024 Compr ehens jelani metab olic 1999 panel - Serum or Plasm a chloride [moles/volum e] in serum or plasma 102 mmol/ L low: 98mmol /Lhigh : 107mmo l/L Chlor perez 102 98 - 107 mmol/ L 01/17 11:15 AM CDT [facility] [place] Not Available Not Available 09/07/2024 16:28:49 01/18/20 24 01/18/2024 Compr ehens jelani metab olic 1999 panel - Serum or Plasm a carbon dioxide, total [moles/volum e] in serum or plasma 24 mmol/ L low: 22mmol /Lhigh : 29mmol /L CO2 24 22 - 29 mmol/ L 01/17 11:15 AM CDT [facility] [place] Not Available Not Available 09/07/2024 16:28:49 01/18/20 24 01/18/2024 Compr ehens jelani metab olic 1999 panel - Serum or Plasm a glucose [mass/volume ] in serum or plasma 88 mg/dL low: 70mg/d Lhigh: 115mg/ dL Gluco se 88 70 - 115 mg/dL 01/17 11:15 AM CDT [facility] [place] Not Available Not Available 09/07/2024 16:28:49 01/18/20 24 01/18/2024 Compr ehens jelani metab olic 1999 panel - Serum or Plasm a calcium [moles/volum e] in serum or plasma 9.4 mg/dL low: 8.4mg/ dLhigh : 10.2mg /dL Calci um 9.4 8.4 - 10.2 mg/dL 01/17 11:15 AM CDT [facility] [place] Not Available Not Available 09/07/2024 16:28:49 01/18/20 24 01/18/2024 Compr ens jelani metab olic 1999 panel - Serum or Plasm a protein [mass/volume ] in serum or plasma 7.6 g/dL low: 6g/dLh igh: 8.3g/d L Prote in Total 7.6 6.0 - 8.3 g/dL 01/17 11:15 AM CDT [facility] [place] Not Available Not Available 09/07/2024 16:28:49 01/18/20 24 01/18/2024 Compr ens jelani metab olic 1999 panel - Serum or Plasm a albumin [mass/volume ] in serum or plasma by bromocresol green (bcg) dye binding method 3.4 g/dL low: 3.4g/d Lhigh: 5g/dL Album in 3.4 3.4 - 5.0 g/dL 01/17 11:15 AM CDT [facility] [place] Not Available Not Available 09/07/2024 16:28:49 01/18/20 24 01/18/2024 [facility] - Serum or Plasm a bilirubin.to kaelyn [mass/volume ] in serum or plasma 0.2 mg/dL low: 0.2mg/ dLhigh : 1.2mg/ dL Bilir ubin Total 0.2 0.2 - 1.2 mg/dL 01/17 11:15 AM CDT [facility] [place] Not Available Not Available 09/07/2024 16:28:49 01/18/20 24 01/18/2024 Compr ens jelani metab olic 2000 panel - Serum or Plasm a alkaline phosphatase [enzymatic activity/vol ume] in serum or plasma 99 U/L low: 40U/Lh igh: 150U/L Alkal ine Phosp hatas e 99 40 - 150 U/L 01/17 11:15 AM CDT [facility] [place] Not Available Not Available 09/07/2024 16:28:49 01/18/20 24 01/18/2024 Compr ens jelani metab olic 2000 panel - Serum or Plasm a alanine aminotransfe rase [enzymatic activity/vol ume] in serum or plasma by no addition of P-5'-P 12 U/L low: 5U/Lhi gh: 55U/L ALT 12 5 - 55 U/L 01/17 11:15 AM CDT [facility] [place] Not Available Not Available 09/07/2024 16:28:49 01/18/20 24 01/18/2024 Compr ehens jelani metab olic 1999 panel - Serum or Plasm a aspartate aminotransfe rase [enzymatic activity/vol ume] in serum or plasma 19 U/L low: 5U/Lhi gh: 34U/L AST 19 5 - 34 U/L 01/17 11:15 AM CDT [facility] [place] Not Available Not Available 09/07/2024 16:28:49 01/18/20 24 01/18/2024 Compr ehens jelani metab olic 1999 panel - Serum or Plasm a anion gap 10 low: 6high: 16 Anion Gap 10 6 - 16 01/17 11:15 AM CDT [facility] [place] Not Available Not Available 09/07/2024 16:28:49 01/18/20 24 01/18/2024 Compr ehens jelani metab olic 1999 panel - Serum or Plasm a urea nitrogen/cre atinine [mass ratio] in serum or plasma 16 low: 7high: 23 BUN/C reati nine Ratio 16 7 - 23 01/17 11:15 AM CDT [facility] [place] Not Available Not Available 09/07/2024 16:28:49 01/18/20 24 01/18/2024 Compr ehens jelani metab olic 1999 panel - Serum or Plasm a osmolality calculated 281 text: 275 - 295 mOsm/k g Osmol ality Calcu lated 281 275 - 295 mOsm/ kg 01/17 11:15 AM CDT [facility] [place] Not Available Not Available 09/07/2024 16:28:49 01/18/20 24 01/18/2024 Compr ehens jelani metab olic 2000 panel - Serum or Plasm a albumin/glob ulin ratio 0.8 low: 1.1hig h: 2.3 low Album in/Gl obuli n Ratio 0.8 (L) 1.1 - 2.3 01/17 11:15 AM CDT [facility] [place] Not Available Not Available 09/07/2024 16:28:49 01/18/20 24 01/18/2024 Compr ehens jelani metab olic 2000 panel - Serum or Plasm a glomerular filtration rate/1.73 sq M.predicted [volume rate/area] in serum, plasma or blood by creatinine-b ased formula (CKD-epi) text: >=90 mL/min /1.73 m2 eGFR by CKD-E PI >90 >=90 mL/mi n/1.7 3 m2 01/17 11:15 AM CDT [facility] [place] Not Available Not Available 09/07/2024 16:28:49 01/18/20 24 01/18/2024 Compr ehens jelani metab olic 1999 panel - Serum or Plasm a interpretati on and review of laboratory results Abnorm al Not Available Not Available 16:28:49 01/18/20 24 01/18/2024 CBC W Auto Diffe renti al panel - Blood leukocytes [#/volume] in blood by automated count 8 text: 4.0 - 10.7 x10e9/ L WBC 8.0 4.0 - 10.7 x10E9 /L 01/17 10:51 AM CDT [facility] [place] Not Available Not Available 09/07/2024 16:28:49 01/18/20 24 01/18/2024 CBC W Auto Diffe renti al panel - Blood erythrocytes [#/volume] in blood by automated count 4.19 text: 3.90 - 5.20 x10e12 /L RBC Count 4.19 3.90 - 5.20 x10E1 2/L 01/17 10:51 AM CDT [facility] [place] Not Available Not Available 09/07/2024 16:28:49 01/18/20 24 01/18/2024 CBC W Auto Diffe renti al panel - Blood hemoglobin [mass/volume ] in blood 11.9 g/dL low: 11.9g/ dLhigh : 15.8g/ dL Hemog lobin 11.9 11.9 - 15.8 g/dL 01/17 10:51 AM [facility] Not [facility] Not Available 09/07/2024 16:28:49 01/18/20 24 01/18/2024 CBC W Auto Diffe renti al panel - Blood hematocrit [volume fraction] of blood by automated count 37.2 % low: 34.8%h igh: 46.1% Hemat ocrit 37.2 34.8 - 46.1 % 01/17 10:51 AM [facility] Not Available Not Available 09/07/2024 16:28:49 01/18/20 24 01/18/2024 CBC W Auto Diffe renti al panel - Blood MCV [entitic volume] by automated count 88.8 fL low: 80fLhi gh: 98fL MCV 88.8 80.0 - 98.0 fL 01/17 10:51 AM [facility] Not Available 09/07/2024 16:28:49 01/18/20 24 01/18/2024 CBC W Auto Diffe renti al panel - Blood MCH [entitic mass] by automated count 28.4 pg low: 26.7pg high: 33.6pg MCH 28.4 26.7 - 33.6 pg 01/17 10:51 AM [facility] Not Available Not Available 09/07/2024 16:28:49 01/18/20 24 01/18/2024 CBC W Auto Diffe renti al panel - Blood MCHC [mass/volume ] by automated count 32 g/dL low: 31.7g/ dLhigh : 36.3g/ dL MCHC 32.0 31.7 - 36.3 g/dL 01/17 10:51 AM [facility] Not [facility] Not Available 09/07/2024 16:28:49 01/18/20 24 01/18/2024 CBC W Auto Diffe renti al panel - Blood erythrocyte distribution width [ratio] by automated count 14.5 % low: 11.3%h igh: 14.8% RDW-C V 14.5 11.3 - 14.8 % 01/17 10:51 AM CDT [facility] [place] Not Available Not Available 09/07/2024 16:28:49 01/18/20 24 01/18/2024 CBC W Auto Diffe renti al panel - Blood platelets [#/volume] in blood by automated count 346 text: 150 - 420 x10e9/ L Plate let Count 346 150 - 420 x10E9 /L 01/17 10:51 AM CDT [facility] [place] Not Available Not Available 09/07/2024 16:28:49 01/18/20 24 01/18/2024 CBC W Auto Diffe renti al panel - Blood platelet mean volume [entitic volume] in blood by automated count 10 fL low: 7.8fLh igh: 11.4fL MPV 10.0 7.8 - 11.4 fL 01/17 10:51 AM CDT [facility] [place] Not Available Not Available 09/07/2024 16:28:49 01/18/20 24 01/18/2024 CBC W Auto Diffe renti al panel - Blood neutrophils [#/volume] in blood by automated count 4.27 text: 1.60 - 7.50 x10e9/ L Preli minar y Absol [place] Neutr ophil 4.27 1.60 - 7.50 x10E9 /L 01/17 10:51 AM CDT [facility] [place] Not Available Not Available 09/07/2024 16:28:49 01/18/20 24 01/18/2024 CBC W Auto Diffe renti al panel - Blood neutrophils/ 100 leukocytes in blood by automated count 53.3 % low: 41%hig h: 74% Neutr ophil % 53.3 41.0 - 74.0 % 01/17 10:51 AM CDT [facility] [place] Not Available Not Available 09/07/2024 16:28:49 01/18/20 24 01/18/2024 CBC W Auto Diffe renti al panel - Blood lymphocytes/ 100 leukocytes in blood by automated count 36.7 % low: 17%hig h: 47% Lymph ocyte % 36.7 17.0 - 47.0 % 01/17 10:51 AM CDT [facility] [place] Not Available Not Available 09/07/2024 16:28:49 01/18/20 24 01/18/2024 CBC W Auto Diffe renti al panel - Blood monocytes/10 0 leukocytes in blood by automated count 7.8 % low: 3%high : 11% Monoc yte % 7.8 3.0 - 11.0 % 01/17 10:51 AM CDT [facility] [place] Not Available Not Available 09/07/2024 16:28:49 01/18/20 24 01/18/2024 CBC W Auto Diffe renti al panel - Blood eosinophils/ 100 leukocytes in blood by automated count 1.4 % low: 0%high : 7% Eosin ophil % 1.4 0.0 - 7.0 % 01/17 10:51 AM CDT [facility] [place] Not Available Not Available 09/07/2024 16:28:49 01/18/20 24 01/18/2024 CBC W Auto Diffe renti al panel - Blood basophils/10 0 leukocytes in blood by automated count 0.4 % low: 0%high : 1.6% Basop hil % 0.4 0.0 - 1.6 % 01/17 10:51 AM CDT [facility] [place] Not Available Not Available 09/07/2024 16:28:49 01/18/20 24 01/18/2024 CBC W Auto Diffe renti al panel - Blood immature granulocytes /100 leukocytes in blood by automated count 0.4 % low: 0%high : 1% Immat ure Granu locyt es % 0.4 0.0 - 1.0 % 01/17 10:51 AM CDT [facility] [place] Not Available Not Available 09/07/2024 16:28:49 01/18/20 24 01/18/2024 CBC W Auto Diffe renti al panel - Blood neutrophils [#/volume] in blood by automated count 4.27 text: 1.60 - 7.50 x10e9/ L Neutr ophil Absol [place] 4.27 1.60 - 7.50 x10E9 /L 01/17 10:51 AM CDT [facility] [place] Not Available Not Available 09/07/2024 16:28:49 01/18/20 24 01/18/2024 CBC W Auto Diffe renti al panel - Blood lymphocytes [#/volume] in blood by automated count 2.93 text: 1.00 - 4.40 x10e9/ L Lymph ocyte Absol [place] 2.93 1.00 - 4.40 x10E9 /L 01/17 10:51 AM CDT [facility] [place] Not Available Not Available 09/07/2024 16:28:49 01/18/20 24 01/18/2024 CBC W Auto Diffe renti al panel - Blood monocytes [#/volume] in blood by automated count 0.62 text: 0.15 - 1.00 x10e9/ L Monoc yte Absol [place] 0.62 0.15 - 1.00 x10E9 /L 01/17 10:51 AM CDT [facility] [place] Not Available Not Available 09/07/2024 16:28:49 01/18/20 24 01/18/2024 CBC W Auto Diffe renti al panel - Blood eosinophils [#/volume] in blood 0.11 text: 0.00 - 0.60 x10e9/ L Eosin ophil Absol [place] 0.11 0.00 - 0.60 x10E9 /L 01/17 10:51 AM CDT [facility] [place] Not Available Not Available 09/07/2024 16:28:49 01/18/20 24 01/18/2024 CBC W Auto Diffe renti al panel - Blood basophils [#/volume] in blood by automated count 0.03 text: 0.00 - 0.13 x10e9/ L Basop hil Absol [place] 0.03 0.00 - 0.13 x10E9 /L 01/17 10:51 AM CDT [facility] [place] Not Available Not Available 09/07/2024 16:28:49 01/18/20 24 01/18/2024 CBC W Auto Diffe renti al panel - Blood interpretati on and review of laboratory results Normal Not Available Not Available 08/20 16:28:49 04/11/20 24 04/11/2024 Urina lysis panel - Urine by Auto color UA Yellow text: straw, yellow Color UA Yello w Straw , Yello w 04/11 10:36 AM CDT [facility] [place] Not Available Not Available 09/07/2024 16:29:00 04/11/20 24 04/11/2024 Urina lysis panel - Urine by Auto clarity UA Clear text: clear Rachel ty UA Clear Clear 04/11 10:36 AM T [facility] [place] Not Available Not Available 09/07/2024 16:29:00 04/11/2004/11/2024 Urina lysis panel - Urine by Auto specific gravity UA 1.012 low: 1.005h igh: 1.03 Speci fic Gravi ty UA 1.012 1.005 - 1.030 04[facility]11 [facility] Not Available Not Available 09/07/2024 16:29:00 04/11/2004/11/2024 Urina lysis panel - Urine by Auto pH UA 5 pH low: 5pHhig h: 8pH pH UA 5.0 5.0 - 8.0 pH 04/11 10:36 AM [facility] [place] Not Available Not Available 09/07/2024 16:29:00 04/11/20 24 04/11/2024 Urina lysis panel - Urine by Auto protein UA Negati ve text: negati ve Prote in UA Negat jelani Negat jelani 04/11 10:36 AM [facility] [place] Not Available Not Available 09/07/2024 16:29:00 04/11/2004/11/2024 Urina lysis panel - Urine by Auto glucose UA Negati ve text: negati ve Gluco se UA Negat jelani Negat jelani 04/11 10:36 AM [facility] [place] Not Available Not Available 09/07/2024 16:29:00 04/11/20 24 04/11/2024 Urina lysis panel - Urine by Auto ketone UA Negati ve text: negati ve Keton e UA Negat jelani Negat jelani 04/11 10:36 AM CDT [facility] Not Available Not Available 09/07/2024 16:29:00 04/11/2004/11/2024 Urina lysis panel - Urine by Auto bilirubin UA Negati ve text: negati ve Bilir ubin UA Negat jelani Negat jelani 04/11 10:36 AM CDT [facility] Not Available Not Available 09/07/2024 16:29:00 04/11/2004/11/2024 Urina lysis panel - Urine by Auto blood UA Negati ve text: negati ve Blood UA Negat jelani Negat jelani 04/11 10:36 AM CDT [facility] Not Available Not Available 09/07/2024 16:29:00 04/11/20 24 04/11/2024 Urina lysis panel - Urine by Auto nitrite UA Negati ve text: negati ve Nitri te UA Negat jelani Negat jelani 04/11 10:36 AM CDT [facility] Not Available Not Available 09/07/2024 16:29:00 04/11/20 24 04/11/2024 Urina lysis panel - Urine by Auto leukocyte esterase Negati ve text: negati ve Leuko cyte Silvina ase Negat jelani Negat jelani 04/11 10:36 AM [facility] [place] Not Available Not Available 09/07/2024 16:29:00 04/11/20 24 04/11/2024 Urina lysis panel - Urine by Auto urobilinogen UA Negati ve text: negati ve mg/dL Urobi linog en UA Negat jelani Negat jelani mg/dL 04/11 10:36 AM CDT [facility] Not Available Not Available 09/07/2024 16:29:00 04/11/20 24 04/11/2024 Urina lysis panel - Urine by Auto RBC UA 0-2 text: none seen, 0-2, 3-5 /hpf RBC UA 0-2 None Seen, 0-2, 3-5 /HPF 04/11 10:36 AM CDT [facility] [place] Not Available Not Available 09/07/2024 16:29:00 04/11/20 24 04/11/2024 Urina lysis panel - Urine by Auto WBC UA 0-5 text: none seen, 0-5 /hpf WBC UA 0-5 None Seen, 0-5 /HPF 04/11 10:36 AM CDT [facility] Not Available Not Available 09/07/2024 16:29:00 04/11/2004/11/2024 Urina lysis panel - Urine by Auto squamous epithelial cells UA None Seen text: none seen, 0-2, 3-5 /hpf Squam ous Epith elial Cells UA None Seen None Seen, 0-2, 3-5 /HPF 04/11 10:36 AM CDT [facility] Not Available Not Available 09/07/2024 16:29:00 04/11/20 24 04/11/2024 Urina lysis panel - Urine by Auto mucus UA 1+ text: /lpf Mucus UA 1+ /LPF 04/11 10:36 AM CDT [facility] Not Available Not Available 09/07/2024 16:29:00 04/11/2004/11/2024 Urina lysis panel - Urine by Auto Unknown Analyte Cultur e Not Indica tae Cultu re Not Indic ated Not Available Not Available 09/07/2024 16:29:00 04/11/20 24 04/11/2024 Eryth rocyt e sedim entat ion rate by Maria Elena ross d erythrocyte sedimentatio n rate by westergren method 55 text: 0 - 20 mm/HR high Eryth rocyt e Sedim entat ion Rate Maria Elena pearson 54 (H) 0 - 20 MM/HR 04/11 10:44 AM CDT [facility] Not Available Not Available 09/07/2024 16:29:00 04/11/20 24 04/11/2024 Eryth rocyt e sedim entat ion rate by Maria Elena pearson metho vickie interpretati on and review of laboratory results Abnorm al Not Available Not Available 16:29:00 04/11/20 24 04/11/2024 C react jelani prote in [Mass /volu me] in Serum or Plasm a C reactive protein [mass/volume ] in serum or plasma 2.7 mg/dL high: 0.5mg/ dL high C-Anushka ctive Prote in 2.7 (H) <=0.5 mg/dL 04/11 10:59 AM CDT [facility] [place] Not Available Not Available 09/07/2024 16:29:00 04/11/2004/11/2024 C react jelani prote in [Mass /volu me] in Serum or Plasm a interpretati on and review of laboratory results Abnorm al Not Available Not Available 16:29:00 04/11/2004/11/2024 Compr ehens jelani metab olic 1999 panel - Serum or Plasm a urea nitrogen [mass/volume ] in serum or plasma 10 mg/dL low: 7mg/dL high: 26mg/d L BUN 10 7 - 26 mg/dL 04/11 10:59 AM T [facility] [place] Not Available Not Available 09/07/2024 16:28:59 04/11/20 24 04/11/2024 Compr ehens jelani metab olic 1999 panel - Serum or Plasm a creatinine [mass/volume ] in serum or plasma 0.72 mg/dL low: 0.56mg /dLhig h: 0.96mg /dL Creat inine 0.72 0.56 - 0.96 mg/dL 04/11 10:59 AM [facility] [place] Not Available Not Available 09/07/2024 16:28:59 04/11/2004/11/2024 Compr ehens jelani metab olic 1999 panel - Serum or Plasm a sodium [moles/volum e] in serum or plasma 140 mmol/ L low: 136mmo l/Lhig h: 145mmo l/L Sodiu m 140 136 - 145 mmol/ L 04/11 10:59 AM CDT [facility] [place] Not Available Not Available 09/07/2024 16:28:59 04/11/20 24 04/11/2024 Compr ehens jelani metab olic 1999 panel - Serum or Plasm a potassium [moles/volum e] in serum or plasma 3.7 mmol/ L low: 3.5mmo l/Lhig h: 4.5mmo l/L Potas sium 3.7 3.5 - 4.5 mmol/ L 04/11 10:59 AM CDT [facility] [place] Not Available Not Available 09/07/2024 16:28:59 04/11/20 24 04/11/2024 Compr ehens jelani metab olic 1999 panel - Serum or Plasm a chloride [moles/volum e] in serum or plasma 103 mmol/ L low: 98mmol /Lhigh : 107mmo l/L Chlor perez 103 98 - 107 mmol/ L 04/11 10:59 AM CDT [facility] [place] Not Available Not Available 09/07/2024 16:28:59 04/11/20 24 04/11/2024 Compr ehens jelani metab olic 1999 panel - Serum or Plasm a carbon dioxide, total [moles/volum e] in serum or plasma 27 mmol/ L low: 22mmol /Lhigh : 29mmol /L CO2 27 22 - 29 mmol/ L 04/11 10:59 AM T [facility] [place] Not Available Not Available 09/07/2024 16:28:59 04/11/20 24 04/11/2024 Compr [employer] jelani metab olic 1999 panel - Serum or Plasm a glucose [mass/volume ] in serum or plasma 89 mg/dL low: 70mg/d Lhigh: 115mg/ dL Gluco se 89 70 - 115 mg/dL 04/11 10:59 AM T [facility] [place] Not Available Not Available 09/07/2024 16:28:59 04/11/20 24 04/11/2024 Compr ehens jelani metab olic 1999 panel - Serum or Plasm a calcium [moles/volum e] in serum or plasma 9.4 mg/dL low: 8.4mg/ dLhigh : 10.2mg /dL Calci um 9.4 8.4 - 10.2 mg/dL 04/11 10:59 AM CDT [facility] [place] Not Available Not Available 09/07/2024 16:28:59 04/11/20 24 04/11/2024 Compr ens jelani metab olic 1999 panel - Serum or Plasm a protein [mass/volume ] in serum or plasma 7.7 g/dL low: 6g/dLh igh: 8.3g/d L Prote in Total 7.7 6.0 - 8.3 g/dL 04/11 10:59 AM CDT [facility] [place] Not Available Not Available 09/07/2024 16:28:59 04/11/20 24 04/11/2024 [facility] metab [facility]lic 1999 panel - Serum or Plasm a albumin [mass/volume ] in serum or plasma by bromocresol green (bcg) dye binding method 3.8 g/dL low: 3.4g/d Lhigh: 5g/dL Album in 3.8 3.4 - 5.0 g/dL 04/11 10:59 AM CDT [facility] [place] Not Available Not Available 09/07/2024 16:28:59 04/11/2004/11/2024 [facility] jelani metab ic 1999 panel - Serum or Plasm a bilirubin.to kaelyn [mass/volume ] in serum or plasma 0.2 mg/dL low: 0.2mg/ dLhigh : 1.2mg/ dL Bilir ubin Total 0.2 0.2 - 1.2 mg/dL 04/11 10:59 AM CDT [facility] [place] Not Available Not Available 09/07/2024 16:28:59 04/11/20 24 04/11/2024 [facility] jelani metab olic 2000 panel - Serum or Plasm a alkaline phosphatase [enzymatic activity/vol ume] in serum or plasma 82 U/L low: 40U/Lh igh: 150U/L Alkal ine Phosp hatas e 82 40 - 150 U/L 04/11 10:59 AM CDT [facility] [place] Not Available Not Available 09/07/2024 16:28:59 04/11/20 24 04/11/2024 Compr ens jelani metab olic 2000 panel - Serum or Plasm a alanine aminotransfe rase [enzymatic activity/vol ume] in serum or plasma by no addition of P-5'-P 11 U/L low: 5U/Lhi gh: 55U/L ALT 11 5 - 55 U/L 04/11 10:59 AM CDT [facility] [place] Not Available Not Available 09/07/2024 16:28:59 04/11/20 24 04/11/2024 Compr ehens jelani metab olic 1999 panel - Serum or Plasm a aspartate aminotransfe rase [enzymatic activity/vol ume] in serum or plasma 20 U/L low: 5U/Lhi gh: 34U/L AST 20 5 - 34 U/L 04/11 10:59 AM CDT [facility] [place] Not Available Not Available 09/07/2024 16:28:59 04/11/20 24 04/11/2024 Compr ehens jelani metab olic 1999 panel - Serum or Plasm a anion gap 10 low: 6high: 16 Anion Gap 10 6 - 16 04/11 10:59 AM CDT [facility] [place] Not Available Not Available 09/07/2024 16:28:59 04/11/20 24 04/11/2024 Compr ehens jelani metab olic 1999 panel - Serum or Plasm a urea nitrogen/cre atinine [mass ratio] in serum or plasma 14 low: 7high: 23 BUN/C reati nine Ratio 14 7 - 23 04/11 10:59 AM CDT [facility] [place] Not Available Not Available 09/07/2024 16:28:59 04/11/20 24 04/11/2024 Compr ehens jelani metab olic 1999 panel - Serum or Plasm a osmolality calculated 289 text: 275 - 295 mOsm/k g Osmol ality Calcu lated 289 275 - 295 mOsm/ kg 04/11 10:59 AM CDT [facility] [place] Not Available Not Available 09/07/2024 16:28:59 04/11/20 24 04/11/2024 Compr ehens jelani metab olic 2000 panel - Serum or Plasm a albumin/glob ulin ratio 1 low: 1.1hig h: 2.3 low Album in/Gl obuli n Ratio 1.0 (L) 1.1 - 2.3 04/11 10:59 AM CDT [facility] [place] Not Available Not Available 09/07/2024 16:28:59 04/11/20 24 04/11/2024 Compr ehens jelani metab olic 2000 panel - Serum or Plasm a glomerular filtration rate/1.73 sq M.predicted [volume rate/area] in serum, plasma or blood by creatinine-b ased formula (CKD-epi) text: >=90 mL/min /1.73 m2 eGFR by CKD-E PI >90 >=90 mL/mi n/1.7 3 m2 04/11 10:59 AM CDT [facility] [place] Not Available Not Available 09/07/2024 16:28:59 04/11/2004/11/2024 Compr ehens jelani metab olic 2000 panel - Serum or Plasm a interpretati on and review of laboratory results Abnorm al Not Available Not Available 16:28:59 04/11/2004/11/2024 CBC W Auto Diffe renti al panel - Blood leukocytes [#/volume] in blood by automated count 8.1 text: 4.0 - 10.7 x10e9/ L WBC 8.1 4.0 - 10.7 x10E9 /L 04/11 10:39 AM CDT [facility] [place] Not Available Not Available 09/07/2024 16:28:59 04/11/20 24 04/11/2024 CBC W Auto Diffe renti al panel - Blood erythrocytes [#/volume] in blood by automated count 4.3 text: 3.90 - 5.20 x10e12 /L RBC Count 4.30 3.90 - 5.20 x10E1 2/L 04/11 10:39 AM CDT [facility] [place] Not Available Not Available 09/07/2024 16:28:59 04/11/20 24 04/11/2024 CBC W Auto Diffe renti al panel - Blood hemoglobin [mass/volume ] in blood 12.5 g/dL low: 11.9g/ dLhigh : 15.8g/ dL Hemog lobin 12.5 11.9 - 15.8 g/dL 04/11 10:39 AM CDT [facility] Not Available Not Available 09/07/2024 16:28:59 04/11/2004/11/2024 CBC W Auto Diffe renti al panel - Blood hematocrit [volume fraction] of blood by automated count 39.6 % low: 34.8%h igh: 46.1% Hemat ocrit 39.6 34.8 - 46.1 % 04/11 10:39 AM [facility] Not Available Not Available 09/07/2024 16:28:59 04/11/20 24 04/11/2024 CBC W Auto Diffe renti al panel - Blood MCV [entitic volume] by automated count 92.1 fL low: 80fLhi gh: 98fL MCV 92.1 80.0 - 98.0 fL 04/11 10:39 AM CDT [facility] Not Available Not Available 09/07/2024 16:28:59 04/11/20 24 04/11/2024 CBC W Auto Diffe gurwinder al panel - Blood MCH [entitic mass] by automated count 29.1 pg low: 26.7pg high: 33.6pg MCH 29.1 26.7 - 33.6 pg 04/11 10:39 AM [facility] Not Available Not Available 09/07/2024 16:28:59 04/11/20 24 04/11/2024 CBC W Auto Diffe gurwinder al panel - Blood MCHC [mass/volume ] by automated count 31.6 g/dL low: 31.7g/ dLhigh : 36.3g/ dL low MCHC 31.6 (L) 31.7 - 36.3 g/dL 04/11 10:39 AM [facility] Not Available Not Available 09/07/2024 16:28:59 04/11/20 24 04/11/2024 CBC W Auto Diffe renti al panel - Blood erythrocyte distribution width [ratio] by automated count 12.8 % low: 11.3%h igh: 14.8% RDW-C V 12.8 11.3 - 14.8 % 04/11 10:39 AM CDT [facility] [place] Not Available Not Available 09/07/2024 16:28:59 04/11/2004/11/2024 CBC W Auto Diffe renti al panel - Blood platelets [#/volume] in blood by automated count 348 text: 150 - 420 x10e9/ L Plate let Count 348 150 - 420 x10E9 /L 04/11 10:39 AM CDT [facility] [place] Not Available Not Available 09/07/2024 16:28:59 04/11/20 24 04/11/2024 CBC W Auto Diffe renti al panel - Blood platelet mean volume [entitic volume] in blood by automated count 9.9 fL low: 7.8fLh igh: 11.4fL MPV 9.9 7.8 - 11.4 fL 04/11 10:39 AM CDT [facility] [place] Not Available Not Available 09/07/2024 16:28:59 04/11/2004/11/2024 CBC W Auto Diffe renti al panel - Blood neutrophils [#/volume] in blood by automated count 3.74 text: 1.60 - 7.50 x10e9/ L Preli minar y Absol [place] Neutr ophil 3.74 1.60 - 7.50 x10E9 /L 04/11 10:39 AM T [facility] [place] Not Available Not Available 09/07/2024 16:28:59 04/11/2004/11/2024 CBC W Auto Diffe renti al panel - Blood neutrophils/ 100 leukocytes in blood by automated count 46.4 % low: 41%hig h: 74% Neutr ophil % 46.4 41.0 - 74.0 % 04/11 10:39 AM CDT [facility] [place] Not Available Not Available 09/07/2024 16:28:59 04/11/20 24 04/11/2024 CBC W Auto Diffe renti al panel - Blood lymphocytes/ 100 leukocytes in blood by automated count 44.2 % low: 17%hig h: 47% Lymph ocyte % 44.2 17.0 - 47.0 % 04/11 10:39 AM CDT [facility] [place] Not Available Not Available 09/07/2024 16:28:59 04/11/20 24 04/11/2024 CBC W Auto Diffe renti al panel - Blood monocytes/10 0 leukocytes in blood by automated count 7.1 % low: 3%high : 11% Monoc yte % 7.1 3.0 - 11.0 % 04/11 10:39 AM CDT [facility] [place] Not Available Not Available 09/07/2024 16:28:59 04/11/20 24 04/11/2024 CBC W Auto Diffe renti al panel - Blood eosinophils/ 100 leukocytes in blood by automated count 1.6 % low: 0%high : 7% Eosin ophil % 1.6 0.0 - 7.0 % 04/11 10:39 AM CDT [facility] [place] Not Available Not Available 09/07/2024 16:28:59 04/11/20 24 04/11/2024 CBC W Auto Diffe renti al panel - Blood basophils/10 0 leukocytes in blood by automated count 0.6 % low: 0%high : 1.6% Basop hil % 0.6 0.0 - 1.6 % 04/11 10:39 AM CDT [facility] [place] Not Available Not Available 09/07/2024 16:28:59 04/11/20 24 04/11/2024 CBC W Auto Diffe renti al panel - Blood immature granulocytes /100 leukocytes in blood by automated count 0.1 % low: 0%high : 1% Immat ure Granu locyt es % 0.1 0.0 - 1.0 % 04/11 10:39 AM CDT [facility] [place] Not Available Not Available 09/07/2024 16:28:59 04/11/20 24 04/11/2024 CBC W Auto Diffe renti al panel - Blood neutrophils [#/volume] in blood by automated count 3.74 text: 1.60 - 7.50 x10e9/ L Neutr ophil Absol [place] 3.74 1.60 - 7.50 x10E9 /L 04/11 10:39 AM CDT [facility] [place] Not Available Not Available 09/07/2024 16:28:59 04/11/20 24 04/11/2024 CBC W Auto Diffe renti al panel - Blood lymphocytes [#/volume] in blood by automated count 3.56 text: 1.00 - 4.40 x10e9/ L Lymph ocyte Absol [place] 3.56 1.00 - 4.40 x10E9 /L 04/11 10:39 AM CDT [facility] Not Available Not Available 09/07/2024 16:28:59 04/11/20 24 04/11/2024 CBC W Auto Diffe renti al panel - Blood monocytes [#/volume] in blood by automated count 0.57 text: 0.15 - 1.00 x10e9/ L Monoc yte Absol [place] 0.57 0.15 - 1.00 x10E9 /L 04/11 10:39 AM CDT [facility] Not Available Not Available 09/07/2024 16:28:59 04/11/20 24 04/11/2024 CBC W Auto Diffe renti al panel - Blood eosinophils [#/volume] in blood 0.13 text: 0.00 - 0.60 x10e9/ L Eosin ophil Absol [place] 0.13 0.00 - 0.60 x10E9 /L 04/11 10:39 AM CDT [facility] Not Available Not Available 09/07/2024 16:28:59 04/11/20 24 04/11/2024 CBC W Auto Diffe renti al panel - Blood basophils [#/volume] in blood by automated count 0.05 text: 0.00 - 0.13 x10e9/ L Basop hil Absol [place] 0.05 0.00 - 0.13 x10E9 /L 04/11 10:39 AM CDT [facility] Not Available Not Available 09/07/2024 16:28:59 04/11/20 24 04/11/2024 CBC W Auto Diffe renti al panel - Blood interpretati on and review of laboratory results Abnorm al Not Available Not Available 16:28:59 07/26/19 07/26/2024 Urina lysis panel - Urine by Auto color UA Yellow text: straw, yellow Color UA Yello w Straw , Yello w 07/26 10:45 AM [employer] [facility] [place] Not Available Not Available 09/07/2024 16:28:52 07/26/19 25 07/26/2024 Urina lysis panel - Urine by Auto clarity UA Clear text: clear Rachel ty UA Clear Clear 07/26 10:45 AM [employer] [facility] [place] Not Available Not Available 09/07/2024 16:28:52 07/26/19 25 07/26/2024 Urina lysis panel - Urine by Auto specific gravity UA 1.004 low: 1.005h igh: 1.03 low Speci fic Gravi ty UA 1.004 (L) 1.005 - 1.030 07/26 10:45 AM [employer] [facility] [place] Not Available Not Available 09/07/2024 16:28:52 07/26/19 25 07/26/2024 Urina lysis panel - Urine by Auto pH UA 5 pH low: 5pHhig h: 8pH pH UA 5.0 5.0 - 8.0 pH 07/26 10:45 AM [employer] [facility] [place] Not Available Not Available 09/07/2024 16:28:52 07/26/19 25 07/26/2024 Urina lysis panel - Urine by Auto protein UA Negati ve text: negati ve Prote in UA Negat jelani Negat jelani 07/26 10:45 AM [employer] [facility] [place] Not Available Not Available 09/07/2024 16:28:52 07/26/19 25 07/26/2024 Urina lysis panel - Urine by Auto glucose UA Negati ve text: negati ve Gluco se UA Negat jelani Negat jelani 07/26 10:45 AM [employer] [facility] [place] Not Available Not Available 09/07/2024 16:28:52 07/26/19 25 07/26/2024 Urina lysis panel - Urine by Auto ketone UA Negati ve text: negati ve Keton e UA Negat jelani Negat jelani 07/26 10:45 AM [employer] [facility] [place] Not Available Not Available 09/07/2024 16:28:52 07/26/1907/26/2024 Urina lysis panel - Urine by Auto bilirubin UA Negati ve text: negati ve Bilir ubin UA Negat jelani Negat jelani 07/26 10:45 AM [employer] [facility] [place] Not Available Not Available 09/07/2024 16:28:52 07/26/19 25 07/26/2024 Urina lysis panel - Urine by Auto blood UA Negati ve text: negati ve Blood UA Negat jelani Negat jelani 07/26 10:45 AM [employer] [facility] [place] Not Available Not Available 09/07/2024 16:28:52 07/26/19 25 07/26/2024 Urina lysis panel - Urine by Auto nitrite UA Negati ve text: negati ve Nitri te UA Negat jelani Negat jelani 07/26 10:45 AM [employer] [facility] [place] Not Available Not Available 09/07/2024 16:28:52 07/26/19 25 07/26/2024 Urina lysis panel - Urine by Auto leukocyte esterase Negati ve text: negati ve Leuko cyte Silvina ase Negat jelani Negat jelani 07/26 10:45 AM [employer] [facility] [place] Not Available Not Available 09/07/2024 16:28:52 07/26/19 25 07/26/2024 Urina lysis panel - Urine by Auto urobilinogen UA Negati ve text: negati ve mg/dL Urobi linog en UA Negat jelani Negat jelani mg/dL 07/26 10:45 AM [employer] [facility] [place] Not Available Not Available 09/07/2024 16:28:52 07/26/19 25 07/26/2024 Urina lysis panel - Urine by Auto RBC UA 0-2 text: none seen, 0-2, 3-5 /hpf RBC UA 0-2 None Seen, 0-2, 3-5 /HPF 07/26 10:45 AM [employer] [facility] [place] Not Available Not Available 09/07/2024 16:28:52 07/26/19 25 07/26/2024 Urina lysis panel - Urine by Auto WBC UA None Seen text: none seen, 0-5 /hpf WBC UA None Seen None Seen, 0-5 /HPF 07/26 10:45 AM [employer] [facility] [place] Not Available Not Available 09/07/2024 16:28:52 07/26/19 25 07/26/2024 Urina lysis panel - Urine by Auto squamous epithelial cells UA None Seen text: none seen, 0-2, 3-5 /hpf Squam ous Epith elial Cells UA None Seen None Seen, 0-2, 3-5 /HPF 07/26 10:45 AM [employer] [facility] [place] Not Available Not Available 09/07/2024 16:28:52 07/26/19 25 07/26/2024 Urina lysis panel - Urine by Auto mucus UA 1+ text: /lpf Mucus UA 1+ /LPF 07/26 10:45 AM [employer] [facility] [place] Not Available Not Available 09/07/2024 16:28:52 07/26/19 25 07/26/2024 Urina lysis panel - Urine by Auto Unknown Analyte Cultur e Not Indica tae Cultu re Not Indic ated Not Available Not Available 09/07/2024 16:28:52 07/26/19 25 07/26/2024 Urina lysis panel - Urine by Auto interpretati on and review of laboratory results Abnorm al Not Available Not Available 16:28:52 07/26/19 25 07/26/2024 Eryth rocyt e sedim entat ion rate by Maria Elena pearson metho d erythrocyte sedimentatio n rate by westergren method 61 text: 0 - 20 mm/HR high Eryth rocyt e Sedim entat ion Rate Maria Elena pearson 61 (H) 0 - 20 MM/HR 07/26 10:36 AM [employer] [facility] [place] Not Available Not Available 09/07/2024 16:28:52 07/26/19 25 07/26/2024 Eryth rocyt e sedim entat ion rate by Weste rgren metho d interpretati on and review of laboratory results Abnorm al Not Available Not Available 16:28:52 07/26/19 25 07/26/2024 C react jelani prote in [Mass /volu me] in Serum or Plasm a C reactive protein [mass/volume ] in serum or plasma 3.5 mg/dL high: 0.5mg/ dL high C-Anushka ctive Prote in 3.5 (H) <=0.5 mg/dL 07/26 10:48 AM [facility] [place] Not Available Not Available 09/07/2024 16:28:52 07/26/19 25 07/26/2024 C react jelani prote in [Mass /volu me] in Serum or Plasm a interpretati on and review of laboratory results Abnorm al Not Available Not Available 16:28:52 07/26/19 25 07/26/2024 Compr ehens jelani metab olic 1999 panel - Serum or Plasm a urea nitrogen [mass/volume ] in serum or plasma low: 7mg/dL high: 26mg/d L low BUN <5 (L) 7 - 26 mg/dL 07/26 10:48 AM [facility] [place] Not Available Not Available 09/07/2024 16:28:52 07/26/19 25 07/26/2024 Compr ehens jelani metab olic 1999 panel - Serum or Plasm a creatinine [mass/volume ] in serum or plasma 0.7 mg/dL low: 0.56mg /dLhig h: 0.96mg /dL Creat inine 0.70 0.56 - 0.96 mg/dL 07/26 10:48 AM [facility] [place] Not Available Not Available 09/07/2024 16:28:52 07/26/19 25 07/26/2024 Compr ehens jelani metab olic 1999 panel - Serum or Plasm a sodium [moles/volum e] in serum or plasma 142 mmol/ L low: 136mmo l/Lhig h: 145mmo l/L Sodiu m 142 136 - 145 mmol/ L 07/26 10:48 AM [facility] [place] Not Available Not Available 09/07/2024 16:28:52 07/26/19 25 07/26/2024 Compr ehens jelani metab olic 1999 panel - Serum or Plasm a potassium [moles/volum e] in serum or plasma 3.8 mmol/ L low: 3.5mmo l/Lhig h: 4.5mmo l/L Potas sium 3.8 3.5 - 4.5 mmol/ L 07/26 10:48 AM [facility] [place] Not Available Not Available 09/07/2024 16:28:52 07/26/19 25 07/26/2024 Compr ehens jelani metab olic 1999 panel - Serum or Plasm a chloride [moles/volum e] in serum or plasma 105 mmol/ L low: 98mmol /Lhigh : 107mmo l/L Chlor perez 105 98 - 107 mmol/ L 07/26 10:48 AM [facility] Not Available Not Available 09/07/2024 16:28:52 07/26/19 25 07/26/2024 Compr ehens jelani metab olic 1999 panel - Serum or Plasm a carbon dioxide, total [moles/volum e] in serum or plasma 27 mmol/ L low: 22mmol /Lhigh : 29mmol /L CO2 27 22 - 29 mmol/ L 07/26 10:48 AM [facility] Not Available Not Available 09/07/2024 16:28:52 07/26/19 25 07/26/2024 Compr ehens jelani metab olic 1999 panel - Serum or Plasm a glucose [mass/volume ] in serum or plasma 103 mg/dL low: 70mg/d Lhigh: 99mg/d L high Gluco se 103 (H) 70 - 99 mg/dL 07/26 10:48 AM [facility] Not Available Not Available 09/07/2024 16:28:52 07/26/19 25 07/26/2024 Compr ehens jelani metab olic 2000 panel - Serum or Plasm a calcium [moles/volum e] in serum or plasma 9.8 mg/dL low: 8.4mg/ dLhigh : 10.2mg /dL Calci um 9.8 8.4 - 10.2 mg/dL 07/26 10:48 AM [facility] [place] Not Available Not Available 09/07/2024 16:28:52 07/26/19 25 07/26/2024 Compr ehens jelani metab olic 1999 panel - Serum or Plasm a protein [mass/volume ] in serum or plasma 7.7 g/dL low: 6g/dLh igh: 8.3g/d L Prote in Total 7.7 6.0 - 8.3 g/dL 07/26 10:48 AM [facility] Not Available Not Available 09/07/2024 16:28:52 07/26/19 25 07/26/2024 Compr ehens jelani metab olic 2000 panel - Serum or Plasm a albumin [mass/volume ] in serum or plasma by bromocresol green (bcg) dye binding method 4.1 g/dL low: 3.4g/d Lhigh: 5g/dL Album in 4.1 3.4 - 5.0 g/dL 07/26 10:48 AM [facility] Not Available Not Available 09/07/2024 16:28:52 07/26/19 25 07/26/2024 Compr ehens jelani metab olic 1999 panel - Serum or Plasm a bilirubin.to kaelyn [mass/volume ] in serum or plasma 0.4 mg/dL low: 0.2mg/ dLhigh : 1.2mg/ dL Bilir ubin Total 0.4 0.2 - 1.2 mg/dL 07/26 10:48 AM [facility] Not Available Not Available 09/07/2024 16:28:52 07/26/19 25 07/26/2024 Compr ehens jelani metab olic 1999 panel - Serum or Plasm a alkaline phosphatase [enzymatic activity/vol ume] in serum or plasma 94 U/L low: 40U/Lh igh: 150U/L Alkal ine Phosp hatas e 94 40 - 150 U/L 07/26 10:48 AM [facility] [employer] [facility] Not Available Not Available 09/07/2024 16:28:52 07/26/19 25 07/26/2024 Compr ehens jelani metab olic 1999 panel - Serum or Plasm a alanine aminotransfe rase [enzymatic activity/vol ume] in serum or plasma by no addition of P-5'-P 16 U/L low: 5U/Lhi gh: 55U/L ALT 16 5 - 55 U/L 07/26 10:48 AM [employer] [facility] [place] Not Available Not Available 09/07/2024 16:28:52 07/26/19 25 07/26/2024 Compr ehens jelani metab olic 1999 panel - Serum or Plasm a aspartate aminotransfe rase [enzymatic activity/vol ume] in serum or plasma 20 U/L low: 5U/Lhi gh: 34U/L AST 20 5 - 34 U/L 07/26 10:48 AM [employer] [facility] [place] Not Available Not Available 09/07/2024 16:28:52 07/26/19 25 07/26/2024 Compr ehens jelani metab olic 1999 panel - Serum or Plasm a anion gap 10 low: 6high: 16 Anion Gap 10 6 - 16 07/26 10:48 AM [employer] [facility] [place] Not Available Not Available 09/07/2024 16:28:52 07/26/19 25 07/26/2024 Compr ehens jelani metab olic 1999 panel - Serum or Plasm a urea nitrogen/cre atinine [mass ratio] in serum or plasma low: 7high: 23 low BUN/C reati nine Ratio <7 (L) 7 - 23 07/26 10:48 AM [employer] [facility] [place] Not Available Not Available 09/07/2024 16:28:52 07/26/19 25 07/26/2024 Compr ehens jelani metab olic 2000 panel - Serum or Plasm a osmolality calculated text: 275 - 295 mOsm/k g Osmol ality Calcu lated <292 275 - 295 mOsm/ kg 07/26 10:48 AM [employer] [facility] [place] Not Available Not Available 09/07/2024 16:28:52 07/26/19 25 07/26/2024 Compr ehens jelani metab olic 2000 panel - Serum or Plasm a albumin/glob ulin ratio 1.1 low: 1.1hig h: 2.3 Album in/Gl obuli n Ratio 1.1 1.1 - 2.3 07/26 10:48 AM [employer] [place] Not Available Not Available 09/07/2024 16:28:52 07/26/19 25 07/26/2024 Compr ehens jelani metab olic 2000 panel - Serum or Plasm a glomerular filtration rate/1.73 sq M.predicted [volume rate/area] in serum, plasma or blood by creatinine-b ased formula (CKD-epi 2020) text: >=90 mL/min /1.73 m2 eGFR by CKD-E PI >90 >=90 mL/mi n/1.7 3 m2 07/26 10:48 AM [employer] [facility] [place] Not Available Not Available 09/07/2024 16:28:52 07/26/1907/26/2024 Compr ehens jelani metab olic 2000 panel - Serum or Plasm a interpretati on and review of laboratory results Abnorm al Not Available Not Available 16:28:52 07/26/19 25 07/26/2024 CBC W Auto Diffe renti al panel - Blood leukocytes [#/volume] in blood by automated count 9.3 text: 4.0 - 10.7 x10e9/ L WBC 9.3 4.0 - 10.7 x10E9 /L 07/26 10:28 AM [employer] [place] Not Available Not Available 09/07/2024 16:28:52 07/26/19 25 07/26/2024 CBC W Auto Diffe renti al panel - Blood erythrocytes [#/volume] in blood by automated count 4.18 text: 3.90 - 5.20 x10e12 /L RBC Count 4.18 3.90 - 5.20 x10E1 2/L 07/26 10:28 AM [employer] [facility] [place] Not Available Not Available 09/07/2024 16:28:52 07/26/19 25 07/26/2024 CBC W Auto Diffe renti al panel - Blood hemoglobin [mass/volume ] in blood 12.7 g/dL low: 11.9g/ dLhigh : 15.8g/ dL Hemog lobin 12.7 11.9 - 15.8 g/dL 07/26 10:28 AM [facility] Not Available Not Available 09/07/2024 16:28:52 07/26/19 25 07/26/2024 CBC W Auto Diffe renti al panel - Blood hematocrit [volume fraction] of blood by automated count 38 % low: 34.8%h igh: 46.1% Hemat ocrit 38.0 34.8 - 46.1 % 07/26 10:28 AM [facility] Not Available Not Available 09/07/2024 16:28:52 07/26/1907/26/2024 CBC W Auto Diffe renti al panel - Blood MCV [entitic volume] by automated count 90.9 fL low: 80fLhi gh: 98fL MCV 90.9 80.0 - 98.0 fL 07/26 10:28 AM [facility] Not Available Not Available 09/07/2024 16:28:52 07/26/19 25 07/26/2024 CBC W Auto Diffe renti al panel - Blood MCH [entitic mass] by automated count 30.4 pg low: 26.7pg high: 33.6pg MCH 30.4 26.7 - 33.6 pg 07/26 10:28 AM [facility] Not Available Not Available 09/07/2024 16:28:52 07/26/19 25 07/26/2024 CBC W Auto Diffe renti al panel - Blood MCHC [mass/volume ] by automated count 33.4 g/dL low: 31.7g/ dLhigh : 36.3g/ dL MCHC 33.4 31.7 - 36.3 g/dL 07/26 10:28 AM [facility] Not Available Not Available 09/07/2024 16:28:52 07/26/19 25 07/26/2024 CBC W Auto Diffe renti al panel - Blood erythrocyte distribution width [ratio] by automated count 12 % low: 11.3%h igh: 14.8% RDW-C V 12.0 11.3 - 14.8 % 07/26 10:28 AM [facility] [place] Not Available Not Available 09/07/2024 16:28:52 07/26/19 25 07/26/2024 CBC W Auto Diffe renti al panel - Blood platelets [#/volume] in blood by automated count 341 text: 150 - 420 x10e9/ L Plate let Count 341 150 - 420 x10E9 /L 07/26 10:28 AM [facility] [place] Not Available Not Available 09/07/2024 16:28:52 07/26/19 25 07/26/2024 CBC W Auto Diffe renti al panel - Blood platelet mean volume [entitic volume] in blood by automated count 10 fL low: 7.8fLh igh: 11.4fL MPV 10.0 7.8 - 11.4 fL 07/26 10:28 AM [facility] Not Available Not Available 09/07/2024 16:28:52 07/26/19 25 07/26/2024 CBC W Auto Diffe renti al panel - Blood neutrophils [#/volume] in blood by automated count 6.02 text: 1.60 - 7.50 x10e9/ L Preli minar y Absol [place] Neutr ophil 6.02 1.60 - 7.50 x10E9 /L 07/26 10:28 AM [facility] [place] Not Available Not Available 09/07/2024 16:28:52 07/26/19 25 07/26/2024 CBC W Auto Diffe renti al panel - Blood neutrophils/ 100 leukocytes in blood by automated count 64.9 % low: 41%hig h: 74% Neutr ophil % 64.9 41.0 - 74.0 % 07/26 10:28 AM [facility] [place] Not Available Not Available 09/07/2024 16:28:52 07/26/19 25 07/26/2024 CBC W Auto Diffe renti al panel - Blood lymphocytes/ 100 leukocytes in blood by automated count 24.5 % low: 17%hig h: 47% Lymph ocyte % 24.5 17.0 - 47.0 % 07/26 10:28 AM [facility] [place] Not Available Not Available 09/07/2024 16:28:52 07/26/19 25 07/26/2024 CBC W Auto Diffe renti al panel - Blood monocytes/10 0 leukocytes in blood by automated count 8.6 % low: 3%high : 11% Monoc yte % 8.6 3.0 - 11.0 % 07/26 10:28 AM [facility] [place] Not Available Not Available 09/07/2024 16:28:52 07/26/19 25 07/26/2024 CBC W Auto Diffe renti al panel - Blood eosinophils/ 100 leukocytes in blood by automated count 1.3 % low: 0%high : 7% Eosin ophil % 1.3 0.0 - 7.0 % 07/26 10:28 AM [facility] [place] Not Available Not Available 09/07/2024 16:28:52 07/26/19 25 07/26/2024 CBC W Auto Diffe renti al panel - Blood basophils/10 0 leukocytes in blood by automated count 0.4 % low: 0%high : 1.6% Basop hil % 0.4 0.0 - 1.6 % 07/26 10:28 AM [facility] [place] Not Available Not Available 09/07/2024 16:28:52 07/26/19 25 07/26/2024 CBC W Auto Diffe renti al panel - Blood immature granulocytes /100 leukocytes in blood by automated count 0.3 % low: 0%high : 1% Immat ure Granu locyt es % 0.3 0.0 - 1.0 % 07/26 10:28 AM [facility] [place] Not Available Not Available 09/07/2024 16:28:52 07/26/19 25 07/26/2024 CBC W Auto Diffe renti al panel - Blood neutrophils [#/volume] in blood by automated count 6.02 text: 1.60 - 7.50 x10e9/ L Neutr ophil Absol [place] 6.02 1.60 - 7.50 x10E9 /L 07/26 10:28 AM [facility] [place] Not Available Not Available 09/07/2024 16:28:52 07/26/19 25 07/26/2024 CBC W Auto Diffe renti al panel - Blood lymphocytes [#/volume] in blood by automated count 2.27 text: 1.00 - 4.40 x10e9/ L Lymph ocyte Absol [place] 2.27 1.00 - 4.40 x10E9 /L 07/26 10:28 AM [facility] [place] Not Available Not Available 09/07/2024 16:28:52 07/26/19 25 07/26/2024 CBC W Auto Diffe renti al panel - Blood monocytes [#/volume] in blood by automated count 0.8 text: 0.15 - 1.00 x10e9/ L Monoc yte Absol [place] 0.80 0.15 - 1.00 x10E9 /L 07/26 10:28 AM [facility] [place] Not Available Not Available 09/07/2024 16:28:52 07/26/19 25 07/26/2024 CBC W Auto Diffe renti al panel - Blood eosinophils [#/volume] in blood 0.12 text: 0.00 - 0.60 x10e9/ L Eosin ophil Absol [place] 0.12 0.00 - 0.60 x10E9 /L 07/26 10:28 AM [facility] [place] Not Available Not Available 09/07/2024 16:28:52 07/26/19 25 07/26/2024 CBC W Auto Diffe renti al panel - Blood basophils [#/volume] in blood by automated count 0.04 text: 0.00 - 0.13 x10e9/ L Basop hil Absol [place] 0.04 0.00 - 0.13 x10E9 /L 07/26 10:28 AM [facility] [place] Not Available Not Available 09/07/2024 16:28:52 07/26/19 25 07/26/2024 CBC W Auto Diffe renti al panel - Blood interpretati on and review of laboratory results Normal Not Available Not Available 08/20 16:28:52 09/07/19 09/06/2024 Urina lysis panel - Urine by Auto color of urine by auto Yellow text: yellow , straw Color UA Yello w Yello w, Straw 09/06 10:14 AM CDT [facility] [place] Not Available Not Available 09/07/2024 16:28:57 09/07/19 25 09/06/2024 Urina lysis panel - Urine by Auto clarity in urine by refractometr y automated Clear text: clear Rachel ty UA Clear Clear 09/06 10:14 AM CDT [facility] [place] Not Available Not Available 09/07/2024 16:28:57 09/07/19 25 09/06/2024 Urina lysis panel - Urine by Auto glucose [presence] in urine by test strip Normal text: normal Gluco se UA Mary l Mary l 09/06 10:14 AM CDT [facility] [place] Not Available Not Available 09/07/2024 16:28:57 09/07/19 25 09/06/2024 Urina lysis panel - Urine by Auto bilirubin.to kaelyn [presence] in urine by test strip Negati ve text: negati ve Bilir ubin UA Negat jelani Negat jelani 09/06 10:14 AM CDT [facility] [place] Not Available Not Available 09/07/2024 16:28:57 09/07/19 25 09/06/2024 Urina lysis panel - Urine by Auto ketones [presence] in urine by automated test strip Negati ve text: negati ve Keton e UA Negat jelani Negat jelani 09/06 10:14 AM CDT [facility] [place] Not Available Not Available 09/07/2024 16:28:57 09/07/19 25 09/06/2024 Urina lysis panel - Urine by Auto specific gravity of urine by test strip 1.009 low: 1.005h igh: 1.03 Speci fic Gravi ty UA 1.009 1.005 - 1.030 09/06 10:14 AM CDT [facility] [place] Not Available Not Available 09/07/2024 16:28:57 09/07/19 25 09/06/2024 Urina lysis panel - Urine by Auto hemoglobin [presence] in urine by test strip Negati ve text: negati ve Blood UA Negat jelani Negat jelani 09/06 10:14 AM CDT [facility] [place] Not Available Not Available 09/07/2024 16:28:57 09/07/19 25 09/06/2024 Urina lysis panel - Urine by Auto pH of urine by test strip 5 pH low: 5pHhig h: 9pH pH UA 5.0 5.0 - 9.0 pH 09/06 10:14 AM CDT [facility] [place] Not Available Not Available 09/07/2024 16:28:57 09/07/1909/06/2024 Urina lysis panel - Urine by Auto protein [presence] in urine by test strip Negati ve text: negati ve Prote in UA Negat jelani Negat jelani 09/06 10:14 AM CDT [facility] [place] Not Available Not Available 09/07/2024 16:28:57 09/07/19 25 09/06/2024 Urina lysis panel - Urine by Auto urobilinogen [mass/volume ] in urine by automated test strip Normal text: normal mg/dL Urobi linog en UA Mary l Mary l mg/dL 09/06 10:14 AM CDT [facility] [place] Not Available Not Available 09/07/2024 16:28:57 09/07/19 25 09/06/2024 Urina lysis panel - Urine by Auto nitrite [presence] in urine by test strip Negati ve text: negati ve Nitri te UA Negat jelani Negat jelani 09/06 10:14 AM CDT [facility] [place] Not Available Not Available 09/07/2024 16:28:57 09/07/19 25 09/06/2024 Urina lysis panel - Urine by Auto leukocyte esterase [presence] in urine by test strip Negati ve text: negati ve Leuko cyte UA Negat jelani Negat jelani 09/06 10:14 AM CDT [facility] [place] Not Available Not Available 09/07/2024 16:28:57 09/07/19 25 09/06/2024 Urina lysis panel - Urine by Auto erythrocytes [#/area] in urine sediment by automated count 0-2 text: 0 - 5 # /hpf RBC UA 0-2 0 - 5 # /hpf 09/06 10:14 AM CDT [employer] [facility] [place] Not Available Not Available 09/07/2024 16:28:57 09/07/19 25 09/06/2024 Urina lysis panel - Urine by Auto leukocytes [#/area] in urine sediment by automated count 0-5 text: 0 - 5 # /hpf WBC UA 0-5 0 - 5 # /hpf 09/06 10:14 AM CDT [employer] [facility] [place] Not Available Not Available 09/07/2024 16:28:57 09/07/19 25 09/06/2024 Urina lysis panel - Urine by Auto bacteria [presence] in urine by automated None Seen text: none seen Bacte donn UA None Seen None Seen 09/06 10:14 AM CDT [facility] [place] Not Available Not Available 09/07/2024 16:28:57 09/07/19 25 09/06/2024 Urina lysis panel - Urine by Auto epithelial cells.squamo us [presence] in urine by automated 0-2 text: 0 - 5 /hpf Squam ous Epith elial Cells 0-2 0 - 5 /hpf 09/06 10:14 AM CDT [employer] [facility] [place] Not Available Not Available 09/07/2024 16:28:57 09/07/19 25 09/06/2024 Urina lysis panel - Urine by Auto mucus [presence] in urine by automated 1+ text: /lpf Mucus UA 1+ /LPF 09/06 10:14 AM CDT [employer] [facility] [place] Not Available Not Available 09/07/2024 16:28:57 09/07/19 25 09/06/2024 Urina lysis panel - Urine by Auto Unknown Analyte Not Available Not Available 08/20 16:28:57 09/07/19 25 09/06/2024 Eryth rocyt e sedim entat ion rate by Weste rgren metho d erythrocyte sedimentatio n rate by martinezren method 33 text: 0 - 20 mm/HR high Eryth rocyt e Sedim entat ion Rate Maria Elena pearson 33 (H) 0 - 20 MM/HR 09/06 10:19 AM CDT [facility] [place] Not Available Not Available 09/07/2024 16:28:57 09/07/19 25 09/06/2024 Eryth rocyt e sedim entat ion rate by Maria Elena pearson metho d interpretati on and review of laboratory results Abnorm al Not Available Not Available 16:28:57 09/07/19 25 09/06/2024 C react jelani prote in [Mass /volu me] in Serum or Plasm a C reactive protein [mass/volume ] in serum or plasma 0.8 mg/dL high: 0.5mg/ dL high C-Anushka ctive Prote in 0.8 (H) <=0.5 mg/dL 09/06 10:23 AM [facility] [place] Not Available Not Available 09/07/2024 16:28:57 09/07/19 25 09/06/2024 C react jelani prote in [Mass /volu me] in Serum or Plasm a interpretati on and review of laboratory results Abnorm al Not Available Not Available 16:28:57 09/07/19 25 09/06/2024 Compr ehens jelani metab olic 1999 panel - Serum or Plasm a urea nitrogen [mass/volume ] in serum or plasma 5 mg/dL low: 7mg/dL high: 26mg/d L low BUN 5 (L) 7 - 26 mg/dL 09/06 10:[address] [facility] [place] Not Available Not Available 09/07/2024 16:28:57 09/07/19 25 09/06/2024 Compr ehens jelani metab olic 1999 panel - Serum or Plasm a creatinine [mass/volume ] in serum or plasma 0.68 mg/dL low: 0.56mg /dLhig h: 0.96mg /dL Creat inine 0.68 0.56 - 0.96 mg/dL 09/06 10:23 AM CDT [facility] [place] Not Available Not Available 09/07/2024 16:28:57 09/07/19 25 09/06/2024 Compr ehens jelani metab olic 1999 panel - Serum or Plasm a sodium [moles/volum e] in serum or plasma 140 mmol/ L low: 136mmo l/Lhig h: 145mmo l/L Sodiu m 140 136 - 145 mmol/ L 09/06 10:23 AM CDT [facility] [place] Not Available Not Available 09/07/2024 16:28:57 09/07/19 25 09/06/2024 Compr ehens jelani metab olic 1999 panel - Serum or Plasm a potassium [moles/volum e] in serum or plasma 3.5 mmol/ L low: 3.5mmo l/Lhig h: 4.5mmo l/L Potas sium 3.5 3.5 - 4.5 mmol/ L 09/06 10:23 AM CDT [facility] [place] Not Available Not Available 09/07/2024 16:28:57 09/07/19 25 09/06/2024 Compr ehens jelani metab olic 1999 panel - Serum or Plasm a chloride [moles/volum e] in serum or plasma 104 mmol/ L low: 98mmol /Lhigh : 107mmo l/L Chlor perez 104 98 - 107 mmol/ L 09/06 10:23 AM T [facility] [place] Not Available Not Available 09/07/2024 16:28:57 09/07/19 25 09/06/2024 Compr ehens jelani metab olic 1999 panel - Serum or Plasm a carbon dioxide, total [moles/volum e] in serum or plasma 27 mmol/ L low: 22mmol /Lhigh : 29mmol /L CO2 27 22 - 29 mmol/ L 09/06 10:23 AM CDT [facility] [place] Not Available Not Available 09/07/2024 16:28:57 09/07/19 25 09/06/2024 Compr ehens jelani metab olic 2000 panel - Serum or Plasm a glucose [mass/volume ] in serum or plasma 83 mg/dL low: 70mg/d Lhigh: 99mg/d L Gluco se 83 70 - 99 mg/dL 09/06 10:23 AM CDT [facility] [place] Not Available Not Available 09/07/2024 16:28:57 09/07/19 25 09/06/2024 Compr [employer] jelani metab olic 2000 panel - Serum or Plasm a calcium [moles/volum e] in serum or plasma 9.7 mg/dL low: 8.4mg/ dLhigh : 10.2mg /dL Calci um 9.7 8.4 - 10.2 mg/dL 09/06 10:23 AM CDT [facility] [place] Not Available Not Available 09/07/2024 16:28:57 09/07/19 25 09/06/2024 Compr ens jelani metab olic 2000 panel - Serum or Plasm a protein [mass/volume ] in serum or plasma 7.7 g/dL low: 6g/dLh igh: 8.3g/d L Prote in Total 7.7 6.0 - 8.3 g/dL 09/06 10:23 AM CDT [facility] [place] Not Available Not Available 09/07/2024 16:28:57 09/07/19 25 09/06/2024 Compr ens jelani [employer] olic 2000 panel - Serum or Plasm a albumin [mass/volume ] in serum or plasma by bromocresol green (bcg) dye binding method 4.1 g/dL low: 3.4g/d Lhigh: 5g/dL Album in 4.1 3.4 - 5.0 g/dL 09/06 10:23 AM CDT [facility] [place] Not Available Not Available 09/07/2024 16:28:57 09/07/19 25 09/06/2024 Compr [employer] jelani [employer] olic 2000 panel - Serum or Plasm a bilirubin.to kaelyn [mass/volume ] in serum or plasma 0.3 mg/dL low: 0.2mg/ dLhigh : 1.2mg/ dL Bilir ubin Total 0.3 0.2 - 1.2 mg/dL 09/06 10:23 AM CDT [facility] [place] Not Available Not Available 09/07/2024 16:28:57 09/07/19 25 09/06/2024 Compr ehens jelani metab olic 1999 panel - Serum or Plasm a alkaline phosphatase [enzymatic activity/vol ume] in serum or plasma 91 U/L low: 40U/Lh igh: 150U/L Alkal ine Phosp hatas e 91 40 - 150 U/L 09/06 10:23 AM CDT [facility] [place] Not Available Not Available 09/07/2024 16:28:57 09/07/19 25 09/06/2024 Compr ehens jelani metab olic 1999 panel - Serum or Plasm a alanine aminotransfe rase [enzymatic activity/vol ume] in serum or plasma by no addition of P-5'-P 11 U/L low: 5U/Lhi gh: 55U/L ALT 11 5 - 55 U/L 09/06 10:23 AM CDT [facility] [place] Not Available Not Available 09/07/2024 16:28:57 09/07/19 25 09/06/2024 Compr ehens jelani metab olic 1999 panel - Serum or Plasm a aspartate aminotransfe rase [enzymatic activity/vol ume] in serum or plasma 18 U/L low: 5U/Lhi gh: 34U/L AST 18 5 - 34 U/L 09/06 10:23 AM CDT [facility] [place] Not Available Not Available 09/07/2024 16:28:57 09/07/19 25 09/06/2024 Compr ehens jelani metab olic 1999 panel - Serum or Plasm a anion gap 9 low: 6high: 16 Anion Gap 9 6 - 16 09/06 10:23 AM CDT [facility] [place] Not Available Not Available 09/07/2024 16:28:57 09/07/19 25 09/06/2024 Compr ehens jelani metab olic 1999 panel - Serum or Plasm a urea nitrogen/cre atinine [mass ratio] in serum or plasma 7 low: 7high: 23 BUN/C reati nine Ratio 7 7 - 23 09/06 10:23 AM CDT [facility] [place] Not Available Not Available 09/07/2024 16:28:57 09/07/19 25 09/06/2024 Compr ehens jelani metab olic 2000 panel - Serum or Plasm a osmolality calculated 286 text: 275 - 295 mOsm/k g Osmol jone grossmand 286 275 - 295 mOsm/ kg 09/06 10:23 AM CDT [employer] [facility] [place] Not Available Not Available 09/07/2024 16:28:57 09/07/19 25 09/06/2024 Compr ehens jelani metab olic 2000 panel - Serum or Plasm a albumin/glob ulin ratio 1.1 low: 1.1hig h: 2.3 Album in/Gl obuli n Ratio 1.1 1.1 - 2.3 09/06 10:23 AM CDT [facility] [place] Not Available Not Available 09/07/2024 16:28:57 09/07/19 25 09/06/2024 Compr ehens jelani metab olic 2000 panel - Serum or Plasm a glomerular filtration rate/1.73 sq M.predicted [volume rate/area] in serum, plasma or blood by creatinine-b ased formula (CKD-epi 2020) text: >=90 mL/min /1.73 m2 eGFR by CKD-E PI >90 >=90 mL/mi n/1.7 3 m2 09/06 10:23 AM CDT [facility] [place] Not Available Not Available 09/07/2024 16:28:57 09/07/19 25 09/06/2024 Compr ehens jelani metab olic 2000 panel - Serum or Plasm a interpretati on and review of laboratory results Abnorm al Not Available Not Available 16:28:57 09/07/19 25 09/06/2024 CBC W Auto Diffe renti al panel - Blood leukocytes [#/volume] in blood by automated count 6.6 text: 4.0 - 10.7 x10e9/ L WBC 6.6 4.0 - 10.7 x10E9 /L 09/06 10:04 AM CDT [employer] [place] Not Available Not Available 09/07/2024 16:28:57 09/07/19 25 09/06/2024 CBC W Auto Diffe renti al panel - Blood erythrocytes [#/volume] in blood by automated count 4.05 text: 3.90 - 5.20 x10e12 /L RBC Count 4.05 3.90 - 5.20 x10E1 2/L 09/06 10:04 AM T [facility] Not Available Not Available 09/07/2024 16:28:57 09/07/19 25 09/06/2024 CBC W Auto Diffpedro ernst panel - Blood hemoglobin [mass/volume ] in blood 12.3 g/dL low: 11.9g/ dLhigh : 15.8g/ dL Hemog lobin 12.3 11.9 - 15.8 g/dL 09/06 10:04 AM T [facility] Not Available Not Available 09/07/2024 16:28:57 09/07/19 25 09/06/2024 CBC W Auto Rachel ernst panel - Blood hematocrit [volume fraction] of blood by automated count 37 % low: 34.8%h igh: 46.1% Hemat ocrit 37.0 34.8 - 46.1 % 09/06 10:04 AM [facility] Not Available Not Available 09/07/2024 16:28:57 09/07/19 25 09/06/2024 CBC W Auto Rachel ernst panel - Blood MCV [entitic volume] by automated count 91.4 fL low: 80fLhi gh: 98fL MCV 91.4 80.0 - 98.0 fL 09/06 10:04 AM [facility] Not Available Not Available 09/07/2024 16:28:57 09/07/19 25 09/06/2024 CBC W Auto Diffpedro ernst panel - Blood MCH [entitic mass] by automated count 30.4 pg low: 26.7pg high: 33.6pg MCH 30.4 26.7 - 33.6 pg 09/06 10:04 AM [facility] Not Available Not Available 09/07/2024 16:28:57 09/07/19 25 09/06/2024 CBC W Auto Diffpedro ernst panel - Blood MCHC [mass/volume ] by automated count 33.2 g/dL low: 31.7g/ dLhigh : 36.3g/ dL MCHC 33.2 31.7 - 36.3 g/dL 09/06 10:04 AM [facility] Not Available Not Available 09/07/2024 16:28:57 09/07/19 25 09/06/2024 CBC W Auto Diffe renti al panel - Blood erythrocyte distribution width [ratio] by automated count 11.9 % low: 11.3%h igh: 14.8% RDW-C V 11.9 11.3 - 14.8 % 09/06 10:04 [facility] Not Available Not Available 09/07/2024 16:28:57 09/07/19 25 09/06/2024 CBC W Auto Diffe renti al panel - Blood platelets [#/volume] in blood by automated count 335 text: 150 - 420 x10e9/ L Plate let Count 335 150 - 420 x10E9 /L 09/06 10:04 [facility] Not Available Not Available 09/07/2024 16:28:57 09/07/19 25 09/06/2024 CBC W Auto Diffe renti al panel - Blood platelet mean volume [entitic volume] in blood by automated count 10.2 fL low: 7.8fLh igh: 11.4fL MPV 10.2 7.8 - 11.4 fL 09/06 10:04 AM [facility] Not Available Not Available 09/07/2024 16:28:57 09/07/19 25 09/06/2024 CBC W Auto Diffe renti al panel - Blood neutrophils [#/volume] in blood by automated count 2.79 text: 1.60 - 7.50 x10e9/ L Preli minar y Absol [place] Neutr ophil 2.79 1.60 - 7.50 x10E9 /L 09/06 10:04 AM [facility] Not Available Not Available 09/07/2024 16:28:57 09/07/19 25 09/06/2024 CBC W Auto Diffe renti al panel - Blood neutrophils/ 100 leukocytes in blood by automated count 42.3 % low: 41%hig h: 74% Neutr ophil % 42.3 41.0 - 74.0 % 09/06 10:04 AM CDT [facility] Not Available Not Available 09/07/2024 16:28:57 09/07/19 25 09/06/2024 CBC W Auto Diffe renti al panel - Blood lymphocytes/ 100 leukocytes in blood by automated count 46.3 % low: 17%hig h: 47% Lymph ocyte % 46.3 17.0 - 47.0 % 09/06 10:04 AM CDT [facility] [place] Not Available Not Available 09/07/2024 16:28:57 09/07/19 25 09/06/2024 CBC W Auto Diffe renti al panel - Blood monocytes/10 0 leukocytes in blood by automated count 8.7 % low: 3%high : 11% Monoc yte % 8.7 3.0 - 11.0 % 09/06 10:04 AM T [facility] [place] Not Available Not Available 09/07/2024 16:28:57 09/07/19 25 09/06/2024 CBC W Auto Diffe renti al panel - Blood eosinophils/ 100 leukocytes in blood by automated count 1.7 % low: 0%high : 7% Eosin ophil % 1.7 0.0 - 7.0 % 09/06 10:04 AM T [facility] [place] Not Available Not Available 09/07/2024 16:28:57 09/07/19 25 09/06/2024 CBC W Auto Diffe renti al panel - Blood basophils/10 0 leukocytes in blood by automated count 0.8 % low: 0%high : 1.6% Basop hil % 0.8 0.0 - 1.6 % 09/06 10:04 AM CDT [facility] [place] Not Available Not Available 09/07/2024 16:28:57 09/07/19 25 09/06/2024 CBC W Auto Diffe renti al panel - Blood immature granulocytes /100 leukocytes in blood by automated count 0.2 % low: 0%high : 1% Immat ure Granu locyt es % 0.2 0.0 - 1.0 % 09/06 10:04 AM CDT [facility] [place] Not Available Not Available 09/07/2024 16:28:57 09/07/19 25 09/06/2024 CBC W Auto Diffe renti al panel - Blood neutrophils [#/volume] in blood by automated count 2.79 text: 1.60 - 7.50 x10e9/ L Neutr ophil Absol [place] 2.79 1.60 - 7.50 x10E9 /L 09/06 10:04 AM CDT [facility] [place] Not Available Not Available 09/07/2024 16:28:57 09/07/19 25 09/06/2024 CBC W Auto Diffe renti al panel - Blood lymphocytes [#/volume] in blood by automated count 3.04 text: 1.00 - 4.40 x10e9/ L Lymph ocyte Absol [place] 3.04 1.00 - 4.40 x10E9 /L 09/06 10:04 AM CDT [facility] [place] Not Available Not Available 09/07/2024 16:28:57 09/07/19 25 09/06/2024 CBC W Auto Diffe renti al panel - Blood monocytes [#/volume] in blood by automated count 0.57 text: 0.15 - 1.00 x10e9/ L Monoc yte Absol [place] 0.57 0.15 - 1.00 x10E9 /L 09/06 10:04 AM CDT [facility] [place] Not Available Not Available 09/07/2024 16:28:57 09/07/19 25 09/06/2024 CBC W Auto Diffe renti al panel - Blood eosinophils [#/volume] in blood 0.11 text: 0.00 - 0.60 x10e9/ L Eosin ophil Absol [place] 0.11 0.00 - 0.60 x10E9 /L 09/06 10:04 AM CDT [facility] Not Available Not Available 09/07/2024 16:28:57 0309/06/2024 CBC W Auto Diffe renti al panel - Blood basophils [#/volume] in blood by automated count 0.05 text: 0.00 - 0.13 x10e9/ L Basop hil Absol [place] 0.05 0.00 - 0.13 x10E9 /L 09/06 10:04 AM CDT [facility] [place] Not Available Not Available 09/07/2024 16:28:57 09/07/1909/06/2024 CBC W Auto Diffe renti al panel - Blood interpretati on and review of laboratory results Normal Not Available Not Available 08/20 16:28:57 Result Notes None recorded. 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 Procedures Surgical History Date Name Laterality Status Provider Name and Address Organization Details Recorded Time Eye Surgery completed Joan Matt MA [facility] 07/20/2014 11:42:41 Hysterectomy completed Joan Matt MA [facility] 07/20/2014 11:42:41 Removal of ovary(s) completed Joan Matt MA [facility] 07/20/2014 11:42:41 Caesarean Section completed Joan conley ROSHAN [facility] 07/20/2014 11:42:41 Carpal tunnel surgery completed Joan Matt ROSHAN [facility] 07/20/2014 11:42:41 Imaging Results None recorded. Procedure Notes None recorded. Medical Equipment None Reported. Allergies Allergen ID Allergen Name Allergen Category Reaction Reaction Severity Criticality Documentation Date Start Date Code Code System Note Provider Name and Address Organization Details Recorded Time 776249 Enbrel medicatio n hives itching other vomiting Not available Not available Not available Not available Not available 09/11/2019 70327 1 RxNorm swell ing Not Available Not Available Not Available 069805 amoxicill in medicatio n diarrhea rash vomiting severe severe severe Not available 07/29/2021 723 RxNorm Thrus h Not Available Not Available Not Available latex environme nt,medica tion rash Not available Not available 07/20/2014 06202 91 RxNorm Not Available Not Available Not Available lanolin environme nt,medica tion rash Not available Not available 07/20/2014 6227 RxNorm Not Available Not Available Not Available Imitrex medicatio n respirato ry distress severe Not available 07/20/2014 99392 3 RxNorm Not Available Not Available Not Available Robaxin medicatio n respirato ry distress moderate Not available 07/20/2014 57890 5 RxNorm Not Available Not Available Not Available 26135 Celexa medicatio n Not available Not available Not available 11/25/2016 86825 8 RxNorm Not Available Not Available Not [...] Not Available Not Available OptiChamb er Hanna [facility] spacer USE DIRECTED WITH INHALER active Not Available Not Available No t Available Vitals Date Recorded Body height Body mass index (BMI) Body weight Body temperature Oxygen saturation Oxygen saturation in Arterial blood by Pulse oximetry Respiratory rate Heart rate Systolic blood pressure Diastolic blood pressure Provider Name and Address Organization Details Last Updated DateTime 2 175.26 cm 20.6 kg/m2 76893.7 8 g 97.7 [degF] 99 % 99 % 18.02 /min 97 /min 136 mm[Hg] 82 mm[Hg] Niyah Anton [place] [facility] 2 16:29:26 Date Recorded Body height Body mass index (BMI) Body weight Heart rate Body temperature Respiratory rate Oxygen saturation Oxygen saturation in Arterial blood by Pulse oximetry Systolic blood pressure Diastolic blood pressure Provider Name and Address Organization Details Last Updated DateTime 4 175.26 cm 19.1 kg/m2 83662.8 7 g 94 /min 98.6 [degF] 16 /min 99 % 99 % 154 mm[Hg] 87 mm[Hg] Cuca Fuentes [place] [facility] 4 14:25:18 Date Recorded Body height Body mass index (BMI) Body weight Heart rate Oxygen saturation Oxygen saturation in Arterial blood by Pulse oximetry Respiratory rate Body temperature Systolic blood pressure Diastolic blood pressure Provider Name and Address Organization Details Last Updated DateTime 4 175.26 cm 18.7 kg/m2 47443.3 9 g 93 /min 98 % 98 % 17 /min 97.6 [degF] 119 mm[Hg] 81 mm[Hg] Pilar Sigala MA [facility] 4 09:16:22 Date Recorded Body height Body mass index (BMI) Body weight Respiratory rate Body temperature Heart rate Oxygen saturation Oxygen saturation in Arterial blood by Pulse oximetry Systolic blood pressure Diastolic blood pressure Provider Name and Address Organization Details Last Updated DateTime 4 175.26 cm 18.6 kg/m2 27071.0 4 g 16 /min 98.6 [degF] 90 /min 96 % 96 % 123 mm[Hg] 87 mm[Hg] Rosie Callawaymichele Rodriguez [facility] 4 11:27:44 Date Recorded Body height Body mass index (BMI) Body weight Body temperature Heart rate Respiratory rate Systolic blood pressure Diastolic blood pressure Provider Name and Address Organization Details Last Updated DateTime 4 175.26 cm 19.7 kg/m2 49474.1 9 g 98.3 [degF] 86 /min 18 /min 123 mm[Hg] 84 mm[Hg] Jenny Smith MA [facility] 4 16:30:01 Social History Question Answer Notes LastModified by Organizat ion Details LastModified Time Tobacco Smoking Status Former Smoker Quit in 2013 Julia Patiño MA null, [facility] 09/11/2019 11:13:17 Do You Have An Advance [...] not available 09/11/2019 What Is Your Occupation? [employer] Information not available 01/20/2022 Are There Any [...] Bone Problems Y Acid Reflux (GERD) Y Allergies Y Headaches Y Gynecological History Statement/Question Response Date of Last Pap Smear Age at Menarche 11 Current Control Method Hysterectom y Age at First Child 16 LMP Unknown Obstetrics History GPAL:G 3 P 2 1 0 3 Type Value Full Term 2 Premature 1 Living 3 Total 3 Immunizations Vaccine Type Date Status Note Provider Paul vasquez and Address Organization Details Recorded Time MMR 3 completed TANYA CAST MD Attn: Accounting,[address] [place], [address], [place] [facility] 07/06/2023 15:25:56 MMR 6 completed TANYA CAST MD Attn: Accounting,[address], [place], [place], [address] [place] [address], [place] [facility] 07/06/2023 15:25:56 DTP 0 completed TANYA CAST MD Attn: Accounting,[address], [place], [place], [address] [place] [address], [place] [facility] 07/06/2023 15:25:56 DTP 5 completed TANYA CAST MD Attn: Accounting,[address], [place], [place], [address] [place] [address], [place] [facility] 07/06/2023 15:25:56 DTP 5 completed TANYA CAST MD Attn: Accounting,[address], [place], [place], [address] [place] [address], [place] [facility] 07/06/2023 15:25:56 DTP 6 completed TANYA CAST MD Attn: Accounting,[address], [place], [place], [address] [place] [address], [place] [facility] 07/06/2023 15:25:56 DTP 5 completed TANYA CAST MD Attn: Accounting,[address], [place], [place], [address] [place] [address], [place] [facility] 07/06/2023 15:25:56 OPV 0 completed TANYA CAST MD Attn: Accounting,[address], [place], [place], [address] [place] [address], [place] [facility] 07/06/2023 15:25:56 OPV 6 completed TANYA CAST MD Attn: Accounting,[address], [place], [address] [place] [address], [place] [facility] 07/06/2023 15:25:56 OPV 5 completed TANYA CAST MD Attn: Accounting,[address], [place], [address] [place] [address], [place] [facility] 07/06/2023 15:25:56 OPV 5 completed TANYA CAST MD Attn: Accounting,[address] [facility], [place], [address], [facility] 07/06/2023 15:25:56 Td (adult), 5 Lf tetanus toxoid, preservative free, adsorbed 0 completed TANYA CAST MD Attn: Accounting,[address] [facility], [place], [address], [facility] 07/06/2023 15:25:56 Hep B, adolescent or pediatric 8 completed TANYA CAST MD Attn: Accounting,[address] [facility], [place], [address], [facility] 07/06/2023 15:25:56 Hep B, adolescent or pediatric 8 completed TANYA CAST MD Attn: Accounting,[address] [facility], [place], [address], [facility] 07/06/2023 15:25:56 Hep B, adolescent or pediatric 8 completed TANYA CAST MD Attn: Accounting,[address] [facility], [place], [address], [facility] 07/06/2023 15:25:57 Past Encounters Encounter ID Performer Location Encounter Start Date Encounter Closed Date Diagnosis/Indication Diagnosis SNOMED-CT Code Diagnosis ICD10 Code Diagnosis Note [id number] ROSHAN Moyer ([address]) [address] [place] [address] 07/20/2014 11:15:14 07/20/2014 16:17:10 Knee pain 94032610 [id number] MICEHL Vo ([address]) [address] [place] [place] [address] 07/27/2014 10:54:07 07/27/2014 17:01:15 Generalized headache 637039472 [id number] MICHEL Vo ([address]) [address] [place] [address] 11/24/2016 14:25:16 11/25/2016 14:26:25 Pain in right knee 4589750910 02917 M25.561 Counseled on knee pain, testing and medication -Knee immobilize r-crutches , ice, Ibuprofen and elevate, no PE x 2 weeks and referral to sports medicine [id number] MICHEL Vo Woment[place] ([facility] 205) [address] [facility] [address] [place] [address] 09/16/2017 09:23:22 09/17/2017 18:25:40 Edema 432900214 R60.9 Counseled on edema and differenti als-will continue Ibuprofen as needed-lab work today and referral to rheumatolo gy-also to f/u with neuro as scheduled [id number] MD Magdalena Beal 14 IM [address] [facility] [place] [address] 09/11/2019 10:41:24 09/12/2019 14:20:12 Pain in right hand 2816996292 67178 M79.641 Insomnia 930157109 G47.0 0 Pt was encouraged to use chamomile tea at night as well. [id number] MD Magdalena Beal 14 IM [address] [facility] [place] [address] 11/21/2020 08:58:26 11/23/2020 14:39:08 Under care of vice president investor relations 241447066 Z76.89 Rheumatoid arthritis 698 33213 M06.9 Under care of neurologist 793312756 Z76.89 care for her migraines Administra tion of SARS-CoV-2 antigen vaccine 432582926 Z23 pt was encouraged to consider this [id number] MD Magdalena Beal 14 IM [address] [facility] [place] [address] 07/29/2021 11:15:05 07/31/2021 15:38:37 Temporomandibular joint disorder 84377487 M26.609 Anxiety disorder 5766945 06 F41.9 [id number] MD Magdalena YAÑEZ 14 IM [address] [facility] [place] [address] 01/20/2022 15:39:58 01/21/2022 13:18:28 Generalized anxiety disorder 14581031 F41.1 Patient is currently being managed on hydroxyzin e pamoate 25 mg with no complaint. Patient is going through a divorce and reports a decrease in anxiety since leaving her . Patient will like to have an emotional support letter to have her dog live with her in the new apartment as support. Letter provided to allow patient to have her emotional support. [id number] MD Magdalena Monteiro 14 [address] [facility] [place] [address] 07/06/2023 14:06:13 07/12/2023 10:24:15 Seropositive rheumatoid arthritis of multiple joints 6345687790 5276124 M05.89 Suspect acute flare of RA in the right knee.Johnnieo ws with Dr. Alan donis infliximab infusion q6-8 weeks, SSA, meloxicam. -Recommend follow up with Rheumatolo gist-Benito charline current medication s.-Acute flare treatment as above. Flare of r heumatoid arthritis 602742098 M06.9 See assessment and plan under pain of right knee joint. Pain of ri ght knee joint 2220395564 31841 M25.561 37 y/o F with a PMH of seropositi ve rheumatoid arthritis here for right knee pain. No signs of infection noted. Suspect acute flare of RA in the right knee.-Will get CBC, CRP, ESR to check for inflammati on and leukocytos is.-Start course of steroids, prednisone 40 mg p6cthg-Tzn ient received Ketorolac 30 mg. Was advised to hold taking her meloxicam for 48 hours-Note for work provided.- RTC/ED if symptoms persist/wo rsen. [id number] MD Magdalena Ruby [address] [facility] [place] [address] 09/03/2023 09:06:03 09/06/2023 07:52:39 Normal body mass index 32663244 Z68.1 Mild inter mittent asthma 611823302 J45.20 albuterol refilled. Dropped the inhaler at work and it broke. Seropositi ve rheumatoid arthritis of multiple joints 1029040914 7522282 M05.[address] Pa. Taking infliximab infusion q6-8 weeks, SSA, meloxicam. Requires FMLA paperwork to be completed. FMLA paperwork completed with patient. Requested patient get extra time to complete tasks, and be able to have 2-4 days off for acute flares/inf usion effects. -Recommend follow up with Alis markham-Benito charline current medication s. [id number] MD Magdalena YAÑEZ 14 IM [address] [facility] [place] [address] 11/30/2023 11:11:02 12/02/2023 12:57:55 Seropositive rheumatoid arthritis of multiple joints 8916048297 5488247 M05.89 - Patient is managed by Alis markham at [facility] with a follow up appointmen t coming up January 10. She is currently on meloxicam 15 mg daily and Infliximab infusion. She just completed a 5 day course of prednisone 20 mg bid. Due to persistent pain, will continue another 5 day course of Prednisone 40 mg Positive s creening for depression on PHQ-9 (Patient Health Questionnaire 9) 8837804429 57997 Z13.31 PHQ-9 score 5 - mild. Patient denies SI/HI and reports doing well overall just a little down about her RA flare up. [id number] MD Magdalena Banda 14 IM [address] [facility] [place] [address] 05/11/2024 16:18:57 05/16/2024 16:32:06 Normal body mass index 17604039 Z68.1 Patient educated on healthy eating habits and exercise at least 30 mins per day. A diet comprised of four to five servings of fruit, four to five servings of vegetables , and two to three servings of low-fat dairy per day, with <25 percent of daily caloric intake from fat. Mild inter mittent asthma 451914832 J45.20 Chronic, stable. Needs refill. Seropositi ve rheumatoid arthritis of multiple joints 6240135119 8596909 M05.89 Chronic, stable.- Patient presents today for FMLA paperwork days adjustment . 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 Health Concerns Section Related Observation LastModified by Organization Detai ls LastModified Time None Recorded Concern Status LastModified by Organization Details LastModified Time None Recorded Advance Directives Directive N: Payers Encounter Date Sequence Insurance Name Policy Number Policy Calderon Covered Member ID Calderon Member ID Guarantor Name 01/20/2022 1 [facility] ON OR AFTER 12/19/20 (MEDICAID REPLACEMENT - HMO) Jalyn Torrez [id number] Jalyn Torrez 07/06/2023 1 [facility] ON OR AFTER 12/19/20 (MEDICAID REPLACEMENT - HMO) Jalyn Torrez [id number] September Sarmad Torrez 09/03/2023 1 [facility] ON OR AFTER 12/19/20 (MEDICAID REPLACEMENT - HMO) Jalyn Torrez [id number] September Sarmad Torrez 11/30/2023 1 [facility] ON OR AFTER 12/19/20 (MEDICAID REPLACEMENT - HMO) Jalyn Torrez [id number] September Sarmad Torrez 05/11/2024 1 [facility] ON OR AFTER 12/19/20 (MEDICAID REPLACEMENT - HMO) Jalyn Torrez [id number] Jalyn Torrez Notes Date Note Type Note [...] with no complaint. Patient reports working with [facility] and receiving the help she needs from them. Patient reports feeling happier and safe not living with her ex . Patient denies headache, shortness of breath, chest pain, abdominal pain. No further complaint. TANYA CAST MD Attn: Accounting,[address] [place], [address], [facility] - [facility] 01/23/2022 11:14:27 07/06/2023 text/html Jalyn is a [...] was costa bandaged and sent home. Sees Training Director, Dr. Pa at [facility] - was supposed to see last month, but missed appointment due to URI illness. She tried calling the office, but was only able to get an appointment for September.Taking infliximab infusion q6-8 weeks, SSA, meloxicam, cymbalta. Patient would like a note for work - for light duty. Cuate Ayala MD Attn: Accounting,[address] [place], [address], [facility] - [facility] 07/24/2023 21:57:20 09/03/2023 text/html Jalyn [...] abdominal pain. Barb Ruffin MD Attn: Accounting,[address] [facility], [place], [address], [place] [facility] 09/03/2023 12:19:14 11/30/2023 text/html Jalyn [...] has an appointment coming up with her Training Director on 10 of January. TANYA CAST MD Attn: Accounting,[address] [facility], [place], [address], [facility] - [facility] 12/02/2023 09:46:41 05/11/2024 text/html September is a 38 yo F with PMH of generalized headache, RA who presents today for FMLA paperwork adjustment due to recent job lost. Mild intermittent asthma - needs refill. Boni Sy MD Attn: Accounting,[address] [facility], [place], [address], [place] [facility] 05/11/2024 17:32:31 OBGyn Episode No OBEpisode recorded.
--- OUTSIDE RECORDS SUMMARY | 2024-10-15 13:52 | XMS_ITS | Clinical Summary ---
Author Organization [facility] Address [address] [place] [address] Care Team Providers Care Principal Automation Engineer Name Role Phone Radha Maldonado MD Primary Care Provider [phone] Allergies Active Allergy Reactions Criticality Noted Date [...] Type Department Care Team Description 07/19/2024 Telephone [facility] [address] [place] [address] Niyah Tolentino LPN from Last 3 Months Immunizations Immunization Administration Dates Next Due DT [...] on file Legal Sex Female 11:29 PM SERVER SOFTWARE ENGINEER Gender Identity Not on file Sexual Orientation [...] Comments Blood Pressure 122/72 07/13/2024 10:02 AM SERVER SOFTWARE ENGINEER Pulse 102 08/27/2023 1:16 PM SERVER SOFTWARE ENGINEER Temperature 37.5 C (99.5 F) 08/27/2023 11:17 AM SERVER SOFTWARE ENGINEER Respiratory Rate 18 08/27/2023 1:16 PM SERVER SOFTWARE ENGINEER Oxygen Saturation 98% 08/27/2023 1:16 PM SERVER SOFTWARE ENGINEER Inhaled Oxygen Concentration - - Weight 61.7 kg (136 lb) 07/13/2024 10:02 AM SERVER SOFTWARE ENGINEER Height 171.5 cm (5' 7.5 ) 07/13/2024 10:02 AM CS T Body Mass Index 20.99 07/13/2024 10:02 AM SERVER SOFTWARE ENGINEER Plan of Treatment Health Maintenance Due Date Last Done Comments Breast Cancer Screening-Mammogram 1984 Depression Screening 1984 Hepatitis C Screening 1984 Varicella Vaccines (1 of 2 - 13+ 2-dose series) 1997 Pneumococcal vaccine <65 (1 of 2 - PCV) 09/23/2003 Zoster Vaccine (1 of 2) 09/23/2003 DTaP/Tdap/Td Vaccine (6 - Tdap) 06/22/2007 06/21/2007, 02/07/1999, 10/06/1988, Additional history exists Influenza Vaccine (Season Ended) 2025 Regular Well Visit/Exam 18-64 07/13/2025 07/13/2024, 02/02/2023, 01/30/2022, Additional history exists Hepatitis B Screening Completed 04/20/1997 , 12/06/1996, 07/07/1996 HPV Vaccines Aged Out No longer eligi ble based on patient's age to complete this topic Insurance [facility] Care Teams Principal Automation Engineer Relationship Specialty Start Date End Date Radha Maldonado MD PCP - General Family Medicine 08/27/23
--- OUTSIDE RECORDS SUMMARY | 2024-10-15 13:52 | XMS_ITS | Clinical Summary ---
Author Organization [facility] [employer] Address [address] [place] [address] Care Team Providers Care Nail Artist Name Role Phone SwetaadrienRadha Primary Care Provider [phone] Source Comments [facility] [employer],non-owned Affiliates and Associated Physician Practices is amultiple site organization consisting of ambulatory clinics and hospital sitesin [place], [place], [place] and [place]. This disclosure is being madepursuant to the Care Everywhere program and may not contain all information available regarding this patient. Last updated 18.[employer] Allergies Active Allergy Reactions Criticality Noted Date [...] document. Alwaysverify current medications with the patient. estrogens, conjugated, (PREMARIN) 0.45 MG tablet TAKE 1 TABLET BY MOUTH EVERY DAY 8 Active DiphenhydrAMINE HCl (BENADRYL ALLERGY PO)Indications:n ightly Take 2 tablets by mouth once daily Reasons: nightly Active inFLIXimab (Remicade) injection 3 mg/kg by Intravenous route once Active ondansetron, disintegrating, (Zofran ODT) 4 MG tabletIndication s:Nausea without vomiting Take 1 (one) tablet by mouth every 6 hours as needed 30 tablet 1 3 Active albuterol HFA (Proventil; Ventolin; Proair) 108 (90 Base) MCG/ACT inhaler Inhale 2 (two) puffs by mouth every 4 hours as needed 4 Active lidocaine (Lidoderm) 5 % patch Apply 1 (one) patch to skin once daily 4 Active Spacer/Aero-Hold ing Chambers (OptiChamber Hanna) MISC USE DIRECTED WITH INHALER 3 Active cyclobenzaprine (Flexeril) 10 MG tablet Take 1 (one) tablet by mouth 3 times daily 30 tablet 5 4 Active predniSONE (Deltasone) 5 MG tablet Take 1 (one) tablet by mouth once daily 30 tablet 2 5 Active meloxicam (Mobic) 15 MG tabletIndication s:Rheumatoid arthritis involving multiple sites, unspecified whether rheumatoid factor present (HCC) Take 1 (one) tablet by mouth once daily 30 tablet 1 5 Active sulfaSALAzine (Azulfidine) 500 MG tabletIndication s:Rheumatoid arthritis involving multiple sites, unspecified whether rheumatoid factor present (HCC) TAKE 3 TABLETS BY MOUTH TWICE DAILY 180 tablet 1 5 Active Active Problems Problem Noted Date Diagnosed Date Rheumatoid arthritis involving multiple sites Encounter for long-term (cur rent) use of high-risk medication 10/25/2017 Encounter for therapeutic drug monitoring 2017 Encounters Date Type Department Care Team Description 09/12/2024 Refill [facility] - Rheumatology [address] [place] [phone] Sue Pa MD Refill Request 09/08/2024 Refill [facility] [address] [place] [phone] Sue Pa MD MEDICATION REFILL 09/06/2024 9:07 AM CDT - 09/06/2024 11:59 PM CDT Hospital Encounter [facility] [address] [place] [address] Sue Pa MD Discharge Disposition: Home or Self Care 09/06/2024 Refill [facility] [address] [place] [phone] Sue Pa MD MEDICATION REFILL 09/04/2024 Refill [facility] [address] [place] [phone] Sue Pa MD Refill Request 08/14/2024 Refill [facility] [address] [place] [phone] Sue Pa MD MEDICATION REFILL 08/11/2024 Refill [facility] [address] [place] [phone] Sue Pa MD MEDICATION REFILL 08/10/2024 Refill [facility] [address] [place] [phone] Sue Pa MD MEDICATION REFILL 08/09/2024 Refill [facility] [address] [place] [phone] Sue Pa MD Refill Request 07/26/2024 9:13 AM EVENT ORGANIZER - 07/26/2024 11:59 PM EVENT ORGANIZER Hospital Encounter [facility] [address] [place] [address] Sue Pa MD Discharge Disposition: Home or Self Care 07/17/2024 Refill [facility] [address] [place] [phone] Sue Pa MD Refill Request from Last 3 Months Immunizations Immunization Administration Dates Next Due TD (AGE 6-ADULT) [...] AM CDT Legal Sex Female 6:30 AM EVENT ORGANIZER Gender Identity Female 11/17/2022 10:38 AM CDT Sexual Orientation Not on file Last Filed Vital Signs Vital Sign Reading Time Taken Comments Blood Pressure 140/83 09/06/2024 9:14 AM CDT Pulse 88 09/06/2024 9:14 AM CDT Temperature 36.3 C (97.3 F) 09/06/2024 9:14 AM CDT Respiratory Rate 20 09/06/2024 9:14 AM CDT Oxygen Saturation 100% 09/06/2024 9:14 AM CDT Inhaled Oxygen Concentration - - Weight 61 kg (134 lb 6.4 oz) 09/06/2024 9:14 AM CDT Height 170.2 cm (5' 7.01 ) 01/11/2024 3:51 PM CD T Body Mass Index 21.04 01/11/2024 3:51 PM CDT Plan of Treatment Upcoming Encounters Date Type Department Care Team (Late st Contact Info) Description 10/31/2024 9:00 AM CDT Appointment [facility] [address] [place] [phone] Sue Pa MD [address] [place] [address] [place] [phone] 11/14/2024 1:00 PM CDT Office Visit [facility] - Rheumatology [address] [place] [address], [place] [phone] Sue Pa MD [address] [place] [address] Health Maintenance Due Date Last Done Comments LIPID TESTING 1984 MAMMOGRAM 1984 PAP SMEAR 1984 HIV SCREENING 09/23/1999 HEPATITIS B VACCINE (1 of 3 - 19+ 3-dose series) 09/23/2003 DTAP/TDAP/TD VACCINES (2 - T d or Tdap) 06/21/2017 06/21/2007 COVID-19 VACCINE (2023-2 5 season) 2024 DEPRESSION SCREENING 06/21/2024 11/17/2022 INFLUENZA VACCINE (Season Ended) 2025 ZOSTER VACCINE (1 of 2) 2034 HEPATITIS C SCREENING Completed 09/27/2017 HIB VACCINE Aged Out No longer eligi ble based on patient's age to complete this topic HPV VACCINE Aged Out No longer eligi ble based on patient's age to complete this topic MENINGOCOCCAL (Group B) VACC INE SHARED DECISION-MAKING Aged Out No longer eligibl e based on patient's age to complete this topic MENINGOCOCCAL GROUPS A/C/Y/W VACCINE Aged Out No longer eligible b ased on patient's age to complete this topic PNEUMOCOCCAL VACCINE Aged Out No long er eligible based on patient's age to complete this topic Procedures Procedure Name Priority Date/Time Associated Diagnosis Comments URINALYSIS W/MICROSCOPIC REFLEX TO CULTURE Routine 09/06/2024 9:31 AM CDT Rheumatoid arthritis involving multiple sites, unspecified whether rheumatoid factor present Encounter for therapeutic drug monitoring Encounter for long-term (current) use of high-risk medication ERYTHROCYTE SEDIMENTATION RATE Routine 09/06/2024 9:31 AM CDT Rheumatoid arthritis involving multiple sites, unspecified whether rheumatoid factor present Encounter for therapeutic drug monitoring Encounter for long-term (current) use of high-risk medication C-REACTIVE PROTEIN Routine 09/06/2024 9: 31 AM CDT Rheumatoid arthritis involving multiple sites, unspecified whether rheumatoid factor present Encounter for therapeutic drug monitoring Encounter for long-term (current) use of high-risk medication COMPREHENSIVE METABOLIC PANEL Routine 09/06/2024 9:31 AM CDT Rheumatoid arthritis involving multiple sites, unspecified whether rheumatoid factor present Encounter for therapeutic drug monitoring Encounter for long-term (current) use of high-risk medication CBC W AUTO DIFFERENTIAL Routine 09/06/2024 9:31 AM CDT Rheumatoid arthritis involving multiple sites, unspecified whether rheumatoid factor present Encounter for therapeutic drug monitoring Encounter for long-term (current) use of high-risk medication QUANTIFERON-TB GOLD PLUS 4-TUBE Routine 09/06/2024 9:31 AM CDT URINALYSIS W/MICROSCOPIC REFLEX TO CULTURE Routine 07/26/2024 10:17 AM EVENT ORGANIZER Rheumatoid arthritis involving multiple sites, unspecified whether rheumatoid factor present Encounter for therapeutic drug monitoring Encounter for long-term (current) use of high-risk medication ERYTHROCYTE SEDIMENTATION RATE Routine 07/26/2024 10:17 AM EVENT ORGANIZER Rheumatoid arthritis involving multiple sites, unspecified whether rheumatoid factor present Encounter for therapeutic drug monitoring Encounter for long-term (current) use of high-risk medication C-REACTIVE PROTEIN Routine 07/26/2024 10 :17 AM EVENT ORGANIZER Rheumatoid arthritis involving multiple sites, unspecified whether rheumatoid factor present Encounter for therapeutic drug monitoring Encounter for long-term (current) use of high-risk medication COMPREHENSIVE METABOLIC PANEL Routine 07/26/2024 10:17 AM EVENT ORGANIZER Rheumatoid arthritis involving multiple sites, unspecified whether rheumatoid factor present Encounter for therapeutic drug monitoring Encounter for long-term (current) use of high-risk medication CBC W AUTO DIFFERENTIAL Routine 07/26/2024 10:17 AM EVENT ORGANIZER Rheumatoid arthritis involving multiple sites, unspecified whether rheumatoid factor present Encounter for therapeutic drug monitoring Encounter for long-term (current) use of high-risk medication HEPATITIS C RNA QUANTITATIVE Routine 09/27/2017 11:45 AM CDT Pain in joint, multiple sites Myalgia Tiredness Migraine syndrome Right hand pain Left hand pain Right foot pain Left foot pain from Last 3 Months or Most Recently Relevant to Health Maintenance Results * QUANTIFERON-TB GOLD PLUS 4-TUBE (09/06/2024 9:31 AM CDT) [facility] QuantiFERON Mitogen Minus NIL 9.96 IU/mL 09/08/2024 3:20 PM CDT [employer] ([facility]) QuantiFERON Nil Value 0.04 IU/mL 09/08/2024 3:20 PM CDT [employer] [facility] ([facility]) QuantiFERON Plus TB1 Minus NIL 0.02 <=0.34 IU/mL 09/08/2024 3:20 PM CDT [employer] ([facility]) QuantiFERON Plus TB2 Minus NIL 0.04 <=0.34 IU/mL 09/08/2024 3:20 PM CDT [employer] ([facility]) QuantiFERON-TB Gold Plus Negative Negative 09/08/2024 3:20 PM CDT [employer] ([facility]) Comment: INTERPRETIVE INFORMATION:Quantiferon TB Gold Plus Interferon gamma release is measured for specimens from each of the four collection tubes. A qualitative result (Negative, Positive, or Indeterminate) is based on interpretation of the four values: NIL, MITOGEN minus NIL (MITOGEN-NIL), TB1 minus [...] Release Assays to Detect Mycobacterium tuberculosis Infection -- [place], 2010 (http://www.cdc.gov/mmwr/preview/mmwrhtml/ey3616w2.htm), for more information concerning test performance in low-prevalence populations and use in occupational screening. Performed By: [facility] [address] [place] [address] Electronic Assembly: Shane Jimenez MD, PhD CLIA Number: [id number] Blood BLOOD SPECIMEN / Unknown Venipuncture / Unknown 09/06/2024 9:31 AM CDT 09/06/2024 9:49 AM CDT us Sue Pa MD LAB - CHEMISTRY ORDERA BLES Final Result [facility] ([facility]) [address] [place] [address], [facility] * URINALYSIS W/MICROSCOPIC REFLEX TO CULTURE (09/06/2024 9:31 AM CDT) Only the most recent of2 resultswithin the time period is included. Color UA Yellow Yellow, Straw 09/06/2024 10:14 AM [facility] Clarity UA Clear Clear 09/06/2024 10:14 AM [facility] Glucose UA Normal Normal 09/06/2024 10:14 AM [facility] Bilirubin UA Negative Negative 09/06/2024 10:14 AM [facility] Ketone UA Negative Negative 09/06/2024 10:14 AM [facility] Specific Corinne UA 1.009 1.005 - 1.030 09/06/2024 10:14 AM [facility] Blood UA Negative Negative 09/06/2024 10:14 AM [facility] pH UA 5.0 5.0 - 9.0 pH 09/06/2024 10:14 AM [facility] Protein UA Negative Negative 09/06/2024 10:14 AM [facility] Urobilinogen UA Normal Normal mg/dL 025 10:14 AM [facility] Nitrite UA Negative Negative 09/06/2024 10:14 AM [facility] Leukocyte UA Negative Negative 09/06/2024 10:14 AM [facility] RBC UA 0-2 0 - 5 # /hpf 09/06/2024 10:14 AM [facility] WBC UA 0-5 0 - 5 # /hpf 09/06/2024 10:14 AM CDT [facility] Bacteria UA None Seen None Seen 09/06/2024 10:14 AM CDT [facility] Squamous Epithelial Cells 0-2 0 - 5 /hpf 09/06/2024 10:14 AM CDT [facility] Mucus UA 1+ /LPF 09/06/2024 10:14 AM CDT [facility] Urine MID-STREAM URINE SPECIMEN / Unknown Collection / Unknown 09/06/2024 9:31 AM CDT 09/06/2024 9:48 AM CDT Narrative [facility] - 09/06/2024 10:14 AM CDT us Sue Pa MD LAB - URINALYSIS ORDER SWAPNA Final Result Performing Organization Address City/[facility]/ZIP Co de Phone Number [address] [address], [facility] [phone] * (ABNORMAL) C-REACTIVE PROTEIN (09/06/2024 9:31 AM CDT) Only the most recent of2 resultswithin the time period is included. C-Reactive Protein 0.8(H) <=0.5 mg/dL 09/06/2024 10:23 AM CDT [facility] Blood BLOOD SPECIMEN / Unknown Venipuncture / Unknown 09/06/2024 9:31 AM CDT 09/06/2024 9:50 AM CDT us Sue Pa MD LAB - CHEMISTRY ORDERA BLES Final Result [address] [address], [place] [phone] * (ABNORMAL) ERYTHROCYTE SEDIMENTATION RATE (09/06/2024 9:31 AM CDT) Only the most recent of2 resultswithin the time period is included. Erythrocyte Sedimentation Rate Westergren 33(H) 0 - 20 MM/HR 09/06/2024 10:19 AM CDT [facility] Blood BLOOD SPECIMEN / Unknown Venipuncture / Unknown 09/06/2024 9:31 AM CDT 09/06/2024 9:50 AM CDT us Sue Pa MD LAB - HEMATOLOGY ORDER SWAPNA Final Result [facility] [address] [place] [address], [facility] [phone] * CBC WITH DIFFERENTIAL (09/06/2024 9:31 AM CDT) Only the most recent of2 resultswithin the time period is included. WBC 6.6 4.0 - 10.7 x10E9/L 09/06/2024 10:04 AM [facility] RBC Count 4.05 3.90 - 5.20 x10E12/L 09/06/2024 10:04 AM [facility] Hemoglobin 12.3 11.9 - 15.8 g/dL 09/06/2024 10:04 AM [facility] Hematocrit 37.0 34.8 - 46.1 % 09/06/2024 10:04 AM [facility] MCV 91.4 80.0 - 98.0 fL 09/06/2024 10:04 AM [facility] MCH 30.4 26.7 - 33.6 pg 09/06/2024 10:04 AM [facility] MCHC 33.2 31.7 - 36.3 g/dL 09/06/2024 10:04 AM [facility] RDW-CV 11.9 11.3 - 14.8 % 09/06/2024 10:04 AM [facility] Platelet Count 335 150 - 420 x10E9/L 09/06/2024 10:04 AM [facility] MPV 10.2 7.8 - 11.4 fL 09/06/2024 10:04 AM [facility] Preliminary Absolute Neutrophil 2.79 1.60 - 7.50 x10E9/L 09/06/2024 10:04 AM [facility] Neutrophil % 42.3 41.0 - 74.0 % 09/06/2024 10:04 AM [facility] Lymphocyte % 46.3 17.0 - 47.0 % 09/06/2024 10:04 AM [facility] Monocyte % 8.7 3.0 - 11.0 % 09/06/2024 10:04 AM [facility] Eosinophil % 1.7 0.0 - 7.0 % 09/06/2024 10:04 AM [facility] Basophil % 0.8 0.0 - 1.6 % 09/06/2024 10:04 AM [facility] Immature Granulocytes % 0.2 0.0 - 1.0 % 09/06/2024 10:04 AM [facility] Neutrophil Absolute 2.79 1.60 - 7.50 x10E9/L 09/06/2024 10:04 AM [facility] Lymphocyte Absolute 3.04 1.00 - 4.40 x10E9/L 09/06/2024 10:04 AM [facility] Monocyte Absolute 0.57 0.15 - 1.00 x10E9/L 09/06/2024 10:04 AM [facility] Eosinophil Absolute 0.11 0.00 - 0.60 x10E9/L 09/06/2024 10:04 AM [facility] Basophil Absolute 0.05 0.00 - 0.13 x10E9/L 09/06/2024 10:04 AM [facility] Blood BLOOD SPECIMEN / Unknown Venipuncture / Unknown 09/06/2024 9:31 AM CDT 09/06/2024 9:50 AM CDT us Sue Pa MD LAB - HEMATOLOGY ORDER SWAPNA Final Result [facility] [address] [place] [phone], [facility] [phone] * (ABNORMAL) COMPREHENSIVE METABOLIC PANEL (09/06/2024 9:31 AM CDT) Only the most recent of2 resultswithin the time period is included. [facility] BUN 5(L) 7 - 26 mg/dL 09/06/2024 10:23 AM [facility] Creatinine 0.68 0.56 - 0.96 mg/dL 09/06/2024 10:23 AM [facility] Sodium 140 136 - 145 mmol/L 09/06/2024 10:23 AM [facility] Potassium 3.5 3.5 - 4.5 mmol/L 09/06/2024 10:23 AM [facility] Chloride 104 98 - 107 mmol/L 09/06/2024 10:23 AM [facility] CO2 27 22 - 29 mmol/L 09/06/2024 10:23 AM [facility] Glucose 83 70 - 99 mg/dL 09/06/2024 10:23 AM [facility] Calcium 9.7 8.4 - 10.2 mg/dL 09/06/2024 10:23 AM [facility] Protein Total 7.7 6.0 - 8.3 g/dL 09/06/2024 10:23 AM [facility] Albumin 4.1 3.4 - 5.0 g/dL 09/06/2024 10:23 AM [facility] Bilirubin Total 0.3 0.2 - 1.2 mg/dL 09/06/2024 10:23 AM [facility] Alkaline Phosphatase 91 40 - 150 U/L 09/06/2024 10:23 AM [facility] ALT 11 5 - 55 U/L 09/06/2024 10:23 AM [facility] AST 18 5 - 34 U/L 09/06/2024 10:23 AM [facility] Anion Gap 9 6 - 16 09/06/2024 10:23 AM [facility] BUN/Creatinine Ratio 7 7 - 23 09/06/2024 10:23 AM [facility] Osmolality Calculated 286 275 - 295 mOsm/kg 09/06/2024 10:23 AM [facility] Albumin/Globulin Ratio 1.1 1.1 - 2.3 09/06/2024 10:23 AM [facility] eGFR by CKD-EPI >90 >=90 mL/min/1.7 3 m2 09/06/2024 10:23 AM CDT [facility] Blood BLOOD SPECIMEN / Unknown Venipuncture / Unknown 09/06/2024 9:31 AM CDT 09/06/2024 9:50 AM CDT Sue Pa MD LAB - CHEMISTRY ORDERA BLES Final Result Performing Organization Address [facility]/ZIP Co de Phone Number [facility] [address] [address], [facility] [phone] * HEPATITIS C RNA QUANTITATIVE PCR (09/27/2017 11:45 AM CDT) Hepatitis C RNA PCR, Interp Not Detected Not Detected 10/04/2017 8:20 AM CDT [facility] Blood BLOOD SPECIMEN / Unknown Lab Venipuncture / Unknown 09/27/2017 11:45 AM CDT 09/27/2017 12:37 PM CDT Narrative [facility] - 10/04/2017 8:20 AM CDT The Hepatitis C viral (HCV) RNA analysis utilized a serum sample, real-time reverse cash crop farmer PCR, and is reported as Not Detected, Detected (<12 IU/mL), Quantity (IU/mL) or >100,000,000 IU/mL. The limit of quantitation of the assay is 12 IU/mL (100% of samples with this HCV RNA level were detected). The linear range is from 12 IU/mL to 100,000,000 IU/mL. Values less than 12 IU/mL are reported as Detected (<12 IU/mL). Values greater than 100,000,000 IU/mL are reported as > 100,000,000 IU/mL. The detection/quantitation of HCV RNA in serum is based on the isolation of HCV RNA with reverse cash crop farmer of genomic HCV RNA followed by real-time PCR in the presence of an unrelated RNA internal control. The internal control ensures that RNA is isolated, and that no general significant inhibitors of the RT-PCR process are present. The analysis was performed using a U.S. FDA approved test methodology ([employer] Real Time HCV). us Sue Pa MD LAB - CHEMISTRY ORDERA BLES Final Result [facility] [address] [place] [address], [facility] [phone] from Last 3 Months or Most Recently Relevant to Health Maintenance Insurance [facility] Care Teams Nail Artist Relationship Specialty Start Date End Date Radha Muhammad [address] [place] [address] [place] [address] PCP - General 01/11/24
--- OUTSIDE RECORDS SUMMARY | 2024-10-15 13:52 | XMS_ITS | Encounter Summary ---
Author Organization [facility] Address [address] [place] [address] Care Team Providers Care Start Up Specialist Name Role Phone Giovanni Mendoza MD Primary Care Provider [phone] Radha Muhammad Primary Care Provider [phone] Reason for Visit * Reason Onset Date Comments MEDICATION REFILL 07/30/2021 Encounter Details Date Type Department Care Team (Late st Contact Info) Description 07/30/2021 Refill [facility] [address] [place] [address], [facility] [place] [address] Bridger Deleon MD [address] [place] [address] [place] [address] MEDICATION REFILL Social History Tobacco Use Types Packs/Day Years Used Date Smoking Tobacco: Former Cigarettes Q uit: 2010 Smokeless Tobacco: Never Alcohol Use Standard Drinks/Week Comments No 0 (1 standard drink = 0.6 oz pur e alcohol) Comments No Sex and Gender Information Value Date Recorded Sex Assigned at Female 11/17/2022 10:38 AM CDT Legal Sex Female 6: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 Allergies: Allergies Allergen Reactions ??? Latex Itching [...] (three) tablets by mouth 2 times daily TIONAL REHABILITATION ADMINISTRATOR documented in this encounter Plan of Treatment Upcoming Encounters Date Type Department Care Team (Late st Contact Info) Description 10/31/2024 9:00 AM CDT Appointment [facility] [address] [place] [phone] Sue Pa MD [address] [place] [address] [place] [address] 11/14/2024 1:00 PM CDT Office Visit [facility] - Rheumatology [address] [place] [address], [place] [phone] Sue Pa MD [address] [place] [address] [address] [place] [address] documented as of this encounter Visit Diagnoses Not on filedocumented in this encounter Care Teams Start Up Specialist Relationship Specialty Start Date End Date Giovanni Mendoza MD [address] [place] [phone] PCP - General 08/30/20 01/10/24 Radha Muhammad [address] [facility] [address] Bojor[address] [place] [phone] PCP - General 01/11/24 documented as of this encounter
[2024-10-15 13:53] VITALS: BP 149/94; PULSE 116; RESP 16; TEMP 36.6; O2SAT 99
--- OUTSIDE RECORDS SUMMARY | 2024-10-15 13:53 | XMS_ITS | Continuity of Care Document ---
Author Organization [facility] Address [address] [place] [address] Phone Care Team Providers Care Fish Egg Packer Name Role Phone CONV, [facility] Unavailable Unavailable Advance Directives Directive Yes / No Effective Date File Name No Information Encounters Encounter Description Practice Location Reason(s) For Visit Diagnoses Date Provider Providers Copied on Encounter [facility] /[facility], [address] [place] [address], [facility], tel:[phone] Z [facility] CONV No Information CONV [facility]. [address] [place] [address], [address], [place]. Family History Family Member Type Diagnosis Age At Onset No Information Immunizations Vaccine Date Status Comments TD, TETANUS-DIPHTHERIA administered Note: LA ; Source: New Immunization Record HEP B VACCINE PED/ADOL administered Note: LA ; Source: New Immunization Record HEP B VACCINE PED/ADOL administered Note: LA ; Source: New Immunization Record HEP B VACCINE PED/ADOL administered Note: LA ; Source: New Immunization Record [id number], PED/ADL administered Source: New Immuniza tion Record DTP administered Source: New Imm unization Record ORAL POLIO administered Source: New Imm unization Record DTP administered Source: New Imm unization Record [id number], PED/ADL administered Source: New Immuniza tion Record [...]
--- NOTE | 2024-10-15 14:32 | ED.GENADULT ---
HPI - General Adult General Chief complaint: Dental/Oral Stated complaint: Mouth Pain Source: patient Mode of arrival: ambulatory Limitations: no limitations History of Present Illness HPI narrative: Patient presents for evaluation of dental pain for the last 5 days. She indicates she had 14 teeth extracted 5 days ago. She was given Tylenol with codeine. She has been having vomiting following taking her pain medication. She contacted her dentist in the told her they would be calling and azithromycin and some alternative pain medication. She never received the medications. She states she normally takes meloxicam so would need something in addition to that. She rates her pain as 10/10. No fever, chills, nausea, vomiting. She does not smoke. Related Data Home Medications ?Medication ?Instructions ?Recorded ?Confirmed ?Last Taken ?Type conjugated estrogens 0.45 mg 0.45 mg PO DAILY 10/04/22 10/15/24 Unknown History tablet (Premarin) sulfasalazine 500 mg tablet 1,500 mg PO BID 10/04/22 10/15/24 Unknown History meloxicam 15 mg tablet 15 mg PO DIRECTED 05/02/23 10/15/24 Unknown History infliximab 100 mg intravenous 100 mg IV [id number] 10/02/23 10/15/24 Unknown History solution (Remicade) prednisone 5 mg tablet mg 07/11/24 Unknown History Allergies Allergy/AdvReac Type Severity Reaction Status Date / Time amoxicillin Allergy Unknown Rash Verified 10/15/24 14:01 citalopram (From Celexa) Allergy Unknown Unknown Verified 10/15/24 14:01 lanolin Allergy Unknown Unknown Verified 10/15/24 14:01 latex Allergy Unknown Unknown Verified 10/15/24 14:01 methocarbamol Allergy Unknown Swelling Verified 10/15/24 14:01 Penicillins Allergy Unknown Unknown Verified 10/15/24 14:01 sumatriptan (From Imitrex) Allergy Unknown Dyspnea / Verified 10/15/24 14:01 SOB clindamycin AdvReac Unknown Diarrhea Verified 10/15/24 14:01 Review of Systems Review of Systems: CONSTITUTIONAL: Denies fever, chills, or sweats. EYES: Denies visual changes, redness, or discharge. ENT: Reports dental pain. Denies rhinorrhea, congestion, sore throat, or otalgia. CARDIOVASCULAR: Denies chest pain, palpitations, or edema. RESPIRATORY: Denies cough or dyspnea. GASTROINTESTINAL: Denies abdominal pain, nausea, vomiting, or diarrhea. GENITOURINARY: Denies dysuria or hematuria. SKIN: Denies rash or itching. MUSCULOSKELETAL: Denies back pain, joint pain, or myalgia. NEUROLOGIC: Denies headache, numbness, dizziness, or weakness. PSYCHIATRIC: Denies anxiety or depression. [facility] Past Medical History Medical History Anxiety Hx of migraines Fibromyalgia Thumb dislocation Hand strain Rheumatoid arthritis Surgical History Surgical History Previous section x2 History of hysterectomy S/p bilateral carpal tunnel release Family History Family History Father Family history non-contributory Social History Social History Smoking status: Never smoker Alcohol intake: never Substance use: never Last use: pain control Living arrangements: alone Gender identity (if verbalized by the patient): Female Spiritual care concerns: No Exam Narrative: GENERAL: Well-appearing, well-nourished, and in no acute distress. HEAD: Normocephalic, atraumatic. EYES: PERRLA and EOMI. ENT: Nares clear, no rhinorrhea or epistaxis. Mucous membranes moist. Multiple teeth have been extracted. I do not appreciate any visible or palpable abscess. Oropharynx without tonsillar hypertrophy exudate or other lesions. Bilateral TMs pearly gifford nonbulging NECK: Supple. No adenopathy or masses. No carotid bruits or JVD CHEST: Clear to auscultation. No respiratory distress. No wheezes rales or rhonchi HEART: Regular rate and rhythm. No murmur heard. Normal peripheral pulses. ABDOMEN: Soft, nontender, nondistended, normal active bowel sounds. EXTREMITIES: Normal range of motion. No edema. SKIN: Warm, dry, no rash. NEURO: No focal deficits. Alert and oriented x3. PSYCH: Tearful. Normal mood and affect. Course Course Emergency Course: This is a 39-year-old female who presented for evaluation of dental pain. It sounds like her dentist was planning on calling in azithromycin and some hydrocodone. She did not receive those medications. I will send those in for today. She is given a paper prescription for hydrocodone as it would not transmitted electronically. I recommended she follow-up with her dentist tomorrow. She should go to the ER for intractable pain. Patient in agreement with plan of care Level of Care: Express Care Visit Vital Signs Vital signs: Vital Signs Temperature 36.6 C 10/15/24 13:53 Pulse Rate 116 H 10/15/24 13:53 Respiratory Rate 16 10/15/24 13:53 Blood Pressure 149/94 H 10/15/24 13:53 Pulse Oximetry 99 10/15/24 13:53 Oxygen Delivery Room Air 10/15/24 13:53 Temperature 36.6 C 10/15/24 13:53 Pulse Rate 116 H 10/15/24 13:53 Respiratory Rate 16 10/15/24 13:53 Blood Pressure 149/94 H 10/15/24 13:53 Pulse Oximetry 99 10/15/24 13:53 Oxygen Delivery Room Air 10/15/24 13:53 Medical Decision Making Vital Signs Vital Signs: Vital Signs Temperature 36.6 C 10/15/24 13:53 Pulse Rate 116 H 10/15/24 13:53 Respiratory Rate 16 10/15/24 13:53 Blood Pressure 149/94 H 10/15/24 13:53 Pulse Oximetry 99 10/15/24 13:53 Oxygen Delivery Room Air 10/15/24 13:53 Temperature 36.6 C 10/15/24 13:53 Pulse Rate 116 H 10/15/24 13:53 Respiratory Rate 16 10/15/24 13:53 Blood Pressure 149/94 H 10/15/24 13:53 Pulse Oximetry 99 10/15/24 13:53 Oxygen Delivery Room Air 10/15/24 13:53 Discharge Plan Discharge Clinical Impression: Pain, dental, History of recent dental procedure Patient Disposition: Home Condition: Stable Instructions: Antibiotic Form Patient Language: Belarusian Prescriptions: New azithromycin 250 mg tablet See Rx Instructions .ROUTE .COMPLEX Qty: 6 0RF Rx Instructions: For 250 mg dose pack: take 500 mg today (day 1), then 250 mg for 4 days (days 2-5) hydrocodone-acetaminophen 5-325 mg tablet 1 - 2 tablet PO Q6H PRN (Reason: pain) Qty: 15 0RF No Action infliximab [Remicade] 100 mg Recon Soln 100 mg IV [id number] prednisone 5 mg tablet azithromycin 250 mg tablet See Rx Instructions .ROUTE .COMPLEX Qty: 6 0RF Rx Instructions: For 250 mg dose pack: take 500 mg today (day 1), then 250 mg for 4 days (days 2-5) hydrocodone-acetaminophen 5-325 mg tablet 1 tablet PO Q6H PRN (Reason: pain) Qty: 10 0RF sulfasalazine 500 mg tablet 1,500 mg PO BID Premarin 0.45 mg tablet 0.45 mg PO DAILY meloxicam 15 mg tablet 15 mg PO DIRECTED (DME) Aerochamber MV Spacer See Rx Instructions .Route Qty: 1 0RF Rx Instructions: As directed Follow-up/Referrals: Truman Hazel MD [Physician] - Time of Disposition: 14:25
== END 2024-10-15 14:31 | disposition home or self-care (01) ==
PROVIDERS: Emergency Provider Nurse Practitioner
DX: G89.18 Other acute postprocedural pain (principal); M79.7 Fibromyalgia; M06.9 Rheumatoid arthritis, unspecified
CPT/HCPCS: 99213; G0463

== ENCOUNTER 2025-01-22 18:25 | Emergency (ER) | payer OTHER, SELFPAY ==
--- OUTSIDE RECORDS SUMMARY | 2025-01-22 18:26 | XMS_ITS | Encounter Summary ---
Author Organization [facility] Address [address] [place] [address] Care Team Providers Care Corporate Sales Representative Name Role Phone Giovanni Mendoza MD Primary Care Provider [phone] Radha Muhammad Primary Care Provider [phone] Sue Pa MD Unavailable [phone] Reason for Visit * Reason Onset Date Comments MEDICATION REFILL 07/31/2022 Encounter Details Date Type Department Care Team (Late st Contact Info) Description 07/31/2022 Refill [facility] [address] [place] [address], [place] [address] Sue Pa MD [address] [place] [address] [place] [address] MEDICATION REFILL Social History Tobacco [...] AM CDT Legal Sex Female 6:30 AM METER TESTER PRIMARY Gender Identity Female 11/17/2022 10:38 AM CDT Sexual Orientation Not on file documented as of this encounter Plan of Treatment Upcoming Encounters Date Type Department Care Team (Late st Contact Info) Description 01/23/2025 9:00 AM CDT Hospital Encounter [facility] [address] [place] [address] Sue Pa MD [address] [place] [address] 2L [place] [address] 03/06/2025 9:00 AM CDT Appointment [facility] [address] [place] [address] Sue Pa MD [address] [place] [address] 2L [place] [address] 05/08/2025 1:00 PM METER TESTER PRIMARY Office Visit [facility] - Rheumatology [address] [place] [address], [place] [address] Sue Pa MD [address] [place] [address] 2L [place] [address] documented as of this encounter Visit Diagnoses Diagnosis Rheumatoid arthritis involving multiple sites, unspecified whether rheumatoid factor present (HCC) documented in this encounter Care Teams Corporate Sales Representative Relationship Specialty Start Date End Date Giovanni Mendoza MD [address] [place] [address] [address] [place] [address] PCP - General 08/30/20 01/10/24 Radha Muhammad [facility] [address] [place] [address] PCP - General 01/11/24 [place] [address] [place] [address] 2L [place] [address] Marketing And Communications Officer Rheumatology 01/08/25 documented as of this encounter
--- OUTSIDE RECORDS SUMMARY | 2025-01-22 18:26 | XMS_ITS | Encounter Summary ---
Author Organization [facility] Address [address] [facility] [place] [address] Care Team Providers Care Lining Closer Name Role Phone Giovanni Mendoza MD Primary Care Provider [phone] Radha Muhammad Primary Care Provider [phone] Sue Pa MD Unavailable [phone] Reason for Visit * Reason Onset Date Comments MEDICATION REFILL 07/30/2022 Encounter Details Date Type Department Care Team (Late st Contact Info) Description 07/30/2022 Refill [facility] [address] [place] [address], [place] [address] Sue Pa MD [address] [place] [address] [place] [address] MEDICATION REFILL Social History Tobacco [...] AM CDT Legal Sex Female 6:30 AM ROOFER VINYL COATING Gender Identity Female 11/17/2022 10:38 AM CDT Sexual Orientation Not on file documented as of this encounter Plan of Treatment Upcoming Encounters Date Type Department Care Team (Late st Contact Info) Description 01/23/2025 9:00 AM CDT Hospital Encounter [facility] [address] [place] [address] Sue Pa MD [address] [place] [address] 2L DIV [place] [address] 03/06/2025 9:00 AM CDT Appointment [facility] [address] [place] [address] Sue Pa MD [address] [place] [address] 2L DIV [place] [address] 05/08/2025 1:00 PM ROOFER VINYL COATING Office Visit [facility] - Rheumatology [address] [place] [address], [place] [address] Sue Pa MD [address] [place] [address] 2[address] DIV [place] [address] documented as of this encounter Visit Diagnoses Diagnosis Rheumatoid arthritis involving multiple sites, unspecified whether rheumatoid factor present (HCC) documented in this encounter Care Teams Lining Closer Relationship Specialty Start Date End Date Giovanni Mendoza MD [address] [place] [address] [address] [place] [address] PCP - General 08/30/20 01/10/24 Radha Muhammad 4 [facility] [place] [address] [place] [address] PCP - General 01/11/24 [place] [address] [place] [address] 2L DIV [place] [address] Nanofabrication Specialist Rheumatology 01/08/25 documented as of this encounter
--- OUTSIDE RECORDS SUMMARY | 2025-01-22 18:26 | XMS_ITS | Encounter Summary ---
Author Organization [facility] Address [address] [place] [address] Care Team Providers Care Tour Bus Driver/Guide Name Role Phone Tonydiana Radha Primary Care Provider [phone] Sue Pa MD Unavailable [phone] Reason for Visit * Reason Onset Date Comments MEDICATION REFILL 08/10/2024 Encounter Details Date Type Department Care Team (Late st Contact Info) Description 08/10/2024 Refill [facility]ology [address] [place] [address], [place] [address] Sue Pa MD [address] [place] [address] [place] [address] MEDICATION REFILL Social History Tobacco [...] AM CDT Legal Sex Female 6:30 AM FRUIT CHECKER Gender Identity Female 11/17/2022 10:38 AM CDT Sexual Orientation Not on file documented as of this encounter Plan of Treatment Upcoming Encounters Date Type Department Care Team (Late st Contact Info) Description 01/23/2025 9:00 AM CDT Hospital Encounter [facility] [address] [place] [address] Sue Pa MD [address] [place] [address] 2L [place] [address] 03/06/2025 9:00 AM CDT Appointment [facility] [address] [place] [address] Sue Pa MD [address] [place] [address] 2L [place] [address] 05/08/2025 1:00 PM FRUIT CHECKER Office Visit [facility] - Rheumatology [address] [place] [address], [place] [address] Sue Pa MD [address] [place] [address] 2L [place] [address] documented as of this encounter Visit Diagnoses Diagnosis Rheumatoid arthritis involving multiple sites, unspecified whether rheumatoid factor present (HCC) documented in this encounter Care Teams Tour Bus Driver/Guide Relationship Specialty Start Date End Date Radha Muhammad [address] [place] [address] [address] PCP - General 01/11/24 Sue Pa MD [address] [place] [address] 2L [place] [address] Senior Director Finance Rheumatology 01/08/25 documented as of this encounter
--- OUTSIDE RECORDS SUMMARY | 2025-01-22 18:26 | XMS_ITS | Clinical Summary ---
Author Organization [facility] Address [address] [place] [address] Phone Care Team Providers Care Boat Outfitting Supervisor Name Role Phone Radha Muhammad MD Primary Care Provider [phone] Allergies Active Allergy Reactions Criticality Noted Date [...] Sex Assigned at Female 05/21/2023 12:12 AM DISTRICT CLAIMS MANAGER Legal Sex Female 10:43 PM CDT Gender Identity Female 05/21/2023 12:12 AM DISTRICT CLAIMS MANAGER Sexual Orientation Not on file Last Filed [...] 11:46 PM CDT Height 175.3 cm (5' 9) 11/05/2023 11:46 PM CDT Body Mass Index 17.72 11/05/2023 11:46 PM CDT Plan of Treatment Health Maintenance Due Date Last Done Comments Hepatitis C Virus (HCV) Screening 1984 Mammogram 1984 TdaP Immunization 1984 Human Papillomavirus (HPV) Immunization (1 - 3-dose SCDM series) 09/23/2011 SARS-COV-2 Immunization ( season) 2024 Discussion re Starting/Frequency of Mammograms 2024 Influenza Immunization (#1) 2025 Respiratory Syncytial Virus (RSV) Immunization (Adult) (1 [...] this topic Insurance MEDICAID [facility] [place] [place] [address] [place] [address] Care Teams Boat Outfitting Supervisor Relationship Specialty Start Date End Date Radha Muhammad MD [address] [place] [address] [address] [place] [address] PCP - General Family Medicine 05/08/23
--- OUTSIDE RECORDS SUMMARY | 2025-01-22 18:26 | XMS_ITS | Encounter Summary ---
Author Organization [facility] Address [address] [facility] [place] [address] Care Team Providers Care Fisher Purse Seine Name Role Phone Tonydiana Radha Primary Care Provider [phone] Sue Pa MD Unavailable [phone] Reason for Visit * Reason Onset Date Comments MEDICATION REFILL 09/06/2024 Encounter Details Date Type Department Care Team (Late st Contact Info) Description 09/06/2024 Refill [facility] [address] [place] [address], [place] [address] Sue Pa MD [address] [place] [address] [place] [address] MEDICATION REFILL Social History Tobacco [...] AM CDT Legal Sex Female 6:30 AM EXECUTIVE LEGAL SECRETARY Gender Identity Female 11/17/2022 10:38 AM CDT Sexual Orientation Not on file documented as of this encounter Plan of Treatment Upcoming Encounters Date Type Department Care Team (Late st Contact Info) Description 01/23/2025 9:00 AM CDT Hospital Encounter [facility] [address] [place] [address] Sue Pa MD [address] [place] [address] 2L [place] [address] 03/06/2025 9:00 AM CDT Appointment [facility] [id number] [place] [address] Sue Pa MD [address] [place] [address] 2[address] [place] [address] 05/08/2025 1:00 PM EXECUTIVE LEGAL SECRETARY Office Visit [facility] - Rheumatology [address] [place] [address], [place] [address] Sue Pa MD [address] [place] [address] [address] [place] [address] documented as of this encounter Visit Diagnoses Diagnosis Rheumatoid arthritis involving multiple sites, unspecified whether rheumatoid factor present (HCC) documented in this encounter Care Teams Fisher Purse Seine Relationship Specialty Start Date End Date Radha Muhammad [address] [place] [address] [address] PCP - General 01/11/24 Sue Pa MD [address] [place] [address] [address] [place] [address] Senior Regulatory Affairs Specialist Rheumatology 01/08/25 documented as of this encounter
--- OUTSIDE RECORDS SUMMARY | 2025-01-22 18:26 | XMS_ITS | Encounter Summary ---
Author Organization [facility] Address [address] [facility] [place] [address] Care Team Providers Care Supply And Distribution Manager Name Role Phone Giovanni Mendoza MD Primary Care Provider [phone] Radha Muhammad Primary Care Provider [phone] Sue Pa MD Unavailable [phone] Reason for Visit * Reason Onset Date Comments MEDICATION REFILL 10/12/2022 Encounter Details Date Type Department Care Team (Late st Contact Info) Description 10/12/2022 Refill [facility] [address] [place] [address], [facility] [place] [address] Sue Pa MD [address] [place] [address] [place] [address] MEDICATION REFILL Social History Tobacco [...] AM CDT Legal Sex Female 6:30 AM CORRUGATOR OPERATOR Gender Identity Female 11/17/2022 10:38 AM CDT [...] Description 01/23/2025 9:00 AM CDT Hospital Encounter [facility] [address] [address] Sue Pa MD [address] [place] [address] [place] [address] 03/06/2025 9:00 AM CDT Appointment [address] [address] Sue Pa MD [address] [place] [address] [place] [address] 05/08/2025 1:00 PM CORRUGATOR OPERATOR Office Visit [facility] - Rheumatology [address] [place] [address], [facility] [place] [address] Sue Pa MD [address] [place] [address] documented as of this encounter Visit Diagnoses Diagnosis Rheumatoid arthritis involving multiple sites, unspecified whether rheumatoid factor present (HCC) documented in this encounter Care Teams Supply And Distribution Manager Relationship Specialty Start Date End Date Giovanni Mendoza MD [address] [place] [address] PCP - General 08/30/20 01/10/24 Radha Muhammad [address] [place] [address] [address] [place] [address] PCP - General 01/11/24 Sue Pa MD [address] [facility] [address]L [place] [address] Grief Counsellor Rheumatology 01/08/25 documented as of this encounter
--- OUTSIDE RECORDS SUMMARY | 2025-01-22 18:26 | XMS_ITS | Continuity of Care Document ---
Author Organization [facility] Address [address] [place] [address] Phone Care Team Providers Care Administrative And Program Specialist Name Role Phone CONV, [facility] Unavailable Unavailable Advance Directives Directive Yes / No Effective Date File Name No Information Encounters Encounter Description Practice Location Reason(s) For Visit Diagnoses Date Provider Providers Copied on Encounter [facility] /[facility], [address] [place] [address], [facility], tel:[phone] Z [facility] CONV No Information CONV [facility]. [address] [place] [address], [address], [place]. Family History Family Member Type Diagnosis Age At Onset No Information Immunizations Vaccine Date Status Comments TD, TETANUS-DIPHTHERIA administered Note: LA ; Source: New Immunization Record HEP B VACCINE PED/ADOL administered Note: LA ; Source: New Immunization Record HEP B VACCINE PED/ADOL administered Note: LA ; Source: New Immunization Record HEP B VACCINE PED/ADOL administered Note: LA ; Source: New Immunization Record [id number], PED/ADL administered Source: New Immuniza tion Record DTP administered Source: New Imm unization Record ORAL POLIO administered Source: New Imm unization Record DTP administered Source: New Imm unization Record [id number], PED/ADL administered Source: New Immuniza tion Record [...]
--- OUTSIDE RECORDS SUMMARY | 2025-01-22 18:26 | XMS_ITS | Encounter Summary ---
Author Organization [facility] Address [address] [facility] [place] [address] Care Team Providers Care Construction Equipment Operator Name Role Phone Tonydiana Radha Primary Care Provider [phone] Sue Pa MD Unavailable [phone] Reason for Visit * Reason Onset Date Comments MEDICATION REFILL 08/14/2024 Encounter Details Date Type Department Care Team (Late st Contact Info) Description 08/14/2024 Refill [facility] - Rheumatology [address] [place] [address], [place] [address] Sue Pa MD [address] [place] [address] [place] [address] MEDICATION REFILL Social History Tobacco [...] AM CDT Legal Sex Female 6:30 AM CLASSER Gender Identity Female 11/17/2022 10:38 AM CDT Sexual Orientation Not on file documented as of this encounter Plan of Treatment Upcoming Encounters Date Type Department Care Team (Late st Contact Info) Description 01/23/2025 9:00 AM CDT Hospital Encounter [facility] [address] [place] [address] Sue Pa MD [address] [place] [address] 2L [place] [address] 03/06/2025 9:00 AM CDT Appointment [facility] [address] [place] [address] Sue Pa MD [address] [place] [address] 2L [place] [address] 05/08/2025 1:00 PM CLASSER Office Visit [facility] - Rheumatology [address] [place] [address], [place] [phone] Sue Pa MD [address] [place] [address] 2L [place] [phone] documented as of this encounter Visit Diagnoses Not on filedocumented in this encounter Care Teams Construction Equipment Operator Relationship Specialty Start Date End Date Radha Muhammad [address] [place] [address] [place] [address] PCP - General 01/11/24 Sue Pa MD [address] [place] [address] [address] [place] [address] Potato Chip Sacking Machine Operator Rheumatology 01/08/25 documented as of this encounter
--- OUTSIDE RECORDS SUMMARY | 2025-01-22 18:26 | XMS_ITS | Encounter Summary ---
Author Organization [facility] Address [address] [facility] [place] [address] Care Team Providers Care Dental Financial Coordinator Name Role Phone Giovanni Mendoza MD Primary Care Provider [phone] Radha Muhammad Primary Care Provider [phone] Sue Pa MD Unavailable [phone] Reason for Visit * Reason Onset Date Comments MEDICATION REFILL 10/14/2022 Encounter Details Date Type Department Care Team (Late st Contact Info) Description 10/14/2022 Refill [facility] [address] [place] [address], [place] [address] Sue Pa MD [address] [place] [address] [place] [address] MEDICATION REFILL Social History Tobacco [...] AM CDT Legal Sex Female 6:30 AM CERTIFIED ACTIVITIES DIRECTOR Gender Identity Female 11/17/2022 10:38 AM CDT Sexual Orientation Not on file documented as of this encounter Plan of Treatment Upcoming Encounters Date Type Department Care Team (Late st Contact Info) Description 01/23/2025 9:00 AM CDT Hospital Encounter [facility] [address] [place] [address] Sue Pa MD [address] [place] [address] 2L [place] [phone] 03/06/2025 9:00 AM CDT Appointment [facility] [address] [place] [address] Sue Pa MD [address] [place] [address] 2L [place] [phone] 05/08/2025 1:00 PM CERTIFIED ACTIVITIES DIRECTOR Office Visit [facility] - Rheumatology [address] [place] [address], [place] [address] Sue Pa MD [address] [place] [address] 2[address] [place] [address] documented as of this encounter Visit Diagnoses Diagnosis Rheumatoid arthritis involving multiple sites, unspecified whether rheumatoid factor present (HCC) documented in this encounter Care Teams Dental Financial Coordinator Relationship Specialty Start Date End Date Giovanni Mendoza MD [address] [place] [address] [address] [place] [address] PCP - General 08/30/20 01/10/24 Radha Muhammad [address] [facility] [address] [place] [address] PCP - General 01/11/24 [place] [address] [place] [address] [address] [place] [address] Police Chief Deputy Rheumatology 01/08/25 documented as of this encounter
--- OUTSIDE RECORDS SUMMARY | 2025-01-22 18:27 | XMS_ITS | Encounter Summary ---
Author Organization [facility] Address [address] [facility] [place] [address] Care Team Providers Care Bulk Fluids Handler Name Role Phone Giovanni Mendoza MD Primary Care Provider Radha Muhammad Primary Care Provider [phone] Sue Pa MD Unavailable [phone] Reason for Visit * Reason Onset Date Comments MEDICATION REFILL 10/16/2022 Encounter Details Date Type Department Care Team (Late st Contact Info) Description 10/16/2022 Refill [facility] [address] [place] [address], [facility] [place] [address] Sue Pa MD [address] [place] [address] [place] [address] MEDICATION REFILL Social History Tobacco [...] AM CDT Legal Sex Female 6:30 AM CAPSULE MAKER Gender Identity Female 11/17/2022 10:38 AM CDT [...] Description 01/23/2025 9:00 AM CDT Hospital Encounter [address] [address] Sue Pa MD [address] [place] [address] [place] [address] 03/06/2025 9:00 AM CDT Appointment [address] [address] Sue Pa MD [address] [place] [address] 2L [place] [phone] 05/08/2025 1:00 PM CAPSULE MAKER Office Visit [facility] - Rheumatology [address] [place] [address], [place] [phone] Sue Pa MD [address] [place] [address] [place] [phone] documented as of this encounter Visit Diagnoses Diagnosis Rheumatoid arthritis involving multiple sites, unspecified whether rheumatoid factor present (HCC) documented in this encounter Care Teams Bulk Fluids Handler Relationship Specialty Start Date End Date Giovanni Mendoza MD [address] [place] [address] [address] [place] [phone] PCP - General 08/30/20 01/10/24 Radha Muhammad [address] [place] [address] [facility] [address] [place] [address] PCP - General 01/11/24 Sue Pa MD [address] [place] [phone] Control Room Helper Rheumatology 01/08/25 documented as of this encounter
--- OUTSIDE RECORDS SUMMARY | 2025-01-22 18:27 | XMS_ITS | Encounter Summary ---
Author Organization [facility] Address [address] [place] [address] Care Team Providers Care Financial Counselor Name Role Phone Giovanni Mendoza MD Primary Care Provider [phone] Radha Muhammad Primary Care Provider [phone] Sue Pa MD Unavailable [phone] Reason for Visit * Reason Onset Date Comments Change In Condition/behavior 02/13/2021 Encounter Details Date Type Department Care Team (Late st Contact Info) Description 02/13/2021 Telephone [facility] [address] [place] [address] Najma Torres MD [address] [place] [address] Change In Condition/behavior Social History Tobacco Use Types Packs/Day Years Used Date Smoking Tobacco: Former Cigarettes Q uit: 2010 Smokeless Tobacco: Never Alcohol Use Standard Drinks/Week Comments No 0 (1 standard drink = 0.6 oz pur e alcohol) Comments No Sex and Gender Information Value Date Recorded Sex Assigned at Female 11/17/2022 10:38 AM CDT Legal Sex Female 6:30 AM STONE REPAIRER Gender Identity Female 11/17/2022 10:38 AM CDT Sexual Orientation Not on file documented as of this encounter Patient Instructions * Patient Instructions* Catia Horn - 02/13/2021 2:52 PM CDT Patient called. Insurance will not pay for Zofran until Sept.1. However pharmacy suggested /prescribe the non-dissolvable pills [...] come to the scheduled visit with Dr Deelon and then resume appointment schedule with Dr Torres or CAN appointment [facility], however this appointment would not be until July. Message left to contact the office by phone or by [employer]. * Telephone Encounter - Stephani Spivey LPN - 02/13/2021 4:01 PM CDT Patient anxious about switching doctors (to [facility]), NOV 05/06/21 documented in this encounter Plan of Treatment Upcoming Encounters Date Type Department Care Team (Late st Contact Info) Description 01/23/2025 9:00 AM CDT Hospital Encounter [facility] [address] [place] [address] Sue aP MD [address] [place] [address] 03/06/2025 9:00 AM CDT Appointment [facility] [address] [place] [address] Sue Pa MD [address] [place] [address] 2[address] [place] [phone] 05/08/2025 1:00 PM STONE REPAIRER Office Visit [facility] - Rheumatology [address] [place] [address], [place] [address] Sue Pa MD [address] [place] [address] [address] [place] [address] documented as of this encounter Visit Diagnoses Not on filedocumented in this encounter Care Teams Financial Counselor Relationship Specialty Start Date End Date Giovanni Mendoza MD [address] [place] [phone] PCP - General 08/30/20 01/10/24 Radha Muhammad [address] [address] PCP - General 01/11/24 Sue Pa MD [address] [place] [address] [address] [place] [phone] Marketing Proposal Specialist Rheumatology 01/08/25 documented as of this encounter
--- OUTSIDE RECORDS SUMMARY | 2025-01-22 18:27 | XMS_ITS | Clinical Summary ---
Author Organization [email or web address] Address [address] [place] [address] Care Team Providers Care Student Name Role Phone TonydianaRadha Primary Care Provider [phone] Sue Pa MD Unavailable [phone] Source Comments [facility] [email or web address],non-owned Affiliates and Associated Physician Practices is amultiple site organization consisting of ambulatory clinics and hospital sitesin [place], [place], [place] and [place]. This disclosure is being madepursuant to the Care Everywhere program and may not contain all information available regarding this patient. Last updated 18.[facility] [email or web address] Allergies Active Allergy Reactions Criticality Noted Date [...] TAKE 1 TABLET BY MOUTH EVERY DAY 09/15/19 18 Active DiphenhydrAMINE HCl (BENADRYL ALLERGY PO)Indications: nightly Take 2 tablets by mouth once daily Reasons: nightly Active inFLIXimab (Remicade) injection 3 mg/kg by Intravenous route once Active albuterol HFA (Proventil; Ventolin; Proair) 108 (90 Base) MCG/ACT inhaler Inhale 2 (two) puffs by mouth every 4 hours as needed 09/04/19 24 Active lidocaine (Lidoderm) 5 % patch Apply 1 (one) patch to skin once daily 08/27/19 24 Active Spacer/Aero-Hol ding Chambers (OptiChamber Hanna) MISC USE DIRECTED WITH INHALER 06/17/20 23 Active cyclobenzaprine (Flexeril) 10 MG tablet Take 1 (one) tablet by mouth 3 times daily 30 tablet 5 01/11/20 24 Active ondansetron, disintegrating, (Zofran ODT) 4 MG tabletIndicatio ns:Nausea without vomiting Take 1 (one) tablet by mouth every 6 hours as needed 30 tablet 1 10/21/19 25 Active predniSONE (Deltasone) 5 MG tablet Take 1 (one) tablet by mouth once daily 90 tablet 1 11/15/19 25 Active sulfaSALAzine (Azulfidine) 500 MG tabletIndicatio ns:Rheumatoid arthritis involving multiple sites, unspecified whether rheumatoid factor present (HCC) TAKE 3 TABLETS BY MOUTH TWICE DAILY 180 tablet 1 01/09/20 25 Active meloxicam (Mobic) 15 MG tablet TAKE 1 TABLET BY MOUTH DAILY 30 tablet 4 01/09/20 25 Active sulfaSALAzine (Azulfidine) 500 MG tabletIndicatio ns:Rheumatoid arthritis involving multiple sites, unspecified whether rheumatoid factor present (HCC) Take 3 (three) tablets by mouth 2 times daily 180 tablet 1 11/15/19 25 025 Discontinued meloxicam (Mobic) 15 MG tablet Take 1 (one) tablet by mouth once daily 90 tablet 1 11/15/19 25 025 Discontinued Active Problems Problem Noted Date Diagnosed Date Rheumatoid arthritis involving multiple sites Encounter for long-term (cur rent) use of high-risk medication 10/25/2017 Encounter for therapeutic drug monitoring 2017 Encounters Date Type Department Care Team Description 01/07/2025 Refill [facility] - Rheumatology [address] [place] [phone] Sue Pa MD Refill Request 12/12/2024 8:59 AM CDT - 12/12/2024 11:59 PM CDT Hospital Encounter [facility] [address] [place] [phone] Sue Pa MD Discharge Disposition: Home or Self Care 12/12/2024 Travel 11/14/2024 1:00 PM CDT Office Visit [facility] - Rheumatology [address] [place] [phone] Sue Pa MD Rheumatoid arthritis involving multiple sites, unspecified whether rheumatoid factor present (HCC) (Primary Dx); Encounter for therapeutic drug monitoring; Encounter for long-term (current) use of high-risk medication 11/14/2024 Travel 11/08/2024 Refill [facility] - Rheumatology [address] [place] [phone] Cuate Blanca MD MEDICATION REFILL 10/27/2024 11:01 AM CDT - 10/27/2024 11:59 PM CDT Hospital Encounter [facility] [address] [place] [phone] Sue Pa MD Discharge Disposition: Home or Self Care 10/27/2024 Travel from Last 3 Months Immunizations Immunization Administration Dates Next Due TD (AGE 6-ADULT) 06/21/2007 Family History Relation Name Status Comments Brother Alive Daughter 1 Alive Daughter 2 Alive Father Alive Maternal Grandfather Maternal Grandmother Mother Alive Paternal Grandfather Paternal Grandmother Sister Alive Son Alive Social History Tobacco Use Types Packs/Day Years Used Date Smoking Tobacco: Former Cigarettes Q uit: 2011 Smokeless Tobacco: Never Tobacco Cessation:Counseling Given: Not Answered Alcohol Use Standard Drinks/Week Comments No 0 (1 standard drink = 0.6 oz pur e alcohol) PHQ-2 Answer Date Recorded PHQ2 TOTAL SCORE 0 11/17/2022 Comments No Sex and Gender Information Value Date Recorded Sex Assigned at Female 11/17/2022 10:38 AM CDT Legal Sex Female 6:30 AM GEOLOGICAL MANAGER Gender Identity Female 11/17/2022 10:38 AM CDT Sexual Orientation Not on file Last Filed Vital Signs Vital Sign Reading Time Taken Comments Blood Pressure 131/92 12/12/2024 9:06 AM CDT Pulse 81 12/12/2024 9:06 AM CDT Temperature 36.5 C (97.7 F) 12/12/2024 9:06 AM CDT Respiratory Rate 18 12/12/2024 9:06 AM CDT Oxygen Saturation 100% 12/12/2024 9:06 AM CDT Inhaled Oxygen Concentration - - Weight 63.2 kg (139 lb 6.4 oz) 12/12/2024 9:06 A M CDT Height 170.2 cm (5' 7.01) 11/14/2024 1:03 PM CD T Body Mass Index 21.83 11/14/2024 1:03 PM CDT Plan of Treatment Upcoming Encounters Date Type Department Care Team (Late st Contact Info) Description 01/23/2025 9:00 AM CDT Hospital Encounter [facility] [address] [place] [phone] Sue Pa MD [address] [place] [address] [address] [place] [phone] 03/06/2025 9:00 AM CDT Appointment [facility] [address] [place] [phone] Sue Pa MD [address] [place] [address] [address] [place] [phone] 05/08/2025 1:00 PM GEOLOGICAL MANAGER Office Visit [facility] - Rheumatology [address] [place] [address], [facility] [place] [phone] Sue Pa MD [address] [place] [address] [address] [place] [phone] Health Maintenance Due Date Last Done Comments LIPID TESTING 1984 MAMMOGRAM 1984 HIV SCREENING 09/23/1999 HEPATITIS B VACCINE (1 of 3 - 19+ 3-dose series) 09/23/2003 PAP SMEAR 2005 HPV VACCINE (1 - 3-dose SCDM series) 09/23/2011 DTAP/TDAP/TD VACCINES (2 - T d or Tdap) 06/21/2017 06/21/2007 COVID-19 VACCINE ( - 2023-2 5 season) 2024 DEPRESSION SCREENING 06/21/2024 11/17/2022 INFLUENZA VACCINE (#1) 2025 ZOSTER VACCINE (1 of 2) 2034 [...] Name Priority Date/Time Associated Diagnosis Comments URINALYSIS REFLEX MICROSCOPIC REFLEX CULTURE Routine 12/12/2024 9:21 AM CDT Rheumatoid arthritis involving multiple sites, unspecified whether rheumatoid factor present (HCC) Encounter for therapeutic drug monitoring Encounter for long-term (current) use of high-risk medication ERYTHROCYTE SEDIMENTATION RATE Routine 12/12/2024 9:21 AM CDT Rheumatoid arthritis involving multiple sites, unspecified whether rheumatoid factor present (HCC) Encounter for therapeutic drug monitoring Encounter for long-term (current) use of high-risk medication C-REACTIVE PROTEIN Routine 12/12/2024 9: 21 AM CDT Rheumatoid arthritis involving multiple sites, unspecified whether rheumatoid factor present (HCC) Encounter for therapeutic drug monitoring Encounter for long-term (current) use of high-risk medication COMPREHENSIVE METABOLIC PANEL Routine 12/12/2024 9:21 AM CDT Rheumatoid arthritis involving multiple sites, unspecified whether rheumatoid factor present (HCC) Encounter for therapeutic drug monitoring Encounter for long-term (current) use of high-risk medication CBC W AUTO DIFFERENTIAL Routine 12/12/2024 9:21 AM CDT Rheumatoid arthritis involving multiple sites, unspecified whether rheumatoid factor present (HCC) Encounter for therapeutic drug monitoring Encounter for long-term (current) use of high-risk medication ERYTHROCYTE SEDIMENTATION RATE Routine 10/27/2024 11:18 AM CDT Rheumatoid arthritis involving multiple sites, unspecified whether rheumatoid factor present (HCC) Encounter for therapeutic drug monitoring Encounter for long-term (current) use of high-risk medication C-REACTIVE PROTEIN Routine 10/27/2024 11 :18 AM CDT Rheumatoid arthritis involving multiple sites, unspecified whether rheumatoid factor present (HCC) Encounter for therapeutic drug monitoring Encounter for long-term (current) use of high-risk medication COMPREHENSIVE METABOLIC PANEL Routine 10/27/2024 11:18 AM CDT Rheumatoid arthritis involving multiple sites, unspecified whether rheumatoid factor present (HCC) Encounter for therapeutic drug monitoring Encounter for long-term (current) use of high-risk medication CBC W AUTO DIFFERENTIAL Routine 10/27/2024 11:18 AM CDT Rheumatoid arthritis involving multiple sites, unspecified whether rheumatoid factor present (HCC) Encounter for therapeutic drug monitoring Encounter for long-term (current) use of high-risk medication URINALYSIS W/MICROSCOPIC REFLEX TO CULTURE Routine 10/27/2024 11:17 AM CDT Rheumatoid arthritis involving multiple sites, unspecified whether rheumatoid factor present (HCC) Encounter for therapeutic drug monitoring Encounter for long-term (current) use of high-risk medication HEPATITIS C RNA QUANTITATIVE Routine 09/27/2017 11:45 AM CDT Pain in joint, multiple sites Myalgia Tiredness Migraine syndrome Right hand pain Left hand pain Right foot pain Left foot pain from Last 3 Months or Most Recently Relevant to Health Maintenance Results * (ABNORMAL) URINALYSIS REFLEX MICROSCOPIC REFLEX CULTURE (12/12/2024 9:21 AM CDT) Color UA Yellow Yellow, Straw 12/12/2024 9:38 AM [facility] Clarity UA Clear Clear 12/12/2024 9:38 AM [facility] Glucose UA Normal Normal 12/12/2024 9:38 AM [facility] Bilirubin UA Negative Negative 12/12/2024 9:38 AM [facility] Ketone UA Negative Negative 12/12/2024 9:38 AM [facility] Specific [place] UA 1.005 1.005 - 1.030 12/12/2024 9:38 AM [facility] Blood UA Trace(A) Negative 12/12/2024 9:38 AM [facility] pH UA 5.5 5.0 - 8.0 12/12/2024 9:38 AM [facility] Protein UA Negative Negative 12/12/2024 9:38 AM [facility] Urobilinogen UA Normal Normal mg/dL 12/12/2024 9:38 AM [facility] Nitrite UA Negative Negative 12/12/2024 9:38 AM [facility] Leukocyte Esterase UA Negative Negative 12/12/2024 9:38 AM [facility] RBC UA 0-2 0 - 5 # /hpf 12/12/2024 9:38 AM [facility] WBC UA 0-5 0 - 5 # /hpf 12/12/2024 9:38 AM [facility] Bacteria UA None Seen None Seen 12/12/2024 9:38 AM [facility] Squamous Epithelial Cells 3-5 0 - 5 /hpf 12/12/2024 9:38 AM [facility] Reflex Status Culture not indicated 12/12/2024 9:38 AM [facility] Urine URINE SPECIMEN OBTAINED BY CLEAN CATCH PROCEDURE / Unknown Collection / Unknown 12/12/2024 9:21 AM [facility] 12/12/2024 9:27 AM [facility] us Sue Pa MD LAB - URINALYSIS ORDER SWAPNA Final Result [facility] [address] [place] [address], [facility] [phone] * (ABNORMAL) C-REACTIVE PROTEIN (12/12/2024 9:21 AM CDT) Only the most recent of2 resultswithin the time period is included. Pathologist [facility] C-Reactive Protein 2.4(H) <=0.5 mg/dL 12/12/2024 10:11 AM CDT [facility] Blood BLOOD SPECIMEN / Unknown Venipuncture / Unknown 12/12/2024 9:21 AM CDT 12/12/2024 9:34 AM CDT us Sue Pa MD LAB - CHEMISTRY ORDERA BLES Final Result Performing Organization Address City/[facility]/ZIP Co de Phone Number [address] [address], [facility] [phone] * (ABNORMAL) ERYTHROCYTE SEDIMENTATION RATE (12/12/2024 9:21 AM CDT) Only the most recent of2 resultswithin the time period is included. [facility] Erythrocyte Sedimentation Rate Westergren 29(H) 0 - 20 MM/HR 12/12/2024 10:12 AM CDT [facility] Blood BLOOD SPECIMEN / Unknown Venipuncture / Unknown 12/12/2024 9:21 AM CDT 12/12/2024 9:34 AM CDT us Sue Pa MD LAB - HEMATOLOGY ORDER SWAPNA Final Result [address] [address], [facility] [phone] * (ABNORMAL) CBC WITH DIFFERENTIAL (12/12/2024 9:21 AM CDT) Only the most recent of2 resultswithin the time period is included. [facility] WBC 7.0 4.0 - 10.7 x10E9/L 12/12/2024 9:55 AM CDT [facility] RBC Count 3.89(L) 3.90 - 5.20 x10E12/L 12/12/2024 9:55 AM [facility] Hemoglobin 11.8(L) 11.9 - 15.8 g/dL 12/12/2024 9:55 AM [facility] Hematocrit 36.2 34.8 - 46.1 % 12/12/2024 9:55 AM [facility] MCV 93.1 80.0 - 98.0 fL 12/12/2024 9:55 AM [facility] MCH 30.3 26.7 - 33.6 pg 12/12/2024 9:55 AM [facility] MCHC 32.6 31.7 - 36.3 g/dL 12/12/2024 9:55 AM [facility] RDW-CV 12.0 11.3 - 14.8 % 12/12/2024 9:55 AM [facility] Platelet Count 304 150 - 420 x10E9/L 12/12/2024 9:55 AM [facility] MPV 10.7 7.8 - 11.4 fL 12/12/2024 9:55 AM [facility] Preliminary Absolute Neutrophil 2.69 1.60 - 7.50 x10E9/L 12/12/2024 9:55 AM [facility] Neutrophil % 38.3(L) 41.0 - 74.0 % 12/12/2024 9:55 AM [facility] Lymphocyte % 50.5(H) 17.0 - 47.0 % 12/12/2024 9:55 AM [facility] Monocyte % 8.3 3.0 - 11.0 % 12/12/2024 9:55 AM [facility] Eosinophil % 2.1 0.0 - 7.0 % 12/12/2024 9:55 AM [facility] Basophil % 0.7 0.0 - 1.6 % 12/12/2024 9:55 AM [facility] Immature Granulocytes % 0.1 0.0 - 1.0 % 12/12/2024 9:55 AM [facility] Neutrophil Absolute 2.69 1.60 - 7.50 x10E9/L 12/12/2024 9:55 AM [facility] Lymphocyte Absolute 3.55 1.00 - 4.40 x10E9/L 12/12/2024 9:55 AM [facility] Monocyte Absolute 0.58 0.15 - 1.00 x10E9/L 12/12/2024 9:55 AM [facility] Eosinophil Absolute 0.15 0.00 - 0.60 x10E9/L 12/12/2024 9:55 AM [facility] Basophil Absolute 0.05 0.00 - 0.13 x10E9/L 12/12/2024 9:55 AM [facility] Blood BLOOD SPECIMEN / Unknown Venipuncture / Unknown 12/12/2024 9:21 AM CDT 12/12/2024 9:34 AM T us Sue Pa MD LAB - HEMATOLOGY ORDER SWAPNA Final Result [address] [address], [facility] [phone] * (ABNORMAL) COMPREHENSIVE METABOLIC PANEL (12/12/2024 9:21 AM [facility]) Only the most recent of2 resultswithin the time period is included. BUN 5(L) 7 - 26 mg/dL 12/12/2024 10:11 AM [facility] Creatinine 0.72 0.56 - 0.96 mg/dL 12/12/2024 10:11 AM [facility] Sodium 140 136 - 145 mmol/L 12/12/2024 10:11 AM [facility] Potassium 3.4(L) 3.5 - 4.5 mmol/L 12/12/2024 10:11 AM [facility] Chloride 109(H) 98 - 107 mmol/L 12/12/2024 10:11 AM [facility] CO2 27 22 - 29 mmol/L 12/12/2024 10:11 AM [facility] Glucose 99 70 - 99 mg/dL 12/12/2024 10:11 AM [facility] Calcium 9.1 8.4 - 10.2 mg/dL 12/12/2024 10:11 AM [facility] Protein Total 7.2 6.0 - 8.3 g/dL 12/12/2024 10:11 AM [facility] Albumin 4.0 3.4 - 5.0 g/dL 12/12/2024 10:11 AM [facility] Bilirubin Total 0.2 0.2 - 1.2 mg/dL 12/12/2024 10:11 AM [facility] Alkaline Phosphatase 86 40 - 150 U/L 12/12/2024 10:11 AM [facility] ALT 10 5 - 55 U/L 12/12/2024 10:11 AM [facility] AST 18 5 - 34 U/L 12/12/2024 10:11 AM [facility] Anion Gap 4(L) 6 - 16 12/12/2024 10:11 AM [facility] BUN/Creatinine Ratio 7 7 - 23 12/12/2024 10:11 AM [facility] Osmolality Calculated 287 275 - 295 mOsm/kg 12/12/2024 10:11 AM [facility] Albumin/Globulin Ratio 1.3 1.1 - 2.3 12/12/2024 10:11 AM [facility] eGFR by CKD-EPI >90 >=90 mL/min/1.7 3 m2 12/12/2024 10:11 AM [facility] Blood BLOOD SPECIMEN / Unknown Venipuncture / Unknown 12/12/2024 9:21 AM [facility] 12/12/2024 9:34 AM [facility] - 12/12/2024 10:11 AM [facility] Estimated Glomerular Filtration Rate (eGFR) calculated using the CKD-EPI Creatinine Equation (2020), per the National Kidney Foundation and [place] Society of Nephrology recommendations. us Sue Pa MD LAB - CHEMISTRY ORDERA BLES Final Result [facility] [address] [place] [address], [facility] [phone] * (ABNORMAL) URINALYSIS W/MICROSCOPIC REFLEX TO CULTURE (10/27/2024 11:17 AM [facility]) Color UA Colorless(A ) Yellow, Straw 10/27/2024 11:28 AM [facility] Clarity UA Clear Clear 10/27/2024 11:28 AM [facility] Glucose UA Normal Normal 10/27/2024 11:28 AM [facility] Bilirubin UA Negative Negative 10/27/2024 11:28 AM [facility] Ketone UA Negative Negative 10/27/2024 11:28 AM [facility] Specific [place] UA <1.005(L) 1.005 - 1.030 10/27/2024 11:28 AM [facility] Blood UA Negative Negative 10/27/2024 11:28 AM [facility] pH UA 5.5 5.0 - 8.0 pH 10/27/2024 11:28 AM [facility] Protein UA Negative Negative 10/27/2024 11:28 AM [facility] Urobilinogen UA Normal Normal mg/dL 10/27/2024 11:28 AM [facility] Nitrite UA Negative Negative 10/27/2024 11:28 AM [facility] Leukocyte Esterase UA Negative Negative 10/27/2024 11:28 AM [facility] RBC UA 0-2 0 - 5 # /hpf 10/27/2024 11:28 AM [facility] WBC UA 0-5 0 - 5 # /hpf 10/27/2024 11:28 AM [facility] Bacteria UA Trace(A) None Seen 10/27/2024 11:28 AM [facility] Squamous Epithelial Cells 0-2 0 - 5 /hpf 10/27/2024 11:28 AM [facility] Urine MID-STREAM URINE SPECIMEN / Unknown Collection / Unknown 10/27/2024 11:17 AM T 10/27/2024 11:21 AM [facility] - 10/27/2024 11:28 AM [facility] Sue Pa MD LAB - URINALYSIS ORDER SWAPNA Final Result [facility] [address] [place] [address], [facility] [phone] * HEPATITIS C RNA QUANTITATIVE PCR (09/27/2017 11:45 AM CDT) Hepatitis C RNA PCR, Interp Not Detected Not Detected 10/04/2017 8:20 AM CDT [facility] Blood BLOOD SPECIMEN / Unknown Lab Venipuncture / Unknown 09/27/2017 11:45 AM CDT 09/27/2017 12:37 PM CDT Narrative [facility] - 10/04/2017 8:20 AM CDT The Hepatitis C viral (HCV) RNA analysis utilized a serum sample, real-time reverse filter cleaner PCR, and is reported as Not Detected, [...] the isolation of HCV RNA with reverse filter cleaner of genomic HCV RNA followed by real-time PCR in the presence of an unrelated RNA internal control. The internal control ensures that RNA is isolated, and that no general significant inhibitors of the RT-PCR process are present. The analysis was performed using a U.S. FDA approved test methodology ([employer] Real Time HCV). Sue Pa MD LAB - CHEMISTRY ORDERA BLEBeverley Final Result Performing Organization Address [facility]/ZIP Co de Phone Number [facility] [address] [place] [address], [facility] [phone] from Last 3 Months or Most Recently Relevant to Health Maintenance Insurance [facility] Care Teams Student Relationship Specialty Start Date End Date Radha Muhammad [address] [place] [address] Dr Bojorquez [address] [place] [phone] PCP - General 01/11/24 Sue Pa MD [address] [place] [phone] Typesetting Machine Operator/Tender Rheumatology 01/08/25
--- OUTSIDE RECORDS SUMMARY | 2025-01-22 18:27 | XMS_ITS | Clinical Summary ---
Author Organization [facility] Address [address] [place] [address] Care Team Providers Care Toy Electric Train Repairer Name Role Phone Radha Maldonado MD Primary Care Provider [phone] Allergies Active Allergy Reactions Criticality Noted Date [...] on file Legal Sex Female 11:29 PM REHABILITATION ASSISTANT Gender Identity Not on file Sexual Orientation [...] Comments Blood Pressure 122/72 07/13/2024 10:02 AM REHABILITATION ASSISTANT Pulse 102 08/27/2023 1:16 PM REHABILITATION ASSISTANT Temperature 37.5 C (99.5 F) 08/27/2023 11:17 AM REHABILITATION ASSISTANT Respiratory Rate 18 08/27/2023 1:16 PM REHABILITATION ASSISTANT Oxygen Saturation 98% 08/27/2023 1:16 PM REHABILITATION ASSISTANT Inhaled Oxygen Concentration - - Weight 61.7 kg (136 lb) 07/13/2024 10:02 AM REHABILITATION ASSISTANT Height 171.5 cm (5' 7.5) 07/13/2024 10:02 AM CS T Body Mass Index 20.99 07/13/2024 10:02 AM REHABILITATION ASSISTANT Plan of Treatment Health Maintenance Due Date Last Done Comments Breast Cancer Screening-Mammogram 1984 Depression Screening 1984 Hepatitis C Screening 1984 Varicella Vaccines (1 of 2 - 13+ 2-dose series) 1997 Pneumococcal vaccine <65 (1 of 2 - PCV) 09/23/2003 Zoster Vaccine (1 of 2) 09/23/2003 DTaP/Tdap/Td Vaccine (6 - Tdap) 06/22/2007 06/21/2007, 02/07/1999, 10/06/1988, Additional history exists HPV Vaccines (1 - 3-dose SCD M series) 09/23/2011 Influenza Vaccine (#1) 2025 Regular Well Visit/Exam 18-64 07/13/2025, 02/02/2023, 01/30/2022, Additional history exists Hepatitis B Screening Completed 04/20/1997 , 12/06/1996, 07/07/[address] [place] [address] [place] [address] Care Teams Toy Electric Train Repairer Relationship Specialty Start Date End Date Radha Maldonado MD PCP - General Family Medicine 08/27/23
--- OUTSIDE RECORDS SUMMARY | 2025-01-22 18:27 | XMS_ITS | Encounter Summary ---
Author Organization [facility] Address [address] [facility] [place] [address] Care Team Providers Care Program Management Analyst Name Role Phone Giovanni Mendoza MD Primary Care Provider [phone] Radha Muhamamd Primary Care Provider [phone] Sue Pa MD Unavailable [phone] Reason for Visit * Reason Onset Date Comments MEDICATION REFILL 07/30/2021 Encounter Details Date Type Department Care Team (Late st Contact Info) Description 07/30/2021 Refill [facility] [address] [place] [address], [facility] [place] [address] Bridger Deleon MD [address] [place] [address] [place] [address] MEDICATION REFILL Social History Tobacco Use Types Packs/Day Years Used Date Smoking Tobacco: Former Cigarettes Q uit: 2010 Smokeless Tobacco: Never Alcohol Use Standard Drinks/Week Comments No 0 (1 standard drink = 0.6 oz pur e alcohol) Comments No Sex and Gender Information Value Date Recorded Sex Assigned at Female 11/17/2022 10:38 AM CDT Legal Sex Female 6:30 AM CURTAIN ROLLER 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 Latex Itching [...] (three) tablets by mouth 2 times daily AIN ROLLER ASSEMBLER documented in this encounter Plan of Treatment Upcoming Encounters Date Type Department Care Team (Late st Contact Info) Description 01/23/2025 9:00 AM CDT Hospital Encounter [facility] [address] [place] [phone] Sue Pa MD [address] [place] [address] DIV [place] [phone] 03/06/2025 9:00 AM CDT Appointment [facility] [address] [address] Sue Pa MD [address] [place] [address] DIV [place] [phone] 05/08/2025 1:00 PM CURTAIN ROLLER ASSEMBLER Office Visit [facility] - Rheumatology [address] [place] [address], [facility] [place] [phone] Sue Pa MD [address] [place] [address] 2L DIV [place] [phone] documented as of this encounter Visit Diagnoses Not on filedocumented in this encounter Care Teams Program Management Analyst Relationship Specialty Start Date End Date Giovanni Mendoza MD [address] [place] [address] [address] [place] [phone] PCP - General 08/30/20 01/10/24 Radha Muhammad 4 [facility] [address] [place] [phone] PCP - General 01/11/24 Sue Pa MD [address] [facility] 2L DIV [place] [phone] Customer Service Advocate Rheumatology 01/08/25 documented as of this encounter
--- OUTSIDE RECORDS SUMMARY | 2025-01-22 18:27 | XMS_ITS | Encounter Summary ---
Author Organization [facility] Address [address] [facility] [place] [address] Care Team Providers Care Blasting Entryman Name Role Phone Giovanni Mendoza MD Primary Care Provider [phone] Radha Muhammad Primary Care Provider [phone] Sue Pa MD Unavailable [phone] Reason for Visit * Reason Onset Date Comments MEDICATION REFILL 05/27/2021 Encounter Details Date Type Department Care Team (Late st Contact Info) Description 05/27/2021 Refill [facility] - Rheumatology [address] [facility] [place], [place] [phone] Bridger Deleon MD [address] [facility] [place] [phone] MEDICATION REFILL Social History Tobacco Use Types Packs/Day Years Used Date Smoking Tobacco: Former Cigarettes Q uit: 2011 Smokeless Tobacco: Never Alcohol Use Standard Drinks/Week Comments No 0 (1 standard drink = 0.6 oz pur e alcohol) Comments No Sex and Gender Information Value Date Recorded Sex Assigned at Female 11/17/2022 10:38 AM CDT Legal Sex Female 6:30 AM MUSHROOM PACKER Gender Identity Female 11/17/2022 10:38 AM CDT Sexual Orientation Not on file documented as of this encounter Miscellaneous Notes * Telephone Encounter - Bridger Deleon MD - 05/27/2021 4:12 PM MUSHROOM PACKER Please see note from 05/23/21. ROOM PACKER * Telephone Encounter - Camryn Romero - 05/27/2021 3:53 PM CST Refill Request September [place] MANI: 10.30.20Apr due: none found APR scheduled: Visit date [...] 1 (one) tablet by mouth once daily ROOM PACKER documented in this encounter Plan of Treatment Upcoming Encounters Date Type Department Care Team (Late st Contact Info) Description 01/23/2025 9:00 AM CDT Hospital Encounter [facility] [address] [place] [phone] Sue Pa MD [facility] [place] [address] 03/06/2025 9:00 AM CDT Appointment [facility] [address] [place] [phone] Sue Pa MD [address] [place] [address] 2L [place] [address] 05/08/2025 1:00 PM MUSHROOM PACKER Office Visit [facility] - Rheumatology [address] [place] [address], [place] [phone] Sue Pa MD [address] [place] [address] 2L [place] [phone] documented as of this encounter Visit Diagnoses Diagnosis Nausea without vomiting Rheumatoid arthritis involving multiple sites, unspecified whether rheumatoid factor present (HCC) documented in this encounter Care Teams Blasting Entryman Relationship Specialty Start Date End Date Giovanni Mendoza MD [address] [place] [address] [address] [place] [phone] PCP - General 08/30/20 01/10/24 Radha Muhammad 4 [facility] [address] [place] [phone] PCP - General 01/11/24 Sue Pa MD [address] [place] [address] 2L [place] [phone] Neurological Physiotherapist Rheumatology 01/08/25 documented as of this encounter
--- OUTSIDE RECORDS SUMMARY | 2025-01-22 18:27 | XMS_ITS | Referral Summary ---
Author Organization [facility] Address [address] [place] [address] Care Team Providers Care Neon Sign Installer Name Role Phone Radha Maldonado MD Primary Care Provider [phone] Allergies Active Allergy Reactions Criticality Noted Date [...] on file Legal Sex Female 11:29 PM SHEET FINISHER Gender Identity Not on file Sexual Orientation Not on file Last Filed Vital Signs Vital Sign Reading Time Taken Comments Blood Pressure 122/72 07/13/2024 10:02 AM SHEET FINISHER Pulse 102 08/27/2023 1:16 PM SHEET FINISHER Temperature 37.5 C (99.5 F) 08/27/2023 11:17 AM SHEET FINISHER Respiratory Rate 18 08/27/2023 1:16 PM SHEET FINISHER Oxygen Saturation 98% 08/27/2023 1:16 PM SHEET FINISHER Inhaled Oxygen Concentration - - Weight 61.7 kg (136 lb) 07/13/2024 10:02 AM SHEET FINISHER Height 171.5 cm (5' 7.5) 07/13/2024 10:02 AM CS T Body Mass Index 20.99 07/13/2024 10:02 AM SHEET FINISHER Plan of Treatment Not on [place] [address] [place] [address] [facility] Care Teams Neon Sign Installer Relationship Specialty Start Date End Date Radha Maldonado MD PCP - General Family Medicine 08/27/23
[2025-01-22 18:28] VITALS: BP 136/89; PULSE 86; RESP 14; TEMP 36.8; O2SAT 100
--- OUTSIDE RECORDS SUMMARY | 2025-01-22 18:28 | XMS_ITS | Continuity of Care Document ---
Author Organization [facility] Address [address] [place] [address] Phone Care Team Providers Care Medical Logistics Specialist Name Role Phone CONV, [facility] Unavailable Unavailable Advance Directives Directive Yes / No Effective Date File Name No Information Encounters Encounter Description Practice Location Reason(s) For Visit Diagnoses Date Provider Providers Copied on Encounter [facility] /[facility], [address] [place] [address], [facility], tel:[phone] Z [facility] CONV No Information CONV [facility]. [address] [place] [address], [address], [place]. Family History Family Member Type Diagnosis Age At Onset No Information Immunizations Vaccine Date Status Comments TD, TETANUS-DIPHTHERIA administered Note: LA ; Source: New Immunization Record HEP B VACCINE PED/ADOL administered Note: LA ; Source: New Immunization Record HEP B VACCINE PED/ADOL administered Note: LA ; Source: New Immunization Record HEP B VACCINE PED/ADOL administered Note: LA ; Source: New Immunization Record [id number], PED/ADL administered Source: New Immuniza tion Record DTP administered Source: New Imm unization Record ORAL POLIO administered Source: New Imm unization Record DTP administered Source: New Imm unization Record [id number], PED/ADL administered Source: New Immuniza tion Record ORAL POLIO administered Source: New Imm unization Record DTP administered Source: New Imm unization Record DTP administered Source: New Imm unization Record ORAL POLIO administered Source: New Imm unization Record DTP administered Source: New Imm unization Record ORAL POLIO administered Source: New Imm unization Record Payers Payer name Insurance type Covered green party ID Authoriza tion(s) No Information Social [...]
--- NOTE | 2025-01-22 18:38 | ED_ITS ---
HPI - Eye Problem General Chief complaint: Eye Problems Stated complaint: right eye Time Seen by Provider: 01/22/25 18:38 Source: patient and RN notes reviewed Mode of arrival: ambulatory Limitations: no limitations History of Present Illness HPI Narrative: 39-year-old female presents with concern for right eyelid swelling, tenderness, redness. Reports that started 4 days ago, it was more swollen at the beginning. Reports she has had intermittent purulence drainage. She denies vision changes. chief complaint: eye redness Related Data Home Medications ?Medication ?Instructions ?Recorded ?Confirmed ?Last Taken ?Type conjugated estrogens 0.45 mg 0.45 mg PO DAILY 10/04/22 10/15/24 Unknown History tablet (Premarin) sulfasalazine 500 mg tablet 1,500 mg PO BID 10/04/22 10/15/24 Unknown History meloxicam 15 mg tablet 15 mg PO DIRECTED 05/02/23 10/15/24 Unknown History infliximab 100 mg intravenous 100 mg IV [id number] 10/02/23 10/15/24 Unknown History solution (Remicade) prednisone 5 mg tablet mg 07/11/24 Unknown History cyclobenzaprine 10 mg tablet mg 01/22/25 Unknown History Allergies Allergy/AdvReac Type Severity Reaction Status Date / Time amoxicillin Allergy Unknown Rash Verified 01/22/25 18:32 citalopram (From Celexa) Allergy Unknown Unknown Verified 01/22/25 18:32 lanolin Allergy Unknown Unknown Verified 01/22/25 18:32 latex Allergy Unknown Unknown Verified 01/22/25 18:32 methocarbamol Allergy Unknown Swelling Verified 01/22/25 18:32 Penicillins Allergy Unknown Unknown Verified 01/22/25 18:32 sumatriptan (From Imitrex) Allergy Unknown Dyspnea / Verified 01/22/25 18:32 SOB clindamycin AdvReac Unknown Diarrhea Verified 01/22/25 18:32 Review of Systems Review of Systems: CONSTITUTIONAL: Denies malaise, chills, sweats, or fever. EYES: Denies visual changes. Reports right lower eyelid redness, irritation, discharge. ENT: Denies rhinorrhea, congestion, sinus pain, otalgia or sore throat. SKIN: Denies rash or itching. NEUROLOGIC: Denies numbness, weakness, or headache. PSYCHIATRIC: Denies anxiety or depression. All systems reviewed & are unremarkable except as noted in HPI and below PMFSH Past Medical History Medical History Anxiety Hx of migraines Fibromyalgia Thumb dislocation Hand strain Rheumatoid arthritis Surgical History Surgical History Previous section x2 History of hysterectomy S/p bilateral carpal tunnel release Family History Family History Father Family history non-contributory Social History Social History Smoking status: Never smoker Alcohol intake: never Substance use: never Last use: pain control Living arrangements: alone Gender identity (if verbalized by the patient): Female Spiritual care concerns: No Comments At time of signature, agree with nursing past medical, surgical, social and family history. There is no relevant family history pertinent to the presenting complaint Exam Narrative: GENERAL: Well-appearing, well-nourished, and in no acute distress. HEAD: Normocephalic, atraumatic. EYES: PERRLA, sclera clear, and EOMI. No nystagmus. Bilateral conjunctivae and sclera clear. Left Upper and lower eyelid unremarkable, no periorbital edema noted. Hordeolum internum noted to the right lower inner canthus ENT: Nares clear, turbinates pink, no rhinorrhea or epistaxis. Mucous membranes moist. NECK: Supple. CHEST: No respiratory distress. Speaks in full sentences. HEART: Regular rate and rhythm. SKIN: Warm, dry, no visible rash. NEURO: Alert and oriented x3. PSYCH: Normal mood and affect Course Course Emergency Course: Patient is aware of diagnosis, understands and agrees to treatment plan. Anticipatory guidance given. Patient agrees to follow-up as directed and is aware of reasons to seek care at the emergency department. Portions of this record may have been created with voice recognition software Level of Care: Express Care Visit Vital Signs Vital signs: Vital Signs Temperature 98.2 F 01/22/25 18:28 Pulse Rate 86 01/22/25 18:28 Respiratory Rate 14 01/22/25 18:28 Blood Pressure 136/89 01/22/25 18:28 Pulse Oximetry 100 01/22/25 18:28 Oxygen Delivery Room Air 01/22/25 18:28 Temperature 98.2 F 01/22/25 18:28 Pulse Rate 86 01/22/25 18:28 Respiratory Rate 14 01/22/25 18:28 Blood Pressure 136/89 01/22/25 18:28 Pulse Oximetry 100 01/22/25 18:28 Oxygen Delivery Room Air 01/22/25 18:28 Reviewed. MDM - Eye Problem MDM Narrative Medical decision making narrative: Consideration of the following conditions may be warranted for the presenting problem, they are not final diagnoses: Bacterial conjunctivitis, allergic conjunctivitis, viral conjunctivitis, foreign body, blepharitis, chalazion, hordeolum, corneal abrasion, preseptal cellulitis, orbital cellulitis. No evidence of proptosis, ophthalmoplegia, vision loss, pain with eye movement. Exam findings show no acute concerns or changes; patient is non-toxic appearing and is in no distress. Patient is appropriate for outpatient treatment and follow-up. Critical Care Time Critical Care Time Critical Care Time: No Discharge Plan Discharge Clinical Impression: Hordeolum Patient Disposition: Home Condition: Stable Instructions: Jackie (ED) Additional Instructions: Do not touch or rub your eye. Use a warm washcloth on your 5-6 times a day Use eyedrops as directed You may take Tylenol or ibuprofen for pain Follow-up with PCP or motorboat mechanic if condition is not improving in 2-3days. Go to the emergency room if you have pain behind your eye, pressure behind your eye, difficulty seeing, or other severe symptoms Patient Language: Faroese Prescriptions: New polymyxin B sulf-trimethoprim 10,000 unit- 1 mg/mL drops 1 drp RIGHT EYE Q3H 7 Days Qty: 10 0RF Rx Instructions: while awake; do not exceed 6 doses in 24 hours No Action infliximab [Remicade] 100 mg Recon Soln 100 mg IV [id number] prednisone 5 mg tablet cyclobenzaprine 10 mg tablet sulfasalazine 500 mg tablet 1,500 mg PO BID Premarin 0.45 mg tablet 0.45 mg PO DAILY meloxicam 15 mg tablet 15 mg PO DIRECTED (DME) Aerochamber MV Spacer See Rx Instructions .Route Qty: 1 0RF Rx Instructions: As directed Follow-up/Referrals: PHYSICIAN NOT ON STAFF,NONSTAFF [Primary Care Provider] - Time of Disposition: 18:42
== END 2025-01-22 18:45 | disposition home or self-care (01) ==
PROVIDERS: Emergency Provider Nurse Practitioner
DX: H00.022 Hordeolum internum right lower eyelid (principal); M79.7 Fibromyalgia; M06.9 Rheumatoid arthritis, unspecified
CPT/HCPCS: 99213; G0463